=== PATIENT | female | born 1955 | race Caucasian/White ===

== ENCOUNTER → 2019-09-13 | Outpatient (CLI) | payer MEDICAID, OTHER | LOC: LAB FS 12:36 | PROVIDERS: ATTEND Pediatrics | DX: R06.02 Shortness of breath (principal) | CPT/HCPCS: 87635 ==

== ENCOUNTER 2020-01-04 13:41 | Inpatient (IN) | payer MEDICAID ==
--- NOTE | 2020-01-04 13:47 | ED Dyspnea ---
General Stated Complaint: SOB Source of Information: Patient, EMS History of Present Illness Date Seen by Provider: Jan 04, 2020 Time Seen by Provider: 13:45 Initial Comments 64-year-old female sent in a senior living for shortness of breath/low oxygen. Patient reports she is here because she's tingly and has low oxygen. EMS reports that the senior living called because her oxygen was low, when they checked it around 2 AM. They put her on some oxygen at up into the low 90s. EMS. On 6 L is got approximate 95. Patient is morbidly obese. No reports of fevers chills. Mild cough. No other systemic complaints. Allergies and Home Medications Allergies Coded Allergies: No Known Drug Allergies (Unverified , 01/04/20) Patient Home Medication List Home Medication List Reviewed: Yes Review of Systems Review of Systems Constitutional: No chills, No fever Respiratory: cough, short of breath Cardiovascular: no symptoms reported Gastrointestinal: no symptoms reported Genitourinary: no symptoms reported Musculoskeletal: no symptoms reported Skin: no symptoms reported Psychiatric/Neurological: No Symptoms Reported Past Tetuwim-Cdwwbe-Heemxj Hx Past Med/Social Hx: Reviewed Nursing Past Med/Soc Hx Physical Exam Vital Signs Capillary Refill : Height, Weight, BMI Height: '" Weight: lbs. oz. kg; BMI Method: General Appearance: Obese (severe morbid) HEENT: PERRL/EOMI Respiratory: Decreased Breath Sounds; No Wheezing; Other (limited based on body evidence) Cardiovascular: Regular Rate, Rhythm, No Edema Gastrointestinal: Non Tender, Soft Neurologic/Psychiatric: Normal Mood/Affect Skin: Normal Color, Warm/Dry Focused Exam Lactate Level 01/04/20 14:13: Lactic Acid Level 1.25 Lactic Acid Level Laboratory Tests Test 01/04/20 14:13 Lactic Acid Level 1.25 MMOL/L (0.50-2.00) Progress/Results/Core Measures Results/Orders Lab Results Laboratory Tests Test 01/04/20 14:13 Range/Units White Blood Count 6.5 4.3-11.0 10^3/uL Red Blood Count 4.19 L 4.35-5.85 10^6/uL Hemoglobin 11.5 11.5-16.0 G/DL Hematocrit 38 35-52 % Mean Corpuscular Volume 91 80-99 FL Mean Corpuscular Hemoglobin 27 25-34 PG Mean Corpuscular Hemoglobin Concent 30 L 32-36 G/DL Red Cell Distribution Width 16.7 H 10.0-14.5 % Platelet Count 249 130-400 10^3/uL Mean Platelet Volume 9.4 7.4-10.4 FL Neutrophils (%) (Auto) 77 H 42-75 % Lymphocytes (%) (Auto) 13 12-44 % Monocytes (%) (Auto) 7 0-12 % Eosinophils (%) (Auto) 3 0-10 % Basophils (%) (Auto) 0 0-10 % Neutrophils # (Auto) 5.0 1.8-7.8 X 10^3 Lymphocytes # (Auto) 0.8 L 1.0-4.0 X 10^3 Monocytes # (Auto) 0.4 0.0-1.0 X 10^3 Eosinophils # (Auto) 0.2 0.0-0.3 10^3/uL Basophils # (Auto) 0.0 0.0-0.1 10^3/uL Blood Gas Puncture Site R radial Blood Gas Patient Temperature 36.9 Arterial Blood pH 7.29 *L 7.37-7.43 Arterial Blood Partial Pressure CO2 83 *H 35-45 MMHG Arterial Blood Partial Pressure O2 69 L 79-93 MMHG Arterial Blood HCO3 40 H 23-27 MMOL/L Arterial Blood Total CO2 42.0 H 21.0-31.0 MMOL/L Arterial Blood Oxygen Saturation 91 L 94-100 % Arterial Blood Base Excess 10.2 H -2.5-2.5 MMOL/L Joss Test YES-POS Blood Gas Ventilator Setting NO Blood Gas Inspired Oxygen 6 L Sodium Level 138 135-145 MMOL/L Potassium Level 5.0 3.6-5.0 MMOL/L Chloride Level 98 98-107 MMOL/L Carbon Dioxide Level 33 H 21-32 MMOL/L Anion Gap 7 5-14 MMOL/L Blood Urea Nitrogen 13 7-18 MG/DL Creatinine 0.80 0.60-1.30 MG/DL Estimat Glomerular Filtration Rate > 60 BUN/Creatinine Ratio 16 Glucose Level 138 H 70-105 MG/DL Lactic Acid Level 1.25 0.50-2.00 MMOL/L Calcium Level 8.7 8.5-10.1 MG/DL Corrected Calcium 9.1 8.5-10.1 MG/DL Total Bilirubin 0.3 0.1-1.0 MG/DL Aspartate Amino Transf (AST/SGOT) 12 5-34 U/L Alanine Aminotransferase (ALT/SGPT) 12 0-55 U/L Alkaline Phosphatase 91 40-136 U/L C-Reactive Protein 3.07 H <0.50 MG/DL Pro-B-Type Natriuretic Peptide 153.5 H <75.0 PG/ML Total Protein 7.1 6.4-8.2 GM/DL Albumin 3.5 3.2-4.5 GM/DL My Orders Orders - BRAXTON GONZALEZ DO Arterial Blood Gas (01/04/20 13:47) Cbc With Automated Diff (01/04/20 13:47) Comprehensive Metabolic Panel (01/04/20 13:47) Lactic Acid Analyzer (01/04/20 13:47) Probnp Fs (01/04/20 13:47) Crp Fs (01/04/20 13:47) Chest 1 View Ap/Pa Only (01/04/20 13:47) Coronavirus Sars-Cov-2 So 2018 (01/04/20 13:52) Albuterol/Ipra Inhalation Soln (Duoneb I (01/04/20 14:00) Methylprednisolone Sod Succ (Solu-Medrol (01/04/20 13:56) Svn Small Volume Nebulizer (01/04/20 13:56) Medications Given in ED Current Medications Medications Dose Ordered Sig/Piero Route Start Time Stop Time Status Last Admin Dose Admin Albuterol/ Ipratropium 3 ml ONCE ONCE INH 01/04/20 14:00 01/04/20 14:01 DC 01/04/20 14:37 3 ML Progress Progress Note : Time: 15:19 Progress Note Patient with COPD and likely hypercapnic respiratory failure from a combination of COPD and body habitus. I will start patient on BiPAP we will transfer to [facility] for further treatment and management. Patient transferred in stable condition. Diagnostic Imaging Diagonstic Imaging: Xray Plain Films/CT/US/NM/MRI: chest Comments [facility], [place] NAME: JUNIOR BOWLING [facility] REC#: [id number] PT STATUS: REG ER : 1955 PHYSICIAN: BRAXTON GONZALEZ DO ADMIT DATE: 09/05/20/ER FS Draft Date of Exam:01/04/20 CHEST 1 VIEW AP/PA ONLY EXAMINATION: Chest 1 view. HISTORY: Shortness of breath. Cough. COMPARISON: None available. FINDINGS: Limited exam due to patient body habitus and technique. Lung volumes are low. The majority of the left lower lobe is obscured as is the corresponding cardiac silhouette. The upper lungs demonstrate no focal consolidation. No large pneumothorax. IMPRESSION: Limited exam due to patient body habitus and technique. No opacity is seen in the upper lobes. Departure Communication (Admissions) Time/Spoke to Admitting Phy: 15:20 Impression Primary Impression: COPD with acute exacerbation Additional Impression: Hypercapnemia Disposition: ADMITTED INPATIENT Condition: Stable Admissions Decision to Admit Reason: Admit from ER (General) Decision to Admit/Date: Jan 04, 2020 Time/Decision to Admit Time: 15:20 Departure-Patient Inst. Referrals: BREONNA HERNANDEZ MD (PCP/Family) Primary Care Physician BRAXTON GONZALEZ DO Jan 04, 2020 13:47
[2020-01-04] MEDS ORDERED: methylPREDNISolone 125 MG (Solu-MEDROL) VIAL IV STA (13:56)
[2020-01-04] MEDS ORDERED: RT-ALBUTEROL/IPRATROPIUM 3 ML (DUONEB) VIAL INH ONE (14:00)
[2020-01-04 14:43] LABS: BASOPHILS % (AUTO) 0 % (0-10); EOSINOPHILS # (AUTO) 0.2 10^3/uL (0.0-0.3); EOSINOPHILS % (AUTO) 3 % (0-10); HEMATOCRIT 38 % (35-52); HEMOGLOBIN 11.5 G/DL (11.5-16.0); LYMPHOCYTES # (AUTO) 0.8 X 10^3 (1.0-4.0); LYMPHOCYTES % (AUTO) 13 % (12-44); MEAN CORPUSCULAR HEMOGLOBIN 27 PG (25-34); MEAN CORPUSCULAR HGB CONC 30 G/DL (32-36); MEAN CORPUSCULAR VOLUME 91 FL (80-99); MEAN PLATELET VOLUME 9.4 FL (7.4-10.4); MONOCYTES # (AUTO) 0.4 X 10^3 (0.0-1.0); MONOCYTES % (AUTO) 7 % (0-12); NEUTROPHILS % (AUTO) 77 % (42-75); PLATELET COUNT 249 10^3/uL (130-400); WHITE BLOOD COUNT 6.5 10^3/uL (4.3-11.0)
[2020-01-04 14:45] LABS: ABG PO2 69 MMHG (79-93)
[2020-01-04 14:46] LABS: ABG BASE EXCESS 10.2 MMOL/L (-2.5-2.5); ABG OXYGEN SATURATION 91 % (94-100); ALLENS TEST YES-POS; INSPIRED O2 6 L; PATIENT TEMP 36.9; VENTILATOR NO
--- NOTE | 2020-01-04 14:47 | Diagnostic Imaging Report ---
EXAMINATION: Chest 1 view. HISTORY: Shortness of breath. Cough. COMPARISON: None available. FINDINGS: Limited exam due to patient body habitus and technique. Lung volumes are low. The majority of the left lower lobe is obscured as is the corresponding cardiac silhouette. The upper lungs demonstrate no focal consolidation. No large pneumothorax. IMPRESSION: Limited exam due to patient body habitus and technique. No opacity is seen in the upper lobes. Dictated by: Dictated on workstation # [id number]
[2020-01-04 14:48] LABS: ABG PCO2 83 MMHG (35-45); ABG PH 7.29 (7.37-7.43)
[2020-01-04 14:59] LABS: ALANINE AMINOTRANSFERASE 12 U/L (0-55); ALBUMIN 3.5 GM/DL (3.2-4.5); ALKALINE PHOSPHATASE 91 U/L (40-136); BILIRUBIN,TOTAL 0.3 MG/DL (0.1-1.0); BUN/CREATININE RATIO 16; CALCIUM 8.7 MG/DL (8.5-10.1); CARBON DIOXIDE 33 MMOL/L (21-32); CHLORIDE 98 MMOL/L (98-107); GFR ESTIMATED > 60; GLUCOSE 138 MG/DL (70-105); SODIUM 138 MMOL/L (135-145); TOTAL PROTEIN 7.1 GM/DL (6.4-8.2)
--- NOTE | 2020-01-04 15:20 | NUR ---
Bipap started at 15/7, rate 14, fio2 50%.
[2020-01-04 17:00] VITALS: BP 185/105
--- NOTE | 2020-01-04 17:00 | NUR ---
JUNIOR BOWLING admitted to room CU4-1, with an admitting diagnosis of CHF, HYPOXIA, on 01/04/20 from [facility], accompanied by EMS STAFF.JUNIOR BOWLING introduced to surroundings, call light, bed controls, phone, TV, temperature control, lights, meal times, smoking policy, visitor policy, side rail policy, bathrooms and showers. Patient Rights given to patient in the handbook. JUNIOR BOWLING verbalizes understanding that [facility] is not responsible for the loss or damage to any personal effects or valuables that are kept in the patients posession during their hospitalization.
[2020-01-04 18:00] VITALS: BP 174/92
--- NOTE | 2020-01-04 18:00 | NUR ---
DR JARQUIN NOTIFIED THAT PT IS C/O PAIN. SHE ORDERED TO RESTART PAINS MEDS; MORPHINE 30 MG ER BID, GABAPENTIN 600 MG TID, TRAMADOL 100 MG Q6[address] PRN PAIN. [address] JARQUIN ALSO NOTIFIED OF PT'S DVT SCORE AT 9. EICU CALLED AND REPORTED TO THIS RN THAT SHE WAS WORRIED ABOUT PTS ABG'S AND ORDERED ANOTHER SET TO BE DRAWN AT 1900 ALONG WITH A D DIMER. DR JARQUIN NOTIFIED OF THIS WELL AND ON BOARD WITH ORDER.
[2020-01-04] MEDS ORDERED: GBPN600T PO (18:16)
[2020-01-04] MEDS ORDERED: MORP30TA60 PO (18:19)
[2020-01-04] MEDS ORDERED: TRAM100T40 PO (18:20)
[2020-01-04 19:00] VITALS: BP 164/81
[2020-01-04 19:53] LABS: ABG BASE EXCESS 8.9 MMOL/L (-2.5-2.5); ABG OXYGEN SATURATION 100 % (94-100); ABG PCO2 57 MMHG (35-45); ABG PH 7.39 (7.37-7.43); ABG PO2 159 MMHG (79-93)
[2020-01-04 19:54] LABS: ALLENS TEST YES-POS; INSPIRED O2 6L; PATIENT TEMP 36.2; VENTILATOR NO
[2020-01-04 20:00] VITALS: BP 121/108
[2020-01-04 20:02] VITALS: BP 174/91
[2020-01-04] MEDS ORDERED: RT-ALBUTEROL/IPRATROPIUM 3 ML (DUONEB) VIAL INH PRN (20:30)
[2020-01-04 21:00] VITALS: BP 183/90
[2020-01-04] MEDS: GABAPENTIN 600 MG (NEURONTIN) TAB PO SCH (21:24)
[2020-01-04] MEDS: morphine ER 30 MG (MS CONTIN) TAB PO SCH (21:24)
[2020-01-04] MEDS ORDERED: RT-ALBUTEROL/IPRATROPIUM 3 ML (DUONEB) VIAL INH SCH (22:00)
[2020-01-04] MEDS: FLUTICASONE 110 MCG INHALER (FLOVENT) 12 GM INH SCH (23:38)
[2020-01-05] VITALS: BP 156/78
[2020-01-05] MEDS ORDERED: MENT118G TP (01:36)
[2020-01-05] MEDS ORDERED: LEVO75TA6 PO (01:36)
[2020-01-05] MEDS ORDERED: ROPI0.253 PO (01:36)
[2020-01-05] MEDS ORDERED: NYST1POW22 MC (01:36)
[2020-01-05] MEDS ORDERED: IPRA3AMP31 IH (01:36)
[2020-01-05] MEDS ORDERED: METF-397 PO (01:36)
[2020-01-05] MEDS ORDERED: TOPI50TA13 PO (01:36)
[2020-01-05] MEDS ORDERED: ALPR0.5T PO (01:36)
[2020-01-05] MEDS ORDERED: POLY17PO6 PO (01:36)
[2020-01-05] MEDS ORDERED: MAGN400O7 PO (01:36)
[2020-01-05] MEDS ORDERED: DOCU-143 PO (01:36)
[2020-01-05] MEDS ORDERED: MENT71OI TP (01:36)
[2020-01-05] MEDS ORDERED: VENL100T2 PO (01:36)
[2020-01-05] MEDS ORDERED: OMEP20CA18 PO (01:36)
[2020-01-05] MEDS ORDERED: TRAZ-227 PO (01:36)
[2020-01-05] MEDS ORDERED: DILT120C10 PO (01:36)
[2020-01-05] MEDS ORDERED: INSU100V5 SQ (01:36)
[2020-01-05] MEDS ORDERED: THIA250T8 PO (01:36)
[2020-01-05] MEDS ORDERED: BISA5TAB8 PO (01:36)
[2020-01-05] MEDS ORDERED: SPIR25TA5 PO (01:36)
[2020-01-05] MEDS ORDERED: MORP15TA69 PO (01:36)
[2020-01-05] MEDS ORDERED: INSU100V SQ (01:36)
[2020-01-05] MEDS ORDERED: NAPR220C11 PO (01:36)
[2020-01-05] MEDS ORDERED: FLT11013 IH (01:37)
[2020-01-05] MEDS ORDERED: APIX5TAB PO (01:37)
[2020-01-05] MEDS ORDERED: INSU100I23 SQ (01:37)
[2020-01-05] MEDS ORDERED: FOLIC ACID PO (01:37)
[2020-01-05 04:00] VITALS: BP 116/76
[2020-01-05] MEDS: inSUlin ASPART (NovoLOG) 1 UNIT/0.01 ML (CHARGE PER UNIT) SC SCH ×4 (06:00→22:33)
--- NOTE | 2020-01-05 07:10 | NUR ---
INFORMED DR. JARQUIN THAT PATIENT DID NOT HAVE ANY LABS ORDERED THIS AM AND THAT SHE TAKES ELIQUIS AT HOME AND DID NOT HAVE DVT PROPHYLAXIS. RECEIVED ORDERS FOR CBC, BMP AND TO RESTART ELIQUIS.
[2020-01-05] MEDS ORDERED: predniSONE 20 MG TAB PO ONE (08:15)
[2020-01-05 08:25] LABS: BASOPHILS % (AUTO) 0 % (0-10); EOSINOPHILS % (AUTO) 0 % (0-10); HEMATOCRIT 39 % (35-52); HEMOGLOBIN 11.4 G/DL (11.5-16.0); LYMPHOCYTES # (AUTO) 0.6 X 10^3 (1.0-4.0); LYMPHOCYTES % (AUTO) 12 % (12-44); MEAN CORPUSCULAR HEMOGLOBIN 27 PG (25-34); MEAN CORPUSCULAR HGB CONC 29 G/DL (32-36); MEAN CORPUSCULAR VOLUME 92 FL (80-99); MEAN PLATELET VOLUME 9.3 FL (7.4-10.4); MONOCYTES # (AUTO) 0.2 X 10^3 (0.0-1.0); MONOCYTES % (AUTO) 3 % (0-12); NEUTROPHILS # (AUTO) 4.5 X 10^3 (1.8-7.8); NEUTROPHILS % (AUTO) 85 % (42-75); PLATELET COUNT 237 10^3/uL (130-400); WHITE BLOOD COUNT 5.3 10^3/uL (4.3-11.0)
[2020-01-05 08:50] LABS: HYPERSEGMENTED NEUT SLIGHT; LYMPHOCYTES % (MANUAL) 10 %; MONOCYTES % (MANUAL) 2 %; NEUTROPHILS % (MANUAL) 88 %
[2020-01-05 08:51] LABS: HYPOCHROMASIA SLIGHT
--- NOTE | 2020-01-05 08:58 | History & Physical-Hospitalist ---
History of Present Illness HPI/Chief Complaint Pt is a 64yoCF with a PMH of COPD, IDDMII, neuropathy, morbid obesity who presented to the ER due to low oxygen saturations. She states she was short of breath and that she has a history of COPD but doesn't think she currently has it. She was hypoxic for EMS and started on 6lpm which improved her oxygen saturations. ABG revealed a respiratory acidosis and she was placed on BiPAP. She was admitted here for acute COPD exacerbation. This morning she states that she is feeling much better. She has no specific complaints and denies SOB at this time. She was taken off BiPAP last night and has done well. Source: patient Date Seen 01/05/20 Time Seen by a Provider: 08:53 Attending Physician Esteban Arzola MD PCP Lew Pascual MD Referring Physician Date of Admission Jan 04, 2020 at 16:56 Home Medications & Allergies Home Medications Reviewed patient Home Medication Reconciliation performed by pharmacy medication reconciliations meter/relay technician and/or nursing. Patients Allergies have been reviewed. Allergies Allergies Coded Allergies No Known Drug Allergies (Unverified01/04/20) Past Ugcapza-Ddchhs-Zlzdrc Hx Past Med/Social Hx: Reviewed Nursing Past Med/Soc Hx Patient Social History Employed/Student: retired Alcohol Use: Denies Use Recreational Drug Use: No Smoking Status: Unknown if Ever Smoked Recent Foreign Travel: No Contact w/other who traveled: No Recent Hopitalizations: No Recent Infectious Disease Expo: No Immunizations Up To Date Date of Pneumonia Vaccine: Jan 03, 2018 Seasonal Allergies Seasonal Allergies: No Past Medical History Cardiac: Atrial Fibrillation, Hypertension : No Gastrointestinal: Chronic Constipation Musculoskeletal: Degenerate Disk Disease Endocrine: Diabetes, Insulin dep Psychosocial: Anxiety, Schizophrenia, Depression Family History Reviewed Nursing Family Hx No Pertinent Family Hx Review of Systems Constitutional: No chills, No fever EENTM: no symptoms reported Respiratory: No cough; orthopnea, short of breath; No wheezing Cardiovascular: No chest pain; edema (chronic); No palpitations Gastrointestinal: No abdominal pain; constipation; No diarrhea, No loss of appetite, No nausea, No vomiting Genitourinary: no symptoms reported Musculoskeletal: back pain (chronic) Skin: no symptoms reported Psychiatric/Neurological: Tingling (chronic from neuropathy) Physical Exam Physical Exam Vital Signs Vital Signs - First Documented 01/04/20 13:50 Temp 36.9 Pulse 65 Resp 16 B/P (MAP) 135/56 (82) Pulse Ox 92 O2 Delivery Nasal Cannula O2 Flow Rate 6.00 Capillary Refill : Less Than 3 Seconds Height, Weight, BMI Height: '" Weight: lbs. oz. kg; BMI Method: General Appearance: No Apparent Distress, Chronically ill, Obese, Other (bright pink hair) HEENT: PERRL/EOMI, Moist Mucous Membranes; No Scleral Icterus (L), No Scleral Icterus (R) Neck: Normal Inspection; No JVD Respiratory: No No Accessory Muscle Use, No Wheezing; Other (lungs clear to auscultatoin but exam limited by body habitus) Cardiovascular: Regular Rate, Rhythm, No JVD, No Murmur Gastrointestinal: Normal Bowel Sounds, Non Tender, Soft Extremity: Normal Capillary Refill, No Calf Tenderness, Swelling (lymphedema of bilateral legs L>R- patient reports is chronic) Neurologic/Psychiatric: Alert, Oriented x3, Normal Mood/Affect Skin: Normal Color, Warm/Dry Results Results/Procedures Labs Laboratory Tests 01/04/20 14:13 01/05/20 08:10 Patient resulted labs reviewed. Imaging: Reviewed Imaging Report Imaging [facility], [place] NAME: JUNIOR BOWLING [facility] REC#: [id number] PT STATUS: REG ER : 1955 PHYSICIAN: BRAXTON GONZALEZ DO ADMIT DATE: 01/04/20/ER FS Signed Date of Exam:01/04/20 CHEST 1 VIEW AP/PA ONLY EXAMINATION: Chest 1 view. HISTORY: Shortness of breath. Cough. COMPARISON: None available. FINDINGS: Limited exam due to patient body habitus and technique. Lung volumes are low. The majority of the left lower lobe is obscured as is the corresponding cardiac silhouette. The upper lungs demonstrate no focal consolidation. No large pneumothorax. IMPRESSION: Limited exam due to patient body habitus and technique. No opacity is seen in the upper lobes. Dictated by: Dictated on workstation # [id number] Dict: 01/04/20 1444 Trans: 01/04/20 1456 [facility] [id number] Interpreted by: ROXIE CRANE DO Electronically signed by: ROXIE CRANE DO 01/04/20 1389 Assessment/Plan Admission Diagnosis Acute Respiratory Failure Admission Status: Inpatient Order (span 2 midnights) Reason for Inpatient Admission: see below Assessment and Plan Acute Respiratory Failure- hypoxic and hypercapnic COPD with Acute Exacerbation Obesity Hypoventilation Syndrome TeleICU consulted, appreciate recommendations Continue steroids orally Continue inhalers, MAT protocol Now off BiPAP- much improved I personally titrated her down to 1lpm NC and sats maintains at 96% COVID swab pending IDDMII Peripheral neuropathy SSI Continue home Levemir Anticipate higher BS with steroids Continue home pain regimen Hypothyroidism Continue home Synthroid Atrial Fibrillation- paroxysmal HTN Continue home Diltiazem and Eliquis Rate controlled Chronic pain Spinal Stenosis Restless Leg Syndrome Continue home pain regimen Continue bowel regimen DVT ppx: Already on Eliquis Diagnosis/Problems Diagnosis/Problems (1) Acute respiratory failure Status: Acute Qualifiers: Respiratory failure complication: hypoxia and hypercapnia Qualified Codes: J96.01 - Acute respiratory failure with hypoxia; J96.02 - Acute respiratory failure with hypercapnia (2) COPD with acute exacerbation Status: Acute (3) Essential (primary) hypertension Status: Chronic (4) Hypothyroidism Status: Chronic Qualifiers: Hypothyroidism type: unspecified Qualified Codes: E03.9 - Hypothyroidism, unspecified (5) Insulin dependent diabetes mellitus Status: Chronic (6) Obesity Status: Chronic Qualifiers: Obesity type: with alveolar hypoventilation Obesity classification: adult class 3 (BMI >= 40) (7) Person under investigation for severe acute respiratory syndrome coronavirus 2 (SARS-CoV-2) infection Status: Acute (8) Prophylactic measure Status: Acute (9) Tobacco abuse Status: Chronic (10) Atrial fibrillation Status: Chronic Qualifiers: Atrial fibrillation type: paroxysmal Qualified Codes: I48.0 - Paroxysmal atrial fibrillation (11) Chronic anticoagulation Status: Chronic (12) Chronic pain (13) Restless legs Status: Chronic Clinical Quality Measures DVT/VTE Risk/Contraindication: Risk Factor Score Per Nursin RFS Level Per Nursing on Admit: 4+=Very High ESTEBAN ARZOLA MD Jan 05, 2020 08:58
[2020-01-05] MEDS ORDERED: ALPRAZolam 0.5 MG (XANAX) TAB PO SCH (09:00)
[2020-01-05] MEDS ORDERED: polyethylene glycoL POWDER 17 GM (MIRALAX) PACK PO PRN (09:00)
[2020-01-05] MEDS ORDERED: NON-FORMULARY MEDICATION 1 EA EA (Nystatin 1 EACH) MC SCH (09:00)
[2020-01-05] MEDS ORDERED: NAPROXEN 250 MG (NAPROSYN) TABLET PO PRN (09:15)
[2020-01-05] MEDS: SPIRONOLACTONE 25 MG (ALDACTONE) TAB PO SCH ×2 (09:34→22:30)
[2020-01-05] MEDS: morphine ER 30 MG (MS CONTIN) TAB PO SCH ×2 (09:34→22:31)
[2020-01-05] MEDS: APIXABAN 5 MG (ELIQUIS) TABLET PO SCH ×2 (09:34→22:31)
[2020-01-05] MEDS: GABAPENTIN 600 MG (NEURONTIN) TAB PO SCH ×3 (09:34→22:30)
[2020-01-05] MEDS: LEVOTHYROXINE 75 MCG (LEVOTHROID) TABLET PO SCH (09:35)
[2020-01-05] MEDS: ALPRAZolam 0.5 MG (XANAX) TAB PO PRN ×2 (09:36→18:20)
[2020-01-05] MEDS: PANTOPRAZOLE 20 MG TABLET (PROTONIX) PO SCH (09:36)
[2020-01-05] MEDS: BISACODYL 5 MG (DULCOLAX) TABLET PO SCH (09:37)
[2020-01-05] MEDS: DOCUSATE SODIUM 100 MG (COLACE) CAP PO SCH ×2 (09:37→22:31)
[2020-01-05 09:52] LABS: POTASSIUM 5.3 MMOL/L (3.6-5.0)
[2020-01-05 09:54] LABS: CALCIUM 8.6 MG/DL (8.5-10.1)
[2020-01-05] MEDS: ALBUTEROL/IPRATROP (COMBIVENT RESPIMAT) 4 GM INHALER IH SCH ×4 (10:06→20:06)
[2020-01-05] MEDS: FLUTICASONE 110 MCG INHALER (FLOVENT) 12 GM INH SCH ×3 (10:07→20:12)
[2020-01-05] MEDS: VENlafaxine 75 MG (EFFEXOR) TAB PO SCH (14:26)
--- NOTE | 2020-01-05 17:40 | NUR ---
REPORT GIVEN TO EVERARDO HERNANDEZ. PT TRANSPORTED TO ROOM 402 VIA BED. PRECAUTIONS MAINTAINED.
--- NOTE | 2020-01-05 18:07 | NUR ---
Patient arrived to room from ICU. I agree with previous RN's assessment and will assume care at this time. Call light within reach and all needs met.
[2020-01-05 20:20] VITALS: BP 130/61
[2020-01-05] MEDS: traZODone 100 MG (DESYREL) TAB PO SCH (22:31)
[2020-01-05] MEDS: rOPINIRole 0.25 MG (REQUIP) TAB PO SCH (22:31)
[2020-01-05] MEDS: toPIRamate 25 MG (TOPAMAX) TAB PO SCH (22:32)
[2020-01-05 23:13] VITALS: BP 140/67
[2020-01-06 03:24] VITALS: BP 139/70
[2020-01-06] MEDS: LEVOTHYROXINE 75 MCG (LEVOTHROID) TABLET PO SCH (06:54)
[2020-01-06] MEDS: predniSONE 20 MG TAB PO SCH (06:54)
[2020-01-06] MEDS: inSUlin ASPART (NovoLOG) 1 UNIT/0.01 ML (CHARGE PER UNIT) SC SCH ×4 (06:57→21:42)
[2020-01-06 08:00] VITALS: BP 177/83
[2020-01-06] MEDS: ALBUTEROL/IPRATROP (COMBIVENT RESPIMAT) 4 GM INHALER IH SCH ×4 (08:38→18:34)
[2020-01-06] MEDS: PANTOPRAZOLE 20 MG TABLET (PROTONIX) PO SCH (08:56)
[2020-01-06] MEDS: APIXABAN 5 MG (ELIQUIS) TABLET PO SCH ×2 (08:56→21:35)
[2020-01-06] MEDS: VENlafaxine 75 MG (EFFEXOR) TAB PO SCH (08:56)
[2020-01-06] MEDS: ALPRAZolam 0.5 MG (XANAX) TAB PO PRN ×2 (08:57→17:22)
[2020-01-06] MEDS: GABAPENTIN 600 MG (NEURONTIN) TAB PO SCH ×3 (08:57→21:35)
[2020-01-06] MEDS: BISACODYL 5 MG (DULCOLAX) TABLET PO SCH (08:57)
[2020-01-06] MEDS: DOCUSATE SODIUM 100 MG (COLACE) CAP PO SCH ×2 (08:57→21:34)
[2020-01-06] MEDS: SPIRONOLACTONE 25 MG (ALDACTONE) TAB PO SCH ×2 (08:58→21:35)
[2020-01-06] MEDS: FLUTICASONE 220 MCG INHALER (FLOVENT) 12 GM INH SCH ×2 (11:19→18:34)
[2020-01-06 12:00] VITALS: BP 139/79
[2020-01-06] MEDS: morphine ER 30 MG (MS CONTIN) TAB PO SCH ×2 (12:57→21:38)
--- NOTE | 2020-01-06 13:07 | Progress Note - Hospitalist ---
Subjective HPI/CC On Admission Date Seen by Provider: Jan 06, 2020 Time Seen by Provider: 13:06 Pt is a 64yoCF with a PMH of COPD, IDDMII, neuropathy, morbid obesity who presented to the ER due to low oxygen saturations. She states she was short of breath and that she has a history of COPD but doesn't think she currently has it. She was hypoxic for EMS and started on 6lpm which improved her oxygen saturations. ABG revealed a respiratory acidosis and she was placed on BiPAP. She was admitted here for acute COPD exacerbation. This morning she states that she is feeling much better. She has no specific complaints and denies SOB at this time. She was taken off BiPAP last night and has done well. Subjective/Events-last exam Pt reports feeling ok today. laying in bed. No concerns. Focused Exam Lactate Level 01/04/20 14:13: Lactic Acid Level 1.25 Objective Exam Vital Signs Vital Signs Date Time Temp Pulse Resp B/P (MAP) Pulse Ox O2 Delivery O2 Flow Rate FiO2 01/06/20 12:00 35.9 63 18 139/79 (99) 93 High Flow N/C 1.00 Capillary Refill : Less Than 3 Seconds General Appearance: No Apparent Distress, Chronically ill, Obese Respiratory: No Accessory Muscle Use, Decreased Breath Sounds; No Wheezing Cardiovascular: Regular Rate, Rhythm, No Murmur Neurologic/Psychiatric: Alert, Oriented x3 Results/Procedures Lab Patient resulted labs reviewed. Imaging: Reviewed Imaging Report Assessment/Plan Assessment and Plan Assess & Plan/Chief Complaint Acute Respiratory Failure- hypoxic and hypercapnic COPD with Acute Exacerbation Obesity Hypoventilation Syndrome TeleICU consulted, appreciate recommendations Continue steroids orally Continue inhalers, MAT protocol COVID swab pending Still on 1 lpm NC, titrate off as able IDDMII Peripheral neuropathy SSI Continue home Levemir Anticipate higher BS with steroids Continue home pain regimen Hypothyroidism Continue home Synthroid Atrial Fibrillation- paroxysmal HTN Continue home Diltiazem and Eliquis Rate controlled Chronic pain Spinal Stenosis Restless Leg Syndrome Continue home pain regimen Continue bowel regimen DVT ppx: Already on Eliquis Diagnosis/Problems Diagnosis/Problems (1) Acute respiratory failure Status: Acute Qualifiers: Respiratory failure complication: hypoxia and hypercapnia Qualified Codes: J96.01 - Acute respiratory failure with hypoxia; J96.02 - Acute respiratory failure with hypercapnia (2) COPD with acute exacerbation Status: Acute (3) Essential (primary) hypertension Status: Chronic (4) Hypothyroidism Status: Chronic Qualifiers: Hypothyroidism type: unspecified Qualified Codes: E03.9 - Hypothyroidism, unspecified (5) Insulin dependent diabetes mellitus Status: Chronic (6) Obesity Status: Chronic Qualifiers: Obesity type: with alveolar hypoventilation Obesity classification: adult class 3 (BMI >= 40) (7) Person under investigation for severe acute respiratory syndrome coronavirus 2 (SARS-CoV-2) infection Status: Acute (8) Prophylactic measure Status: Acute (9) Tobacco abuse Status: Chronic (10) Atrial fibrillation Status: Chronic Qualifiers: Atrial fibrillation type: paroxysmal Qualified Codes: I48.0 - Paroxysmal atrial fibrillation (11) Chronic anticoagulation Status: Chronic (12) Chronic pain (13) Restless legs Status: Chronic Clinical Quality Measures DVT/VTE Risk/Contraindication: Risk Factor Score Per Nursin RFS Level Per Nursing on Admit: 4+=Very High ESTEBAN JARQUIN MD Jan 06, 2020 13:07
--- NOTE | 2020-01-06 14:50 | NUR ---
THIS RN COULD NOT FIND PAPER CHART ON PT THIS MORNING AT THE BEGINNING OF SHIFT. RN CALLED [facility] ON ICU AND IT WAS STILL UP ON 5TH FLOOR. CHART HAD NO NEW TELEMETRY STRIPS IN CHART AND ICU PERITONEAL DIALYSIS REGISTERED NURSE WAS NOT CHARTING ON IN INTERVENTION. DR JARQUIN NOTIFIED AND ORDERED TO D/C TELEMETRY ORDER.
[2020-01-06 15:30] VITALS: BP 174/79
--- NOTE | 2020-01-06 17:37 | NUR ---
DELON FROM [facility] CALLED THIS RN TO REPORT THAT PT'S PCR COVID SCREENING WAS NOT DETECTED. DR JARQUIN NOTIFIED AND GAVE ORDER TO D/C HER CONTACT/DROPLET PRECAUTIONS.
--- NOTE | 2020-01-06 17:38 | NUR ---
PT HAS REQUESTS AT LUNCH AND SUPPER THAT SHE DOES NOT LIKE THE MEALS BEING SERVED TO HER. SHE SAID THERE IS TOO MUCH 'GREEN' FOOD SERVED TO HER. DIETARY REQUESTED THAT HER DIET BE CHANGED DUE TO PT HAVING RN ORDER HER MEALS OVER THE PHONE DIRECTLY TO DIETARY AND ORDERING MEALS THAT ARE NOT A PART OF A [address] JARQUIN NOTIFIED OF THIS AND WOULD PREFER TO STAY ON 60 CHO BUT SINCE PT IS REFUSING TO CHANGE TO REGULAR.
[2020-01-06] MEDS ORDERED: PRD20T PO (19:42)
[2020-01-06 19:44] VITALS: BP 180/80
--- NOTE | 2020-01-06 21:03 | NUR ---
SHARATH NOTIFIED OF PT CRITICAL BLOOD SUGAR OF 429 AND THAT PT IS REQUESTING A SANDWICH TRAY AND SNACK. NEW ORDERS OBTAINED FOR 10UNITS NOVOLOG SCHEDULED BEFORE MEALS, 15UNITS NOVOLOG X1 NOW ALONG WITH HER SCHEDULED LEVEMIR. SHARATH ALSO STATES THAT PT CANNOT HAVE A SNACK AT THIS TIME.
[2020-01-06] MEDS ORDERED: inSUlin NPH (NovoLIN N) 1 UNIT/0.01 ML (CHARGE PER UNIT) SQ ONE (21:15)
[2020-01-06] MEDS: rOPINIRole 0.25 MG (REQUIP) TAB PO SCH (21:33)
[2020-01-06] MEDS: traZODone 100 MG (DESYREL) TAB PO SCH (21:33)
[2020-01-06] MEDS: toPIRamate 25 MG (TOPAMAX) TAB PO SCH (21:35)
[2020-01-06] MEDS ORDERED: inSUlin ASPART (NovoLOG) 1 UNIT/0.01 ML (CHARGE PER UNIT) SC STA (21:39)
[2020-01-07 00:45] VITALS: BP 146/67
[2020-01-07 04:22] VITALS: BP 136/65
[2020-01-07] MEDS: inSUlin ASPART (NovoLOG) 1 UNIT/0.01 ML (CHARGE PER UNIT) SC SCH ×2 (06:29→12:58)
[2020-01-07] MEDS: LEVOTHYROXINE 75 MCG (LEVOTHROID) TABLET PO SCH (06:54)
[2020-01-07] MEDS: predniSONE 20 MG TAB PO SCH (06:56)
[2020-01-07] MEDS ORDERED: inSUlin NPH (NovoLIN N) 1 UNIT/0.01 ML (CHARGE PER UNIT) SQ SCH (07:00)
[2020-01-07] MEDS: ALBUTEROL/IPRATROP (COMBIVENT RESPIMAT) 4 GM INHALER IH SCH ×2 (07:35→10:41)
[2020-01-07] MEDS: FLUTICASONE 220 MCG INHALER (FLOVENT) 12 GM INH SCH (07:35)
[2020-01-07 08:00] VITALS: BP 142/75
[2020-01-07] MEDS: DOCUSATE SODIUM 100 MG (COLACE) CAP PO SCH (08:23)
[2020-01-07] MEDS: APIXABAN 5 MG (ELIQUIS) TABLET PO SCH (08:23)
[2020-01-07] MEDS: PANTOPRAZOLE 20 MG TABLET (PROTONIX) PO SCH (08:24)
[2020-01-07] MEDS: morphine ER 30 MG (MS CONTIN) TAB PO SCH (08:24)
[2020-01-07] MEDS: GABAPENTIN 600 MG (NEURONTIN) TAB PO SCH ×2 (08:24→12:57)
[2020-01-07] MEDS: BISACODYL 5 MG (DULCOLAX) TABLET PO SCH (08:24)
[2020-01-07] MEDS: SPIRONOLACTONE 25 MG (ALDACTONE) TAB PO SCH (08:24)
[2020-01-07] MEDS: VENlafaxine 75 MG (EFFEXOR) TAB PO SCH (08:24)
--- NOTE | 2020-01-07 10:16 | Discharge Inst-Simple/Standard ---
Discharge Inst-Standard Discharge Medications New, Converted or Re-Newed RX: Transmitted to Pharmacy Patient Instructions/Follow Up Plan of Care/Instructions/FU: continue taking her medications as writtenPlease continue to take your medications as written. Please follow up with your primary care doctor in the next week to follow up this hospital stay. Activity as Tolerated: Yes Discharge Diet: ADA Diet Return to The Hospital For: Chest pain, shortness of breath, fever, abdominal pain, if you feel you are getting worse. ESTEBAN JARQUIN MD Jan 07, 2020 10:16
--- NOTE | 2020-01-07 10:40 | NUR ---
I WAS DOING THE PATIENT'S MED REC WHEN THEY WERE DISCHARGED. [facility], MED LIST SHOULD BE ON FILE FOR FUTURE REFERENCES
--- NOTE | 2020-01-07 11:21 | NUR ---
CM/SS: Visited with pt as to plan for discharge - Pt is from [facility] Plan: Pt will return to [facility] today Summary: Pt is from [facility]. Pt is unsure as to how long she has been a resident at [facility]. Pt is made aware that she will be returning today. Pt seems ok with that. Information is gathered related to pt needing the hoyar lift as well as with facility on the phone when they will be able to picking supervisor pt. They can picking supervisor pt around 1pm. today. Pt is notified that is when they will pick her up. Pt is ok with that. Information and D/C information and orders are faxed to [facility].
[2020-01-07 12:00] VITALS: BP 140/73
[2020-01-07] MEDS ORDERED: inSUlin ASPART (NovoLOG) 1 UNIT/0.01 ML (CHARGE PER UNIT) SC SCH (12:00)
[2020-01-07 13:25] VITALS: BP 140/73
--- NOTE | 2020-01-07 13:54 | Discharge Summary ---
Diagnosis/Chief Complaint Date of Admission Jan 04, 2020 at 16:56 Date of Discharge Discharge Date: Jan 06, 2020 Admission Diagnosis Acute Respiratory Failure Primary Care Lew Pascual MD Discharge Diagnosis (1) Acute respiratory failure Status: Acute (2) COPD with acute exacerbation Status: Acute (3) Essential (primary) hypertension Status: Chronic (4) Hypothyroidism Status: Chronic (5) Insulin dependent diabetes mellitus Status: Chronic (6) Obesity Status: Chronic (7) Person under investigation for severe acute respiratory syndrome coronavirus 2 (SARS-CoV-2) infection Status: Acute (8) Prophylactic measure Status: Acute (9) Tobacco abuse Status: Chronic (10) Atrial fibrillation Status: Chronic (11) Chronic anticoagulation Status: Chronic (12) Chronic pain (13) Restless legs Status: Chronic Discharge Summary Discharge Physical Exam Allergies: Coded Allergies: No Known Drug Allergies (Unverified , 01/04/20) Vitals & I&Os Vital Signs Date Time Temp Pulse Resp B/P (MAP) Pulse Ox O2 Delivery O2 Flow Rate FiO2 01/07/20 10:41 93 Room Air 01/07/20 08:00 35.8 54 22 142/75 (97) 4.00 General Appearance: No Apparent Distress, Chronically ill, Obese Respiratory: Lungs Clear, No Respiratory Distress Cardiovascular: Regular Rate, Rhythm, No Murmur Neurologic/Psychiatric: Alert, Oriented x3 Hospital Course patient was admitted secondary to a COPD exacerbation. She was treated with steroid and did well. she was able to be titrated off of BiPA and ultimately completely off of oxygen. She did have high blood sugars likely due to her steroids. She was discharged home in stable condition to follow up with her primary care doctor in the next week. Labs (last 24 hrs) Laboratory Tests 01/06/20 16:19: Glucometer 316H 01/06/20 20:12: Glucometer 429*H 01/07/20 06:27: Glucometer 155H 01/07/20 11:38: Glucometer 264H Patient resulted labs reviewed. Pending Labs Laboratory Tests 01/07/20 06:27: Glucometer 155 01/07/20 11:38: Glucometer 264 Imaging: Reviewed Imaging Report Discussion & Recommendations Discharge Planning: >30 minutes discharge planning Discharge Home Medications: Active Scripts Active Prednisone 20 Mg Tab 40 Mg PO DAILY@0700 Tramadol HCl 100 Mg Tablet 100 Mg PO Q6H PRN 10 Days Ms Contin (Morphine Sulfate) 30 Mg Tablet.er 30 Mg PO BID 7 Days Gabapentin 600 Mg Tablet 600 Mg PO TID 30 Days Reported Humalog Kwikpen (Insulin Lispro) 100 Unit/1 Ml Insuln.pen 100 Unit SQ [id number] PER SLIDING SCALE [Folic Acid] 1 Mg PO DAILY Flovent Hfa 110 mcg (Fluticasone Propionate) 1 Ea Aero 2 Ea IH BID Eliquis (Apixaban) 5 Mg Tablet 5 Mg PO BID Milk of Magnesia (Magnesium Hydroxide) 400 Mg/5 Ml Oral.susp 30 Mg PO DAILY Metformin HCl 500 Mg Tablet 500 Mg PO BID Levothyroxine Sodium 75 Mcg Tablet 75 Mcg PO DAILY Levemir (Insulin Determir) 1,000 Units/10 Ml Soln 35 Units SQ BID Iprat-Albut 0.5-3(2.5) mg/3 ml (Ipratropium/Albuterol Sulfate) 3 Ml Ampul.neb 3 Ml IH Q4H PRN Humalog (Insulin Lispro) 100 Unit/1 Ml Vial 6 Unit SQ ACHS Diltiazem 12Hr ER (Diltiazem HCl) 120 Mg Cap.er.12h 240 Mg PO DAILY Colace (Docusate Sodium) 100 Mg Capsule 100 Mg PO BID Calmoseptine Ointment (Menthol/Lanolin/Calamine/Znox) 71 Gm Oint 71 Gm TP TID Bisacodyl 5 Mg Tablet.dr 5 Mg PO DAILY Biofreeze (Menthol) 118 Ml Gel..ml. 118 Ml TP Q2H Aleve (Naproxen Sodium) 220 Mg Capsule 220 Mg PO Q8H PRN Xanax (Alprazolam) 0.5 Mg Tablet 0.5 Mg PO TID Vitamin B-1 (Thiamine HCl) 250 Mg Tablet 250 Mg PO DAILY Venlafaxine HCl 100 Mg Tablet 150 Mg PO DAILY Trazodone HCl 100 Mg Tablet 100 Mg PO HS Topiramate 50 Mg Tablet 50 Mg PO HS Spironolactone 25 Mg Tablet 25 Mg PO BID Ropinirole HCl 0.25 Mg Tablet 0.25 Mg PO HS Omeprazole 20 Mg Capsule.dr 20 Mg PO DAILY Nystatin 1 Each Powder.ea. 1 Each MC BID Ms Contin (Morphine Sulfate) 15 Mg Tablet.er 15 Mg PO BID 7 Days Miralax (Polyethylene Glycol 3350) 17 Gm Powd.pack 17 Gm PO BID PRN Instructions to patient/family Please see electronic discharge instructions given to patient. Clinical Quality Measures DVT/VTE Risk/Contraindication: Risk Factor Score Per Nursin RFS Level Per Nursing on Admit: 4+=Very High Problem Qualifiers (1) Acute respiratory failure: Respiratory failure complication: hypoxia and hypercapnia Qualified Codes: J96.01 - Acute respiratory failure with hypoxia; J96.02 - Acute respiratory failure with hypercapnia (2) Hypothyroidism: Hypothyroidism type: unspecified Qualified Codes: E03.9 - Hypothyroidism, unspecified (3) Obesity: Obesity type: with alveolar hypoventilation Obesity classification: adult class 3 (BMI >= 40) (4) Atrial fibrillation: Atrial fibrillation type: paroxysmal Qualified Codes: I48.0 - Paroxysmal atrial fibrillation ESTEBAN JARQUIN MD Jan 07, 2020 13:54
--- NOTE | 2020-01-07 14:12 | NUR ---
pt was put on room air for 30 minutes and did not desat. pt is not ambulatory. pt is 95% on room air without exercise. pt does not qualify for home o2. Addendum: 01/07/20 at 1414 by CHRIS GARCIA RT Amended: Links added.
== END 2020-01-07 13:25 | DRG 189 ==
LOC: EDUNIT# 13:41 → ER FS 13:42 → ICU 16:56 → 4TH 01-05 17:59
PROVIDERS: ADMIT Family Medicine; ATTEND Family Medicine
DX: J96.01 Acute respiratory failure with hypoxia (principal); J44.1 Chronic obstructive pulmonary disease with (acute) exacerbation; E87.2 Acidosis; E66.2 Morbid (severe) obesity with alveolar hypoventilation; J96.02 Acute respiratory failure with hypercapnia; E11.42 Type 2 diabetes mellitus with diabetic polyneuropathy; E03.9 Hypothyroidism, unspecified; I48.0 Paroxysmal atrial fibrillation; I10 Essential (primary) hypertension; G89.29 Other chronic pain; M48.00 Spinal stenosis, site unspecified; G25.81 Restless legs syndrome; F20.9 Schizophrenia, unspecified; K59.09 Other constipation; I89.0 Lymphedema, not elsewhere classified; Z79.4 Long term (current) use of insulin; Z20.828 Contact with and (suspected) exposure to other viral communicable diseases; Z79.01 Long term (current) use of anticoagulants; Z72.0 Tobacco use
CPT/HCPCS: 36415; 36600; 71045; 80048; 80053; 82805; 82962; 83605; 83880; 85007; 85025; 85027; 85379; 86141; 87635; 94640; 94664; 94760; 94761

== ENCOUNTER 2020-02-14 15:24 | Emergency (ER) | payer MEDICAID ==
[~2020-02-14] VITALS: Ht 167.7 cm; Wt 181.0 kg
[~2020-02-14 15:24] MED LIST: ALPR0.5T PO; APIX5TAB PO; BISA5TAB8 PO; DILT120C10 PO; DOCU-143 PO; FLT11013 IH; FOLIC ACID PO; GBPN600T PO; INSU100I23 SQ; INSU100V SQ; INSU100V5 SQ; IPRA3AMP31 IH; LEVO75TA6 PO; MAGN400O7 PO; MENT118G TP; MENT71OI TP; METF-397 PO; MORP15TA69 PO; MORP30TA60 PO; NAPR220C11 PO; NYST1POW22 MC; OMEP20CA18 PO; POLY17PO6 PO; PRD20T PO; ROPI0.253 PO; SPIR25TA5 PO; THIA250T8 PO; TOPI50TA13 PO; TRAM100T40 PO; TRAZ-227 PO; VENL100T2 PO
[2020-02-14] MEDS ORDERED: RT-ALBUTEROL/IPRATROPIUM 3 ML (DUONEB) VIAL INH ONE (15:30)
[2020-02-14] MEDS ORDERED: methylPREDNISolone 125 MG (Solu-MEDROL) VIAL IVP ONE (15:30)
--- NOTE | 2020-02-14 15:36 | ED Dyspnea ---
General Stated Complaint: SOB Source of Information: Patient, EMS Exam Limitations: No Limitations History of Present Illness Date Seen by Provider: Feb 14, 2020 Time Seen by Provider: 15:30 Initial Comments 63-year-old female presents via EMS from the long-term with complaint of shortness of air. Patient with history of COPD and on home O2, EMS states that she had removed her oxygen and was found without it with low oxygen saturations. On EMS arrival, patient had oxygen saturation in the 90s, awake and alert and in no distress. Given albuterol treatment en route with some improvement Allergies and Home Medications Allergies Coded Allergies: No Known Drug Allergies (Unverified , 01/04/20) Home Medications Alprazolam 0.5 Mg Tablet, 0.5 MG PO TID, (Reported) Apixaban 5 Mg Tablet, 5 MG PO BID, (Reported) Bisacodyl 5 Mg Tablet.dr, 5 MG PO DAILY, (Reported) Diltiazem HCl 120 Mg Cap.er.12h, 240 MG PO DAILY, (Reported) Docusate Sodium 100 Mg Capsule, 100 MG PO BID, (Reported) Fluticasone Propionate 1 Ea Aero, 2 EA IH BID, (Reported) Gabapentin 600 Mg Tablet, 600 MG PO TID Prescribed by: SOEAS JIMENEZ on 01/04/201815 Insulin Determir 1,000 Units/10 Ml Soln, 35 UNITS SQ BID, (Reported) Insulin Lispro 100 Unit/1 Ml Vial, 6 UNIT SQ ACHS, (Reported) Insulin Lispro 100 Unit/1 Ml Insuln.pen, 100 UNIT SQ [id number], (Reported) PER SLIDING SCALE Ipratropium/Albuterol Sulfate 3 Ml Ampul.neb, 3 ML IH Q4H PRN for SHORTNESS OF BREATH, (Reported) Levothyroxine Sodium 75 Mcg Tablet, 75 MCG PO DAILY, (Reported) Magnesium Hydroxide 400 Mg/5 Ml Oral.susp, 30 MG PO DAILY, (Reported) Menthol 118 Ml Gel..ml., 118 ML TP Q2H, (Reported) Menthol/Lanolin/Calamine/Znox 71 Gm Oint, 71 GM TP TID, (Reported) Metformin HCl 500 Mg Tablet, 500 MG PO BID, (Reported) Morphine Sulfate 30 Mg Tablet.er, 30 MG PO BID Prescribed by: OSEAS JIMENEZ on 9/5/20 1819 Morphine Sulfate 15 Mg Tablet.er, 15 MG PO BID, (Reported) Naproxen Sodium 220 Mg Capsule, 220 MG PO Q8H PRN for PAIN-MILD (1-4), (Repo rted) Nystatin 1 Each Powder.ea., 1 EACH MC BID, (Reported) Omeprazole 20 Mg Capsule.dr, 20 MG PO DAILY, (Reported) Polyethylene Glycol 3350 17 Gm Powd.pack, 17 GM PO BID PRN for CONSTIPATION-1ST LINE, (Reported) Prednisone 20 Mg Tab, 40 MG PO DAILY@0700 Prescribed by: ESTEBAN JARQUIN on 01/06/20 194 Prednisone 50 Mg Tab, 50 MG PO DAILY Prescribed by: RANDY ELIZONDO on 02/14/20 1700 Ropinirole HCl 0.25 Mg Tablet, 0.25 MG PO HS, (Reported) Spironolactone 25 Mg Tablet, 25 MG PO BID, (Reported) Thiamine HCl 250 Mg Tablet, 250 MG PO DAILY, (Reported) Topiramate 50 Mg Tablet, 50 MG PO HS, (Reported) Tramadol HCl 100 Mg Tablet, 100 MG PO Q6H PRN for PAIN Prescribed by: OSEAS JIMENEZ on 01/04/20 1820 Trazodone HCl 100 Mg Tablet, 100 MG PO HS, (Reported) Venlafaxine HCl 100 Mg Tablet, 150 MG PO DAILY, (Reported) [Folic Acid] , 1 MG PO DAILY, (Reported) Patient Home Medication List Home Medication List Reviewed: Yes Review of Systems Review of Systems Constitutional: No fever, No malaise, No weakness Respiratory: see HPI, cough, short of breath, wheezing Cardiovascular: No chest pain, No syncope Gastrointestinal: No abdominal pain, No loss of appetite, No vomiting Musculoskeletal: no symptoms reported Skin: No change in color, No rash Past Sxskadn-Shrkfs-Fijzws Hx Past Med/Social Hx: Reviewed Nursing Past Med/Soc Hx Patient Social History Recent Foreign Travel: No Contact w/Someone Who Travel: No Recent Hopitalizations: No Immunizations Up To Date Date of Pneumonia Vaccine: Jan 03, 2018 Seasonal Allergies Seasonal Allergies: No Past Medical History Respiratory: Yes (chronic resp failure; ) Sleep Apnea, COPD Cardiac: Yes (heart failure ) Atrial Fibrillation, Hypertension Chronic Constipation Musculoskeletal: Yes Degenerate Disk Disease Endocrine: Yes Diabetes, Insulin dep Psychosocial: Yes Anxiety, Schizophrenia, Depression Family Medical History No Pertinent Family Hx Physical Exam Vital Signs Vital Signs - First Documented 02/14/20 16:08 Temp 36.6 Pulse 75 Resp 12 B/P (MAP) 176/95 (122) Pulse Ox 94 O2 Delivery Nasal Cannula O2 Flow Rate 6.00 Capillary Refill : Height, Weight, BMI Height: '" Weight: lbs. oz. kg; BMI Method: General Appearance: No Apparent Distress, WD/WN, Obese Respiratory: Chest Non Tender, No Accessory Muscle Use, No Respiratory Distress, Rhonci, Wheezing Cardiovascular: Regular Rate, Rhythm, No Gallop Gastrointestinal: Non Tender, Soft; No Guarding, No Rebound Neurologic/Psychiatric: Alert, No Motor/Sensory Deficits Skin: Normal Color, Warm/Dry Progress/Results/Core Measures Results/Orders Lab Results Laboratory Tests Test 02/14/20 16:20 Range/Units White Blood Count 7.2 4.3-11.0 10^3/uL Red Blood Count 4.43 4.35-5.85 10^6/uL Hemoglobin 11.8 11.5-16.0 G/DL Hematocrit 41 35-52 % Mean Corpuscular Volume 92 80-99 FL Mean Corpuscular Hemoglobin 27 25-34 PG Mean Corpuscular Hemoglobin Concent 29 L 32-36 G/DL Red Cell Distribution Width 16.8 H 10.0-14.5 % Platelet Count 246 130-400 10^3/uL Mean Platelet Volume 9.4 7.4-10.4 FL Immature Granulocyte % (Auto) 1 % Neutrophils (%) (Auto) 66 42-75 % Lymphocytes (%) (Auto) 20 12-44 % Monocytes (%) (Auto) 7 0-12 % Eosinophils (%) (Auto) 6 0-10 % Basophils (%) (Auto) 0 0-10 % Neutrophils # (Auto) 4.7 1.8-7.8 X 10^3 Lymphocytes # (Auto) 1.5 1.0-4.0 X 10^3 Monocytes # (Auto) 0.5 0.0-1.0 X 10^3 Eosinophils # (Auto) 0.4 H 0.0-0.3 10^3/uL Basophils # (Auto) 0.0 0.0-0.1 10^3/uL Immature Granulocyte # (Auto) 0.1 0.0-0.1 10^3/uL Sodium Level 133 L 135-145 MMOL/L Potassium Level 5.7 H 3.6-5.0 MMOL/L Chloride Level 96 L 98-107 MMOL/L Carbon Dioxide Level 32 21-32 MMOL/L Anion Gap 5 5-14 MMOL/L Blood Urea Nitrogen 18 7-18 MG/DL Creatinine 0.82 0.60-1.30 MG/DL Estimat Glomerular Filtration Rate > 60 BUN/Creatinine Ratio 22 Glucose Level 193 H 70-105 MG/DL Calcium Level 9.3 8.5-10.1 MG/DL Corrected Calcium 9.6 8.5-10.1 MG/DL Total Bilirubin 0.3 0.1-1.0 MG/DL Aspartate Amino Transf (AST/SGOT) 38 H 5-34 U/L Alanine Aminotransferase (ALT/SGPT) 24 0-55 U/L Alkaline Phosphatase 113 40-136 U/L C-Reactive Protein 4.11 H <0.50 MG/DL Total Protein 7.7 6.4-8.2 GM/DL Albumin 3.6 3.2-4.5 GM/DL My Orders Orders - ROVENSTINERANDY Carlos DO Ed Iv/Invasive Line Start (02/14/20 15:30) Cbc With Automated Diff (02/14/20 15:30) Comprehensive Metabolic Panel (02/14/20 15:30) Chest 1 View Ap/Pa Only (02/14/20 15:30) Crp Fs (02/14/20 15:30) Methylprednisolone Sod Succ (Solu-Medrol (02/14/20 15:30) Albuterol/Ipra Inhalation Soln (Duoneb I (02/14/20 15:30) Svn Small Volume Nebulizer (02/14/20 15:30) Procalcitonin (Pct) (02/14/20 15:38) Medications Given in ED Current Medications Medications Dose Ordered Sig/Piero Route Start Time Stop Time Status Last Admin Dose Admin Albuterol/ Ipratropium 3 ml ONCE ONCE INH 02/14/20 15:30 02/14/20 15:32 DC 02/14/20 15:42 3 ML Methylprednisolone Sodium Succinate 125 mg ONCE ONCE IVP 02/14/20 15:30 02/14/20 15:32 DC 02/14/20 16:25 125 MG Vital Signs/I&O 02/14/20 02/14/20 16:08 18:20 Temp 36.6 36.6 Pulse 75 77 Resp 12 12 B/P (MAP) 176/95 (122) 172/98 (122) Pulse Ox 94 93 O2 Delivery Nasal Cannula Nasal Cannula O2 Flow Rate 6.00 4.00 Progress Progress Note : Progress Note Patient in no respiratory distress and normal vital signs for the duration of her ER stay. Oxygen saturation remained 95 percent on nasal cannula. Patient on chronic O2. Per history her symptoms were exacerbated by removing her oxygen for an unknown period of time prior to EMS being called. Labs and chest x-ray reviewed with no strong suspicion of COVID-19, testing was not done. Patient unable to walk herself or move from bed to chair because of her poor p hysical condition and morbid obesity. [facility] called and asked to pick pt up but they did not have resources to move her back. EMS called for transport Diagnostic Imaging Diagonstic Imaging: Xray Plain Films/CT/US/NM/MRI: chest Comments Date of Exam:02/14/20 CHEST 1 VIEW AP/PA ONLY INDICATION: Shortness of air. Lethargy. COMPARISON: 01/04/2020. FINDINGS: Single frontal radiographic view of the chest was obtained and again demonstrates significant hypoinflation. There is also otherwise significant obscuration of the lung barron by overlying patient body habitus. Cardiac silhouette appears mildly enlarged, this may be exaggerated by pericardial fat, low inspiratory volumes, and portable technique. Pulmonary vasculature appears within normal limits given crowding related to low inspiratory volumes. There is no large effusion or pneumothorax. Osseous structures show no acute abnormalities. IMPRESSION: 1. Suboptimal evaluation of the chest secondary to low lung volumes and significant soft tissue attenuation. There may be mild prominence of the cardiac silhouette, although this could be exaggerated for reasons above. There is otherwise no convincing evidence of vascular congestion or focal infiltrate. Dictated on workstation # [id number] Dict: 02/14/20 1602 Trans: 02/14/20 1608 [id number] Interpreted by: JOANN BAXTER MD Electronically signed by: Departure Impression Primary Impression: COPD exacerbation Additional Impression: Morbid obesity Disposition: 01 HOME, SELF-CARE (back to [place]) Condition: Improved Departure-Patient Inst. Decision time for Depature: 16:58 Referrals: BREONNA HERNANDEZ MD (PCP/Family) Primary Care Physician Patient Instructions: Exacerbation of COPD (DC) Add. Discharge Instructions: See your PCP in 1 week for re-evaluation. REturn to the ER if worse. Scripts Prednisone (Prednisone) 50 Mg Tab 50 MG PO DAILY, #7 TAB Prov: RANDY ELIZONDO DO 02/14/20 RANDY ELIZONDO DO Feb 14, 2020 15:36
--- NOTE | 2020-02-14 16:08 | Diagnostic Imaging Report ---
INDICATION: Shortness of air. Lethargy. COMPARISON: 01/04/2020. FINDINGS: Single frontal radiographic view of the chest was obtained and again demonstrates significant hypoinflation. There is also otherwise significant obscuration of the lung barron by overlying patient body habitus. Cardiac silhouette appears mildly enlarged, this may be exaggerated by pericardial fat, low inspiratory volumes, and portable technique. Pulmonary vasculature appears within normal limits given crowding related to low inspiratory volumes. There is no large effusion or pneumothorax. Osseous structures show no acute abnormalities. IMPRESSION: 1. Suboptimal evaluation of the chest secondary to low lung volumes and significant soft tissue attenuation. There may be mild prominence of the cardiac silhouette, although this could be exaggerated for reasons above. There is otherwise no convincing evidence of vascular congestion or focal infiltrate. Dictated by: Dictated on workstation # [id number]
[2020-02-14 16:30] LABS: BASOPHILS % (AUTO) 0 % (0-10); EOSINOPHILS # (AUTO) 0.4 10^3/uL (0.0-0.3); EOSINOPHILS % (AUTO) 6 % (0-10); HEMATOCRIT 41 % (35-52); HEMOGLOBIN 11.8 G/DL (11.5-16.0); LYMPHOCYTES # (AUTO) 1.5 X 10^3 (1.0-4.0); LYMPHOCYTES % (AUTO) 20 % (12-44); MEAN CORPUSCULAR HEMOGLOBIN 27 PG (25-34); MEAN CORPUSCULAR HGB CONC 29 G/DL (32-36); MEAN CORPUSCULAR VOLUME 92 FL (80-99); MEAN PLATELET VOLUME 9.4 FL (7.4-10.4); MONOCYTES # (AUTO) 0.5 X 10^3 (0.0-1.0); MONOCYTES % (AUTO) 7 % (0-12); NEUTROPHILS # (AUTO) 4.7 X 10^3 (1.8-7.8); NEUTROPHILS % (AUTO) 66 % (42-75); PLATELET COUNT 246 10^3/uL (130-400); WHITE BLOOD COUNT 7.2 10^3/uL (4.3-11.0)
[2020-02-14 16:50] LABS: SODIUM 133 MMOL/L (135-145)
[2020-02-14 16:51] LABS: ALANINE AMINOTRANSFERASE 24 U/L (0-55); ALBUMIN 3.6 GM/DL (3.2-4.5); ALKALINE PHOSPHATASE 113 U/L (40-136); BILIRUBIN,TOTAL 0.3 MG/DL (0.1-1.0); BUN/CREATININE RATIO 22; CALCIUM 9.3 MG/DL (8.5-10.1); CARBON DIOXIDE 32 MMOL/L (21-32); CHLORIDE 96 MMOL/L (98-107); CREATININE SERUM 0.82 MG/DL (0.60-1.30); GFR ESTIMATED > 60; GLUCOSE 193 MG/DL (70-105); TOTAL PROTEIN 7.7 GM/DL (6.4-8.2)
[2020-02-14 16:52] LABS: POTASSIUM 5.7 MMOL/L (3.6-5.0)
[2020-02-14] MEDS ORDERED: PRD50T PO (17:00)
--- NOTE | 2020-02-14 17:05 | NUR ---
Spoke to Rima at [facility] regarding transportation for pt.
--- NOTE | 2020-02-14 17:53 | NUR ---
Spoke with Vasquez at [facility] again re:transportation. [facility]quez [facility]. Called Madhu with EMS; no answer at this time.
[2020-02-14 18:20] VITALS: BP 172/98
== END 2020-02-14 18:20 | disposition home or self-care (01) ==
LOC: EDUNIT# 15:24 → ER FS 15:25
DX: J44.1 Chronic obstructive pulmonary disease with (acute) exacerbation (principal); E66.01 Morbid (severe) obesity due to excess calories; E11.9 Type 2 diabetes mellitus without complications; F41.9 Anxiety disorder, unspecified; F32.9 Major depressive disorder, single episode, unspecified; I10 Essential (primary) hypertension; Z79.4 Long term (current) use of insulin; Z79.52 Long term (current) use of systemic steroids; Z79.01 Long term (current) use of anticoagulants
CPT/HCPCS: 36415; 71045; 80053; 84145; 85025; 86141

== ENCOUNTER 2020-04-07 21:35 | Emergency (ER) | payer MEDICAID ==
[~2020-04-07 21:35] MED LIST changes: +PRD50T PO
--- NOTE | 2020-04-07 22:00 | ED Chest Pain ---
General Stated Complaint: CHEST PAIN Source: patient, EMS Exam Limitations: no limitations History of Present Illness Date Seen by Provider: Apr 07, 2020 Time Seen by Provider: 21:59 Initial Comments 64-year-old female with past medical history quite extensive, but significant for chronic pain and cervical radiculopathy as well as atrial fibrillation. Patient states that a few hours ago she started to have palpitations some mild chest pain, but she hasn't been given her scheduled pain medication and she was having pain in both upper extremities, primarily on the right as well as right neck pain. This is not a new type of pain, however exacerbation of her chronic pain. Allergies and Home Medications Allergies Coded Allergies: No Known Drug Allergies (Unverified , 01/04/20) Home Medications Alprazolam 0.5 Mg Tablet, 0.5 MG PO TID, (Reported) Apixaban 5 Mg Tablet, 5 MG PO BID, (Reported) Bisacodyl 5 Mg Tablet.dr, 5 MG PO DAILY, (Reported) Diltiazem HCl 120 Mg Cap.er.12h, 240 MG PO DAILY, (Reported) Docusate Sodium 100 Mg Capsule, 100 MG PO BID, (Reported) Fluticasone Propionate 1 Ea Aero, 2 EA IH BID, (Reported) Gabapentin 600 Mg Tablet, 600 MG PO TID Prescribed by: OSEAS JIMENEZ on 01/04/201815 Insulin Determir 1,000 Units/10 Ml Soln, 35 UNITS SQ BID, (Reported) Insulin Lispro 100 Unit/1 Ml Vial, 6 UNIT SQ ACHS, (Reported) Insulin Lispro 100 Unit/1 Ml Insuln.pen, 100 UNIT SQ [id number], (Reported) PER SLIDING SCALE Ipratropium/Albuterol Sulfate 3 Ml Ampul.neb, 3 ML IH Q4H PRN for SHORTNESS OF BREATH, (Reported) Levothyroxine Sodium 75 Mcg Tablet, 75 MCG PO DAILY, (Reported) Magnesium Hydroxide 400 Mg/5 Ml Oral.susp, 30 MG PO DAILY, (Reported) Menthol 118 Ml Gel..ml., 118 ML TP Q2H, (Reported) Menthol/Lanolin/Calamine/Znox 71 Gm Oint, 71 GM TP TID, (Reported) Metformin HCl 500 Mg Tablet, 500 MG PO BID, (Reported) Morphine Sulfate 30 Mg Tablet.er, 30 MG PO BID Prescribed by: OSEAS JIMENEZ on 01/04/201818 Morphine Sulfate 15 Mg Tablet.er, 15 MG PO BID, (Reported) Naproxen Sodium 220 Mg Capsule, 220 MG PO Q8H PRN for PAIN-MILD (1-4), (Reported) Nystatin 1 Each Powder.ea., 1 EACH MC BID, (Reported) Omeprazole 20 Mg Capsule.dr, 20 MG PO DAILY, (Reported) Polyethylene Glycol 3350 17 Gm Powd.pack, 17 GM PO BID PRN for CONSTIPATION-1ST LINE, (Reported) Prednisone 20 Mg Tab, 40 MG PO DAILY@0700 Prescribed by: ESTEBAN JARQUIN on 01/06/201941 Prednisone 50 Mg Tab, 50 MG PO DAILY Prescribed by: RANDY ELIZONDO on 02/14/20 170 Ropinirole HCl 0.25 Mg Tablet, 0.25 MG PO HS, (Reported) Spironolactone 25 Mg Tablet, 25 MG PO BID, (Reported) Thiamine HCl 250 Mg Tablet, 250 MG PO DAILY, (Reported) Topiramate 50 Mg Tablet, 50 MG PO HS, (Reported) Tramadol HCl 100 Mg Tablet, 100 MG PO Q6H PRN for PAIN Prescribed by: OSEAS JIMENEZ on 01/04/201819 Trazodone HCl 100 Mg Tablet, 100 MG PO HS, (Reported) Venlafaxine HCl 100 Mg Tablet, 150 MG PO DAILY, (Reported) [Folic Acid] , 1 MG PO DAILY, (Reported) Patient Home Medication List Home Medication List Reviewed: Yes Review of Systems Review of Systems Constitutional: No chills, No fever; malaise (chronic, states I hurt all over.), weakness (chronic, can't move herself ) Respiratory: Denies Cough; Shortness of Air Cardiovascular: Chest Pain (resolved on ER arrival), Irregular Heart Rate, Palpitations; Denies Syncope Gastrointestinal: Denies Abdominal Pain, Denies Diarrhea, Denies Poor Appetite, Denies Vomiting Musculoskeletal: other (chronic pain of all extremities and body) Skin: No change in color, No rash Past Fyfuouy-Zufdva-Pytrtl Hx Past Med/Social Hx: Reviewed Nursing Past Med/Soc Hx Patient Social History Type Used: Cigarettes 2nd Hand Smoke Exposure: Yes Recent Hopitalizations: No Immunizations Up To Date Date of Pneumonia Vaccine: Jan 03, 2018 Seasonal Allergies Seasonal Allergies: No Past Medical History Respiratory: Yes (chronic resp failure; ) Sleep Apnea, COPD Cardiac: Yes (heart failure ) Atrial Fibrillation, Hypertension Chronic Constipation Musculoskeletal: Yes Degenerate Disk Disease Endocrine: Yes Diabetes, Insulin dep Psychosocial: Yes Anxiety, Schizophrenia, Depression Family Medical History No Pertinent Family Hx Physical Exam Vital Signs Vital Signs - First Documented 04/07/20 04/07/20 21:35 23:04 Temp 37.2 Pulse 130 Resp 20 B/P (MAP) 138/89 (105) Pulse Ox 95 O2 Delivery Nasal Cannula O2 Flow Rate 2.00 Capillary Refill : Height, Weight, BMI Height: '" Weight: lbs. oz. kg; 64.00 BMI Method: General Appearance: No Apparent Distress, Obese (severely) HEENT: PERRL/EOMI, Normal ENT Inspection Neck: No Full Range of Motion; Supple, Limited Range of Motion (chronic) Respiratory: Chest Non Tender, Lungs Clear, Normal Breath Sounds, No Accessory Muscle Use, No Respiratory Distress Cardiovascular: Irregularly Irregular, Tachycardia (130's) Gastrointestinal: Soft; No Guarding, No Tenderness Extremity: Normal Capillary Refill, Normal Inspection, No Calf Tenderness, Other (diffuse and non=localized TTP b/l UE's and LE's) Neurologic/Psychiatric: Alert, Oriented x3, No Motor/Sensory Deficits Progress/Results/Core Measures Results/Orders Lab Results Laboratory Tests Test 04/07/20 21:52 04/07/20 22:25 Range/Units White Blood Count 5.5 4.3-11.0 10^3/uL Red Blood Count 4.78 4.35-5.85 10^6/uL Hemoglobin 12.8 11.5-16.0 G/DL Hematocrit 42 35-52 % Mean Corpuscular Volume 89 80-99 FL Mean Corpuscular Hemoglobin 27 25-34 PG Mean Corpuscular Hemoglobin Concent 30 L 32-36 G/DL Red Cell Distribution Width 15.8 H 10.0-14.5 % Platelet Count 232 130-400 10^3/uL Mean Platelet Volume 10.1 7.4-10.4 FL Immature Granulocyte % (Auto) 0 % Neutrophils (%) (Auto) 58 42-75 % Lymphocytes (%) (Auto) 29 12-44 % Monocytes (%) (Auto) 8 0-12 % Eosinophils (%) (Auto) 4 0-10 % Basophils (%) (Auto) 1 0-10 % Neutrophils # (Auto) 3.2 1.8-7.8 X 10^3 Lymphocytes # (Auto) 1.6 1.0-4.0 X 10^3 Monocytes # (Auto) 0.5 0.0-1.0 X 10^3 Eosinophils # (Auto) 0.2 0.0-0.3 10^3/uL Basophils # (Auto) 0.0 0.0-0.1 10^3/uL Immature Granulocyte # (Auto) 0.0 0.0-0.1 10^3/uL Sodium Level 138 135-145 MMOL/L Potassium Level 4.5 3.6-5.0 MMOL/L Chloride Level 100 98-107 MMOL/L Carbon Dioxide Level 31 21-32 MMOL/L Anion Gap 7 5-14 MMOL/L Blood Urea Nitrogen 18 7-18 MG/DL Creatinine 0.72 0.60-1.30 MG/DL Estimat Glomerular Filtration Rate > 60 BUN/Creatinine Ratio 25 Glucose Level 338 H 70-105 MG/DL Calcium Level 9.3 8.5-10.1 MG/DL Corrected Calcium 9.6 8.5-10.1 MG/DL Total Bilirubin 0.2 0.1-1.0 MG/DL Aspartate Amino Transf (AST/SGOT) 12 5-34 U/L Alanine Aminotransferase (ALT/SGPT) 11 0-55 U/L Alkaline Phosphatase 68 40-136 U/L Troponin I < 0.30 <0.30 NG/ML Total Protein 7.0 6.4-8.2 GM/DL Albumin 3.6 3.2-4.5 GM/DL My Orders Orders - RANDY ELIZONDO DO Ed Iv/Invasive Line Start (04/07/20 22:05) Troponin I Fs (04/07/20 22:05) Cbc With Automated Diff (04/07/20 22:05) Comprehensive Metabolic Panel (04/07/20 22:05) Chest 1 View Ap/Pa Only (04/07/20 22:05) Ns Iv 1000 Ml (Sodium Chloride 0.9%) (04/07/20 22:15) Diltiazem Injection (Cardizem Injection) (04/07/20 22:15) Morphine Injection (Morphine Injection (12/8/20 22:07) Diltiazem Injection (Cardizem Injection) (04/07/20 22:45) Medications Given in ED Current Medications Medications Dose Ordered Sig/Piero Route Start Time Stop Time Status Last Admin Dose Admin Diltiazem HCl 10 mg ONCE ONCE IVP 04/07/20 22:15 04/07/20 22:16 DC 04/07/20 22:25 10 MG Diltiazem HCl 15 mg ONCE ONCE IVP 04/07/20 22:45 04/07/20 22:46 DC 04/07/20 22:47 15 MG Vital Signs/I&O 04/07/20 04/07/20 21:35 23:04 Temp 37.2 Pulse 130 100 Resp 20 18 B/P (MAP) 138/89 (105) 172/76 Pulse Ox 95 96 O2 Delivery Nasal Cannula Nasal Cannula O2 Flow Rate 2.00 04/08/20 00:00 Intake Total 1000 ml Balance 1000 ml Progress Progress Note : Progress Note Patient feeling better, denies CP, SOA and her pain has improved. Wants to go home. HR slowed p 2 bolus of Cardizem, now under 100. Initial ECG Impression Date: Apr 07, 2020 Initial ECG Rate: 140 Initial ECG Rhythm: A Fib/Flutter Initial ECG Impression: Atrial Fibrillation w/RVR Departure Impression Primary Impression: Atrial fibrillation Qualified Codes: I48.20 - Chronic atrial fibrillation, unspecified Additional Impressions: Chronic pain Qualified Codes: G89.29 - Other chronic pain Morbid obesity Disposition: HOME, SELF[facility]CARE ([facility]) Condition: Improved Departure-Patient Inst. Referrals: BREONNA HERNANDEZ MD (PCP/Family) Primary Care Physician Patient Instructions: Atrial Fibrillation (DC), Obesity, Adult (DC) Add. Discharge Instructions: OK to resume your normal nightly medications tonight. Follow up with your PCP (Dr Hernandez) in 1 week, ER sooner if worse and unable to see your PCP. RANDY ELIZONDO DO Apr 07, 2020 22:00
[2020-04-07] MEDS ORDERED: morphine INJ 10 MG/ML 1ML (SYR OR VIAL) IVP STA (22:07)
[2020-04-07] MEDS ORDERED: NS IV 1000 ML 1,000 ML IV SCH (22:15)
[2020-04-07 22:17] LABS: HEMOGLOBIN 12.8 G/DL (11.5-16.0); MEAN CORPUSCULAR HEMOGLOBIN 27 PG (25-34); WHITE BLOOD COUNT 5.5 10^3/uL (4.3-11.0)
[2020-04-07 22:18] LABS: BASOPHILS % (AUTO) 1 % (0-10); EOSINOPHILS # (AUTO) 0.2 10^3/uL (0.0-0.3); EOSINOPHILS % (AUTO) 4 % (0-10); HEMATOCRIT 42 % (35-52); LYMPHOCYTES # (AUTO) 1.6 X 10^3 (1.0-4.0); LYMPHOCYTES % (AUTO) 29 % (12-44); MEAN CORPUSCULAR HGB CONC 30 G/DL (32-36); MEAN CORPUSCULAR VOLUME 89 FL (80-99); MEAN PLATELET VOLUME 10.1 FL (7.4-10.4); MONOCYTES # (AUTO) 0.5 X 10^3 (0.0-1.0); MONOCYTES % (AUTO) 8 % (0-12); NEUTROPHILS # (AUTO) 3.2 X 10^3 (1.8-7.8); NEUTROPHILS % (AUTO) 58 % (42-75); PLATELET COUNT 232 10^3/uL (130-400)
[2020-04-07 22:52] LABS: ALANINE AMINOTRANSFERASE 11 U/L (0-55); ALBUMIN 3.6 GM/DL (3.2-4.5); ALKALINE PHOSPHATASE 68 U/L (40-136); BILIRUBIN,TOTAL 0.2 MG/DL (0.1-1.0); BUN/CREATININE RATIO 25; CALCIUM 9.3 MG/DL (8.5-10.1); CARBON DIOXIDE 31 MMOL/L (21-32); CHLORIDE 100 MMOL/L (98-107); CREATININE SERUM 0.72 MG/DL (0.60-1.30); GFR ESTIMATED > 60; GLUCOSE 338 MG/DL (70-105); POTASSIUM 4.5 MMOL/L (3.6-5.0); SODIUM 138 MMOL/L (135-145)
[2020-04-07 23:04] VITALS: BP 172/76
--- NOTE | 2020-04-08 07:47 | Diagnostic Imaging Report ---
Indication: Chest pain. Respiratory distress. Comparison 02/14/2020. Findings: Bilateral atelectasis consistent with pickwickian appearance again noted. The heart is not enlarged. The pulmonary vasculature does not appear increased. No consolidated infiltrates have developed. No pneumothorax or pleural effusion noted. IMPRESSION: Persistent bilateral basilar atelectasis. Dictated by: Dictated on workstation # [id number]
== END 2020-04-07 23:31 | disposition home or self-care (01) ==
LOC: EDUNIT# 21:35 → ER FS 21:36
DX: I48.91 Unspecified atrial fibrillation (principal); G89.29 Other chronic pain; M54.9 Dorsalgia, unspecified; F41.9 Anxiety disorder, unspecified; F32.9 Major depressive disorder, single episode, unspecified; I10 Essential (primary) hypertension; E11.9 Type 2 diabetes mellitus without complications; J44.9 Chronic obstructive pulmonary disease, unspecified; E66.01 Morbid (severe) obesity due to excess calories; Z68.44 Body mass index [BMI] 60.0-69.9, adult; Z77.22 Contact with and (suspected) exposure to environmental tobacco smoke (acute) (chronic); Z79.01 Long term (current) use of anticoagulants; Z79.52 Long term (current) use of systemic steroids; Z79.4 Long term (current) use of insulin
CPT/HCPCS: 36415; 71045; 80053; 84484; 85025

== ENCOUNTER 2020-05-08 17:46 | Emergency (ER) | payer MEDICAID ==
--- NOTE | 2020-05-08 18:00 | ED General ---
General Stated Complaint: LATHARGIC History of Present Illness Date Seen by Provider: May 08, 2020 Time Seen by Provider: 18:00 Initial Comments 64-year-old female [facility] the [facility] with complaint of acting lethargic today. Also concern of no urine output today. Recently tested negative for COVID 19 on May 05 and also finished a round of antibiotics (Macrobid) on May 06 for UTI Allergies and Home Medications Allergies Coded Allergies: No Known Drug Allergies (Unverified , 01/04/20) Home Medications Alprazolam 0.5 Mg Tablet, 0.5 MG PO TID, (Reported) Apixaban 5 Mg Tablet, 5 MG PO BID, (Reported) Bisacodyl 5 Mg Tablet.dr, 5 MG PO DAILY, (Reported) Diltiazem HCl 120 Mg Cap.er.12h, 240 MG PO DAILY, (Reported) Docusate Sodium 100 Mg Capsule, 100 MG PO BID, (Reported) Fluticasone Propionate 1 Ea Aero, 2 EA IH BID, (Reported) Gabapentin 600 Mg Tablet, 600 MG PO TID Prescribed by: OSEAS JIMENEZ on 01/04/201815 Insulin Determir 1,000 Units/10 Ml Soln, 35 UNITS SQ BID, (Reported) Insulin Lispro 100 Unit/1 Ml Vial, 6 UNIT SQ ACHS, (Reported) Insulin Lispro 100 Unit/1 Ml Insuln.pen, 100 UNIT SQ [id number], (Reported) PER SLIDING SCALE Ipratropium/Albuterol Sulfate 3 Ml Ampul.neb, 3 ML IH Q4H PRN for SHORTNESS OF BREATH, (Reported) Levothyroxine Sodium 75 Mcg Tablet, 75 MCG PO DAILY, (Reported) Magnesium Hydroxide 400 Mg/5 Ml Oral.susp, 30 MG PO DAILY, (Reported) Menthol 118 Ml Gel..ml., 118 ML TP Q2H, (Reported) Menthol/Lanolin/Calamine/Znox 71 Gm Oint, 71 GM TP TID, (Reported) Metformin HCl 500 Mg Tablet, 500 MG PO BID, (Reported) Morphine Sulfate 30 Mg Tablet.er, 30 MG PO BID Prescribed by: OSEAS JIMENEZ on 01/04/201818 Morphine Sulfate 15 Mg Tablet.er, 15 MG PO BID, (Reported) Naproxen Sodium 220 Mg Capsule, 220 MG PO Q8H PRN for PAIN-MILD (1-4), (Reported) Nystatin 1 Each Powder.ea., 1 EACH MC BID, (Reported) Omeprazole 20 Mg Capsule.dr, 20 MG PO DAILY, (Reported) Polyethylene Glycol 3350 17 Gm Powd.pack, 17 GM PO BID PRN for CONSTIPATION-1ST LINE, (Reported) Prednisone 20 Mg Tab, 40 MG PO DAILY@0700 Prescribed by: ESTEBAN JARQUIN on 01/06/20 194 Prednisone 50 Mg Tab, 50 MG PO DAILY Prescribed by: RANDY ELIZONDO on 02/14/20 1700 Ropinirole HCl 0.25 Mg Tablet, 0.25 MG PO HS, (Reported) Spironolactone 25 Mg Tablet, 25 MG PO BID, (Reported) Thiamine HCl 250 Mg Tablet, 250 MG PO DAILY, (Reported) Topiramate 50 Mg Tablet, 50 MG PO HS, (Reported) Tramadol HCl 100 Mg Tablet, 100 MG PO Q6H PRN for PAIN Prescribed by: OSEAS JIMENEZ on 01/04/20 1820 Trazodone HCl 100 Mg Tablet, 100 MG PO HS, (Reported) Venlafaxine HCl 100 Mg Tablet, 150 MG PO DAILY, (Reported) [Folic Acid] , 1 MG PO DAILY, (Reported) Patient Home Medication List Home Medication List Reviewed: Yes Review of Systems Review of Systems Constitutional: malaise, weakness EENTM: no symptoms reported Respiratory: No cough; short of breath Cardiovascular: No chest pain, No syncope Gastrointestinal: No abdominal pain, No loss of appetite, No nausea, No vomiti ng Skin: No change in color, No rash Psychiatric/Neurological: Denies Seizure; Weakness Past Xogyfbc-Iausmb-Wnxwgz Hx Past Med/Social Hx: Reviewed Nursing Past Med/Soc Hx Patient Social History Type Used: Cigarettes 2nd Hand Smoke Exposure: Yes Recent Hopitalizations: No Immunizations Up To Date Date of Pneumonia Vaccine: Jan 03, 2018 Seasonal Allergies Seasonal Allergies: No Past Medical History Respiratory: Yes (chronic resp failure; ) Sleep Apnea, COPD Cardiac: Yes (heart failure ) Atrial Fibrillation, Hypertension Neurological: No Genitourinary: No Chronic Constipation Musculoskeletal: Yes Degenerate Disk Disease Endocrine: Yes Diabetes, Insulin dep HEENT: No Cancer: No Psychosocial: Yes Anxiety, Schizophrenia, Depression Integumentary: No Family Medical History No Pertinent Family Hx Physical Exam Vital Signs Vital Signs - First Documented 05/08/20 05/08/20 18:02 20:29 Temp 36.6 Pulse 108 Resp 12 B/P (MAP) 144/90 (108) Pulse Ox 94 O2 Delivery Nasal Cannula O2 Flow Rate 4.00 Capillary Refill : Height, Weight, BMI Height: '" Weight: lbs. oz. kg; 64.00 BMI Method: General Appearance: No Apparent Distress, Obese HEENT: PERRL/EOMI, Normal ENT Inspection Neck: Non Tender, Supple Respiratory: Chest Non Tender, Lungs Clear Cardiovascular: No JVD, Irregularly Irregular, Tachycardia Gastrointestinal: Normal Bowel Sounds, Non Tender, Soft; No Guarding, No Tenderness Extremity: Normal Capillary Refill, No Calf Tenderness Neurologic/Psychiatric: Alert, Motor Weakness (diffuse, but considered baseline compared to previous times seeing same patient) Skin: Normal Color, Warm/Dry Focused Exam Lactate Level 05/08/20 18:02: Lactic Acid Level 0.69 Lactic Acid Level Progress/Results/Core Measures Suspected Sepsis SIRS Temperature: Pulse: Respiratory Rate: Laboratory Tests 05/08/20 18:02: White Blood Count 8.4 Blood Pressure / Mean: 05/08/20 18:02: Lactic Acid Level 0.69 Laboratory Tests 05/08/20 18:02: Creatinine 0.90, Platelet Count 231, Total Bilirubin 0.4 Results/Orders Lab Results Laboratory Tests Test 05/08/20 18:02 05/08/20 18:21 Range/Units White Blood Count 8.4 4.3-11.0 10^3/uL Red Blood Count 4.40 4.35-5.85 10^6/uL Hemoglobin 11.9 11.5-16.0 G/DL Hematocrit 41 35-52 % Mean Corpuscular Volume 93 80-99 FL Mean Corpuscular Hemoglobin 27 25-34 PG Mean Corpuscular Hemoglobin Concent 29 L 32-36 G/DL Red Cell Distribution Width 16.3 H 10.0-14.5 % Platelet Count 231 130-400 10^3/uL Mean Platelet Volume 9.5 7.4-10.4 FL Immature Granulocyte % (Auto) 0 % Neutrophils (%) (Auto) 68 42-75 % Lymphocytes (%) (Auto) 17 12-44 % Monocytes (%) (Auto) 9 0-12 % Eosinophils (%) (Auto) 6 0-10 % Basophils (%) (Auto) 0 0-10 % Neutrophils # (Auto) 5.7 1.8-7.8 X 10^3 Lymphocytes # (Auto) 1.4 1.0-4.0 X 10^3 Monocytes # (Auto) 0.7 0.0-1.0 X 10^3 Eosinophils # (Auto) 0.5 H 0.0-0.3 10^3/uL Basophils # (Auto) 0.0 0.0-0.1 10^3/uL Immature Granulocyte # (Auto) 0.0 0.0-0.1 10^3/uL Sodium Level 138 135-145 MMOL/L Potassium Level 4.5 3.6-5.0 MMOL/L Chloride Level 98 98-107 MMOL/L Carbon Dioxide Level 34 H 21-32 MMOL/L Anion Gap 6 5-14 MMOL/L Blood Urea Nitrogen 23 H 7-18 MG/DL Creatinine 0.90 0.60-1.30 MG/DL Estimat Glomerular Filtration Rate > 60 BUN/Creatinine Ratio 26 Glucose Level 78 70-105 MG/DL Lactic Acid Level 0.69 0.50-2.00 MMOL/L Calcium Level 9.5 8.5-10.1 MG/DL Corrected Calcium 9.7 8.5-10.1 MG/DL Total Bilirubin 0.4 0.1-1.0 MG/DL Aspartate Amino Transf (AST/SGOT) 12 5-34 U/L Alanine Aminotransferase (ALT/SGPT) 12 0-55 U/L Alkaline Phosphatase 72 40-136 U/L Troponin I < 0.30 <0.30 NG/ML Total Protein 7.2 6.4-8.2 GM/DL Albumin 3.7 3.2-4.5 GM/DL Urine Color DARK YELLOW Urine Clarity CLEAR Urine pH 6.0 5-9 Urine Specific [place] 1025 1.016-1.022 Urine Protein 2+ H NEGATIVE Urine Glucose (UA) NEGATIVE NEGATIVE Urine Ketones NEGATIVE NEGATIVE Urine Nitrite NEGATIVE NEGATIVE Urine Bilirubin NEGATIVE NEGATIVE Urine Urobilinogen 0.2 < = 1.0 MG/DL Urine Leukocyte Esterase TRACE H NEGATIVE Urine RBC (Auto) TRACE H NEGATIVE Urine RBC NONE /HPF Urine WBC 2-5 /HPF Urine Squamous Epithelial Cells 2-5 /HPF Urine Crystals PRESENT H /LPF Urine Amorphous Sediment FEW VINCENT URATES H /LPF Urine Bacteria TRACE /HPF Urine Casts PRESENT /LPF Urine Hyaline Casts 0-2 H /LPF Urine Mucus NEGATIVE /LPF Urine Culture Indicated NO My Orders Orders - RANDY ELIZONDO DO Ed Iv/Invasive Line Start (05/08/20 18:01) Chest 1 View Ap/Pa Only (05/08/20 18:01) Troponin I Fs (05/08/20 18:01) Cbc With Automated Diff (05/08/20 18:01) Comprehensive Metabolic Panel (05/08/20 18:01) Lactic Acid Analyzer (05/08/20 18:01) Urinalysis (05/08/20 18:01) Ns Iv 500 Ml (Sodium Chloride 0.9%) (05/08/20 18:15) Ns Iv 500 Ml (Sodium Chloride 0.9%) (05/08/20 19:00) Diltiazem Injection (Cardizem Injection) (05/08/20 19:00) Diltiazem Cd 24 Hr Capsule (Cardizem Cd (05/09/20 09:00) Diltiazem Cd 24 Hr Capsule (Cardizem Cd (05/08/20 19:39) Medications Given in ED Current Medications Medications Dose Ordered Sig/Piero Route Start Time Stop Time Status Last Admin Dose Admin Diltiazem HCl 15 mg ONCE ONCE IVP 05/08/20 19:00 05/08/20 19:01 DC 05/08/20 19:09 15 MG Vital Signs/I&O 05/08/20 05/08/20 18:02 20:29 Temp 36.6 36.6 Pulse 108 118 Resp 12 13 B/P (MAP) 144/90 (108) 139/93 (108) Pulse Ox 94 94 O2 Delivery Nasal Cannula Nasal Cannula O2 Flow Rate 4.00 Capillary Refill : Progress Note : Progress Note patient HR improved after being given Diltiazem IV and PO. No distress, baseline mental status and physical state. REturned to [place] by EMS in stable and improved condition Departure Impression Primary Impression: Atrial fibrillation with rapid ventricular response Additional Impressions: Weakness Morbid obesity Disposition: 01 HOME, SELF-CARE (back to halfway) Condition: Improved Departure-Patient Inst. Decision time for Depature: 19:14 Referrals: BREONNA HERNANDEZ MD (PCP/Family) Primary Care Physician Patient Instructions: Atrial Fibrillation (DC) Add. Discharge Instructions: follow up with Dr Hernandez next week, ER sooner if worse. RANDY ELIZONDO DO May 08, 2020 18:00
[2020-05-08 18:13] LABS: BASOPHILS % (AUTO) 0 % (0-10); EOSINOPHILS % (AUTO) 6 % (0-10); HEMATOCRIT 41 % (35-52); HEMOGLOBIN 11.9 G/DL (11.5-16.0); LYMPHOCYTES % (AUTO) 17 % (12-44); MEAN CORPUSCULAR HEMOGLOBIN 27 PG (25-34); MEAN CORPUSCULAR HGB CONC 29 G/DL (32-36); MEAN CORPUSCULAR VOLUME 93 FL (80-99); MEAN PLATELET VOLUME 9.5 FL (7.4-10.4); MONOCYTES % (AUTO) 9 % (0-12); NEUTROPHILS % (AUTO) 68 % (42-75); PLATELET COUNT 231 10^3/uL (130-400); WHITE BLOOD COUNT 8.4 10^3/uL (4.3-11.0)
[2020-05-08 18:14] LABS: EOSINOPHILS # (AUTO) 0.5 10^3/uL (0.0-0.3); LYMPHOCYTES # (AUTO) 1.4 X 10^3 (1.0-4.0); MONOCYTES # (AUTO) 0.7 X 10^3 (0.0-1.0); NEUTROPHILS # (AUTO) 5.7 X 10^3 (1.8-7.8)
[2020-05-08] MEDS ORDERED: NS IV 500 ML 500 ML IV SCH ×2 (18:15→19:00)
[2020-05-08 18:34] LABS: SODIUM 138 MMOL/L (135-145)
[2020-05-08 18:35] LABS: ALANINE AMINOTRANSFERASE 12 U/L (0-55); ALKALINE PHOSPHATASE 72 U/L (40-136); BILIRUBIN,TOTAL 0.4 MG/DL (0.1-1.0); BUN/CREATININE RATIO 26; CALCIUM 9.5 MG/DL (8.5-10.1); CARBON DIOXIDE 34 MMOL/L (21-32); CHLORIDE 98 MMOL/L (98-107); GFR ESTIMATED > 60; GLUCOSE 78 MG/DL (70-105); POTASSIUM 4.5 MMOL/L (3.6-5.0)
[2020-05-08 18:36] LABS: CLARITY,URINE CLEAR; COLOR,URINE DARK YELLOW
[2020-05-08 18:36] LABS: ALBUMIN 3.7 GM/DL (3.2-4.5); TOTAL PROTEIN 7.2 GM/DL (6.4-8.2)
[2020-05-08 18:37] LABS: BACTERIA,URINE TRACE /HPF; BILIRUBIN,URINE NEGATIVE (NEGATIVE); GLUCOSE, URINE (UA) NEGATIVE (NEGATIVE); KETONES,URINE NEGATIVE (NEGATIVE); LEUKOCYTE ESTERASE ,URINE TRACE (NEGATIVE); NITRITE,URINE NEGATIVE (NEGATIVE); PROTEIN,URINE 2+ (NEGATIVE)
[2020-05-08 18:38] LABS: AMORPHOUS SEDIMENT,UR FEW AMOR URATES /LPF; HYALINE CASTS, URINE 0-2 /LPF
--- NOTE | 2020-05-08 18:49 | Diagnostic Imaging Report ---
INDICATION: Lethargy and weakness and shortness of breath. Frontal chest obtained at 6:25 p.m. and compared to 04/07/2020. There is mild cardiomegaly. There is very poor inspiration with limited study. There is central vascular congestion and some mild bibasilar infiltrates. There is no pneumothorax or pleural fluid. IMPRESSION: Very poor aspiration limited study. There is cardiomegaly and central vascular congestion with some mild bibasilar infiltrate. Suggest followup as clinically warranted. Dictated by: Dictated on workstation # [id number]
--- NOTE | 2020-05-08 19:36 | NUR ---
Mauricio Ngo, gave patient report and discharge information. They will call for transfer for patient back to their facility.
[2020-05-08] MEDS ORDERED: dilTIAZem120 MG (CARDIZEM CD) CAP PO ONE (19:39)
[2020-05-08 20:29] VITALS: BP 139/93
[2020-05-09] MEDS ORDERED: dilTIAZem120 MG (CARDIZEM CD) CAP PO SCH (09:00)
== END 2020-05-08 20:33 | disposition home or self-care (01) ==
LOC: EDUNIT# 17:46 → ER FS 17:47
DX: I48.91 Unspecified atrial fibrillation (principal); R53.1 Weakness; I10 Essential (primary) hypertension; E11.9 Type 2 diabetes mellitus without complications; K59.09 Other constipation; F41.9 Anxiety disorder, unspecified; F32.9 Major depressive disorder, single episode, unspecified; J44.9 Chronic obstructive pulmonary disease, unspecified; E66.01 Morbid (severe) obesity due to excess calories; Z77.22 Contact with and (suspected) exposure to environmental tobacco smoke (acute) (chronic); Z79.4 Long term (current) use of insulin; Z79.51 Long term (current) use of inhaled steroids; Z79.01 Long term (current) use of anticoagulants; Z79.52 Long term (current) use of systemic steroids
CPT/HCPCS: 36415; 51702; 71045; 80053; 81000; 83605; 84484; 85025

== ENCOUNTER → 2020-07-03 | Outpatient (CLI) | payer MEDICAID ==
[~2020-07-03] MED LIST changes: +CEPH500T PO
[2020-07-03 15:45] LABS: CALCIUM 8.9 MG/DL (8.5-10.1); CREATININE SERUM 0.95 MG/DL (0.60-1.30); POTASSIUM 4.8 MMOL/L (3.6-5.0)
== END ==
LOC: IHC 15:08
PROVIDERS: ATTEND Pediatrics
DX: M79.89 Other specified soft tissue disorders (principal); R63.5 Abnormal weight gain
CPT/HCPCS: 80048

== ENCOUNTER 2020-07-04 10:45 | Emergency (ER) | payer MEDICAID ==
[~2020-07-04 10:45] MED LIST changes: -CEPH500T PO
[2020-07-04] MEDS ORDERED: HYDROmorphone 2 MG/ML VIAL (DILAUDID) IV STA (11:12)
--- NOTE | 2020-07-04 11:21 | ED General ---
General Chief Complaint: General Problems/Pain Stated Complaint: EDEMA Source of Information: Patient, EMS, Half-Way Records History of Present Illness Date Seen by Provider: Jul 04, 2020 Time Seen by Provider: 10:46 Initial Comments 64 yo female presents with complaints of right foot pain and bruising since having it accidentally hit against the wall at [facility] where she is a resident. She states they have hit it against the wall 3 days earlier as well. She has had increasing pain and is unable to move her toes due to pain now. She has chronic swelling to her legs and chronic redness from chronic venous stasis changes. She has CHF with edema and has had a recent weight gain. She already takes high dose chronic opiates for pain and states it is not helping her foot pain. She presents by EMS from [facility] this morning. She only complains of the foot issue. She denies being more short of breath than normal and has no other concerns. She almost immediately told me that she would not be admitted to the hospital when I told her we would be doing testing to check her blood for infection as the NH was concerned for cellulitis from the redness and warmth on her legs. Location Injury Occurred: [facility] Timing/Duration: Getting Worse Severity: Severe Modifying Factors: worse with Immobilization, worse with Movement Associated Systoms: No Chest Pain; Cough (chronic); No Diaphoresis, No Fever/Chills, No Headaches, No Loss of Appetite, No Nausea/Vomiting, No Seizure; Shortness of Air (chronic and no worse than normal per patient) Allergies and Home Medications Allergies Coded Allergies: No Known Drug Allergies (Unverified , 01/04/20) Home Medications Alprazolam 0.5 Mg Tablet, 0.5 MG PO TID, (Reported) Apixaban 5 Mg Tablet, 5 MG PO BID, (Reported) Bisacodyl 5 Mg Tablet.dr, 5 MG PO DAILY, (Reported) Cephalexin 500 Mg Tablet, 500 MG PO QID Prescribed by: ALTAGRACIA ROGERS on 07/04/20 1217 Diltiazem HCl 120 Mg Cap.er.12h, 240 MG PO DAILY, (Reported) Docusate Sodium 100 Mg Capsule, 100 MG PO BID, (Reported) Fluticasone Propionate 1 Ea Aero, 2 EA IH BID, (Reported) Gabapentin 600 Mg Tablet, 600 MG PO TID Prescribed by: OSEAS JIMENEZ on 01/04/201815 Insulin Determir 1,000 Units/10 Ml Soln, 35 UNITS SQ BID, (Reported) Insulin Lispro 100 Unit/1 Ml Vial, 6 UNIT SQ ACHS, (Reported) Insulin Lispro 100 Unit/1 Ml Insuln.pen, 100 UNIT SQ [id number], (Reported) PER SLIDING SCALE Ipratropium/Albuterol Sulfate 3 Ml Ampul.neb, 3 ML IH Q4H PRN for SHORTNESS OF BREATH, (Reported) Levothyroxine Sodium 75 Mcg Tablet, 75 MCG PO DAILY, (Reported) Magnesium Hydroxide 400 Mg/5 Ml Oral.susp, 30 MG PO DAILY, (Reported) Menthol 118 Ml Gel..ml., 118 ML TP Q2H, (Reported) Menthol/Lanolin/Calamine/Znox 71 Gm Oint, 71 GM TP TID, (Reported) Metformin HCl 500 Mg Tablet, 500 MG PO BID, (Reported) Morphine Sulfate 30 Mg Tablet.er, 30 MG PO BID Prescribed by: OSEAS JIMENEZ on 01/04/201818 Morphine Sulfate 15 Mg Tablet.er, 15 MG PO BID, (Reported) Naproxen Sodium 220 Mg Capsule, 220 MG PO Q8H PRN for PAIN-MILD (1-4), (Reported) Nystatin 1 Each Powder.ea., 1 EACH MC BID, (Reported) Omeprazole 20 Mg Capsule.dr, 20 MG PO DAILY, (Reported) Polyethylene Glycol 3350 17 Gm Powd.pack, 17 GM PO BID PRN for CONSTIPATION-1ST LINE, (Reported) Prednisone 20 Mg Tab, 40 MG PO DAILY@0700 Prescribed by: ESTEBAN JARQUIN on 01/06/201941 Prednisone 50 Mg Tab, 50 MG PO DAILY Prescribed by: RANDY ELIZONDO on 02/14/20 1700 Ropinirole HCl 0.25 Mg Tablet, 0.25 MG PO HS, (Reported) Spironolactone 25 Mg Tablet, 25 MG PO BID, (Reported) Thiamine HCl 250 Mg Tablet, 250 MG PO DAILY, (Reported) Topiramate 50 Mg Tablet, 50 MG PO HS, (Reported) Tramadol HCl 100 Mg Tablet, 100 MG PO Q6H PRN for PAIN Prescribed by: OSEAS JIMENEZ on 01/04/201819 Trazodone HCl 100 Mg Tablet, 100 MG PO HS, (Reported) Venlafaxine HCl 100 Mg Tablet, 150 MG PO DAILY, (Reported) [Folic Acid] , 1 MG PO DAILY, (Reported) Patient Home Medication List Home Medication List Reviewed: Yes Review of Systems Review of Systems Constitutional: No chills; fever ([place] reports temp up over 99F) EENTM: no symptoms reported Respiratory: see HPI Cardiovascular: edema (increased edema to BLE) Gastrointestinal: constipation; No nausea, No vomiting Genitourinary: other (indwelling catheter) Musculoskeletal: see HPI, other (pain, bruising and swelling to right foot and toes) Skin: change in color (increased redness to BLE legs up to her knees. Bruising to right foot on 2nd and 3rd toes) Psychiatric/Neurological: Anxiety Past Rfkahlk-Cjsswz-Tvfshe Hx Past Med/Social Hx: Reviewed Nursing Past Med/Soc Hx Patient Social History Type Used: Cigarettes 2nd Hand Smoke Exposure: Yes Recent Hopitalizations: No Immunizations Up To Date Date of Pneumonia Vaccine: Jan 03, 2018 Seasonal Allergies Seasonal Allergies: No Past Medical History Respiratory: Yes (chronic resp failure; ) Sleep Apnea, COPD Cardiac: Yes (heart failure ) Atrial Fibrillation, Cardiomyopathy, Hypertension Neurological: No Genitourinary: No Chronic Constipation Musculoskeletal: Yes Degenerate Disk Disease Endocrine: Yes Diabetes, Insulin dep HEENT: No Cancer: No Psychosocial: Yes Anxiety, Schizophrenia, Depression Integumentary: No Blood Disorders: No Family Medical History No Pertinent Family Hx Physical Exam Vital Signs Vital Signs - First Documented 07/04/20 07/04/20 11:02 11:27 Temp 36.4 Pulse 105 Resp 18 B/P (MAP) 105/76 (86) Pulse Ox 94 O2 Delivery Nasal Cannula O2 Flow Rate 3.00 Capillary Refill : Height, Weight, BMI Height: '" Weight: lbs. oz. kg; 64.00 BMI Method: General Appearance: Obese (morbidly obese) HEENT: PERRL/EOMI Respiratory: Chest Non Tender, Crackles, Decreased Breath Sounds Cardiovascular: Normal Peripheral Pulses, Irregularly Irregular Gastrointestinal: No Pulsatile Mass, Soft Extremity: Pedal Edema (3+ pitting edema to BLE) Neurologic/Psychiatric: Alert, Oriented x3, Other (anxious and speaking in whining voice, cries out with anyone touching her or trying to do any intervention) Skin: Warm/Dry, Ecchymosis (right foot 2nd and 3rd toes), Erythema (BLE up to her knees) Progress/Results/Core Measures Suspected Sepsis SIRS Temperature: Pulse: Respiratory Rate: Laboratory Tests 07/04/20 11:16: White Blood Count 6.6 Blood Pressure / Mean: Laboratory Tests 07/04/20 11:16: Creatinine 0.79, Platelet Count 205, Total Bilirubin 0.3 Results/Orders Lab Results Laboratory Tests Test 07/04/20 11:16 Range/Units White Blood Count 6.6 4.3-11.0 10^3/uL Red Blood Count 4.24 L 4.35-5.85 10^6/uL Hemoglobin 11.2 L 11.5-16.0 G/DL Hematocrit 39 35-52 % Mean Corpuscular Volume 92 80-99 FL Mean Corpuscular Hemoglobin 26 25-34 PG Mean Corpuscular Hemoglobin Concent 29 L 32-36 G/DL Red Cell Distribution Width 16.6 H 10.0-14.5 % Platelet Count 205 130-400 10^3/uL Mean Platelet Volume 10.0 7.4-10.4 FL Immature Granulocyte % (Auto) 0 % Neutrophils (%) (Auto) 66 42-75 % Lymphocytes (%) (Auto) 21 12-44 % Monocytes (%) (Auto) 8 0-12 % Eosinophils (%) (Auto) 5 0-10 % Basophils (%) (Auto) 1 0-10 % Neutrophils # (Auto) 4.4 1.8-7.8 X 10^3 Lymphocytes # (Auto) 1.4 1.0-4.0 X 10^3 Monocytes # (Auto) 0.5 0.0-1.0 X 10^3 Eosinophils # (Auto) 0.3 0.0-0.3 10^3/uL Basophils # (Auto) 0.0 0.0-0.1 10^3/uL Immature Granulocyte # (Auto) 0.0 0.0-0.1 10^3/uL Sodium Level 139 135-145 MMOL/L Potassium Level 4.3 3.6-5.0 MMOL/L Chloride Level 97 L 98-107 MMOL/L Carbon Dioxide Level 38 H 21-32 MMOL/L Anion Gap 4 L 5-14 MMOL/L Blood Urea Nitrogen 17 7-18 MG/DL Creatinine 0.79 0.60-1.30 MG/DL Estimat Glomerular Filtration Rate > 60 BUN/Creatinine Ratio 22 Glucose Level 94 70-105 MG/DL Calcium Level 9.0 8.5-10.1 MG/DL Corrected Calcium 9.4 8.5-10.1 MG/DL Total Bilirubin 0.3 0.1-1.0 MG/DL Aspartate Amino Transf (AST/SGOT) 12 5-34 U/L Alanine Aminotransferase (ALT/SGPT) 9 0-55 U/L Alkaline Phosphatase 65 40-136 U/L Total Protein 7.0 6.4-8.2 GM/DL Albumin 3.5 3.2-4.5 GM/DL My Orders Orders - ALTAGRACIA ROGERS MD Comprehensive Metabolic Panel (07/04/20 11:11) Ed Iv/Invasive Line Start (07/04/20 11:11) Cbc With Automated Diff (07/04/20 11:11) Foot 3 View Right (07/04/20 11:11) O2 (07/04/20 11:12) Hydromorphone Injection (Dilaudid Inject (07/04/20 11:12) Ceftriaxone For Iv Use (Rocephin For I (07/04/20 12:06) Vital Signs/I&O 07/04/20 07/04/20 11:02 11:27 Temp 36.4 Pulse 105 Resp 18 B/P (MAP) 105/76 (86) Pulse Ox 94 O2 Delivery Nasal Cannula Nasal Cannula O2 Flow Rate 3.00 Capillary Refill : Progress Note #1: Progress Note BMP done yesterday in the computer and appears stable. Will check basic labs of CBC and CMP here and Xray of the right foot where she has so much pain. Since she reports the Morphine is not helping her pain at the [place] will try a single Dilaudid 1 mg dose to try and help with her symptoms since she has a tolerance for narcotics. Progress Note #2: Time: 11:44 Progress Note CBC and Chemistry stable. No acute elevation of WBC count. WBC 6.6K without left shift. Chemistry stable from labs done July 03. Xray of foot shows severe bone demineralization. No definite fracture but if continued concerns could perform CT. 6 mm linear Metallic or Radio-opaque foreign body seen in hindfoot area but no obvious trauma to plantar portion of foot to indicate recent puncture wound or trauma. This may be old retained foreign body. Patient asking nurse about when she can go back to [place]. Will try to check with Dr. Hernandez, her PCP, to see if there is anything he wants to adjust or have me do different prior to sending her back to [place]. Progress Note #3: Time: 12:01 Progress Note d/w Dr. Hernandez and reviewed labs and exam findings with him. With concern for possible early or developing cellulitis will add on Rocephin here and cephalexin at [place]. As far as weight gain and concern for CHF He is addressing that with diuretics and graf to monitor urine output. Patient is stable on her breathing and saturating well 97-100% on 2-3 LPM of O2 by n.c. For her foot it seems to be more of a contusion and bruised area. She may have an old FB present as well. If she has continued pain/problems he may have her get a bone scan or CT. She already takes a large amount of opiates for chronic pain. She has been resting comfortable since getting the single dose of Dilaudid 1 mg IV here in the ED. Diagnostic Imaging Diagonstic Imaging: Xray Plain Films/CT/US/NM/MRI: other (foot) Comments NAME: [facility] REC#: [id number] PT STATUS: REG ER : 1955 PHYSICIAN: ALTAGRACIA ROGERS MD ADMIT DATE: 07/04/20/ER FS Draft Date of Exam:07/04/20 FOOT 3 VIEW RIGHT INDICATION: Pain, swelling COMPARISON: None available TECHNIQUE: 3 radiographs right foot dated 07/04/2020. FINDINGS: The osseous structures appear significantly demineralized, which limits evaluation of underlying osseous structures. Postsurgical changes of a prior osteotomy associated with the 1st metatarsal with [address] without evidence of hardware complication. The talar neck appears slightly foreshortened with sclerosis within the region. The mid and hindfoot are not optimally visualized secondary to positioning. Significant degenerative changes associated with the ankle joint. Soft tissue swelling diffusely. 6 mm linear metallic density is noted within the soft tissues of the plantar hindfoot underlying the distal calcaneus. IMPRESSION: Abnormal appearance of the talar neck. Although this could simply be positional in nature related to advanced degenerative changes, fracture would be an additional consideration. Recommend correlation for pain within the hindfoot. If there is clinical concern for hindfoot pain, then a CT could be considered. Significant osseous demineralization which limits evaluation. Scattered degenerative changes, greatest involving the 1st MTP joint. Additional postsurgical and chronic findings as above. 6 mm linear radiopaque density within the plantar aspect of the hindfoot, which could relate to a small foreign body. Recommend direct visualization. Dictated on workstation # [id number] Dict: 07/04/20 1128 Trans: 07/04/20 1142 CV [id number] Interpreted by: JEFE NERI MD Electronically signed by: Departure Impression Primary Impression: Contusion of right foot including toes Qualified Codes: S90.31XA - Contusion of right foot, initial encounter; S90.121A - Contusion of right lesser toe(s) without damage to nail, initial encounter Additional Impressions: Right foot pain Cellulitis of both lower extremities Chronic venous stasis dermatitis of both lower extremities Old foreign body in soft tissue Disposition: HOME, SELF-CARE Condition: Stable Departure-Patient Inst. Decision time for Depature: 12:06 Referrals: BREONNA HERNANDEZ MD (PCP/Family) Primary Care Physician Patient Instructions: Contusion (DC), Toe Injury (DC), Cellulitis (Skin Infection), Adult ED Add. Discharge Instructions: Check back with clinic and Dr. Hernandez. If pain and bruising persist then you may need to see Orthopedics or have a Bone Scan or CT scan to look for further injury. You could request the nurses have Dr. Hernandez come see you and re-evaluate you in person when he does his rounds since you are concerned he has not seen you recently Take the antibiotics for possible developing infection in your legs. Continue the diuretics and monitor urine out put with the catheter. All discharge instructions reviewed with patient and/or family. Voiced understanding. Scripts Cephalexin (Cephalexin) 500 Mg Tablet 500 MG PO QID for cellulitis for 10 Days, #40 TAB 0 Refills Prov: ALTAGRACIA ROGERS MD 07/04/20 ALTAGRACIA ROGERS MD Jul 04, 2020 11:20
[2020-07-04 11:22] LABS: BASOPHILS % (AUTO) 1 % (0-10); EOSINOPHILS # (AUTO) 0.3 10^3/uL (0.0-0.3); EOSINOPHILS % (AUTO) 5 % (0-10); HEMATOCRIT 39 % (35-52); HEMOGLOBIN 11.2 G/DL (11.5-16.0); LYMPHOCYTES # (AUTO) 1.4 X 10^3 (1.0-4.0); LYMPHOCYTES % (AUTO) 21 % (12-44); MEAN CORPUSCULAR HEMOGLOBIN 26 PG (25-34); MEAN CORPUSCULAR HGB CONC 29 G/DL (32-36); MEAN CORPUSCULAR VOLUME 92 FL (80-99); MONOCYTES # (AUTO) 0.5 X 10^3 (0.0-1.0); MONOCYTES % (AUTO) 8 % (0-12); NEUTROPHILS # (AUTO) 4.4 X 10^3 (1.8-7.8); NEUTROPHILS % (AUTO) 66 % (42-75); PLATELET COUNT 205 10^3/uL (130-400); WHITE BLOOD COUNT 6.6 10^3/uL (4.3-11.0)
[2020-07-04 11:42] LABS: CARBON DIOXIDE 38 MMOL/L (21-32); CHLORIDE 97 MMOL/L (98-107); POTASSIUM 4.3 MMOL/L (3.6-5.0); SODIUM 139 MMOL/L (135-145)
--- NOTE | 2020-07-04 11:42 | Diagnostic Imaging Report ---
INDICATION: Pain, swelling COMPARISON: None available TECHNIQUE: 3 radiographs right foot dated 07/04/2020. FINDINGS: The osseous structures appear significantly demineralized, which limits evaluation of underlying osseous structures. Postsurgical changes of a prior osteotomy associated with the 1st metatarsal with [address] without evidence of hardware complication. The talar neck appears slightly foreshortened with sclerosis within the region. The mid and hindfoot are not optimally visualized secondary to positioning. Significant degenerative changes associated with the ankle joint. Soft tissue swelling diffusely. 6 mm linear metallic density is noted within the soft tissues of the plantar hindfoot underlying the distal calcaneus. IMPRESSION: Abnormal appearance of the talar neck. Although this could simply be positional in nature related to advanced degenerative changes, fracture would be an additional consideration. Recommend correlation for pain within the hindfoot. If there is clinical concern for hindfoot pain, then a CT could be considered. Significant osseous demineralization which limits evaluation. Scattered degenerative changes, greatest involving the 1st MTP joint. Additional postsurgical and chronic findings as above. 6 mm linear radiopaque density within the plantar aspect of the hindfoot, which could relate to a small foreign body. Recommend direct visualization. Dictated by: Dictated on workstation # [id number]
[2020-07-04 11:43] LABS: ALANINE AMINOTRANSFERASE 9 U/L (0-55); ALBUMIN 3.5 GM/DL (3.2-4.5); ALKALINE PHOSPHATASE 65 U/L (40-136); BILIRUBIN,TOTAL 0.3 MG/DL (0.1-1.0); BUN/CREATININE RATIO 22; CREATININE SERUM 0.79 MG/DL (0.60-1.30); GFR ESTIMATED > 60; GLUCOSE 94 MG/DL (70-105)
[2020-07-04] MEDS ORDERED: cefTRIAXone FOR IV USE 1,000 MG in WATER (STERILE) FOR INJECTION 10 ML IV STA (12:06)
[2020-07-04] MEDS ORDERED: CEPH500T PO (12:17)
[2020-07-04 12:48] VITALS: BP 115/69
== END 2020-07-04 12:42 | disposition home or self-care (01) ==
LOC: EDUNIT# 10:45 → ER FS 10:46
DX: S90.31XA Contusion of right foot, initial encounter (principal); S90.121A Contusion of right lesser toe(s) without damage to nail, initial encounter; I87.8 Other specified disorders of veins; L03.116 Cellulitis of left lower limb; L03.115 Cellulitis of right lower limb; M79.5 Residual foreign body in soft tissue; R05 Cough; I11.0 Hypertensive heart disease with heart failure; I50.9 Heart failure, unspecified; I25.2 Old myocardial infarction; I48.91 Unspecified atrial fibrillation; E11.9 Type 2 diabetes mellitus without complications; K59.09 Other constipation; F41.9 Anxiety disorder, unspecified; F32.9 Major depressive disorder, single episode, unspecified; F20.9 Schizophrenia, unspecified; G47.30 Sleep apnea, unspecified; J44.9 Chronic obstructive pulmonary disease, unspecified; Z77.22 Contact with and (suspected) exposure to environmental tobacco smoke (acute) (chronic); Z79.4 Long term (current) use of insulin; Z96.0 Presence of urogenital implants; Z79.01 Long term (current) use of anticoagulants; Z79.890 Hormone replacement therapy; Z79.52 Long term (current) use of systemic steroids; W22.01XA Walked into wall, initial encounter; Y92.129 Unspecified place in nursing home as the place of occurrence of the external cause
CPT/HCPCS: 36415; 73630; 80053; 85025; 96374; 96375

== ENCOUNTER 2020-08-12 15:42 | Emergency (ER) | payer MEDICAID ==
[~2020-08-12] VITALS: Ht 165.1 cm; Wt 165.0 kg
[~2020-08-12 15:42] MED LIST changes: +CEPH500T PO
[2020-08-12] MEDS ORDERED: ORPHENADRINE 60 MG/2 ML (NORFLEX) AMP (ED ONLY) IV STA (15:48)
[2020-08-12] MEDS ORDERED: KETOROLAC 30 MG/ML VIAL IVP STA (15:48)
--- NOTE | 2020-08-12 15:48 | ED General ---
General Stated Complaint: CHEST/ARM PAIN History of Present Illness Date Seen by Provider: Aug 12, 2020 Time Seen by Provider: 15:44 Initial Comments 65-year-old female presents with chronic pain. Patient is complaining of pain in her bilateral shoulder all shoulders neck back chest etc. Patient has history of chronic pain in all these areas. States is worse today. No known injury. Patient has a history of schizophrenia, narcotic abuse. She is morbidly obese and sits in her chair. Patient extremely dramatic and yelling at staff. Patient also has a history of anxiety. No complaints of shortness of breath, fever, chills or other systemic complaints. Patient reports that other staff is entered the room that she has been hurting this bad for at least a couple weeks. Allergies and Home Medications Allergies Coded Allergies: No Known Drug Allergies (Unverified , 01/04/20) Home Medications Alprazolam 0.5 Mg Tablet, 0.5 MG PO TID, (Reported) Apixaban 5 Mg Tablet, 5 MG PO BID, (Reported) Bisacodyl 5 Mg Tablet.dr, 5 MG PO DAILY, (Reported) Cephalexin 500 Mg Tablet, 500 MG PO QID Prescribed by: ALTAGRACIA ROGERS on 07/04/20 1217 Diltiazem HCl 120 Mg Cap.er.12h, 240 MG PO DAILY, (Reported) Docusate Sodium 100 Mg Capsule, 100 MG PO BID, (Reported) Fluticasone Propionate 1 Ea Aero, 2 EA IH BID, (Reported) Gabapentin 600 Mg Tablet, 600 MG PO TID Prescribed by: OSEAS JIMENEZ on 01/04/20 1816 Insulin Determir 1,000 Units/10 Ml Soln, 35 UNITS SQ BID, (Reported) Insulin Lispro 100 Unit/1 Ml Vial, 6 UNIT SQ ACHS, (Reported) Insulin Lispro 100 Unit/1 Ml Insuln.pen, 100 UNIT SQ [id number], (Reported) PER SLIDING SCALE Ipratropium/Albuterol Sulfate 3 Ml Ampul.neb, 3 ML IH Q4H PRN for SHORTNESS OF BREATH, (Reported) Levothyroxine Sodium 75 Mcg Tablet, 75 MCG PO DAILY, (Reported) Magnesium Hydroxide 400 Mg/5 Ml Oral.susp, 30 MG PO DAILY, (Reported) Menthol 118 Ml Gel..ml., 118 ML TP Q2H, (Reported) Menthol/Lanolin/Calamine/Znox 71 Gm Oint, 71 GM TP TID, (Reported) Metformin HCl 500 Mg Tablet, 500 MG PO BID, (Reported) Morphine Sulfate 30 Mg Tablet.er, 30 MG PO BID Prescribed by: OSEAS JIMENEZ on 01/04/201818 Morphine Sulfate 15 Mg Tablet.er, 15 MG PO BID, (Reported) Naproxen Sodium 220 Mg Capsule, 220 MG PO Q8H PRN for PAIN-MILD (1-4), ( Reported) Nystatin 1 Each Powder.ea., 1 EACH MC BID, (Reported) Omeprazole 20 Mg Capsule.dr, 20 MG PO DAILY, (Reported) Polyethylene Glycol 3350 17 Gm Powd.pack, 17 GM PO BID PRN for CONSTIPATION-1ST LINE, (Reported) Prednisone 20 Mg Tab, 40 MG PO DAILY@0700 Prescribed by: ESTEBAN JARQUIN on 01/06/201941 Prednisone 50 Mg Tab, 50 MG PO DAILY Prescribed by: RANDY ELIZONDO on 02/14/20 1700 Ropinirole HCl 0.25 Mg Tablet, 0.25 MG PO HS, (Reported) Spironolactone 25 Mg Tablet, 25 MG PO BID, (Reported) Thiamine HCl 250 Mg Tablet, 250 MG PO DAILY, (Reported) Topiramate 50 Mg Tablet, 50 MG PO HS, (Reported) Tramadol HCl 100 Mg Tablet, 100 MG PO Q6H PRN for PAIN Prescribed by: OSEAS JIMENEZ on 01/04/20 182 Trazodone HCl 100 Mg Tablet, 100 MG PO HS, (Reported) Venlafaxine HCl 100 Mg Tablet, 150 MG PO DAILY, (Reported) [Folic Acid] , 1 MG PO DAILY, (Reported) Patient Home Medication List Home Medication List Reviewed: Yes Review of Systems Review of Systems Constitutional: see HPI; No chills, No fever EENTM: no symptoms reported Respiratory: no symptoms reported Cardiovascular: no symptoms reported Gastrointestinal: no symptoms reported Genitourinary: no symptoms reported Musculoskeletal: see HPI Skin: no symptoms reported Psychiatric/Neurological: No Symptoms Reported Hematologic/Lymphatic: No Symptoms Reported Past [id number]-Yimboc Hx Past Med/Social Hx: Reviewed Nursing Past Med/Soc Hx Patient Social History Type Used: Cigarettes 2nd Hand Smoke Exposure: Yes Recent Hopitalizations: No Immunizations Up To Date Date of Pneumonia Vaccine: Jan 03, 2018 Seasonal Allergies Seasonal Allergies: No Past Medical History Surgeries: Yes Orthopedic, Tracheostomy Respiratory: Yes (chronic resp failure; ) Sleep Apnea, COPD Cardiac: Yes (heart failure ) Atrial Fibrillation, Cardiomyopathy, Hypertension Neurological: Yes (metabolic encephalopathy) Genitourinary: No Gastrointestinal: Yes (morbid obesity) Gastroesophageal Reflux, Chronic Constipation Musculoskeletal: Yes (generalized weakness, restless leg syndrome) Degenerate Disk Disease, Chronic Back Pain Endocrine: Yes Diabetes, Insulin dep HEENT: Yes Dysphagia Cancer: No Psychosocial: Yes Anxiety, Schizophrenia, Depression Integumentary: No Blood Disorders: No Family Medical History No Pertinent Family Hx Physical Exam Vital Signs Vital Signs - First Documented 08/12/20 15:44 Temp 36.4 Pulse 108 Resp 21 B/P (MAP) 123/92 (102) Pulse Ox 95 O2 Delivery Nasal Cannula O2 Flow Rate 3.00 Capillary Refill : Height, Weight, BMI Height: '" Weight: lbs. oz. kg; 64.00 BMI Method: General Appearance: Obese (Morbid), Other (Very dramatic, frequently yelling) HEENT: PERRL/EOMI Neck: Other (No acute findings) Respiratory: Lungs Clear, Normal Breath Sounds Cardiovascular: Regular Rate, Rhythm Gastrointestinal: Soft, Other (Morbidly obese) Extremity: Other (No acute findings) Neurologic/Psychiatric: Alert Skin: Normal Color, Warm/Dry Progress/Results/Core Measures Suspected Sepsis SIRS Temperature: Pulse: Respiratory Rate: Laboratory Tests 08/12/20 15:55: White Blood Count 8.5 Blood Pressure / Mean: Laboratory Tests 08/12/20 15:55: Creatinine 1.15, Platelet Count 287, Total Bilirubin 0.2 Results/Orders Lab Results Laboratory Tests Test 08/12/20 15:55 Range/Units White Blood Count 8.5 4.3-11.0 10^3/uL Red Blood Count 5.17 4.35-5.85 10^6/uL Hemoglobin 13.5 11.5-16.0 G/DL Hematocrit 46 35-52 % Mean Corpuscular Volume 89 80-99 FL Mean Corpuscular Hemoglobin 26 25-34 PG Mean Corpuscular Hemoglobin Concent 30 L 32-36 G/DL Red Cell Distribution Width 15.6 H 10.0-14.5 % Platelet Count 287 130-400 10^3/uL Mean Platelet Volume 10.4 7.4-10.4 FL Immature Granulocyte % (Auto) 1 % Neutrophils (%) (Auto) 64 42-75 % Lymphocytes (%) (Auto) 26 12-44 % Monocytes (%) (Auto) 6 0-12 % Eosinophils (%) (Auto) 3 0-10 % Basophils (%) (Auto) 1 0-10 % Neutrophils # (Auto) 5.4 1.8-7.8 X 10^3 Lymphocytes # (Auto) 2.2 1.0-4.0 X 10^3 Monocytes # (Auto) 0.5 0.0-1.0 X 10^3 Eosinophils # (Auto) 0.3 0.0-0.3 10^3/uL Basophils # (Auto) 0.0 0.0-0.1 10^3/uL Immature Granulocyte # (Auto) 0.1 0.0-0.1 10^3/uL Sodium Level 142 135-145 MMOL/L Potassium Level 4.5 3.6-5.0 MMOL/L Chloride Level 94 L 98-107 MMOL/L Carbon Dioxide Level 40 H 21-32 MMOL/L Anion Gap 8 5-14 MMOL/L Blood Urea Nitrogen 45 H 7-18 MG/DL Creatinine 1.15 0.60-1.30 MG/DL Estimat Glomerular Filtration Rate 48 BUN/Creatinine Ratio 39 Glucose Level 291 H 70-105 MG/DL Calcium Level 10.0 8.5-10.1 MG/DL Corrected Calcium 10.0 8.5-10.1 MG/DL Magnesium Level 2.6 H 1.6-2.4 MG/DL Total Bilirubin 0.2 0.1-1.0 MG/DL Aspartate Amino Transf (AST/SGOT) 12 5-34 U/L Alanine Aminotransferase (ALT/SGPT) 9 0-55 U/L Alkaline Phosphatase 70 40-136 U/L Troponin I < 0.30 <0.30 NG/ML C-Reactive Protein 1.54 H <0.50 MG/DL Total Protein 8.1 6.4-8.2 GM/DL Albumin 4.0 3.2-4.5 GM/DL Lipase 16 8-78 U/L My Orders Orders - GONZALEZ,BRAXTON L DO Chest 1 View Ap/Pa Only (08/12/20 15:48) Cbc With Automated Diff (08/12/20 15:48) Comprehensive Metabolic Panel (08/12/20 15:48) Magnesium (08/12/20 15:48) Crp Fs (08/12/20 15:48) Troponin I Fs (08/12/20 15:48) Ekg Tracing (08/12/20 15:48) Monitor-Rhythm Ecg Trace Only (08/12/20 15:48) Lipase (08/12/20 15:48) Ketorolac Injection (Toradol Injection) (08/12/20 15:48) Orphenadrine Inj (Ed Only) (Norflex Inje (08/12/20 15:48) Cervical Spine 1 View (08/12/20 15:48) Diltiazem Injection (Cardizem Injection) (08/12/20 16:30) Diltiazem Cd 24 Hr Capsule (Cardizem Cd (08/13/20 09:00) Diltiazem Cd 24 Hr Capsule (Cardizem Cd (08/12/20 16:51) Medications Given in ED Current Medications Medications Dose Ordered Sig/Piero Route Start Time Stop Time Status Last Admin Dose Admin Diltiazem HCl 20 mg ONCE ONCE IVP 08/12/20 16:30 08/12/20 16:31 DC 08/12/20 16:34 20 MG Vital Signs/I&O 08/12/20 15:44 Temp 36.4 Pulse 108 Resp 21 B/P (MAP) 123/92 (102) Pulse Ox 95 O2 Delivery Nasal Cannula O2 Flow Rate 3.00 Capillary Refill : Progress Note : Progress Note Patient with no acute findings per her pain. This is chronic and has been longstanding. She did have a slight elevation of her atrial fibs. I am unsure if this was due to anxiety or her atrial for been slightly elevated. I did give her 20 Cardizem that in addition to her Toradol and Norflex because her heart rate to come back into the mid 80s to 100s. I gave her an additional 120 mg of Cardizem CD. Recommended that she follow-up with her primary care provider for reevaluation of her pain medication along with her atrial for medication. Patient stable and will be discharged back to the [place] [facility] ECG Initial ECG Impression Date: Aug 12, 2020 Initial ECG Impression Time: 16:20 Initial ECG Rate: 145 Initial ECG Rhythm: A Fib/Flutter Initial ECG Impression: Atrial Fibrillation Diagnostic Imaging Diagonstic Imaging: Xray Plain Films/CT/US/NM/MRI: chest, c-spine Comments No acute finding C spine or CXR [facility] [place], [place] NAME: JUNIOR BOWLING [facility] REC#: [id number] PT STATUS: REG ER : 1955 PHYSICIAN: BRAXTON GONZALEZ DO ADMIT DATE: 08/12/20/ER FS Draft Date of Exam:08/12/20 CHEST 1 VIEW AP/PA ONLY CLINICAL INDICATION: Patient with generalized upper body pain. No known injury. EXAM: Portable chest x-ray. COMPARISON: Portable chest x-ray dated 05/08/2020. FINDINGS: Again seen is cardiomegaly with pulmonary vascular congestion. Left costophrenic angle is not completely imaged. There is no pleural effusion, as visualized. There is no pneumothorax. Anterior cervical disc fusion hardware is seen involving the lower cervical spine. IMPRESSION: Again seen is cardiomegaly with pulmonary vascular congestion which can be seen with congestive heart failure. Reviewed: Reviewed by Me, Reviewed/Discussed Departure Impression Primary Impression: Chronic pain Qualified Codes: G89.29 - Other chronic pain Additional Impression: Atrial fibrillation Qualified Codes: I48.91 - Unspecified atrial fibrillation Disposition: 01 HOME, SELF-CARE Condition: Stable Departure-Patient Inst. Referrals: BREONNA HERNANDEZ MD (PCP/Family) Primary Care Physician Patient Instructions: Atrial Fibrillation (DC), Chronic Pain (DC) Add. Discharge Instructions: Please follow-up with your primary care provider and pain specialist for management of your chronic pain along with reevaluation of your atrial fibs and other chronic medications. BRAXTON GONZALEZ DO Aug 12, 2020 15:48
[2020-08-12 16:16] LABS: HEMATOCRIT 46 % (35-52); HEMOGLOBIN 13.5 G/DL (11.5-16.0); MEAN CORPUSCULAR HEMOGLOBIN 26 PG (25-34); MEAN CORPUSCULAR VOLUME 89 FL (80-99); WHITE BLOOD COUNT 8.5 10^3/uL (4.3-11.0)
[2020-08-12 16:17] LABS: BASOPHILS % (AUTO) 1 % (0-10); EOSINOPHILS % (AUTO) 3 % (0-10); LYMPHOCYTES # (AUTO) 2.2 X 10^3 (1.0-4.0); LYMPHOCYTES % (AUTO) 26 % (12-44); MEAN CORPUSCULAR HGB CONC 30 G/DL (32-36); MEAN PLATELET VOLUME 10.4 FL (7.4-10.4); MONOCYTES % (AUTO) 6 % (0-12); NEUTROPHILS # (AUTO) 5.4 X 10^3 (1.8-7.8); NEUTROPHILS % (AUTO) 64 % (42-75); PLATELET COUNT 287 10^3/uL (130-400)
[2020-08-12 16:18] LABS: EOSINOPHILS # (AUTO) 0.3 10^3/uL (0.0-0.3); MONOCYTES # (AUTO) 0.5 X 10^3 (0.0-1.0)
--- NOTE | 2020-08-12 16:25 | Diagnostic Imaging Report ---
CLINICAL INDICATION: Patient with generalized upper body pain. No known injury. EXAM: Portable chest x-ray. COMPARISON: Portable chest x-ray dated 05/08/2020. FINDINGS: Again seen is cardiomegaly with pulmonary vascular congestion. Left costophrenic angle is not completely imaged. There is no pleural effusion, as visualized. There is no pneumothorax. Anterior cervical disc fusion hardware is seen involving the lower cervical spine. IMPRESSION: Again seen is cardiomegaly with pulmonary vascular congestion which can be seen with congestive heart failure. Dictated by: Dictated on workstation # [id number]
--- NOTE | 2020-08-12 16:25 | Diagnostic Imaging Report ---
INDICATION: Generalized upper body pain. COMPARISON: None. FINDINGS: A single frontal radiographic view of the cervical spine was obtained. The patient is status post previous anterior fusion of the cervical spine. Otherwise, the exam is essentially nondiagnostic. No unexpected radiopaque foreign bodies are seen. IMPRESSION: Severely limited evaluation of the cervical spine. Correlation with CT is recommended. Dictated by: Dictated on workstation # [id number]
[2020-08-12 16:26] LABS: ALANINE AMINOTRANSFERASE 9 U/L (0-55); ALKALINE PHOSPHATASE 70 U/L (40-136); BILIRUBIN,TOTAL 0.2 MG/DL (0.1-1.0); BUN/CREATININE RATIO 39; CARBON DIOXIDE 40 MMOL/L (21-32); CHLORIDE 94 MMOL/L (98-107); CREATININE SERUM 1.15 MG/DL (0.60-1.30); GFR ESTIMATED 48; GLUCOSE 291 MG/DL (70-105); MAGNESIUM 2.6 MG/DL (1.6-2.4); POTASSIUM 4.5 MMOL/L (3.6-5.0); SODIUM 142 MMOL/L (135-145); TOTAL PROTEIN 8.1 GM/DL (6.4-8.2)
[2020-08-12 16:27] LABS: LIPASE 16 U/L (8-78)
[2020-08-12] MEDS ORDERED: dilTIAZem120 MG (CARDIZEM CD) CAP PO ONE (16:51)
[2020-08-12 18:35] VITALS: BP 111/72
[2020-08-13] MEDS ORDERED: dilTIAZem120 MG (CARDIZEM CD) CAP PO SCH (09:00)
== END 2020-08-12 18:35 | disposition home or self-care (01) ==
LOC: EDUNIT# 15:42 → ER FS 15:43
DX: G89.29 Other chronic pain (principal); I48.91 Unspecified atrial fibrillation; J44.9 Chronic obstructive pulmonary disease, unspecified; E66.01 Morbid (severe) obesity due to excess calories; I10 Essential (primary) hypertension; E11.9 Type 2 diabetes mellitus without complications; F41.9 Anxiety disorder, unspecified; F32.9 Major depressive disorder, single episode, unspecified; K21.9 Gastro-esophageal reflux disease without esophagitis; Z68.44 Body mass index [BMI] 60.0-69.9, adult; Z79.52 Long term (current) use of systemic steroids; Z79.01 Long term (current) use of anticoagulants; Z79.4 Long term (current) use of insulin
CPT/HCPCS: 36415; 71045; 72020; 80053; 83690; 83735; 84484; 85025; 86141; 93005; 93041

== ENCOUNTER 2020-10-07 15:41 | Inpatient (IN) | payer MEDICAID ==
[~2020-10-07] VITALS: Ht 165 cm; Wt 171.7 kg
[2020-10-07] MEDS ORDERED: dilTIAZem DRIP PRE-MIX 125 ML IV STA (15:59)
[2020-10-07 16:16] LABS: HEMATOCRIT 43 % (35-52); HEMOGLOBIN 13.2 G/DL (11.5-16.0); MEAN CORPUSCULAR HEMOGLOBIN 27 PG (25-34); WHITE BLOOD COUNT 8.9 10^3/uL (4.3-11.0)
[2020-10-07 16:17] LABS: BASOPHILS % (AUTO) 1 % (0-10); EOSINOPHILS # (AUTO) 0.3 10^3/uL (0.0-0.3); EOSINOPHILS % (AUTO) 3 % (0-10); LYMPHOCYTES # (AUTO) 2.1 X 10^3 (1.0-4.0); LYMPHOCYTES % (AUTO) 23 % (12-44); MEAN CORPUSCULAR HGB CONC 31 G/DL (32-36); MEAN CORPUSCULAR VOLUME 88 FL (80-99); MEAN PLATELET VOLUME 10.1 FL (7.4-10.4); MONOCYTES # (AUTO) 0.6 X 10^3 (0.0-1.0); MONOCYTES % (AUTO) 6 % (0-12); NEUTROPHILS # (AUTO) 5.9 X 10^3 (1.8-7.8); NEUTROPHILS % (AUTO) 66 % (42-75); PLATELET COUNT 255 10^3/uL (130-400)
--- NOTE | 2020-10-07 16:18 | Diagnostic Imaging Report ---
INDICATION: Chest pain. COMPARISON: 08/12/2020. FINDINGS: Single frontal radiographic view of the chest was obtained and demonstrates mild cardiomegaly. Pulmonary vasculature is within normal limits. Lungs show low inspiratory volumes, but are otherwise clear. There is no large effusion or pneumothorax. Osseous structures show no gross acute abnormalities. IMPRESSION: 1. Mild cardiomegaly, but no evidence of failure or focal infiltrate. Dictated by: Dictated on workstation # [id number]
[2020-10-07 16:24] LABS: BILIRUBIN,TOTAL 0.3 MG/DL (0.1-1.0); CALCIUM 9.3 MG/DL (8.5-10.1); CREATININE SERUM 0.99 MG/DL (0.60-1.30); MAGNESIUM 2.6 MG/DL (1.6-2.4); POTASSIUM 3.9 MMOL/L (3.6-5.0)
[2020-10-07 16:25] LABS: ALBUMIN 3.8 GM/DL (3.2-4.5); TOTAL PROTEIN 7.7 GM/DL (6.4-8.2)
--- NOTE | 2020-10-07 16:30 | ED General ---
General Chief Complaint: Abdominal/GI Problems Stated Complaint: ABD PAIN Nursing Triage Note: senior living staff reports patient has had abdominal pain that started this afternoon. Staff also reports patient was sitting at the dining room table and had seizure like activity. On EMS arrival, patient found to be in atrial fibrillation with RVR, heart rate 140s. Patient also reports she had multiple loose stools yesterday. Nursing Sepsis Screen: No Definite Risk Source of Information: Patient History of Present Illness Date Seen by Provider: Oct 07, 2020 Time Seen by Provider: 15:41 Initial Comments 65 yo female presenting from [facility] with complaints of diarrhea and loose stools. She had complaints of bubbling and pain in chest and abdomen over the last 2 days and it was worse this afternoon. She denies nausea or vomiting. She had episode this afternoon of being at the dining room table and had reported "seizure like" activity for the [place] staff. EMS found her to be in atrial fibrillation with RVR and a rate in 40s and hypertension. she had a dose of diltiazem 20 mg IV by EMS. She reportedly had had several episodes of diarrhea yesterday and today. She was complaining of bubbling and stabbing pain in her belly and chest. She does have chronic pain and takes chronic pain medications. Timing/Duration: 1-2 Days Associated Systoms: No Cough, No Diaphoresis, No Fever/Chills, No Cheom sea/Vomiting Allergies and Home Medications Allergies Coded Allergies: No Known Drug Allergies (Unverified , 01/04/20) Home Medications Alprazolam 0.5 Mg Tablet, 0.5 MG PO TID, (Reported) Apixaban 5 Mg Tablet, 5 MG PO BID, (Reported) Bisacodyl 5 Mg Tablet.dr, 5 MG PO DAILY, (Reported) Cephalexin 500 Mg Tablet, 500 MG PO QID Prescribed by: ALTAGRACIA ROGERS on 07/04/20 1217 Diltiazem HCl 120 Mg Cap.er.12h, 240 MG PO DAILY, (Reported) Docusate Sodium 100 Mg Capsule, 100 MG PO BID, (Reported) Fluticasone Propionate 1 Ea Aero, 2 EA IH BID, (Reported) Gabapentin 600 Mg Tablet, 600 MG PO TID Prescribed by: OSEAS JIMENEZ on 01/04/20 1816 Insulin Determir 1,000 Units/10 Ml Soln, 35 UNITS SQ BID, (Reported) Insulin Lispro 100 Unit/1 Ml Vial, 6 UNIT SQ ACHS, (Reported) Insulin Lispro 100 Unit/1 Ml Insuln.pen, 100 UNIT SQ [id number], (Reported) PER SLIDING SCALE Ipratropium/Albuterol Sulfate 3 Ml Ampul.neb, 3 ML IH Q4H PRN for SHORTNESS OF BREATH, (Reported) Levothyroxine Sodium 75 Mcg Tablet, 75 MCG PO DAILY, (Reported) Magnesium Hydroxide 400 Mg/5 Ml Oral.susp, 30 MG PO DAILY, (Reported) Menthol 118 Ml Gel..ml., 118 ML TP Q2H, (Reported) Menthol/Lanolin/Calamine/Znox 71 Gm Oint, 71 GM TP TID, (Reported) Metformin HCl 500 Mg Tablet, 500 MG PO BID, (Reported) Morphine Sulfate 30 Mg Tablet.er, 30 MG PO BID Prescribed by: OSEAS JIMENEZ on 01/04/201818 Morphine Sulfate 15 Mg Tablet.er, 15 MG PO BID, (Reported) Naproxen Sodium 220 Mg Capsule, 220 MG PO Q8H PRN for PAIN-MILD (1-4), (Reported) Nystatin 1 Each Powder.ea., 1 EACH MC BID, (Reported) Omeprazole 20 Mg Capsule.dr, 20 MG PO DAILY, (Reported) Polyethylene Glycol 3350 17 Gm Powd.pack, 17 GM PO BID PRN for CONSTIPATION-1ST LINE, (Reported) Prednisone 20 Mg Tab, 40 MG PO DAILY@0700 Prescribed by: ESTEBAN JARQUIN on 01/06/20 194 Prednisone 50 Mg Tab, 50 MG PO DAILY Prescribed by: RANDY ELIZONDO on 02/14/20 1700 Ropinirole HCl 0.25 Mg Tablet, 0.25 MG PO HS, (Reported) Spironolactone 25 Mg Tablet, 25 MG PO BID, (Reported) Thiamine HCl 250 Mg Tablet, 250 MG PO DAILY, (Reported) Topiramate 50 Mg Tablet, 50 MG PO HS, (Reported) Tramadol HCl 100 Mg Tablet, 100 MG PO Q6H PRN for PAIN Prescribed by: OSEAS JIMENEZ on 01/04/20 1820 Trazodone HCl 100 Mg Tablet, 100 MG PO HS, (Reported) Venlafaxine HCl 100 Mg Tablet, 150 MG PO DAILY, (Reported) [Folic Acid] , 1 MG PO DAILY, (Reported) Patient Home Medication List Home Medication List Reviewed: Yes Review of Systems Review of Systems Constitutional: No chills, No fever EENTM: no symptoms reported Respiratory: short of breath (Chronic and no worse than usual) Cardiovascular: see HPI Gastrointestinal: see HPI Genitourinary: no symptoms reported Musculoskeletal: muscle pain (Complains of chronic pain all over her body), neck pain (Complaints of severe neck pain and frequently yelling out for her neck pillow from the correction) Skin: no symptoms reported Psychiatric/Neurological: Anxiety, Emotional Problems Hematologic/Lymphatic: Blood Clots (Takes Eliquis) Past Zycohpa-Fhrehj-Upgphg Hx Past Med/Social Hx: Reviewed Nursing Past Med/Soc Hx Patient Social History Alcohol Use: Denies Use Smoking Status: Current Everyday Smoker Type Used: Cigarettes 2nd Hand Smoke Exposure: Yes Recent Infectious Disease Expo: No Recent Hopitalizations: No Immunizations Up To Date Date of Pneumonia Vaccine: Jan 03, 2018 Seasonal Allergies Seasonal Allergies: No Past Medical History Surgeries: Yes Orthopedic, Tracheostomy Respiratory: Yes (chronic resp failure; ) Sleep Apnea, COPD Cardiac: Yes (heart failure ) Atrial Fibrillation, Cardiomyopathy, Hypertension Neurological: Yes (metabolic encephalopathy) Genitourinary: No Gastrointestinal: Yes (morbid obesity) Gastroesophageal Reflux, Chronic Constipation Musculoskeletal: Yes (generalized weakness, restless leg syndrome) Degenerate Disk Disease, Chronic Back Pain Endocrine: Yes Diabetes, Insulin dep HEENT: Yes Dysphagia Cancer: No Psychosocial: Yes Anxiety, Schizophrenia, Depression Integumentary: No Blood Disorders: No Family Medical History No Pertinent Family Hx Physical Exam Vital Signs Vital Signs - First Documented 10/07/20 15:55 Temp 36.6 Pulse 114 Resp 17 B/P (MAP) 138/95 (109) Pulse Ox 98 O2 Delivery Room Air Capillary Refill : Less Than 3 Seconds Height, Weight, BMI Height: '" Weight: lbs. oz. kg; 68.00 BMI Method: General Appearance: Obese (Morbidly obese female), Other (Patient frequently yelling and crying out. She frequently yells for her neck pillow from the correction and crying out that she is in severe pain.) HEENT: PERRL/EOMI Respiratory: Chest Non Tender, No Accessory Muscle Use, No Respiratory Distress, Decreased Breath Sounds Cardiovascular: Irregularly Irregular, Tachycardia Gastrointestinal: No Pulsatile Mass, Non Tender, Soft; No Rebound; Other (Morbidly obese abdomen limits exam) Rectal: Deferred Extremity: Pedal Edema Neurologic/Psychiatric: Alert, Oriented x3 Skin: Normal Color, Warm/Dry; No Rash Progress/Results/Core Measures Suspected Sepsis Recent Fever Within 48 Hours: No Infection Criteria Present: None New/Unexplained Altered Menta: No Sepsis Screen: No Definite Risk SIRS Temperature: Pulse: 114 Respiratory Rate: 17 Laboratory Tests 10/07/20 15:50: White Blood Count 8.9 Blood Pressure 138 /95 Mean: 109 Laboratory Tests 10/07/20 15:50: Creatinine 0.99, INR Comment 1.1, Platelet Count 255, Total Bilirubin 0.3 Results/Orders Lab Results Laboratory Tests Test 10/07/20 15:50 Range/Units White Blood Count 8.9 4.3-11.0 10^3/uL Red Blood Count 4.85 4.35-5.85 10^6/uL Hemoglobin 13.2 11.5-16.0 G/DL Hematocrit 43 35-52 % Mean Corpuscular Volume 88 80-99 FL Mean Corpuscular Hemoglobin 27 25-34 PG Mean Corpuscular Hemoglobin Concent 31 L 32-36 G/DL Red Cell Distribution Width 16.4 H 10.0-14.5 % Platelet Count 255 130-400 10^3/uL Mean Platelet Volume 10.1 7.4-10.4 FL Immature Granulocyte % (Auto) 1 % Neutrophils (%) (Auto) 66 42-75 % Lymphocytes (%) (Auto) 23 12-44 % Monocytes (%) (Auto) 6 0-12 % Eosinophils (%) (Auto) 3 0-10 % Basophils (%) (Auto) 1 0-10 % Neutrophils # (Auto) 5.9 1.8-7.8 X 10^3 Lymphocytes # (Auto) 2.1 1.0-4.0 X 10^3 Monocytes # (Auto) 0.6 0.0-1.0 X 10^3 Eosinophils # (Auto) 0.3 0.0-0.3 10^3/uL Basophils # (Auto) 0.0 0.0-0.1 10^3/uL Immature Granulocyte # (Auto) 0.1 0.0-0.1 10^3/uL Prothrombin Time 14.3 12.2-14.7 SEC INR Comment 1.1 0.8-1.4 Activated Partial Thromboplast Time 29 24-35 SEC Sodium Level 133 L 135-145 MMOL/L Potassium Level 3.9 3.6-5.0 MMOL/L Chloride Level 87 L 98-107 MMOL/L Carbon Dioxide Level 36 H 21-32 MMOL/L Anion Gap 10 5-14 MMOL/L Blood Urea Nitrogen 32 H 7-18 MG/DL Creatinine 0.99 0.60-1.30 MG/DL Estimat Glomerular Filtration Rate 56 BUN/Creatinine Ratio 32 Glucose Level 230 H 70-105 MG/DL Calcium Level 9.3 8.5-10.1 MG/DL Corrected Calcium 9.5 8.5-10.1 MG/DL Magnesium Level 2.6 H 1.6-2.4 MG/DL Total Bilirubin 0.3 0.1-1.0 MG/DL Aspartate Amino Transf (AST/SGOT) 15 5-34 U/L Alanine Aminotransferase (ALT/SGPT) 10 0-55 U/L Alkaline Phosphatase 69 40-136 U/L Troponin I < 0.30 <0.30 NG/ML Pro-B-Type Natriuretic Peptide 1102.0 H <75.0 PG/ML Total Protein 7.7 6.4-8.2 GM/DL Albumin 3.8 3.2-4.5 GM/DL Lipase 13 8-78 U/L My Orders Orders - ALTAGRACIA ROGERS MD Cbc With Automated Diff (10/07/20 15:57) Magnesium (10/07/20 15:57) Chest 1 View Ap/Pa Only (10/07/20 15:57) Ekg Tracing (10/07/20 15:57) Comprehensive Metabolic Panel (10/07/20 15:57) Protime With Inr (10/07/20 15:57) Partial Thromboplastin Time (10/07/20 15:57) O2 (10/07/20 15:57) Monitor-Rhythm Ecg Trace Only (10/07/20 15:57) Ed Iv/Invasive Line Start (10/07/20 15:57) Lipase (10/07/20 15:57) Troponin I Fs (10/07/20 15:57) Probnp Fs (10/07/20 15:57) Diltiazem Drip Pre-Mix (Cardizem Drip Pr (10/07/20 15:59) Hydromorphone Injection (Dilaudid Inject (10/07/20 16:31) Vital Signs/I&O 10/07/20 15:55 Temp 36.6 Pulse 114 Resp 17 B/P (MAP) 138/95 (109) Pulse Ox 98 O2 Delivery Room Air Capillary Refill : Less Than 3 Seconds Blood Pressure Mean: 109 Progress Note #1: Progress Note Check labs with electrocardiogram and chest x-ray. As she is still having atrial fibrillation with RVR in the 120s will give diltiazem drip since she is already been given 20 mg of IV diltiazem by EMS which improved her heart rate from 140s to 120s. On exam she has no rebound or guarding of her morbidly obese abdomen. Progress Note #2: Progress Note EKG shows atrial fibrillation with heart rate in the 120s. Her chest x-ray does not show acute failure or infiltrate. Lab does not show elevation of her troponin. proBNP is just over one thousand. Despite the diltiazem drip she continues to be in atrial fibrillation with rate 110-120s. D/w Dr. Hernandez her pcp and he advised admit to [place] or tertiary center since she has morbid obesity and [place] does not have capability for her weight. 170 d/w Dr. Hebert for hospitalist service and he accepted pt to [facility]. Requested consult with cardiology. 171 d/w Dr. Yang for cardiology and he is aware of consult. ECG Initial ECG Impression Date: Oct 07, 2020 Initial ECG Impression Time: 15:43 Initial ECG Rate: 122 Initial ECG Rhythm: A Fib/Flutter Initial ECG Comparisson: Unchanged Comment Atrial fibrillation with a heart rate of 120 bpm. There is a right axis kendall ation. No acute ST elevation. QT interval 397 ms with a QTc interval 566 ms. There is similar tracing from July 2020. Diagnostic Imaging Diagonstic Imaging: Xray Plain Films/CT/US/NM/MRI: chest Comments [facility]. [place], [place] NAME: JUNIOR BOWLING MED REC#: [id number] PT STATUS: REG ER : 1955 PHYSICIAN: ALTAGRACIA ROGERS MD ADMIT DATE: 10/07/20/ER FS Draft Date of Exam:10/07/20 CHEST 1 VIEW AP/PA ONLY INDICATION: Chest pain. COMPARISON: 08/12/2020. FINDINGS: Single frontal radiographic view of the chest was obtained and demonstrates mild cardiomegaly. Pulmonary vasculature is within normal limits. Lungs show low inspiratory volumes, but are otherwise clear. There is no large effusion or pneumothorax. Osseous structures show no gross acute abnormalities. IMPRESSION: 1. Mild cardiomegaly, but no evidence of failure or focal infiltrate. Dictated on workstation # [id number] Dict: 10/07/20 1613 Trans: 10/07/20 1617 [id number] Interpreted by: JOANN BAXTER MD Electronically signed by: Reviewed: Reviewed by Me Departure Communication (Admissions) Time/Spoke to Admitting Phy: 17:08 d/w Dr. Hebert for hospitalist service and will admit to [facility] on diltiazem drip and consult Cardiology. Time/Spoke to Consulting Phy: 17:12 d/w Dr. Yang with cardiology and he accepted pt for consult. Impression Primary Impression: Atrial fibrillation with rapid ventricular response Disposition: 30 STILL A PATIENT Condition: Stable Admissions Decision to Admit Reason: Admit from ER (General) Decision to Admit/Date: Oct 07, 2020 Time/Decision to Admit Time: 17:08 Departure-Patient Inst. Referrals: BREONNA HERNANDEZ MD (PCP/Family) Primary Care Physician ALTAGRACIA ROGERS MD Oct 07, 2020 16:30
[2020-10-07] MEDS ORDERED: HYDROmorphone 2 MG/ML VIAL (DILAUDID) IV STA (16:31)
[2020-10-07 16:54] LABS: INR 1.1 (0.8-1.4); PROTHROMBIN TIME PATIENT 14.3 SEC (12.2-14.7)
[2020-10-07 20:03] VITALS: BP 139/80
[2020-10-07] MEDS ORDERED: CATHETER FLUSH 10 ML SYR IV PRN (20:30)
[2020-10-07] MEDS: dilTIAZem DRIP PRE-MIX 125 ML IV SCH (20:49)
[2020-10-07] MEDS: HYDROmorphone 2 MG/ML VIAL (DILAUDID) IV SCH (20:49)
[2020-10-07] MEDS: inSUlin ASPART (NovoLOG) 1 UNIT/0.01 ML (CHARGE PER UNIT) SC SCH (20:55)
[2020-10-07] MEDS: CATHETER FLUSH 10 ML SYR IV SCH (21:30)
[2020-10-07 21:55] VITALS: BP 138/95
[2020-10-07] MEDS ORDERED: RT-ALBUTEROL/IPRATROPIUM 3 ML (DUONEB) VIAL INH PRN (22:00)
[2020-10-07 23:00] VITALS: BP 135/95
[2020-10-08] MEDS ORDERED: HYDROmorphone 2 MG/ML VIAL (DILAUDID) ONE (02:59)
[2020-10-08] MEDS: HYDROmorphone 2 MG/ML VIAL (DILAUDID) IV SCH (03:01)
[2020-10-08 03:19] VITALS: BP 121/84
[2020-10-08] MEDS: CATHETER FLUSH 10 ML SYR IV SCH ×2 (05:17→14:53)
[2020-10-08 05:45] LABS: BASOPHILS % (AUTO) 1 % (0-10); EOSINOPHILS # (AUTO) 0.2 10^3/uL (0.0-0.3); EOSINOPHILS % (AUTO) 4 % (0-10); HEMATOCRIT 40 % (35-52); LYMPHOCYTES # (AUTO) 1.5 10^3/uL (1.0-4.0); LYMPHOCYTES % (AUTO) 24 % (12-44); MEAN CORPUSCULAR HEMOGLOBIN 27 pg (25-34); MEAN CORPUSCULAR HGB CONC 30 g/dL (32-36); MEAN CORPUSCULAR VOLUME 89 fL (80-99); MEAN PLATELET VOLUME 9.6 fL (9.0-12.2); MONOCYTES # (AUTO) 0.4 10^3/uL (0.0-1.0); MONOCYTES % (AUTO) 7 % (0-12); NEUTROPHILS # (AUTO) 4.1 10^3/uL (1.8-7.8); NEUTROPHILS % (AUTO) 65 % (42-75); PLATELET COUNT 202 10^3/uL (130-400); WHITE BLOOD COUNT 6.3 10^3/uL (4.3-11.0)
[2020-10-08 05:54] LABS: ALBUMIN 3.5 GM/DL (3.2-4.5)
[2020-10-08 05:55] LABS: POTASSIUM 3.6 MMOL/L (3.6-5.0)
[2020-10-08 05:56] LABS: CALCIUM 9.2 MG/DL (8.5-10.1)
[2020-10-08 05:57] LABS: TOTAL PROTEIN 7.3 GM/DL (6.4-8.2)
[2020-10-08 05:59] LABS: BILIRUBIN,TOTAL 0.5 MG/DL (0.1-1.0)
[2020-10-08 06:01] LABS: CREATININE SERUM 1.03 MG/DL (0.60-1.30)
[2020-10-08] MEDS: inSUlin ASPART (NovoLOG) 1 UNIT/0.01 ML (CHARGE PER UNIT) SC SCH ×4 (06:05→22:12)
[2020-10-08 08:00] VITALS: BP 112/66
[2020-10-08 08:07] VITALS: BP 109/64
[2020-10-08] MEDS ORDERED: METO2.5T PO ×2 (10:39→13:21)
[2020-10-08] MEDS ORDERED: FOLI1TAB33 PO (10:39)
[2020-10-08] MEDS ORDERED: FURO40TA4 PO ×2 (10:39→13:21)
[2020-10-08] MEDS ORDERED: ALBU2.5V4 NEB (10:39)
[2020-10-08] MEDS ORDERED: TRAM100T40 PO (10:39)
[2020-10-08] MEDS ORDERED: MORP-68 PO (10:39)
[2020-10-08] MEDS ORDERED: MORP-69 PO ×2 (10:39→13:31)
[2020-10-08] MEDS ORDERED: QUET25TA34 PO (10:39)
[2020-10-08] MEDS ORDERED: DULO60CA59 PO ×2 (10:39→13:21)
[2020-10-08] MEDS ORDERED: BENZ-13 PO (10:39)
[2020-10-08] MEDS ORDERED: MENT118G TP (10:43)
[2020-10-08] MEDS ORDERED: GBPN600T PO ×2 (10:43→13:21)
[2020-10-08] MEDS ORDERED: NYST60PO TOP (10:43)
[2020-10-08] MEDS ORDERED: MENT71OI TP (10:43)
[2020-10-08] MEDS: RT-ALBUTEROL/IPRATROPIUM 3 ML (DUONEB) VIAL INH SCH ×4 (11:17→22:00)
[2020-10-08] MEDS ORDERED: RT-ALBUTEROL/IPRATROPIUM 3 ML (DUONEB) VIAL INH PRN (12:00)
[2020-10-08 12:30] VITALS: BP 146/94
[2020-10-08] MEDS ORDERED: BENZ100C18 PO (13:21)
[2020-10-08] MEDS ORDERED: NYST1POW TOP (13:21)
[2020-10-08] MEDS ORDERED: QUET25TA PO (13:22)
[2020-10-08] MEDS: ALPRAZolam 0.5 MG (XANAX) TAB PO SCH ×2 (14:44→22:07)
[2020-10-08] MEDS: polyethylene glycoL POWDER 17 GM (MIRALAX) PACK PO SCH (14:45)
[2020-10-08] MEDS: FUROSEMIDE 40 MG (LASIX) TAB PO SCH (14:53)
[2020-10-08] MEDS: GABAPENTIN 600 MG (NEURONTIN) TAB PO SCH ×2 (14:53→22:05)
[2020-10-08 15:30] VITALS: BP 108/69
[2020-10-08] MEDS: SPIRONOLACTONE 25 MG (ALDACTONE) TAB PO SCH (17:32)
[2020-10-08] MEDS ORDERED: QUEtiapine 25 MG (SEROquel) TAB IMMEDIATE RELEASE PO SCH (18:00)
[2020-10-08] MEDS ORDERED: dilTIAZem120 MG (CARDIZEM CD) CAP PO NR (18:45)
--- NOTE | 2020-10-08 18:53 | Consultation-Cardiology ---
HPI-Cardiology Cardiology Consultation: Date of Consultation 10/08/20 Date of Admission Attending Physician Fanta Hebert MD Admitting Physician Lew Pascual MD Consulting Physician MARINA TAYLOR JR, MD HPI: Time Seen by a Provider: 18:48 Chief Complaint: Reason for consultation: Atrial fibrillation. I had the pleasure of seeing Argenis in the cardiac stepdown unit. She was apparently brought to an outside emergency room due to some nausea and diarrhea. She was found to be in atrial fibrillation with a rapid ventricular rate. She was placed on intravenous diltiazem and transferred to our hospital for further treatment and evaluation. When I asked the patient if she has a estate planner, she states that she does not know. She states that she was having some palpitations yesterday that were associated with shortness of breath. She presently denies any palpitations or shortness of breath at rest. She does state that she has dyspnea on exertion and wears oxygen at night. However, she spends much of her [facility] in bed at the [facility]. She denies chest discomfort, paroxysmal nocturnal dyspnea, orthopnea, lightheadedness or syncope. She has chronic mild ankle edema which she states is unchanged. She was so mewhat difficult to interview because she was being belligerent with the staff. Review of Systems-Cardiology Review of Systems Other comments Review of 10 organ systems is as per the history of present illness, otherwise negative. JKL-Vdvzkb-Jnkgkb Hx Patient Social History Smoking Status: Current Everyday Smoker 2nd Hand Smoke Exposure: Yes Have you traveled recently?: No Tobacco type used: Cigarettes Immunizations Up To Date Date of Pneumonia Vaccine: Jan 03, 2018 Past Medical History PMH As described under Assessment. Allergies and Home Medications Allergies Coded Allergies: No Known Drug Allergies (Unverified , 01/04/20) Home Medications Albuterol Sulfate 2.5 Mg/3 Ml Vial.neb, 3 ML NEB Q6H PRN for CONGESTION, (Reported) Last Action: Reviewed Alprazolam 0.5 Mg Tablet, 0.5 MG PO TID, (Reported) Last Action: Reviewed Apixaban 5 Mg Tablet, 5 MG PO BID, (Reported) Last Action: Reviewed Benzonatate 100 Mg Capsule, 200 MG PO Q6H PRN for COUGH, (Reported) Last Action: Reviewed Bisacodyl 5 Mg Tablet.dr, 5 MG PO DAILY, (Reported) Last Action: Reviewed Diltiazem HCl 120 Mg Cap.er.12h, 240 MG PO DAILY, (Reported) Last Action: Reviewed Docusate Sodium 100 Mg Capsule, 100 MG PO BID, (Reported) Last Action: Reviewed Duloxetine HCl 60 Mg Capsule.dr, 60 MG PO 0800,2200, (Reported) Last Action: Reviewed Fluticasone Propionate 1 Ea Aero, 2 PUFF IH BID, (Reported) Last Action: Reviewed Folic Acid 1 Mg Tablet, 1 MG PO DAILY, (Reported) Last Action: Reviewed Furosemide 40 Mg Tablet, 40 MG PO 0830,1230, (Reported) Last Action: Reviewed Gabapentin 600 Mg Tablet, 600 MG PO TID, (Reported) Last Action: Reviewed Insulin Determir 1,000 Units/10 Ml Soln, 35 UNITS SQ 799,1999, (Reported) Last Action: Reviewed Insulin Lispro 100 Unit/1 Ml Vial, 6 UNIT SQ ACHS, (Reported) TAKES 6 UNITS BEFORE MEALS AND AT BEDTIME BUT ALSO USES A SLIDING SCALE Last Action: Reviewed Insulin Lispro 100 Unit/1 Ml Insuln.pen, UNIT SQ ACHS, (Reported) SLIDING SCALE: BLOOD SUGAR UNDER 70 CALL PHYSICIAN 1-100= 2 UNITS 101-150=4 UNITS 151-200=6 UNITS 201-250=8 UNITS 251-300=10 UNITS 301-350=12 UNITS 351- 400=14 UNITS AND CALL PHYSICIAN FOR FURTHER INSTRUCTIONS Last Action: Reviewed Ipratropium/Albuterol Sulfate 3 Ml Ampul.neb, 3 ML IH Q4H PRN for CHEST CONGESTION, (Reported) Last Action: Reviewed Levothyroxine Sodium 75 Mcg Tablet, 75 MCG PO DAILY, (Reported) Last Action: Reviewed Magnesium Hydroxide 400 Mg/5 Ml Oral.susp, 30 ML PO DAILY, (Reported) Last Action: Reviewed Menthol 118 Ml Gel..ml., 1 APPLIC TP Q2H PRN for PAIN-MODERATE (5-7), (Reported) APPLY TO RIGHT SHOULDER Last Action: Reviewed Menthol/Lanolin/Calamine/Znox 71 Gm Oint, 1 APPLIC TP TID, (Reported) APPLY TO BUTTOCKS, UPPER REAR THIGHS, UNDER BREASTS AND UNDER ARMS Last Action: Reviewed Metformin HCl 500 Mg Tablet, 500 MG PO 0800,1700, (Reported) Last Action: Reviewed Metolazone 2.5 Mg Tablet, 2.5 MG PO 0800,1200, (Reported) TAKES 30 MINUTES BEFORE FUROSEMIDE DOSE Last Action: Reviewed Morphine Sulfate 15 Mg Tablet.er, 15 MG PO BID, (Reported) TAKES 30MG +15MG TO EQUAL 45MG TWICE DAILY Last Action: Reviewed Morphine Sulfate 30 Mg Tablet.er, 30 MG PO BID, (Reported) TAKES 15MG +30MG TO EQUAL 45MG TWICE DAILY Last Action: Reviewed Naproxen Sodium 220 Mg Capsule, 220 MG PO Q8H PRN for PAIN-MILD (1-4), (Reported) Last Action: Reviewed Nystatin 60 Gm Powder, 1 APPLIC TOP BID PRN for RASH, (Reported) Last Action: Reviewed Omeprazole 20 Mg Capsule.dr, 20 MG PO DAILY, (Reported) Last Action: Reviewed Polyethylene Glycol 3350 17 Gm Powd.pack, 17 GM PO 0800,1700, (Reported) Last Action: Reviewed Quetiapine Fumarate 25 Mg Tablet, 25 MG PO 1800, (Reported) Last Action: Reviewed Ropinirole HCl 0.25 Mg Tablet, 0.25 MG PO HS, (Reported) Last Action: Reviewed Spironolactone 25 Mg Tablet, 25 MG PO 0800,1800, (Reported) Last Action: Reviewed Thiamine HCl 250 Mg Tablet, 250 MG PO DAILY, (Reported) Last Action: Reviewed Topiramate 50 Mg Tablet, 50 MG PO HS, (Reported) Last Action: Reviewed Tramadol HCl 100 Mg Tablet, 100 MG PO Q6H PRN for PAIN-MODERATE (5-7), (Reported) Last Action: Reviewed Trazodone HCl 100 Mg Tablet, 100 MG PO HS, (Reported) Last Action: Reviewed Patient Home Medication List Home Medication List Reviewed: Yes Physical Exam-Cardiology Physical Exam Vital Signs/I&O 10/08/20 10/08/20 10/08/20 10/08/20 07:00 07:43 07:56 08:00 Temp 36.8 Pulse 90 90 Resp 15 B/P (MAP) 112/66 (81) Pulse Ox 94 O2 Delivery Nasal Cannula Nasal Cannula Nasal Cannula O2 Flow Rate 4.00 4.00 4.00 10/08/20 10/08/20 10/08/20 10/08/20 08:07 09:00 11:17 12:30 Temp 36.7 36.6 Pulse 89 107 Resp 10 B/P (MAP) 146/94 (111) Pulse Ox 94 92 92 O2 Delivery Nasal Cannula Nasal Cannula Nasal Cannula O2 Flow Rate 4.00 4.00 4.00 FiO2 36 10/08/20 10/08/20 10/08/20 10/08/20 13:00 14:49 15:30 18:28 Temp 37.6 Pulse 111 101 Resp 21 B/P (MAP) 108/69 (82) Pulse Ox 92 94 93 O2 Delivery Nasal Cannula Nasal Cannula Nasal Cannula O2 Flow Rate 4.00 4.00 4.00 10/08/20 00:00 Intake Total 250 ml Balance 250 ml Capillary Refill : Less Than 3 Seconds Constitutional: appears stated age, AAO x 3, well-developed, well-nourished, other (She is morbidly obese. She is being belligerent with the staff.) HEENT: EOMI Neck: non-tender, full range of motion, supple, carotid pulses are 2 + bilate rally, with good upstrokes Respiratory: lungs clear to auscultation Cardiovascular: irregularly irregular, other (No murmurs, rubs or gallops.) Gastrointestinal: soft (Normal bowel sounds. 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, alert (Oriented to person only.) Skin: warm/dry, other (Mild chronic venous stasis changes bilaterally.) Data Review Labs Laboratory Tests 10/07/20 20:52: Glucometer 244H 10/08/20 05:35: White Blood Count 6.3, Red Blood Count 4.50, Hemoglobin 12.0, Hematocrit 40, M kurtis Corpuscular Volume 89, Mean Corpuscular Hemoglobin 27, Mean Corpuscular Hemoglobin Concent 30L, Red Cell Distribution Width 16.2H, Platelet Count 202, Mean Platelet Volume 9.6, Immature Granulocyte % (Auto) 0, Neutrophils (%) (Auto) 65, Lymphocytes (%) (Auto) 24, Monocytes (%) (Auto) 7, Eosinophils (%) (Auto) 4, Basophils (%) (Auto) 1, Neutrophils # (Auto) 4.1, Lymphocytes # (Auto) 1.5, Monocytes # (Auto) 0.4, Eosinophils # (Auto) 0.2, Basophils # (Auto) 0.0, Immature Granulocyte # (Auto) 0.0, Sodium Level 135, Potassium Level 3.6, Chloride Level 88L, Carbon Dioxide Level 37H, Anion Gap 10, Blood Urea Nitrogen 28H, Creatinine 1.03, Estimat Glomerular Filtration Rate 54, BUN/Creatinine Ratio 27, Glucose Level 259H, Calcium Level 9.2, Corrected Calcium 9.6, Total Bilirubin 0.5, Aspartate Amino Transf (AST/SGOT) 13, Alanine Aminotransferase (ALT/SGPT) 11, Alkaline Phosphatase 50, Total Protein 7.3, Albumin 3.5 10/08/20 10:41: Glucometer 197H 10/08/20 16:03: Glucometer 194H ECG Impression ECG Initial ECG Impression: Atrial Fibrillation A/P-Cardiology Assessment/Admission Diagnosis Persistent atrial fibrillation. I am not entirely clear if she has permanent atrial fibrillation or paroxysmal atrial fibrillation. Nonetheless, since being here in the hospital she has been in atrial fibrillation. We were planning to discharge the patient home however, when the nurse stopped the IV intravenous diltiazem, she again developed tachycardia. I will give her an extra dose of oral diltiazem and increase the dose to 300 mg once a day. Her apixaban will be resumed. Hopefully, we can wean the intravenous diltiazem overnight and she can be transferred back to the [facility] tomorrow. Essential hypertension. Her blood pressures are intermittently elevated. This should improve with the adjustment of her diltiazem. Morbid obesity. This is most likely contributing to the patient's tachycardia. She probably needs some adjustment in her calorie intake at the [facility]. Plan As above. MARINA TAYLOR JR, MD Oct 08, 2020 18:53
[2020-10-08 19:29] VITALS: BP 118/67
[2020-10-08] MEDS ORDERED: toPIRamate 25 MG (TOPAMAX) TAB PO SCH (21:00)
[2020-10-08] MEDS ORDERED: FLUTICASONE 110 MCG INHALER (FLOVENT) 12 GM IH SCH (21:00)
[2020-10-08] MEDS: traZODone 100 MG (DESYREL) TAB PO SCH ×2 (22:05→22:08)
[2020-10-08] MEDS: rOPINIRole 0.25 MG (REQUIP) TAB PO SCH ×2 (22:05→22:08)
[2020-10-08] MEDS: APIXABAN 5 MG (ELIQUIS) TABLET PO SCH (22:06)
[2020-10-08] MEDS: morphine ER 30 MG (MS CONTIN) TAB PO SCH (22:08)
[2020-10-08] MEDS: morphine ER 15 MG (MS CONTIN) TAB PO SCH (22:12)
[2020-10-08] MEDS: DOCUSATE SODIUM 100 MG (COLACE) CAP PO SCH (22:13)
[2020-10-08] MEDS: dilTIAZem DRIP PRE-MIX 125 ML IV SCH (22:13)
[2020-10-08] MEDS: DULoxetine 30 MG (CYMBALTA) CAP PO SCH (22:14)
[2020-10-09] VITALS: BP 120/78
[2020-10-09] MEDS: CATHETER FLUSH 10 ML SYR IV SCH ×2 (00:46→06:05)
[2020-10-09] MEDS ORDERED: ZIPRASIDONE 20 MG INJ (GEODON) VIAL IM ONE (00:52)
[2020-10-09] MEDS ORDERED: LORazepam INJ 2 MG/ML (ATIVAN) VIAL ONE (00:52)
[2020-10-09 01:00] VITALS: BP 127/44
[2020-10-09] MEDS ORDERED: WATER (STERILE) FOR INJ 10 ML BTL INJ SCH (01:00)
[2020-10-09] MEDS ORDERED: ZIPRASIDONE 20 MG INJ (GEODON) VIAL IM PRN (01:00)
[2020-10-09] MEDS ORDERED: LORazepam INJ 2 MG/ML (ATIVAN) VIAL IVP PRN (01:00)
[2020-10-09] MEDS: RT-ALBUTEROL/IPRATROPIUM 3 ML (DUONEB) VIAL INH SCH ×3 (02:07→12:03)
[2020-10-09 04:56] VITALS: BP 126/65
[2020-10-09] MEDS: inSUlin ASPART (NovoLOG) 1 UNIT/0.01 ML (CHARGE PER UNIT) SC SCH (06:05)
[2020-10-09] MEDS ORDERED: LEVOTHYROXINE 75 MCG (LEVOTHROID) TABLET PO SCH (06:30)
[2020-10-09] MEDS: polyethylene glycoL POWDER 17 GM (MIRALAX) PACK PO SCH (07:14)
[2020-10-09] MEDS: DOCUSATE SODIUM 100 MG (COLACE) CAP PO SCH (07:15)
--- NOTE | 2020-10-09 07:47 | History & Physical-Hospitalist ---
History of Present Illness HPI/Chief Complaint Noreen Huang is a 65 year old female with PMH HTN, T2DM, hypothyroidism, chronic pain, atrial fibrillation, super-super obesity, who presented from her shelter with nausea and diarrhea. She denies any nausea or diarrhea since arriving to the hospital. She also had epigastric and chest "bubbling". She denies dyspne a and cough. She denies fevers and chills. She denies chest pain. She may have had palpitations. She says she is in pain which is chronic. She was diagnosed with sleep apnea "a long time ago", but does not wear a CPAP. She is unsure why she stopped. Source: patient Exam Limitations: no limitations Date Seen 10/08/20 Time Seen by a Provider: 08:30 Attending Physician Kenneth Clemons MD PCP Lew Pascual MD Referring Physician Date of Admission Oct 07, 2020 at 19:40 Home Medications & Allergies Home Medications Reviewed patient Home Medication Reconciliation performed by pharmacy medication reconciliations lawn care technician and/or nursing. Patients Allergies have been reviewed. Allergies Allergies Coded Allergies No Known Drug Allergies (Unverified01/04/20) Past Cxmwguz-Pbmpuj-Ksifna Hx Patient Social History Tobacco Use?: Yes Tobacco type used: Cigarettes Smoking Status: Current Everyday Smoker Smokeless Tobacco Frequency: Current Everyday User Immunizations Up To Date Date of Pneumonia Vaccine: Jan 03, 2018 Seasonal Allergies Seasonal Allergies: No Current Status Communicates: Verbally Primary Language: Omani Preferred Spoken Language: Omani Past Medical History Surgeries: Orthopedic, Tracheostomy Sleep Apnea, COPD Atrial Fibrillation, Cardiomyopathy, Hypertension Gastroesophageal Reflux, Chronic Constipation Degenerate Disk Disease, Chronic Back Pain Diabetes, Insulin dep Dysphagia Anxiety, Schizophrenia, Depression Blood Disorders: No Family Medical History No Pertinent Family Hx Review of Systems Constitutional: no symptoms reported EENTM: no symptoms reported Respiratory: no symptoms reported Cardiovascular: chest pain ("bubbling"), palpitations Gastrointestinal: abdominal pain (epigastric "bubbling"), diarrhea, nausea Genitourinary: no symptoms reported Musculoskeletal: no symptoms reported Skin: no symptoms reported Psychiatric/Neurological: No Symptoms Reported Physical Exam Physical Exam Vital Signs Vital Signs - First Documented 10/07/20 10/07/20 10/07/20 15:55 18:52 21:55 Temp 36.6 Pulse 114 Resp 17 B/P (MAP) 138/95 (109) Pulse Ox 98 O2 Delivery Room Air O2 Flow Rate 4.00 FiO2 21 Capillary Refill : Less Than 3 Seconds Height, Weight, BMI Height: '" Weight: lbs. oz. kg; 63.06 BMI Method: General Appearance: No Apparent Distress, Obese Neck: Normal Inspection, Supple Respiratory: No Respiratory Distress, Decreased Breath Sounds Cardiovascular: No Murmur, Irregularly Irregular (regular rate) Gastrointestinal: Normal Bowel Sounds, Non Tender, Soft Extremity: Normal Inspection, Pedal Edema Neurologic/Psychiatric: Alert, Depressed Affect Skin: Normal Color, Warm/Dry Lymphatic: No Adenopathy Results Results/Procedures Labs Laboratory Tests 10/07/20 15:50 10/08/20 05:35 Patient resulted labs reviewed. Imaging: Reviewed Imaging Report Assessment/Plan Admission Diagnosis Atrial fibrillation with RVR Admission Status: Inpatient Order (span 2 midnights) Reason for Inpatient Admission: AFib with RVR requiring IV medication Assessment and Plan AFib with RVR Likely permanent afib Cardiology consulted, appreciate assistance Started on IV diltiazem, rates controlled Resumed home diltiazem Attempted to transition off drip, but returned to RVR Resumed IV diltiazem Additional dose of oral diltiazem given Attempt to wean off drip tonight Continue Eliquis GIUSEPPE Likely obesity hypoventilation syndrome Super-super obesity Not using CPAPd Set up with pulmonology to obtain home CPAP Chronic pain Hypertension Hypothyroidism Continue home meds T2DM Sliding scale insulin DVT prophylaxis: already receiving therapeutic anticoagulation Diagnosis/Problems Diagnosis/Problems (1) Atrial fibrillation with rapid ventricular response Status: Acute (2) Chronic pain Status: Chronic (3) Essential (primary) hypertension Status: Chronic (4) Hypothyroidism Status: Chronic (5) Insulin dependent diabetes mellitus Status: Chronic (6) Super-super obese Status: Chronic KENNETH CLEMONS MD Oct 09, 2020 07:47
[2020-10-09] MEDS ORDERED: METOLAZONE 2.5 MG (ZAROXOLYN) TAB PO SCH (08:00)
[2020-10-09] MEDS ORDERED: FLUTICASONE 100 MCG 14's (ARNUITY) IH SCH (08:00)
[2020-10-09] MEDS ORDERED: DILT300C52 PO (08:47)
[2020-10-09] MEDS ORDERED: PANTOPRAZOLE 20 MG TABLET (PROTONIX) PO SCH (09:00)
[2020-10-09] MEDS ORDERED: BISACODYL 5 MG (DULCOLAX) TABLET PO SCH (09:00)
--- NOTE | 2020-10-09 09:05 | Cardiology Progress Note ---
Cardiology Progess Note Progress Date Seen by Provider: Oct 09, 2020 Time Seen by Provider: 08:59 We are seeing her for atrial fibrillation. She states her breathing is somewhat difficult this morning. She also has some slight chest pressure. She denies palpitations, syncope, or change in her mild, chronic ankle edema. Focused Exam Respiratory: Other (Scattered rhonchi anteriorly. She remains on supplemental oxygen.) Cardiovascular: No Gallop, No JVD, No Murmur, Normal Peripheral Pulses, Irregularly Irregular, Other (Trace bilateral pretibial edema.) Skin: normal color, warm/dry, other (Mild bilateral venous stasis changes.) A/P-Cardiology Assessment/Plan Plan See below. Diagnosis/Problems Diagnosis/Problems (1) Persistent atrial fibrillation Assessment & Plan: Heart rates now improved with the higher dose of oral diltiazem. The intravenous diltiazem has been weaned off.She is on apixaban for stroke prophylaxis. From a cardiac standpoint, she can be transferred back to the long-term care facility today. (2) Essential (primary) hypertension Status: Chronic Assessment & Plan: Blood pressures had been elevated but are now improved on the higher dose of diltiazem. When she is discharged, she should be discharged on this higher dose of diltiazem CD 300 mg once a day. (3) Morbid obesity Status: Acute Assessment & Plan: Her morbid obesity is most likely contributing to the tachyc ardia from her atrial fibrillation. As above, hopefully the higher dose of diltiazem will keep her heart rates under control. She may need some adjustment to her diet at the long-term [facility] facility to help facilitate weight loss. MARINA TAYLOR JR, MD Oct 09, 2020 09:05
[2020-10-09] MEDS: morphine ER 15 MG (MS CONTIN) TAB PO SCH (09:23)
[2020-10-09] MEDS: ALPRAZolam 0.5 MG (XANAX) TAB PO SCH (09:23)
[2020-10-09] MEDS: APIXABAN 5 MG (ELIQUIS) TABLET PO SCH (09:23)
[2020-10-09] MEDS: DULoxetine 30 MG (CYMBALTA) CAP PO SCH (09:23)
[2020-10-09] MEDS: SPIRONOLACTONE 25 MG (ALDACTONE) TAB PO SCH (09:24)
[2020-10-09] MEDS: morphine ER 30 MG (MS CONTIN) TAB PO SCH (09:24)
[2020-10-09] MEDS: GABAPENTIN 600 MG (NEURONTIN) TAB PO SCH (09:24)
[2020-10-09] MEDS: FUROSEMIDE 40 MG (LASIX) TAB PO SCH (09:24)
--- NOTE | 2020-10-09 12:22 | Discharge Summary ---
Discharge Summary Hospital Course Problems/Dx: (1) Atrial fibrillation with rapid ventricular response Status: Acute (2) Persistent atrial fibrillation (3) Super-super obese Status: Chronic (4) GIUSEPPE (obstructive sleep apnea) Status: Chronic (5) Essential (primary) hypertension Status: Chronic Hospital Course Date of Admission: Oct 07, 2020 at 19:40 Admission Diagnosis : A. fib with RVR Family Physician/Provider: Breonna Hernandez MD Date of Discharge: 10/09/20 Discharge Diagnosis: Kevin styles with RVR Hospital Course: Noreen Huang is a 65-year-old female with history of atrial fibrillation, hypertension, diabetes, hypothyroidism, chronic pain, obstructive sleep apnea, super super obesity, who was admitted with Kevin stephani with RVR. She was started on IV diltiazem and improved. Cardiology was consulted and assisted with her care. Her dose of oral diltiazem was increased. Her rate stabilized. She was continued on her Eliquis. She was discharged back to her assisted in stable condition. She should follow-up with her primary care physician in about a week. Labs and Pending Lab Test: Laboratory Tests 10/08/20 16:03: Glucometer 194H 10/08/20 22:05: Glucometer 221H Home Meds Active Diltiazem 24Hr ER (Diltiazem HCl) 300 Mg Cap.er.24h 300 Mg PO DAILY 30 Days Reported Morphine Sulfate ER (Morphine Sulfate) 30 Mg Tablet.er 30 Mg PO BID TAKES 15MG +30MG TO EQUAL 45MG TWICE DAILY Seroquel (Quetiapine Fumarate) 25 Mg Tablet 25 Mg PO 1800 Gabapentin 600 Mg Tablet 600 Mg PO TID Metolazone 2.5 Mg Tablet 2.5 Mg PO 0800,1200 TAKES 30 MINUTES BEFORE FUROSEMIDE DOSE Furosemide 40 Mg Tablet 40 Mg PO 0830,1230 Duloxetine HCl 60 Mg Capsule.dr 60 Mg PO 0800,2200 Tessalon Perles (Benzonatate) 100 Mg Capsule 200 Mg PO Q6H PRN Biofreeze (Menthol) 118 Ml Gel..ml. 1 Applic TP Q2H PRN APPLY TO RIGHT SHOULDER Nystop (Nystatin) 60 Gm Powder 1 Applic TOP BID PRN Calmoseptine Ointment (Menthol/Lanolin/Calamine/Znox) 71 Gm Oint 1 Applic TP TID APPLY TO BUTTOCKS, UPPER REAR THIGHS, UNDER BREASTS AND UNDER ARMS Tramadol HCl 100 Mg Tablet 100 Mg PO Q6H PRN Albuterol Sulfate 2.5 Mg/3 Ml Vial.neb 3 Ml NEB Q6H PRN Morphine Sulfate ER (Morphine Sulfate) 15 Mg Tablet.er 15 Mg PO BID TAKES 30MG +15MG TO EQUAL 45MG TWICE DAILY Folic Acid 1 Mg Tablet 1 Mg PO DAILY Humalog Kwikpen (Insulin Lispro) 100 Unit/1 Ml Insuln.pen Unit SQ ACHS SLIDING SCALE: BLOOD SUGAR UNDER 70 CALL PHYSICIAN 1-100= 2 UNITS 101-150=4 UNITS 151-200=6 UNITS 201-250=8 UNITS 251-300=10 UNITS 301-350=12 UNITS 351-400=14 UNITS AND CALL PHYSICIAN FOR FURTHER INSTRUCTIONS Flovent Hfa 110 mcg (Fluticasone Propionate) 1 Ea Aero 2 Puff IH BID Eliquis (Apixaban) 5 Mg Tablet 5 Mg PO BID Milk of Magnesia (Magnesium Hydroxide) 400 Mg/5 Ml Oral.susp 30 Ml PO DAILY Metformin HCl 500 Mg Tablet 500 Mg PO 0800,1700 Levothyroxine Sodium 75 Mcg Tablet 75 Mcg PO DAILY Levemir (Insulin Determir) 1,000 Units/10 Ml Soln 35 Units SQ 0800,2000 Iprat-Albut 0.5-3(2.5) mg/3 ml (Ipratropium/Albuterol Sulfate) 3 Ml Ampul.neb 3 Ml IH Q4H PRN Humalog (Insulin Lispro) 100 Unit/1 Ml Vial 6 Unit SQ ACHS TAKES 6 UNITS BEFORE MEALS AND AT BEDTIME BUT ALSO USES A SLIDING SCALE Colace (Docusate Sodium) 100 Mg Capsule 100 Mg PO BID Bisacodyl 5 Mg Tablet.dr 5 Mg PO DAILY Aleve (Naproxen Sodium) 220 Mg Capsule 220 Mg PO Q8H PRN Xanax (Alprazolam) 0.5 Mg Tablet 0.5 Mg PO TID Vitamin B-1 (Thiamine HCl) 250 Mg Tablet 250 Mg PO DAILY Trazodone HCl 100 Mg Tablet 100 Mg PO HS Topiramate 50 Mg Tablet 50 Mg PO HS Spironolactone 25 Mg Tablet 25 Mg PO 0800,1800 Ropinirole HCl 0.25 Mg Tablet 0.25 Mg PO HS Omeprazole 20 Mg Capsule.dr 20 Mg PO DAILY Miralax (Polyethylene Glycol 3350) 17 Gm Powd.pack 17 Gm PO 0800,1700 Assessment/Pt Instructions Take medications as prescribed. Your diltiazem dose has been increased. Follow-up with your primary care physician. Return with worsening chest pain, palpitations, or if you feel like you are getting worse. Discharge Planning: <30 minutes discharge planning Discharge Instructions Discharge Diet: No Restrictions Activity as Tolerated: Yes Discharge Physical Examination Vital Signs Vital Signs Date Time Temp Pulse Resp B/P (MAP) Pulse Ox O2 Delivery O2 Flow Rate FiO2 10/09/20 09:00 Nasal Cannula 4.00 10/09/20 07:00 82 10/09/20 06:38 91 10/09/20 04:56 13 126/65 (85) 10/08/20 19:29 36.1 10/08/20 08:07 36 General Appearance: No Apparent Distress, Obese Respiratory: No Respiratory Distress, Decreased Breath Sounds Cardiovascular: No Murmur, Irregularly Irregular Gastrointestinal: Normal Bowel Sounds, Non Tender, Soft Extremity: Normal Inspection, Non Tender, Pedal Edema Skin: Normal Color, Warm/Dry Neurologic/Psychiatric: Alert, Depressed Affect Allergies: Coded Allergies: No Known Drug Allergies (Unverified , 01/04/20) Copy Copies To 1: BREONNA HERNANDEZ MD Discharge Summary Date of Admission Oct 07, 2020 at 19:40 Date of Discharge Oct 09, 2020 at 11:30 Discharge Date: Oct 09, 2020 Discharge Time: 11:30 Admission Diagnosis Atrial fibrillation with RVR Consults/Procedures Consulations Cardiology Discharge Diagnosis AFib with RVR (1) Atrial fibrillation with rapid ventricular response Status: Acute (2) Persistent atrial fibrillation (3) GIUESPPE (obstructive sleep apnea) Status: Chronic (4) Super-super obese Status: Chronic (5) Chronic pain Status: Chronic (6) Essential (primary) hypertension Status: Chronic KENNETH CLEMONS MD Oct 09, 2020 12:20
== END 2020-10-09 11:30 | DRG 309 ==
LOC: EDUNIT# 15:41 → ER FS 15:42 → CSD 19:40 → ICU 10-08 23:20
PROVIDERS: ADMIT Internal Medicine; ATTEND Internal Medicine
DX: I48.19 Other persistent atrial fibrillation (principal); E66.2 Morbid (severe) obesity with alveolar hypoventilation; Z68.44 Body mass index [BMI] 60.0-69.9, adult; E11.9 Type 2 diabetes mellitus without complications; J44.9 Chronic obstructive pulmonary disease, unspecified; I42.9 Cardiomyopathy, unspecified; I10 Essential (primary) hypertension; K21.9 Gastro-esophageal reflux disease without esophagitis; Z79.01 Long term (current) use of anticoagulants; Z79.4 Long term (current) use of insulin; G89.29 Other chronic pain; M54.9 Dorsalgia, unspecified; F41.9 Anxiety disorder, unspecified; F32.9 Major depressive disorder, single episode, unspecified; F20.9 Schizophrenia, unspecified; F17.210 Nicotine dependence, cigarettes, uncomplicated; E03.9 Hypothyroidism, unspecified
CPT/HCPCS: 36415; 71045; 80053; 82947; 83690; 83735; 83880; 84484; 85025; 85610; 85730; 93005; 93041; 94640; 94760

== ENCOUNTER → 2020-11-17 | Outpatient (CLI) | payer MEDICAID ==
[~2020-11-17] MED LIST changes: +ALBU2.5V4 NEB; +BENZ-13 PO; +BENZ100C18 PO; +DILT300C52 PO; +DULO60CA59 PO; +FOLI1TAB33 PO; +FURO40TA4 PO; +METO2.5T PO; +MORP-68 PO; +MORP-69 PO; +NYST1POW TOP; +NYST60PO TOP; +QUET25TA PO; +QUET25TA34 PO
[2020-11-17 10:51] LABS: HEMATOCRIT 44 % (35-52); HEMOGLOBIN 13.6 G/DL (11.5-16.0); MEAN CORPUSCULAR HEMOGLOBIN 27 PG (25-34); WHITE BLOOD COUNT 7.4 10^3/uL (4.3-11.0)
[2020-11-17 10:52] LABS: BASOPHILS % (AUTO) 1 % (0-10); EOSINOPHILS # (AUTO) 0.3 10^3/uL (0.0-0.3); EOSINOPHILS % (AUTO) 3 % (0-10); LYMPHOCYTES # (AUTO) 2.1 X 10^3 (1.0-4.0); LYMPHOCYTES % (AUTO) 29 % (12-44); MEAN CORPUSCULAR HGB CONC 31 G/DL (32-36); MEAN CORPUSCULAR VOLUME 88 FL (80-99); MEAN PLATELET VOLUME 10.6 FL (7.4-10.4); MONOCYTES # (AUTO) 0.6 X 10^3 (0.0-1.0); MONOCYTES % (AUTO) 8 % (0-12); NEUTROPHILS # (AUTO) 4.3 X 10^3 (1.8-7.8); NEUTROPHILS % (AUTO) 58 % (42-75); PLATELET COUNT 269 10^3/uL (130-400)
[2020-11-17 11:30] LABS: POTASSIUM 3.7 MMOL/L (3.6-5.0)
[2020-11-17 11:31] LABS: CREATININE SERUM 1.03 MG/DL (0.60-1.30)
[2020-11-17 11:33] LABS: ALBUMIN 3.9 GM/DL (3.2-4.5); BILIRUBIN,TOTAL 0.4 MG/DL (0.1-1.0); CALCIUM 9.5 MG/DL (8.5-10.1); MAGNESIUM 2.2 MG/DL (1.6-2.4); TOTAL PROTEIN 7.2 GM/DL (6.4-8.2)
[2020-11-17 15:46] LABS: FREE T4 (FREE THYROXINE) 1.19 NG/DL (0.70-1.48)
== END ==
PROVIDERS: ATTEND Pediatrics
DX: G93.41 Metabolic encephalopathy (principal); E11.40 Type 2 diabetes mellitus with diabetic neuropathy, unspecified; E78.5 Hyperlipidemia, unspecified; E66.01 Morbid (severe) obesity due to excess calories
CPT/HCPCS: 36415; 80053; 83036; 83735; 84439; 84443; 85007; 85025

== ENCOUNTER → 2020-11-25 | Outpatient (CLI) | payer MEDICAID | PROVIDERS: ATTEND Pediatrics | DX: Z01.89 Encounter for other specified special examinations (principal) | CPT/HCPCS: 87015; 87045; 87046; 87899 ==

== ENCOUNTER 2020-11-30 16:50 | Emergency (ER) | payer MEDICAID ==
[~2020-11-30] VITALS: Ht 165.1 cm; Wt 155.0 kg
--- NOTE | 2020-11-30 16:56 | ED Abdominal Pain ---
General Stated Complaint: ABD PAIN History of Present Illness Date Seen by Provider: Nov 30, 2020 Time Seen by Provider: 16:54 Initial Comments 65-year-old bedbound patient brought in by EMS. Patient has had some diarrhea and abdominal pain for 2 days. The abdominal pain comes suddenly worse today with some distention. She complains that hurts even to lay her arm on her abdomen. Patient is morbidly obese. She denies any fevers or chills. She has not vomited. Allergies and Home Medications Allergies Coded Allergies: No Known Drug Allergies (Unverified , 01/04/20) Home Medications Albuterol Sulfate 2.5 Mg/3 Ml Vial.neb, 3 ML NEB Q6H PRN for CONGESTION, (Reported) Alprazolam 0.5 Mg Tablet, 0.5 MG PO TID, (Reported) Apixaban 5 Mg Tablet, 5 MG PO BID, (Reported) Benzonatate 100 Mg Capsule, 200 MG PO Q6H PRN for COUGH, (Reported) Bisacodyl 5 Mg Tablet.dr, 5 MG PO DAILY, (Reported) Diltiazem HCl 300 Mg Cap.er.24h, 300 MG PO DAILY Prescribed by: KENNETH CLEMONS on 10/09/20 0847 Docusate Sodium 100 Mg Capsule, 100 MG PO BID, (Reported) Duloxetine HCl 60 Mg Capsule.dr, 60 MG PO 0800,2200, (Reported) Fluticasone Propionate 1 Ea Aero, 2 PUFF IH BID, (Reported) Folic Acid 1 Mg Tablet, 1 MG PO DAILY, (Reported) Furosemide 40 Mg Tablet, 40 MG PO 0830,1230, (Reported) Gabapentin 600 Mg Tablet, 600 MG PO TID, (Reported) Insulin Determir 1,000 Units/10 Ml Soln, 35 UNITS SQ 0800,1999, (Reported) Insulin Lispro 100 Unit/1 Ml Vial, 6 UNIT SQ ACHS, (Reported) TAKES 6 UNITS BEFORE MEALS AND AT BEDTIME BUT ALSO USES A SLIDING SCALE Insulin Lispro 100 Unit/1 Ml Insuln.pen, UNIT SQ ACHS, (Reported) SLIDING SCALE: BLOOD SUGAR UNDER 70 CALL PHYSICIAN 1-100= 2 UNITS 101-150=4 UNITS 151-200=6 UNITS 201-250=8 UNITS 251-300=10 UNITS 301-350=12 UNITS 351- 400=14 UNITS AND CALL PHYSICIAN FOR FURTHER INSTRUCTIONS Ipratropium/Albuterol Sulfate 3 Ml Ampul.neb, 3 ML IH Q4H PRN for CHEST CONGESTION, (Reported) Levothyroxine Sodium 75 Mcg Tablet, 75 MCG PO DAILY, (Reported) Magnesium Hydroxide 400 Mg/5 Ml Oral.susp, 30 ML PO DAILY, (Reported) Menthol 118 Ml Gel..ml., 1 APPLIC TP Q2H PRN for PAIN-MODERATE (5-7), (Reported) APPLY TO RIGHT SHOULDER Menthol/Lanolin/Calamine/Znox 71 Gm Oint, 1 APPLIC TP TID, (Reported) APPLY TO BUTTOCKS, UPPER REAR THIGHS, UNDER BREASTS AND UNDER ARMS Metformin HCl 500 Mg Tablet, 500 MG PO 0800,1700, (Reported) Metolazone 2.5 Mg Tablet, 2.5 MG PO 0800,1200, (Reported) TAKES 30 MINUTES BEFORE FUROSEMIDE DOSE Morphine Sulfate 15 Mg Tablet.er, 15 MG PO BID, (Reported) TAKES 30MG +15MG TO EQUAL 45MG TWICE DAILY Morphine Sulfate 30 Mg Tablet.er, 30 MG PO BID, (Reported) TAKES 15MG +30MG TO EQUAL 45MG TWICE DAILY Naproxen Sodium 220 Mg Capsule, 220 MG PO Q8H PRN for PAIN-MILD (1-4), (Reported) Nystatin 60 Gm Powder, 1 APPLIC TOP BID PRN for RASH, (Reported) Omeprazole 20 Mg Capsule.dr, 20 MG PO DAILY, (Reported) Polyethylene Glycol 3350 17 Gm Powd.pack, 17 GM PO 0800,1700, (Reported) Quetiapine Fumarate 25 Mg Tablet, 25 MG PO 1800, (Reported) Ropinirole HCl 0.25 Mg Tablet, 0.25 MG PO HS, (Reported) Spironolactone 25 Mg Tablet, 25 MG PO 0800,1800, (Reported) Thiamine HCl 250 Mg Tablet, 250 MG PO DAILY, (Reported) Topiramate 50 Mg Tablet, 50 MG PO HS, (Reported) Tramadol HCl 100 Mg Tablet, 100 MG PO Q6H PRN for PAIN-MODERATE (5-7), (Reported) Trazodone HCl 100 Mg Tablet, 100 MG PO HS, (Reported) Patient Home Medication List Home Medication List Reviewed: Yes Review of Systems Review of Systems Constitutional: No chills, No fever Respiratory: No Symptoms Reported Cardiovascular: No Symptoms Reported Gastrointestinal: Abdomen Distended, Abdominal Pain, Diarrhea; Denies Vomiting Musculoskeletal: no symptoms reported Skin: no symptoms reported Psychiatric/Neurological: No Symptoms Reported Endocrine: No Symptoms Reported Hematologic/Lymphatic: No Symptoms Reported Past Czcghtw-Uwgsep-Sjcezm Hx Seasonal Allergies Seasonal Allergies: No Past Medical History Surgeries: Yes Orthopedic, Tracheostomy Respiratory: Yes (chronic resp failure; ) Sleep Apnea, COPD Cardiac: Yes (heart failure ) Atrial Fibrillation, Cardiomyopathy, Hypertension Neurological: Yes (metabolic encephalopathy) Genitourinary: No Gastrointestinal: Yes (morbid obesity) Gastroesophageal Reflux, Chronic Constipation Musculoskeletal: Yes (generalized weakness, restless leg syndrome) Degenerate Disk Disease, Chronic Back Pain Endocrine: Yes Diabetes, Insulin dep HEENT: Yes Dysphagia Cancer: No Psychosocial: Yes Anxiety, Schizophrenia, Depression Integumentary: No Blood Disorders: No Family Medical History No Pertinent Family Hx Physical Exam Vital Signs Vital Signs - First Documented 11/30/20 16:52 Temp 36.3 Pulse 85 Resp 16 B/P (MAP) 106/77 (87) Pulse Ox 92 O2 Delivery Nasal Cannula O2 Flow Rate 2.00 Capillary Refill : Height/Weight/BMI Height: '" Weight: lbs. oz. kg; 63.06 BMI Method: General Appearance: mild distress, obese (Morbid) Neck: supple Respiratory: lungs clear, normal breath sounds Cardiovascular: normal peripheral pulses, regular rate, rhythm Gastrointestinal: non tender, distended, tenderness Neurologic/Psychiatric: normal mood/affect Skin: normal color, warm/dry Focused Exam Lactate Level 11/30/20 18:25: Lactic Acid Level Laboratory Tests Test 11/30/20 18:25 Progress/Results/Core Measures Results/Orders Lab Results Laboratory Tests Test 11/30/20 16:55 11/30/20 17:00 11/30/20 18:25 Range/Units Urine Color YELLOW Urine Clarity CLOUDY H Urine pH 5.0 5-9 Urine Specific [place] 1.025 H 1.016-1.022 Urine Protein 1+ H NEGATIVE Urine Glucose (UA) NEGATIVE NEGATIVE Urine Ketones TRACE H NEGATIVE Urine Nitrite POSITIVE H NEGATIVE Urine Bilirubin NEGATIVE NEGATIVE Urine Urobilinogen 0.2 < = 1.0 MG/DL Urine Leukocyte Esterase 3+ H NEGATIVE Urine RBC (Auto) 3+ H NEGATIVE Urine RBC TNTC H /HPF Urine WBC TNTC H /HPF Urine Squamous Epithelial Cells NONE /HPF Urine Crystals NONE /LPF Urine Bacteria LARGE H /HPF Urine Casts NONE /LPF Urine Mucus SMALL H /LPF Urine Culture Indicated YES White Blood Count 11.2 H 4.3-11.0 10^3/uL Red Blood Count 5.45 4.35-5.85 10^6/uL Hemoglobin 14.7 11.5-16.0 G/DL Hematocrit 47 35-52 % Mean Corpuscular Volume 87 80-99 FL Mean Corpuscular Hemoglobin 27 25-34 PG Mean Corpuscular Hemoglobin Concent 31 L 32-36 G/DL Red Cell Distribution Width 16.0 H 10.0-14.5 % Platelet Count 332 130-400 10^3/uL Mean Platelet Volume 9.7 7.4-10.4 FL Immature Granulocyte % (Auto) 0 % Neutrophils (%) (Auto) 71 42-75 % Lymphocytes (%) (Auto) 21 12-44 % Monocytes (%) (Auto) 6 0-12 % Eosinophils (%) (Auto) 1 0-10 % Basophils (%) (Auto) 0 0-10 % Neutrophils # (Auto) 8.0 H 1.8-7.8 X 10^3 Lymphocytes # (Auto) 2.4 1.0-4.0 X 10^3 Monocytes # (Auto) 0.7 0.0-1.0 X 10^3 Eosinophils # (Auto) 0.1 0.0-0.3 10^3/uL Basophils # (Auto) 0.0 0.0-0.1 10^3/uL Immature Granulocyte # (Auto) 0.0 0.0-0.1 10^3/uL Percent Immature Platelet Fraction 2.2 0.0-7.6 % Sodium Level 135 135-145 MMOL/L Potassium Level 3.4 L 3.6-5.0 MMOL/L Chloride Level 86 L 98-107 MMOL/L Carbon Dioxide Level 39 H 21-32 MMOL/L Anion Gap 10 5-14 MMOL/L Blood Urea Nitrogen 48 H 7-18 MG/DL Creatinine 1.24 0.60-1.30 MG/DL Estimat Glomerular Filtration Rate 44 BUN/Creatinine Ratio 39 Glucose Level 158 H 70-105 MG/DL Calcium Level 9.8 8.5-10.1 MG/DL Corrected Calcium 10.0 8.5-10.1 MG/DL Total Bilirubin 0.3 0.1-1.0 MG/DL Aspartate Amino Transf (AST/SGOT) 15 5-34 U/L Alanine Aminotransferase (ALT/SGPT) 9 0-55 U/L Alkaline Phosphatase 70 40-136 U/L C-Reactive Protein 4.12 H <0.50 MG/DL Total Protein 8.0 6.4-8.2 GM/DL Albumin 3.8 3.2-4.5 GM/DL Lipase 9 8-78 U/L My Orders Orders - GONZALEZ,BRAXTON L DO Cbc With Automated Diff (11/30/20 16:57) Comprehensive Metabolic Panel (11/30/20 16:57) Lactic Acid Analyzer (11/30/20 16:57) Lipase (11/30/20 16:57) Ua Culture If Indicated (11/30/20 16:57) Crp Fs (11/30/20 16:57) Ed Iv/Invasive Line Start (11/30/20 16:57) Ondansetron Injection (Zofran Injectio (11/30/20 17:00) Ns Iv 1000 Ml (Sodium Chloride 0.9%) (11/30/20 16:57) Famotidine Injection (Pepcid Injection) (11/30/20 16:57) Fentanyl Inj (Sublimaze Injection) (11/30/20 16:57) Urine Culture (11/30/20 16:55) Ct Abdomen/Pelvis Wo (11/30/20 17:47) Ceftriaxone (Rocephin) (11/30/20 18:00) Medications Given in ED Current Medications Medications Dose Ordered Sig/Piero Route Start Time Stop Time Status Last Admin Dose Admin Ondansetron HCl 4 mg ONCE ONCE IVP 11/30/20 17:00 11/30/20 17:01 DC 11/30/20 17:11 4 MG Vital Signs/I&O 11/30/20 16:52 Temp 36.3 Pulse 85 Resp 16 B/P (MAP) 106/77 (87) Pulse Ox 92 O2 Delivery Nasal Cannula O2 Flow Rate 2.00 Progress Progress Note : Progress Note Patient's labs show what appears to be any a urinary tract infection. CT shows a diarrheal illness. I will treat her with antibiotics. She should use [id number] simethicone for her gaseous distention. Patient is otherwise stable and discharged back to the nursing Diagnostic Imaging Diagonstic Imaging: CT Plain Films/CT/US/NM/MRI: abdomen Comments CT ABDOMEN/PELVIS WO CT ABDOMEN/PELVIS WO TECHNIQUE: Unenhanced CT imaging of the abdomen and pelvis was performed. 2-D reformats are created and submitted for interpretation. Automatic exposure controls were utilized to optimize patient dose. INDICATION: Generalized abdominal pain and distention. COMPARISON: None available. FINDINGS: Evaluation of the abdominal viscera is mildly limited without contrast. Lower chest: The lung bases are clear. No pericardial or pleural effusion. Peritoneum: No free intraperitoneal air or fluid. Liver and biliary system: Portions of the dome of the liver are excluded from the [id number]. Visualized portions of the liver are unremarkable. Gallbladder surgically absent. Common bile duct measures up to 17 mm and is most likely due to postcholecystectomy state. No radiopaque stones within the common bile duct. Spleen and Pancreas: Spleen is normal. Unenhanced pancreas is grossly normal. Adrenals: Normal. tract: No renal or ureteral calculi. No obstructive uropathy. Exophytic cyst in the upper pole of the right kidney requires no dedicated follow-up imaging. Urinary bladder is decompressed by Wong catheter. GI tract: Stomach is decompressed. No bowel obstruction. The colon is filled with air and liquid stool. No colonic obstruction or features of acute colitis. Normal appendix. Vasculature and Lymph nodes: Normal caliber aorta. No abdominal or pelvic lymphadenopathy. Musculoskeletal: No concerning osseous lesion. IMPRESSION: 1. The colon is mildly distended with air and liquid stool. However, there are no features of colitis, diverticulitis or obstruction. 2. No urinary tract calculi. 3. Cholecystectomy with dilated common bile duct likely due to reservoir effect from the post cholecystectomy state. If there is right upper quadrant pain, MRCP could be performed for further assessment. Reviewed: Reviewed by Me, Reviewed/Discussed Departure Impression Primary Impression: Urinary tract infection Qualified Codes: N30.01 - Acute cystitis with hematuria Additional Impression: Gastroenteritis Disposition: HOME, SELF-CARE Condition: Stable Departure-Patient Inst. Referrals: BREONNA HERNANDEZ MD (PCP/Family) Primary Care Physician Patient Instructions: Diarrhea, Adult ED, Urinary Tract Infections in Adults Add. Discharge Instructions: Gas-X or similar [id number] medication for gas pain Follow-up with your primary care provider in 1 week for recheck of your urine Drink plenty of fluids Scripts Nitrofurantoin Macrocrystal (Nitrofurantoin) 100 Mg Capsule 100 MG PO BID, #14 CAP 0 Refills Prov: BRAXTON GONZALEZ DO 11/30/20 BRAXTON GONZALEZ DO Nov 30, 2020 16:56
[2020-11-30] MEDS ORDERED: FAMOTIDINE 20MG/2ML IV (PEPCID) IV STA (16:57)
[2020-11-30] MEDS ORDERED: NS IV 1000 ML 1,000 ML IV STA (16:57)
[2020-11-30] MEDS ORDERED: fentaNYL INJ 100 MCG/2 ML AMP IVP STA (16:57)
[2020-11-30] MEDS ORDERED: ONDANSETRON 4 MG/2 ML (SDV) Z0FRAN IVP ONE (17:00)
[2020-11-30 17:33] LABS: BILIRUBIN,URINE NEGATIVE (NEGATIVE); CLARITY,URINE CLOUDY; COLOR,URINE YELLOW; GLUCOSE, URINE (UA) NEGATIVE (NEGATIVE); KETONES,URINE TRACE (NEGATIVE); NITRITE,URINE POSITIVE (NEGATIVE); PROTEIN,URINE 1+ (NEGATIVE)
[2020-11-30 17:34] LABS: BACTERIA,URINE LARGE /HPF; LEUKOCYTE ESTERASE ,URINE 3+ (NEGATIVE); RBC,URINE TNTC /HPF; WBC,URINE TNTC /HPF
[2020-11-30 17:35] LABS: HEMOGLOBIN 14.7 G/DL (11.5-16.0); MEAN CORPUSCULAR HEMOGLOBIN 27 PG (25-34); WHITE BLOOD COUNT 11.2 10^3/uL (4.3-11.0)
[2020-11-30 17:36] LABS: BASOPHILS % (AUTO) 0 % (0-10); EOSINOPHILS # (AUTO) 0.1 10^3/uL (0.0-0.3); EOSINOPHILS % (AUTO) 1 % (0-10); HEMATOCRIT 47 % (35-52); LYMPHOCYTES # (AUTO) 2.4 X 10^3 (1.0-4.0); LYMPHOCYTES % (AUTO) 21 % (12-44); MEAN CORPUSCULAR HGB CONC 31 G/DL (32-36); MEAN CORPUSCULAR VOLUME 87 FL (80-99); MEAN PLATELET VOLUME 9.7 FL (7.4-10.4); MONOCYTES # (AUTO) 0.7 X 10^3 (0.0-1.0); MONOCYTES % (AUTO) 6 % (0-12); NEUTROPHILS % (AUTO) 71 % (42-75); PLATELET COUNT 332 10^3/uL (130-400)
[2020-11-30 17:37] LABS: ALBUMIN 3.8 GM/DL (3.2-4.5); BILIRUBIN,TOTAL 0.3 MG/DL (0.1-1.0); CALCIUM 9.8 MG/DL (8.5-10.1); CREATININE SERUM 1.24 MG/DL (0.60-1.30); POTASSIUM 3.4 MMOL/L (3.6-5.0)
[2020-11-30] MEDS ORDERED: cefTRIAXone 1,000 MG in WATER (STERILE) FOR INJECTION 10 ML IV ONE (18:00)
--- NOTE | 2020-11-30 18:27 | Diagnostic Imaging Report ---
CT ABDOMEN/PELVIS WO TECHNIQUE: Unenhanced CT imaging of the abdomen and pelvis was performed. 2-D reformats are created and submitted for interpretation. Automatic exposure controls were utilized to optimize patient dose. INDICATION: Generalized abdominal pain and distention. COMPARISON: None available. FINDINGS: Evaluation of the abdominal viscera is mildly limited without contrast. Lower chest: The lung bases are clear. No pericardial or pleural effusion. Peritoneum: No free intraperitoneal air or fluid. Liver and biliary system: Portions of the dome of the liver are excluded from the [id number]-mprv. Visualized portions of the liver are unremarkable. Gallbladder surgically absent. Common bile duct measures up to 17 mm and is most likely due to postcholecystectomy state. No radiopaque stones within the common bile duct. Spleen and Pancreas: Spleen is normal. Unenhanced pancreas is grossly normal. Adrenals: Normal. tract: No renal or ureteral calculi. No obstructive uropathy. Exophytic cyst in the upper pole of the right kidney requires no dedicated follow-up imaging. Urinary bladder is decompressed by Wong catheter. GI tract: Stomach is decompressed. No bowel obstruction. The colon is filled with air and liquid stool. No colonic obstruction or features of acute colitis. Normal appendix. Vasculature and Lymph nodes: Normal caliber aorta. No abdominal or pelvic lymphadenopathy. Musculoskeletal: No concerning osseous lesion. IMPRESSION: 1. The colon is mildly distended with air and liquid stool. However, there are no features of colitis, diverticulitis or obstruction. 2. No urinary tract calculi. 3. Cholecystectomy with dilated common bile duct likely due to reservoir effect from the post cholecystectomy state. If there is right upper quadrant pain, MRCP could be performed for further assessment. Dictated by: Dictated on workstation # [id number]
[2020-11-30] MEDS ORDERED: NITR100C PO (18:41)
[2020-11-30 18:53] VITALS: BP 132/86
== END 2020-11-30 18:55 | disposition home or self-care (01) ==
LOC: EDUNIT# 16:50 → ER FS 16:51
DX: N39.0 Urinary tract infection, site not specified (principal); K52.9 Noninfective gastroenteritis and colitis, unspecified; I11.0 Hypertensive heart disease with heart failure; I50.9 Heart failure, unspecified; E66.01 Morbid (severe) obesity due to excess calories; G47.30 Sleep apnea, unspecified; J44.9 Chronic obstructive pulmonary disease, unspecified; I48.91 Unspecified atrial fibrillation; F41.9 Anxiety disorder, unspecified; F32.9 Major depressive disorder, single episode, unspecified; F20.9 Schizophrenia, unspecified; K21.9 Gastro-esophageal reflux disease without esophagitis; E11.9 Type 2 diabetes mellitus without complications; Z68.44 Body mass index [BMI] 60.0-69.9, adult; Z79.01 Long term (current) use of anticoagulants; Z79.4 Long term (current) use of insulin; Z79.899 Other long term (current) drug therapy
CPT/HCPCS: 36415; 74176; 80053; 81000; 83605; 83690; 85025; 86141

== ENCOUNTER 2020-12-20 08:12 | Inpatient (IN) | payer MEDICAID ==
[~2020-12-20] VITALS: Ht 170.2 cm; Wt 162.2 kg
[~2020-12-20 08:12] MED LIST changes: +NITR100C PO
--- NOTE | 2020-12-20 08:26 | ED General ---
General Chief Complaint: Unresponsive Stated Complaint: UNRESPONSIVE History of Present Illness Date Seen by Provider: Dec 20, 2020 Time Seen by Provider: 08:21 Initial Comments 65-year-old [facility] with complaint of decreased responsiveness this morning. Patient arrives on CPAP in responsive to pain or vigorous stimulation. Allergies and Home Medications Allergies Coded Allergies: No Known Drug Allergies (Unverified , 01/04/20) Home Medications Albuterol Sulfate 2.5 Mg/3 Ml Vial.neb, 3 ML NEB Q6H PRN for CONGESTION, (Reported) Alprazolam 0.5 Mg Tablet, 0.5 MG PO TID, (Reported) Apixaban 5 Mg Tablet, 5 MG PO BID, (Reported) Benzonatate 100 Mg Capsule, 200 MG PO Q6H PRN for COUGH, (Reported) Bisacodyl 5 Mg Tablet.dr, 5 MG PO DAILY, (Reported) Diltiazem HCl 300 Mg Cap.er.24h, 300 MG PO DAILY Prescribed by: KENNETH CLEMONS on 10/09/20 0847 Docusate Sodium 100 Mg Capsule, 100 MG PO BID, (Reported) Duloxetine HCl 60 Mg Capsule.dr, 60 MG PO 0800,2200, (Reported) Fluticasone Propionate 1 Ea Aero, 2 PUFF IH BID, (Reported) Folic Acid 1 Mg Tablet, 1 MG PO DAILY, (Reported) Furosemide 40 Mg Tablet, 40 MG PO 0830,1230, (Reported) Gabapentin 600 Mg Tablet, 600 MG PO TID, (Reported) Insulin Determir 1,000 Units/10 Ml Soln, 35 UNITS SQ 0800,2000, (Reported) Insulin Lispro 100 Unit/1 Ml Vial, 6 UNIT SQ ACHS, (Reported) TAKES 6 UNITS BEFORE MEALS AND AT BEDTIME BUT ALSO USES A SLIDING SCALE Insulin Lispro 100 Unit/1 Ml Insuln.pen, UNIT SQ ACHS, (Reported) SLIDING SCALE: BLOOD SUGAR UNDER 70 CALL PHYSICIAN 1-100= 2 UNITS 101-150=4 UNITS 151-200=6 UNITS 201-250=8 UNITS 251-300=10 UNITS 301-350=12 UNITS 351- 400=14 UNITS AND CALL PHYSICIAN FOR FURTHER INSTRUCTIONS Ipratropium/Albuterol Sulfate 3 Ml Ampul.neb, 3 ML IH Q4H PRN for CHEST CONGESTION, (Reported) Levothyroxine Sodium 75 Mcg Tablet, 75 MCG PO DAILY, (Reported) Magnesium Hydroxide 400 Mg/5 Ml Oral.susp, 30 ML PO DAILY, (Reported) Menthol 118 Ml Gel..ml., 1 APPLIC TP Q2H PRN for PAIN-MODERATE (5-7), (Reported) APPLY TO RIGHT SHOULDER Menthol/Lanolin/Calamine/Znox 71 Gm Oint, 1 APPLIC TP TID, (Reported) APPLY TO BUTTOCKS, UPPER REAR THIGHS, UNDER BREASTS AND UNDER ARMS Metformin HCl 500 Mg Tablet, 500 MG PO 0800,1700, (Reported) Metolazone 2.5 Mg Tablet, 2.5 MG PO 0800,1200, (Reported) TAKES 30 MINUTES BEFORE FUROSEMIDE DOSE Morphine Sulfate 15 Mg Tablet.er, 15 MG PO BID, (Reported) TAKES 30MG +15MG TO EQUAL 45MG TWICE DAILY Morphine Sulfate 30 Mg Tablet.er, 30 MG PO BID, (Reported) TAKES 15MG +30MG TO EQUAL 45MG TWICE DAILY Naproxen Sodium 220 Mg Capsule, 220 MG PO Q8H PRN for PAIN-MILD (1-4), (Reported) Nitrofurantoin Macrocrystal 100 Mg Capsule, 100 MG PO BID Prescribed by: BRAXTON GONZALEZ on 11/30/20 184 Nystatin 60 Gm Powder, 1 APPLIC TOP BID PRN for RASH, (Reported) Omeprazole 20 Mg Capsule.dr, 20 MG PO DAILY, (Reported) Polyethylene Glycol 3350 17 Gm Powd.pack, 17 GM PO 0800,1700, (Reported) Quetiapine Fumarate 25 Mg Tablet, 25 MG PO 1800, (Reported) Ropinirole HCl 0.25 Mg Tablet, 0.25 MG PO HS, (Reported) Spironolactone 25 Mg Tablet, 25 MG PO 0800,1800, (Reported) Thiamine HCl 250 Mg Tablet, 250 MG PO DAILY, (Reported) Topiramate 50 Mg Tablet, 50 MG PO HS, (Reported) Tramadol HCl 100 Mg Tablet, 100 MG PO Q6H PRN for PAIN-MODERATE (5-7), (Reported) Trazodone HCl 100 Mg Tablet, 100 MG PO HS, (Reported) Patient Home Medication List Home Medication List Reviewed: Yes Review of Systems Review of Systems Constitutional: no symptoms reported (unable to obtain due to decreased MS) Past Nbrrqyz-Ygvoll-Tqlvmf Hx Patient Social History Tobacco Use?: No Seasonal Allergies Seasonal Allergies: No Past Medical History Surgeries: Yes Orthopedic, Tracheostomy Respiratory: Yes (chronic resp failure; ) Sleep Apnea, COPD Cardiac: Yes (heart failure ) Atrial Fibrillation, Cardiomyopathy, Hypertension Neurological: Yes (metabolic encephalopathy) Genitourinary: No Gastrointestinal: Yes (morbid obesity) Gastroesophageal Reflux, Chronic Constipation Musculoskeletal: Yes (generalized weakness, restless leg syndrome) Degenerate Disk Disease, Chronic Back Pain Endocrine: Yes Diabetes, Insulin dep HEENT: Yes Dysphagia Cancer: No Psychosocial: Yes Anxiety, Schizophrenia, Depression Integumentary: No Blood Disorders: No Family Medical History No Pertinent Family Hx Physical Exam Vital Signs Vital Signs - First Documented 12/20/20 08:12 Temp 36.0 Pulse 162 Resp 10 B/P (MAP) 112/82 (92) Pulse Ox 87 O2 Delivery NIV CPAP Capillary Refill : Height, Weight, BMI Height: '" Weight: lbs. oz. kg; 56.00 BMI Method: General Appearance: Chronically ill, Obese Eyes: Bilateral Eye PERRL HEENT: Normal ENT Inspection Neck: Non Tender, Supple Respiratory: No Accessory Muscle Use, Decreased Breath Sounds, Rales Cardiovascular: No JVD, Tachycardia Gastrointestinal: Non Tender, Soft Extremity: Normal Capillary Refill, Normal Inspection Neurologic/Psychiatric: Other (decreased responsiveness, responds to vigorous stimulation) Skin: Normal Color, Warm/Dry Focused Exam Lactate Level 12/20/20 08:34: Lactic Acid Level 0.72 Lactic Acid Level Laboratory Tests Test 12/20/20 08:34 Lactic Acid Level 0.72 MMOL/L (0.50-2.00) Progress/Results/Core Measures Suspected Sepsis SIRS Temperature: Pulse: Respiratory Rate: Laboratory Tests 12/20/20 08:34: White Blood Count 11.8H Blood Pressure / Mean: 12/20/20 08:34: Lactic Acid Level 0.72 Laboratory Tests 12/20/20 08:34: Creatinine 1.17, Platelet Count 275, Total Bilirubin 0.3 Results/Orders Lab Results Laboratory Tests Test 12/20/20 08:34 12/20/20 09:00 Range/Units White Blood Count 11.8 H 4.3-11.0 10^3/uL Red Blood Count 5.14 H 3.80-5.11 10^6/uL Hemoglobin 14.2 11.5-16.0 g/dL Hematocrit 47 35-52 % Mean Corpuscular Volume 91 80-99 fL Mean Corpuscular Hemoglobin 28 25-34 pg Mean Corpuscular Hemoglobin Concent 31 L 32-36 g/dL Red Cell Distribution Width 17.0 H 10.0-14.5 % Platelet Count 275 130-400 10^3/uL Mean Platelet Volume 10.1 9.0-12.2 fL Immature Granulocyte % (Auto) 0 % Neutrophils (%) (Auto) 57 42-75 % Lymphocytes (%) (Auto) 16 12-44 % Monocytes (%) (Auto) 6 0-12 % Eosinophils (%) (Auto) 20 H 0-10 % Basophils (%) (Auto) 1 0-10 % Neutrophils # (Auto) 6.7 1.8-7.8 X 10^3 Lymphocytes # (Auto) 1.9 1.0-4.0 X 10^3 Monocytes # (Auto) 0.8 0.0-1.0 X 10^3 Eosinophils # (Auto) 2.3 H 0.0-0.3 10^3/uL Basophils # (Auto) 0.1 0.0-0.1 10^3/uL Immature Granulocyte # (Auto) 0.0 0.0-0.1 10^3/uL Neutrophils % (Manual) 53 % Lymphocytes % (Manual) 21 % Monocytes % (Manual) 6 % Eosinophils % (Manual) 19 % Band Neutrophils 1 % D-Dimer 0.34 0.00-0.49 UG/ML Sodium Level 142 135-145 MMOL/L Potassium Level 4.5 3.6-5.0 MMOL/L Chloride Level 95 L 98-107 MMOL/L Carbon Dioxide Level 40 H 21-32 MMOL/L Anion Gap 7 5-14 MMOL/L Blood Urea Nitrogen 54 H 7-18 MG/DL Creatinine 1.17 0.60-1.30 MG/DL Estimat Glomerular Filtration Rate 47 BUN/Creatinine Ratio 46 Glucose Level 124 H 70-105 MG/DL Lactic Acid Level 0.72 0.50-2.00 MMOL/L Calcium Level 9.6 8.5-10.1 MG/DL Corrected Calcium 9.9 8.5-10.1 MG/DL Total Bilirubin 0.3 0.1-1.0 MG/DL Aspartate Amino Transf (AST/SGOT) 16 5-34 U/L Alanine Aminotransferase (ALT/SGPT) 9 0-55 U/L Alkaline Phosphatase 94 40-136 U/L Troponin I < 0.30 <0.30 NG/ML Pro-B-Type Natriuretic Peptide 2309.0 H <75.0 PG/ML Total Protein 7.6 6.4-8.2 GM/DL Albumin 3.6 3.2-4.5 GM/DL Blood Gas Puncture Site RIGHT WRIST Blood Gas Patient Temperature 36.0 Arterial Blood pH 7.35 L 7.37-7.43 Arterial Blood Partial Pressure CO2 88 *H 35-45 MMHG Arterial Blood Partial Pressure O2 100 H 79-93 MMHG Arterial Blood HCO3 49 *H 23-27 MMOL/L Arterial Blood Total CO2 51.3 *H 21.0-31.0 MMOL/L Arterial Blood Oxygen Saturation 97 94-100 % Arterial Blood Base Excess 18.6 H -2.5-2.5 MMOL/L Joss Test NEGATIVE Blood Gas Ventilator Setting NA Blood Gas Inspired Oxygen 100% My Orders Orders - ROVENSTINERANDY L DO Ed Iv/Invasive Line Start (12/20/20 08:21) Chest 1 View Ap/Pa Only (12/20/20 08:21) Cbc With Automated Diff (12/20/20 08:21) Comprehensive Metabolic Panel (12/20/20 08:21) Lactic Acid Analyzer (12/20/20 08:21) Troponin I Fs (12/20/20 08:21) Urinalysis (12/20/20 08:21) Probnp Fs (12/20/20 08:21) Arterial Blood Gas (12/20/20 08:21) Blood Culture (12/20/20 08:21) Fibrin Degradation Products (12/20/20 08:21) Diltiazem Injection (Cardizem Injection) (12/20/20 08:45) Lorazepam Injection (Ativan Injection) (12/20/20 08:45) Manual Differential (12/20/20 08:34) Diltiazem Injection (Cardizem Injection) (12/20/20 09:00) Ns Iv 500 Ml (Sodium Chloride 0.9%) (12/20/20 09:15) Blood Culture (12/20/20 08:28) Arterial Blood Gas (12/20/20 09:00) Diltiazem Drip Pre-Mix (Cardizem Drip Pr (12/20/20 09:45) Lorazepam Injection (Ativan Injection) (12/20/20 12:15) Medications Given in ED Current Medications Medications Dose Ordered Sig/Piero Route Start Time Stop Time Status Last Admin Dose Admin Diltiazem HCl 15 mg ONCE ONCE IVP 12/20/20 08:45 12/20/20 08:46 DC 12/20/20 08:50 15 MG Diltiazem HCl 20 mg ONCE ONCE IVP 12/20/20 09:00 12/20/20 09:01 DC 12/20/20 09:25 20 MG Lorazepam 1 mg ONCE ONCE IVP 12/20/20 08:45 12/20/20 08:46 DC 12/20/20 08:50 1 MG Lorazepam 1 mg Q1HR PRN IVP 12/20/20 12:15 12/20/20 13:37 1 MG Vital Signs/I&O 12/20/20 12/20/20 12/20/20 08:12 09:13 12:25 Temp 36.0 36.0 Pulse 162 135 109 Resp 10 18 12 B/P (MAP) 112/82 (92) 131/77 130/91 Pulse Ox 87 96 95 O2 Delivery NIV CPAP NIV Bilevel NIV Bilevel Capillary Refill : Progress Note : Progress Note Extended ER stay after hospital acceptance as bed wasn't ready then EMS unavailable. Pt stable maintained on BiPap and doing well, given Ativan for agitation intermittently. Diagnostic Imaging Diagonstic Imaging: Xray Plain Films/CT/US/NM/MRI: chest Comments Date of Exam:12/20/20 CHEST 1 VIEW AP/PA ONLY EXAM: CHEST 1 VIEW AP/PA ONLY INDICATION: Hypoxia. Unresponsive. COMPARISON: Chest radiograph 10/07/2020. FINDINGS: Examination limited by markedly low lung volumes. Normal heart size and central pulmonary vascularity. Left basilar atelectasis, possibly infiltrate. No large pleural effusion or pneumothorax is seen. No acute osseous findings. IMPRESSION: 1. Examination limited by markedly low lung volumes. 2. Mild atelectasis or infiltrate left lung base. Dictated on workstation # [id number] Dict: 12/20/20902 Trans: 12/20/20908 CVB [id number] Interpreted by: NEEMA RAMIREZ MD Electronically signed by: Departure Communication (Admissions) Time/Spoke to Admitting Phy: 09:[address] CLEMONS regarding ICU admission to [facility] - accepts Will continue BiPap and start Diltiazem gtt Impression Primary Impression: Atrial fibrillation with rapid ventricular response Additional Impression: Acute respiratory failure Qualified Codes: J96.01 - Acute respiratory failure with hypoxia Disposition: 30 STILL A PATIENT Condition: Improved Admissions Decision to Admit Reason: Admit from ER (General) Decision to Admit/Date: Dec 20, 2020 Time/Decision to Admit Time: 08:15 Departure-Patient Inst. Referrals: BREONNA HERNANDEZ MD (PCP/Family) Primary Care Physician RANDY ELIZONDO DO Dec 20, 2020 08:26
[2020-12-20 08:44] LABS: HEMATOCRIT 47 % (35-52); HEMOGLOBIN 14.2 g/dL (11.5-16.0); LYMPHOCYTES % (AUTO) 16 % (12-44); MEAN CORPUSCULAR HEMOGLOBIN 28 pg (25-34); MEAN CORPUSCULAR HGB CONC 31 g/dL (32-36); MEAN CORPUSCULAR VOLUME 91 fL (80-99); MEAN PLATELET VOLUME 10.1 fL (9.0-12.2); MONOCYTES % (AUTO) 6 % (0-12); NEUTROPHILS % (AUTO) 57 % (42-75); PLATELET COUNT 275 10^3/uL (130-400); WHITE BLOOD COUNT 11.8 10^3/uL (4.3-11.0)
[2020-12-20 08:45] LABS: BASOPHILS # (AUTO) 0.1 10^3/uL (0.0-0.1); BASOPHILS % (AUTO) 1 % (0-10); EOSINOPHILS # (AUTO) 2.3 10^3/uL (0.0-0.3); EOSINOPHILS % (AUTO) 20 % (0-10); LYMPHOCYTES # (AUTO) 1.9 X 10^3 (1.0-4.0); MONOCYTES # (AUTO) 0.8 X 10^3 (0.0-1.0); NEUTROPHILS # (AUTO) 6.7 X 10^3 (1.8-7.8)
[2020-12-20] MEDS ORDERED: LORazepam INJ 2 MG/ML (ATIVAN) VIAL IVP ONE (08:45)
[2020-12-20] MEDS: NS IV 500 ML 500 ML IV SCH (09:05)
[2020-12-20 09:08] LABS: ABG BASE EXCESS 18.6 MMOL/L (-2.5-2.5); ABG OXYGEN SATURATION 97 % (94-100); ABG PH 7.35 (7.37-7.43); ABG PO2 100 MMHG (79-93); ABG TCO2 51.3 MMOL/L (21.0-31.0); ALLENS TEST NEGATIVE
[2020-12-20 09:10] LABS: ALANINE AMINOTRANSFERASE 9 U/L (0-55); ALKALINE PHOSPHATASE 94 U/L (40-136); BILIRUBIN,TOTAL 0.3 MG/DL (0.1-1.0); BUN/CREATININE RATIO 46; CALCIUM 9.6 MG/DL (8.5-10.1); CARBON DIOXIDE 40 MMOL/L (21-32); CHLORIDE 95 MMOL/L (98-107); CREATININE SERUM 1.17 MG/DL (0.60-1.30); GFR ESTIMATED 47; GLUCOSE 124 MG/DL (70-105); POTASSIUM 4.5 MMOL/L (3.6-5.0); SODIUM 142 MMOL/L (135-145)
--- NOTE | 2020-12-20 09:10 | Diagnostic Imaging Report ---
EXAM: CHEST 1 VIEW AP/PA ONLY INDICATION: Hypoxia. Unresponsive. COMPARISON: Chest radiograph 10/07/2020. FINDINGS: Examination limited by markedly low lung volumes. Normal heart size and central pulmonary vascularity. Left basilar atelectasis, possibly infiltrate. No large pleural effusion or pneumothorax is seen. No acute osseous findings. IMPRESSION: 1. Examination limited by markedly low lung volumes. 2. Mild atelectasis or infiltrate left lung base. Dictated by: Dictated on workstation # [id number]
[2020-12-20 09:11] LABS: ALBUMIN 3.6 GM/DL (3.2-4.5); TOTAL PROTEIN 7.6 GM/DL (6.4-8.2)
[2020-12-20 09:23] LABS: ABG PCO2 88 MMHG (35-45)
[2020-12-20 09:30] LABS: BAND NEUTROPHILS 1 %; EOSINOPHILS % (MANUAL) 19 %; LYMPHOCYTES % (MANUAL) 21 %; MONOCYTES % (MANUAL) 6 %; NEUTROPHILS % (MANUAL) 53 %
[2020-12-20 09:41] LABS: INSPIRED O2 100%
[2020-12-20] MEDS ORDERED: dilTIAZem DRIP PRE-MIX 125 ML IV SCH (09:45)
[2020-12-20] MEDS ORDERED: LORazepam INJ 2 MG/ML (ATIVAN) VIAL IVP PRN (12:15)
[2020-12-20 14:07] LABS: BILIRUBIN,URINE NEGATIVE (NEGATIVE); CLARITY,URINE SLIGHTLY CLOUDY; COLOR,URINE YELLOW; GLUCOSE, URINE (UA) NEGATIVE (NEGATIVE); KETONES,URINE NEGATIVE (NEGATIVE); LEUKOCYTE ESTERASE ,URINE TRACE (NEGATIVE); NITRITE,URINE POSITIVE (NEGATIVE); PROTEIN,URINE 1+ (NEGATIVE); WBC,URINE 50-100 /HPF
[2020-12-20 14:08] LABS: BACTERIA,URINE LARGE /HPF
[2020-12-20] MEDS: dilTIAZem DRIP PRE-MIX 125 ML IV SCH ×2 (15:00→23:29)
[2020-12-20 15:14] LABS: ABG BASE EXCESS 12.8 MMOL/L (-2.5-2.5); ABG OXYGEN SATURATION 99 % (94-100); ABG PO2 256 MMHG (79-93)
[2020-12-20 15:20] LABS: ABG PCO2 80 MMHG (35-45); ABG PH 7.31 (7.37-7.43); ABG TCO2 41.9 MMOL/L (21.0-31.0); ALLENS TEST YES-POS
[2020-12-20 15:21] LABS: INSPIRED O2 100%; PATIENT TEMP 36.6; VENTILATOR NO
--- NOTE | 2020-12-20 16:05 | Tele-ICU Consult ---
History of Present Illness History of Present Illness Date Seen by Provider: Dec 20, 2020 Time Seen by Provider: 15:45 Date of Admission This virtual visit which was conducted using real time audio/video. Thank you for asking us to see this patient for respiratory insufficiency and distress and afib/RVR. HPC: Recent events:Admitted through ER from custodial. PMH:morbid obesity, GIUSEPPE, COPD, Htn., DM., Afib, previous trach., CMP. GERD, anx., dep., Schizophrenia. SH: smoking history Y FH: Non-contributory ROS: limited by patient's clinical condition. PE: Morbidly obese, moderate distress. HR 130-140 afib BP 115/85 RR 22 O2 sat 98% on BiPAP 100%. HEENT: No obvious masses, adenopathy or JVD. Chest: clear to auscultation w decreased BS CV: Irreg. S1 S2 No murmur or added sounds. Abd: Non-tender. Bowel sounds Y. : Unremarkable. Wong Y. MUSHROOM CULTIVATOR/psychiatric: No obvious focal findings. Extremities: No edema. Capillary refill < 3 seconds. Skin: unremarkable. Results: Elevated WCC 11.8, BG 124. AB.31/80/256. CXR poorqulity, no obvious infilt. A/P: Respiratory insufficiency/distress: Cont BiPAP and wean O2 as luis. Add Duonebs. Available chart/ vitals / labs / Images reviewed. Video assessment done using teleICU camera, rest of exam as per RN. Monitor for increasing oxygenation needs and/or need for intubation. Critical Care: critically ill patient. Cont. Cardizem, PRN Ativan. Discussed with EVERARDO Martinez. Asked RN to reach out to eICU if any questions or concerns later. Time spent with patient/coordination of care with other health professionals (mins):28 Allergies and Home Medications Allergies Coded Allergies: No Known Drug Allergies (Unverified , 01/04/20) Home Medications Albuterol Sulfate 2.5 Mg/3 Ml Vial.neb, 3 ML NEB Q6H PRN for CONGESTION, (Reported) Alprazolam 0.5 Mg Tablet, 0.5 MG PO TID, (Reported) Apixaban 5 Mg Tablet, 5 MG PO BID, (Reported) Benzonatate 100 Mg Capsule, 200 MG PO Q6H PRN for COUGH, (Reported) Bisacodyl 5 Mg Tablet.dr, 5 MG PO DAILY, (Reported) Diltiazem HCl 300 Mg Cap.er.24h, 300 MG PO DAILY Prescribed by: KENNETH CLEMONS on 10/09/20 0847 Docusate Sodium 100 Mg Capsule, 100 MG PO BID, (Reported) Duloxetine HCl 60 Mg Capsule.dr, 60 MG PO 0800,2200, (Reported) Fluticasone Propionate 1 Ea Aero, 2 PUFF IH BID, (Reported) Folic Acid 1 Mg Tablet, 1 MG PO DAILY, (Reported) Furosemide 40 Mg Tablet, 40 MG PO 0830,1230, (Reported) Gabapentin 600 Mg Tablet, 600 MG PO TID, (Reported) Insulin Determir 1,000 Units/10 Ml Soln, 35 UNITS SQ 0800,2000, (Reported) Insulin Lispro 100 Unit/1 Ml Vial, 6 UNIT SQ ACHS, (Reported) TAKES 6 UNITS BEFORE MEALS AND AT BEDTIME BUT ALSO USES A SLIDING SCALE Insulin Lispro 100 Unit/1 Ml Insuln.pen, UNIT SQ ACHS, (Reported) SLIDING SCALE: BLOOD SUGAR UNDER 70 CALL PHYSICIAN 1-100= 2 UNITS 101-150=4 UNITS 151-200=6 UNITS 201-250=8 UNITS 251-300=10 UNITS 301-350=12 UNITS 351- 400=14 UNITS AND CALL PHYSICIAN FOR FURTHER INSTRUCTIONS Ipratropium/Albuterol Sulfate 3 Ml Ampul.neb, 3 ML IH Q4H PRN for CHEST CONGESTION, (Reported) Levothyroxine Sodium 75 Mcg Tablet, 75 MCG PO DAILY, (Reported) Magnesium Hydroxide 400 Mg/5 Ml Oral.susp, 30 ML PO DAILY, (Reported) Menthol 118 Ml Gel..ml., 1 APPLIC TP Q2H PRN for PAIN-MODERATE (5-7), (Reported) APPLY TO RIGHT SHOULDER Menthol/Lanolin/Calamine/Znox 71 Gm Oint, 1 APPLIC TP TID, (Reported) APPLY TO BUTTOCKS, UPPER REAR THIGHS, UNDER BREASTS AND UNDER ARMS Metformin HCl 500 Mg Tablet, 500 MG PO 0800,1700, (Reported) Metolazone 2.5 Mg Tablet, 2.5 MG PO 0800,1200, (Reported) TAKES 30 MINUTES BEFORE FUROSEMIDE DOSE Morphine Sulfate 15 Mg Tablet.er, 15 MG PO BID, (Reported) TAKES 30MG +15MG TO EQUAL 45MG TWICE DAILY Morphine Sulfate 30 Mg Tablet.er, 30 MG PO BID, (Reported) TAKES 15MG +30MG TO EQUAL 45MG TWICE DAILY Naproxen Sodium 220 Mg Capsule, 220 MG PO Q8H PRN for PAIN-MILD (1-4), (Reported) Nitrofurantoin Macrocrystal 100 Mg Capsule, 100 MG PO BID Prescribed by: BRAXTON GONZALEZ on 11/30/201840 Nystatin 60 Gm Powder, 1 APPLIC TOP BID PRN for RASH, (Reported) Omeprazole 20 Mg Capsule.dr, 20 MG PO DAILY, (Reported) Polyethylene Glycol 3350 17 Gm Powd.pack, 17 GM PO 0800,1700, (Reported) Quetiapine Fumarate 25 Mg Tablet, 25 MG PO 1800, (Reported) Ropinirole HCl 0.25 Mg Tablet, 0.25 MG PO HS, (Reported) Spironolactone 25 Mg Tablet, 25 MG PO 0800,1800, (Reported) Thiamine HCl 250 Mg Tablet, 250 MG PO DAILY, (Reported) Topiramate 50 Mg Tablet, 50 MG PO HS, (Reported) Tramadol HCl 100 Mg Tablet, 100 MG PO Q6H PRN for PAIN-MODERATE (5-7), (Reported) Trazodone HCl 100 Mg Tablet, 100 MG PO HS, (Reported) Past Medical/Social/Family Hx Patient Social History Tobacco Use?: No Smoking Status: Never a Smoker Substance use?: No Alcohol Use?: No Pt stated abuse/neglect: No Immunizations Up To Date Date of Pneumonia Vaccine: Jan 03, 2018 Current Status Advance Directives: No Communicates: Verbally Primary Language: Hebrew Preferred Spoken Language: Hebrew Is interpretation needed?: No Review of Systems Constitutional: see HPI Sepsis Event Evaluation Height, Weight, BMI Height: '" Weight: lbs. oz. kg; 72.00 BMI Method: Exam Exam Patient acknowledged, consented, and participated in this virtual visit which was conducted using real time audio/video Vital Signs Date Time Temp Pulse Resp B/P (MAP) Pulse Ox O2 Delivery O2 Flow Rate FiO2 12/20/20 15:34 NIV Bilevel 60.00 12/20/20 15:21 115 12/20/20 15:00 133 141/50 (80) 100 NIV Bilevel 100.00 12/20/20 14:50 144 18 100 100.00 12/20/20 12:25 109 12 130/91 95 NIV Bilevel 12/20/20 09:13 36.0 135 18 131/77 96 NIV Bilevel 12/20/20 08:12 36.0 162 10 112/82 (92) 87 NIV CPAP Height & Weight Height: '" Weight: lbs. oz. kg; 72.00 BMI Method: General Appearance: Chronically ill, Obese HEENT: Normal ENT Inspection Neck: Non Tender, Supple Respiratory: No Accessory Muscle Use, Decreased Breath Sounds, Rales Cardiovascular: No JVD, Tachycardia Capillary Refill: Less Than 3 Seconds Extremity: Normal Capillary Refill, Normal Inspection Neurologic/Psychiatric: Other (decreased responsiveness, responds to vigorous stimulation) Skin: Normal Color, Warm/Dry Results Lab Laboratory Tests 12/20/20 08:34 Assessment/Plan Assessment/Plan See free text. Critical Care: Critically Ill Patient Time spent on discussion(mins): 0 DINA KOHLER MD Dec 20, 2020 16:05
[2020-12-20] MEDS ORDERED: polyethylene glycoL POWDER 17 GM (MIRALAX) PACK PO PRN (19:30)
[2020-12-20 19:44] LABS: ABG BASE EXCESS 14.7 MMOL/L (-2.5-2.5); ABG OXYGEN SATURATION 98 % (94-100); ABG PH 7.36 (7.37-7.43); ABG PO2 111 MMHG (79-93)
[2020-12-20 19:48] LABS: ABG PCO2 74 MMHG (35-45)
[2020-12-20 19:49] LABS: ABG TCO2 43.3 MMOL/L (21.0-31.0)
[2020-12-20 19:50] LABS: ALLENS TEST POS
[2020-12-20 19:51] LABS: INSPIRED O2 60%; PATIENT TEMP 36.4; VENTILATOR NO
--- NOTE | 2020-12-20 20:05 | Tele-ICU Progress Note ---
Progress Note Pt with acute on chronic hypercapnic respiratory failure. Reviewed ABG - improving PCO2. Decrease O2 to 50% and continue on the same BIPAP settings. Call with any mental status deterioration. D/W the bedside nurse. Focused Exam Lactate Level 12/20/20 08:34: Lactic Acid Level 0.72 Height, Weight, BMI Height: '" Weight: lbs. oz. kg; 72.00 BMI Method: ROSA ELENA SANDERSON MD Dec 20, 2020 20:05
[2020-12-20] MEDS ORDERED: CATHETER FLUSH 10 ML SYR IV PRN (20:15)
[2020-12-20] MEDS: ALPRAZolam 0.5 MG (XANAX) TAB PO SCH (20:28)
[2020-12-20] MEDS: rOPINIRole 0.25 MG (REQUIP) TAB PO SCH (20:28)
[2020-12-20] MEDS: DOCUSATE SODIUM 100 MG (COLACE) CAP PO SCH (20:28)
[2020-12-20] MEDS: GABAPENTIN 400 MG (NEURONTIN) CAP PO SCH (20:29)
[2020-12-20] MEDS: toPIRamate 25 MG (TOPAMAX) TAB PO SCH (20:29)
[2020-12-20] MEDS: APIXABAN 5 MG (ELIQUIS) TABLET PO SCH (20:29)
[2020-12-20] MEDS: morphine ER 30 MG (MS CONTIN) TAB PO SCH (20:29)
[2020-12-20] MEDS: QUEtiapine 25 MG (SEROquel) TAB IMMEDIATE RELEASE PO SCH (20:29)
[2020-12-20] MEDS: traZODone 50 MG (DESYREL) TAB PO SCH (20:29)
[2020-12-20] MEDS: SENNA W/DOCUSATE (SENOKOT S) TABLET PO SCH (20:29)
[2020-12-20 20:37] VITALS: BP 130/91
[2020-12-20] MEDS ORDERED: RT-ALBUTEROL/IPRATROPIUM 3 ML (DUONEB) VIAL INH PRN (20:45)
--- NOTE | 2020-12-20 20:55 | History & Physical-Hospitalist ---
History of Present Illness HPI/Chief Complaint Noreen Huang is a 65 year old female with PMH HTN, T2DM, hypothyroidism, chronic pain, atrial fibrillation, super-super obesity, who presented from her [facility] with lethargy. She is unable to provide any history. Upon my examination, she is wearing BiPAP. She is more alert and responsive. She is crying and sensitive to touch diffusely. She takes multiple medications for chronic pain. She also takes several medications nightly which cause sedation. She is not set up with BiPAP at home. Source: patient Exam Limitations: clinical condition Date Seen 12/20/20 Time Seen by a Provider: 19:15 Attending Physician Kenneth Clemons MD PCP Lew Pascual MD Referring Physician Date of Admission Dec 20, 2020 at 14:40 Home Medications & Allergies Home Medications Reviewed patient Home Medication Reconciliation performed by pharmacy medication reconciliations facility maintenance technician and/or nursing. Patients Allergies have been reviewed. Allergies Allergies Coded Allergies No Known Drug Allergies (Unverified01/04/20) Past Hgimveo-Lubmua-Sdfwuv Hx Patient Social History Tobacco Use?: Yes Tobacco type used: Cigarettes Smoking Status: Current Everyday Smoker Substance use?: No Alcohol Use?: No Pt feels they are or have been: No Immunizations Up To Date First/Initial COVID19 Vaccinat: YES Date of Pneumonia Vaccine: Jan 03, 2018 Seasonal Allergies Seasonal Allergies: No Current Status Advance Directives: No Communicates: Verbally Primary Language: Citizen Of [place] Preferred Spoken Language: Citizen Of [place] Is interpretation needed?: No Past Medical History Surgeries: Orthopedic, Tracheostomy Sleep Apnea, COPD Atrial Fibrillation, Cardiomyopathy, Hypertension Gastroesophageal Reflux, Chronic Constipation Degenerate Disk Disease, Chronic Back Pain Diabetes, Insulin dep Dysphagia Anxiety, Schizophrenia, Depression Blood Disorders: No Family Medical History No Pertinent Family Hx Review of Systems Constitutional: no symptoms reported EENTM: no symptoms reported Respiratory: no symptoms reported Cardiovascular: no symptoms reported Gastrointestinal: no symptoms reported Genitourinary: no symptoms reported Musculoskeletal: no symptoms reported Skin: no symptoms reported Psychiatric/Neurological: No Symptoms Reported Physical Exam Physical Exam Vital Signs Vital Signs - First Documented 12/20/20 12/20/20 12/20/20 08:12 14:50 15:36 Temp 36.0 Pulse 162 Resp 10 B/P (MAP) 112/82 (92) Pulse Ox 87 O2 Delivery NIV CPAP O2 Flow Rate 100.00 FiO2 80 Capillary Refill : Less Than 3 Seconds Height, Weight, BMI Height: '" Weight: lbs. oz. kg; 72.00 BMI Method: General Appearance: Anxious (crying), Moderate Distress (uncomfortable), Obese, Other (diffuse tenderness) HEENT: PERRL/EOMI, Pharynx Normal Neck: Normal Inspection, Supple Respiratory: Respiratory Distress (tachypnea), Other (wearing BiPAP) Cardiovascular: Regular Rate, Rhythm, No Murmur Gastrointestinal: Normal Bowel Sounds, Soft, Tenderness Extremity: Pedal Edema, Other (tenderness) Neurologic/Psychiatric: Alert, Other (anxious) Skin: Normal Color, Warm/Dry Results Results/Procedures Labs Laboratory Tests 12/20/20 08:34 Patient resulted labs reviewed. Imaging: Reviewed Imaging Report Assessment/Plan Admission Diagnosis Acute on chronic respiratory failure with hypoxia and hypercapnia Admission Status: Inpatient Order (span 2 midnights) Reason for Inpatient Admission: BiPAP Assessment and Plan Acute on chronic respiratory failure with hypoxia and hypercapnia Obesity hypoventilation syndrome Obstructive sleep apnea Super-super obesity ABG with acute hypercapnia Started on BiPAP CXR with possible left lower lobe infiltrate vs atelectasis Procalcitonin normal COVID and Flu negative Repeat ABG improving AFib with RVR IV Cardizem Continue Eliquis Chronic pain Hypothyroidism Hypertension Continue home meds Decreased doses of some sedating meds DVT prophylaxis: already receiving therapeutic anticoagulation Diagnosis/Problems Diagnosis/Problems (1) Acute on chronic respiratory failure with hypoxia and hypercapnia Status: Acute (2) Obesity hypoventilation syndrome Status: Acute (3) GIUSEPPE (obstructive sleep apnea) Status: Chronic (4) Super-super obese Status: Chronic (5) Atrial fibrillation with rapid ventricular response Status: Acute (6) Chronic pain Status: Chronic (7) Hypothyroidism Status: Chronic (8) Essential (primary) hypertension Status: Chronic KENNETH CLEMONS MD Dec 20, 2020 20:55
[2020-12-20] MEDS: RT-ALBUTEROL/IPRATROPIUM 3 ML (DUONEB) VIAL INH SCH (21:41)
[2020-12-20] MEDS: morphine INJ 4 MG/ML 1 ML (VIAL/SYRINGE) IVP PRN (22:49)
[2020-12-20] MEDS: CATHETER FLUSH 10 ML SYR IV SCH (22:51)
[2020-12-20] MEDS: LORazepam INJ 2 MG/ML (ATIVAN) VIAL IVP PRN (23:54)
[2020-12-21] MEDS: DOCUSATE SODIUM 100 MG (COLACE) CAP PO SCH ×3 (00:06→21:05)
[2020-12-21] MEDS: traZODone 50 MG (DESYREL) TAB PO SCH ×2 (00:06→21:05)
[2020-12-21] MEDS: rOPINIRole 0.25 MG (REQUIP) TAB PO SCH ×2 (00:06→21:06)
[2020-12-21] MEDS: GABAPENTIN 400 MG (NEURONTIN) CAP PO SCH ×3 (00:06→21:06)
[2020-12-21] MEDS: APIXABAN 5 MG (ELIQUIS) TABLET PO SCH ×3 (00:06→21:05)
[2020-12-21] MEDS: morphine ER 30 MG (MS CONTIN) TAB PO SCH ×3 (00:06→21:06)
[2020-12-21] MEDS: QUEtiapine 25 MG (SEROquel) TAB IMMEDIATE RELEASE PO SCH ×2 (00:07→21:06)
[2020-12-21] MEDS: SENNA W/DOCUSATE (SENOKOT S) TABLET PO SCH ×3 (00:07→21:06)
[2020-12-21] MEDS: toPIRamate 25 MG (TOPAMAX) TAB PO SCH ×2 (00:07→21:06)
[2020-12-21] MEDS: ALPRAZolam 0.5 MG (XANAX) TAB PO SCH ×3 (00:07→21:06)
[2020-12-21] MEDS: NS IV 500 ML 500 ML IV SCH ×2 (02:31→23:02)
[2020-12-21 02:42] LABS: BASOPHILS # (AUTO) 0.1 10^3/uL (0.0-0.1); BASOPHILS % (AUTO) 1 % (0-10); EOSINOPHILS % (AUTO) 10 % (0-10); HEMATOCRIT 47 % (35-52); HEMOGLOBIN 13.9 g/dL (11.5-16.0); LYMPHOCYTES # (AUTO) 1.8 10^3/uL (1.0-4.0); LYMPHOCYTES % (AUTO) 18 % (12-44); MEAN CORPUSCULAR HEMOGLOBIN 27 pg (25-34); MEAN CORPUSCULAR HGB CONC 29 g/dL (32-36); MEAN CORPUSCULAR VOLUME 92 fL (80-99); MONOCYTES # (AUTO) 0.7 10^3/uL (0.0-1.0); MONOCYTES % (AUTO) 7 % (0-12); NEUTROPHILS # (AUTO) 6.5 10^3/uL (1.8-7.8); NEUTROPHILS % (AUTO) 64 % (42-75); PLATELET COUNT 215 10^3/uL (130-400); WHITE BLOOD COUNT 10.2 10^3/uL (4.3-11.0)
[2020-12-21 02:52] LABS: POTASSIUM 3.8 MMOL/L (3.6-5.0)
[2020-12-21] MEDS: RT-ALBUTEROL/IPRATROPIUM 3 ML (DUONEB) VIAL INH SCH ×6 (02:53→21:21)
[2020-12-21 02:57] LABS: CREATININE SERUM 0.99 MG/DL (0.60-1.30)
[2020-12-21 03:00] LABS: MAGNESIUM 2.3 MG/DL (1.6-2.4)
[2020-12-21] MEDS: PANTOPRAZOLE 40 MG (PROTONIX) TAB PO SCH (05:20)
[2020-12-21] MEDS: LEVOTHYROXINE 75 MCG (LEVOTHROID) TABLET PO SCH (05:20)
[2020-12-21] MEDS: LORazepam INJ 2 MG/ML (ATIVAN) VIAL IVP PRN (05:21)
[2020-12-21] MEDS: CATHETER FLUSH 10 ML SYR IV SCH ×3 (05:21→21:07)
[2020-12-21] MEDS: inSUlin ASPART (NovoLOG) 1 UNIT/0.01 ML (CHARGE PER UNIT) SC SCH ×5 (06:47→23:14)
[2020-12-21 09:08] LABS: ABG BASE EXCESS 15.7 MMOL/L (-2.5-2.5); ABG OXYGEN SATURATION 91 % (94-100); ABG PCO2 70 MMHG (35-45); ABG PH 7.39 (7.37-7.43); ABG PO2 61 MMHG (79-93)
[2020-12-21 09:13] LABS: ABG TCO2 43.9 MMOL/L (21.0-31.0); ALLENS TEST POSITIVE; INSPIRED O2 8 L AT 40%; PATIENT TEMP 36.4; VENTILATOR NO
--- NOTE | 2020-12-21 09:33 | Tele-ICU Progress Note ---
Subjective Date Seen by a Provider: Dec 21, 2020 Time Seen by a Provider: 09:32 Sepsis Event Evaluation Height, Weight, BMI Height: '" Weight: lbs. oz. kg; 72.00 BMI Method: Focused Exam Lactate Level 12/20/20 08:34: Lactic Acid Level 0.72 Exam Exam Patient acknowledged, consented, and participated in this virtual visit which was conducted using real time audio/video Vital Signs Date Time Temp Pulse Resp B/P (MAP) Pulse Ox O2 Delivery O2 Flow Rate FiO2 12/21/20 07:24 High Flow N/C 8.00 12/21/20 07:18 94 High Flow N/C 15.00 12/21/20 06:30 High Flow N/C 15.00 12/21/20 06:00 101 14 86/58 (67) 90 High Flow N/C 6.00 12/21/20 05:00 103 14 123/86 (98) 90 High Flow N/C 6.00 12/21/20 04:00 87 12 109/78 (88) 92 High Flow N/C 6.00 12/21/20 03:00 High Flow N/C 6.00 12/21/20 03:00 NIV Bilevel 40 12/21/20 03:00 102 12 100/66 (77) 92 High Flow N/C 6.00 12/21/20 02:54 95 High Flow N/C 15.00 12/21/20 02:30 High Flow N/C 10.00 12/21/20 02:00 104 15 84/49 (61) 90 NIV Bilevel 40.00 12/21/20 01:00 98 16 116/79 (91) 94 NIV Bilevel 40.00 12/21/20 01:00 110 12/21/20 00:00 113 8 125/80 (95) 94 NIV Bilevel 40.00 12/21/20 00:00 NIV Bilevel 40.00 12/20/20 23:00 94 13 125/80 (95) 94 NIV Bilevel 60.00 12/20/20 23:00 NIV Bilevel 40 12/20/20 22:00 100 14 126/82 (97) 96 NIV Bilevel 60.00 12/20/20 21:41 112 24 94 50.00 12/20/20 21:00 93 12 109/75 (86) 94 NIV Bilevel 60.00 12/20/20 20:37 101 97 50 12/20/20 20:00 93 22 111/73 (86) 96 NIV Bilevel 60.00 12/20/20 19:39 101 20 97 60.00 12/20/20 19:35 36.4 12/20/20 19:00 NIV Bilevel 80 12/20/20 19:00 99 20 103/66 (78) 97 NIV Bilevel 60.00 12/20/20 19:00 99 12/20/20 18:00 101 14 121/57 (78) 93 NIV Bilevel 60.00 12/20/20 17:00 98 17 94/66 (75) 93 NIV Bilevel 60.00 12/20/20 16:43 36.6 12/20/20 16:28 NIV Bilevel 80 12/20/20 16:00 130 15 105/63 (77) 97 NIV Bilevel 60.00 12/20/20 15:36 NIV Bilevel 80 12/20/20 15:34 NIV Bilevel 60.00 12/20/20 15:21 115 12/20/20 15:00 133 141/50 (80) 100 NIV Bilevel 100.00 12/20/20 14:50 144 18 100 100.00 12/20/20 12:25 109 12 130/91 95 NIV Bilevel I & O 12/21/20 07:00 Intake Total 500 ml Output Total 900 ml Balance -400 ml Height & Weight Height: '" Weight: lbs. oz. kg; 72.00 BMI Method: General Appearance: Anxious (crying), Moderate Distress (uncomfortable), Obese, Other (diffuse tenderness) HEENT: PERRL/EOMI, Pharynx Normal Neck: Normal Inspection, Supple Respiratory: Respiratory Distress (tachypnea), Other (wearing BiPAP) Cardiovascular: Regular Rate, Rhythm, No Murmur Capillary Refill: Less Than 3 Seconds Extremity: Pedal Edema, Other (tenderness) Neurologic/Psychiatric: Alert, Other (anxious) Skin: Normal Color, Warm/Dry Results Lab Laboratory Tests 12/20/20 08:34 12/21/20 02:35 Assessment/Plan Assessment/Plan (Tele-ICU Physician , Progress Note ) Available chart/ vitals / labs / Images reviewed Video assessment done using teleICU camera, rest of exam as per RN Discussed with RN Events overnight : refused CPAP Afebrile I/O = Drips: cardizem Pressors: , hemodynamically stable EXAM PER RN Consultants: Hospital course: 12/20- resp insuff _ biapap, a fib RVR PMH:morbid obesity, GIUSEPPE, COPD, Htn., DM., Afib, previous trach., CMP. GERD, anx., dep., Schizophrenia. A/P Respiratory insufficiency/distress - ? VO/CHF - refused BIPAP - chronic resp hypercarbic and hypoxix failure - stable abg this am -COVID and Flu negative - not on ABX AFib with RVR -IV Cardizem - resume home po to overlap -Continue Eliquis OS/OHS - ? compliance Lines : perip (Central Line Necessity Reviewed) Anxiety/ delirium - as per PC VTE Prophylaxis: eliquis Stress Ulcer Prophylaxis: po Glycemic Control: + Plans in collaboration with bedside consultants and IM MDs. Discussed with RN to reach out if any questions or concerns A total of 25 minutes of critical care time was devoted to this patient today, required to treat and/or prevent further deterioration of critical care condition ( as above) . JOSE RIVAS MD Dec 21, 2020 09:33
[2020-12-21] MEDS ORDERED: DILT-27 PO (11:16)
[2020-12-21] MEDS ORDERED: COLL2POW TOP (11:16)
--- NOTE | 2020-12-21 13:25 | Progress Note - Hospitalist ---
GRIS CARLSON 12/21/20 1325: Subjective HPI/CC On Admission Time Seen by Provider: 08:25 Noreen Huang is a 65 year old female with PMH HTN, T2DM, hypothyroidism, chronic pain, atrial fibrillation, super-super obesity, who presented from her senior living with lethargy. She is unable to provide any history. Upon my examination, she is wearing BiPAP. She is more alert and responsive. She is crying and sensitive to touch diffusely. She takes multiple medications for chronic pain. She also takes several medications nightly which cause sedation. She is not set up with BiPAP at home. Subjective/Events-last exam Pt reports that her breathing is the same as yesterday. Pt was on NC 8LPM when I saw her. States that she does not wear a CPAP when she sleeps at night. Discussed code status with pt and she decided that she wanted her code status changed to DNR. Review of Systems General: No Chills, No Other (fever) Pulmonary: Dyspnea, Cough Cardiovascular: No: Chest Pain, Palpitations Gastrointestinal: No: Nausea, Vomiting, Abdominal Pain Neurological: Numbness, Other (Headache) Focused Exam Lactate Level 12/20/20 08:34: Lactic Acid Level 0.72 Objective Exam Vital Signs Vital Signs Date Time Temp Pulse Resp B/P (MAP) Pulse Ox O2 Delivery O2 Flow Rate FiO2 12/21/20 12:00 118 13 97/62 (74) 92 High Flow N/C 8.00 12/21/20 12:00 0 12/20/20 19:35 36.4 Capillary Refill : Less Than 3 Seconds General Appearance: No Apparent Distress, Obese Respiratory: No Accessory Muscle Use, Wheezing Cardiovascular: Regular Rate, Rhythm, Normal Peripheral Pulses Gastrointestinal: Soft (tenderness over whole abdomen), Tenderness Extremity: Normal Capillary Refill, Pedal Edema, Other (Pt reports pain w/ palpitation in distal LE b/l) Neurologic/Psychiatric: Alert, Oriented x3 Skin: Normal Color, Warm/Dry Results/Procedures Lab Laboratory Tests 12/21/20 02:35 Patient resulted labs reviewed. Imaging: Reviewed Imaging Report Assessment/Plan Assessment and Plan Assess & Plan/Chief Complaint Acute on chronic respiratory failure w/ hypoxia and hypercapnia Obesity hypoventilation syndrome Obstructive sleep apnea Super-super obesity Continue duoneb and supplemental O2 Discussed trying to get her a BiPAP for at home use ABG pH has improved and is back in the normal range. ABG CO2 is also improving Afib w/ RVR Continue IV diltiazem Continue apixaban HTN continue home medication DVT prophylaxis already on therapeutic anticoagulation KENNETH CLEMONS MD 12/21/20 2148: Subjective HPI/CC On Admission Date Seen by Provider: Dec 21, 2020 Time Seen by Provider: 09:40 Assessment/Plan Assessment and Plan Assess & Plan/Chief Complaint Off BiPAP this morning. Attempt to obtain home BiPAP. Transitioning to oral meds for AFib. Diagnosis/Problems Diagnosis/Problems (1) Acute on chronic respiratory failure with hypoxia and hypercapnia Status: Acute (2) Obesity hypoventilation syndrome Status: Acute (3) GIUSEPPE (obstructive sleep apnea) Status: Chronic (4) Super-super obese Status: Chronic (5) Chronic pain Status: Chronic (6) Atrial fibrillation with rapid ventricular response Status: Acute Supervisory-Addendum Brief Verification & Attestation Participated in pt care: history, MDM, physical Personally performed: exam, history, MDM, supervision of care Care discussed with: Medical Student Procedures: n/a Results interpretation: Verified all documentation A medical student performed and documented this service in my presence. I reviewed and verified all information documented by the medical student and made modifications to such information, when appropriate. I personally performed the physical exam and medical decision making. GRIS CARLSON Dec 21, 2020 13:25 KENNETH CLEMONS MD Dec 21, 2020 21:48
[2020-12-21] MEDS: dilTIAZem DRIP PRE-MIX 125 ML IV SCH ×2 (17:30→23:02)
[2020-12-21] MEDS: NICOTINE 14 MG (NICODERM) PATCH TD SCH (17:34)
[2020-12-21] MEDS: MICONAZOLE 2% POWDER (DESENEX AF) 90 GM TOP SCH (21:07)
[2020-12-22] MEDS: RT-ALBUTEROL/IPRATROPIUM 3 ML (DUONEB) VIAL INH SCH ×6 (02:04→22:10)
[2020-12-22] MEDS: diphenhydrAMINE 25 MG TAB (BENADRYL) PO PRN (02:25)
[2020-12-22 03:52] LABS: BASOPHILS % (AUTO) 1 % (0-10); EOSINOPHILS # (AUTO) 1.3 10^3/uL (0.0-0.3); EOSINOPHILS % (AUTO) 17 % (0-10); HEMATOCRIT 43 % (35-52); HEMOGLOBIN 12.8 g/dL (11.5-16.0); LYMPHOCYTES # (AUTO) 1.9 10^3/uL (1.0-4.0); LYMPHOCYTES % (AUTO) 25 % (12-44); MEAN CORPUSCULAR HEMOGLOBIN 27 pg (25-34); MEAN CORPUSCULAR HGB CONC 30 g/dL (32-36); MEAN CORPUSCULAR VOLUME 91 fL (80-99); MEAN PLATELET VOLUME 10.1 fL (9.0-12.2); MONOCYTES # (AUTO) 0.5 10^3/uL (0.0-1.0); MONOCYTES % (AUTO) 6 % (0-12); NEUTROPHILS % (AUTO) 51 % (42-75); PLATELET COUNT 200 10^3/uL (130-400); WHITE BLOOD COUNT 7.7 10^3/uL (4.3-11.0)
[2020-12-22 04:09] LABS: POTASSIUM 3.5 MMOL/L (3.6-5.0)
[2020-12-22 04:10] LABS: CALCIUM 9.5 MG/DL (8.5-10.1)
[2020-12-22 04:15] LABS: CREATININE SERUM 0.94 MG/DL (0.60-1.30)
[2020-12-22] MEDS: inSUlin ASPART (NovoLOG) 1 UNIT/0.01 ML (CHARGE PER UNIT) SC SCH ×4 (04:28→20:14)
[2020-12-22] MEDS: LEVOTHYROXINE 75 MCG (LEVOTHROID) TABLET PO SCH (05:31)
[2020-12-22] MEDS: CATHETER FLUSH 10 ML SYR IV SCH ×3 (05:31→22:00)
[2020-12-22] MEDS ORDERED: KCL 20 MEQ TAB (K-DUR) PO ONE (07:45)
--- NOTE | 2020-12-22 08:12 | Progress Note - Hospitalist ---
Subjective HPI/CC On Admission Date Seen by Provider: Dec 22, 2020 Time Seen by Provider: 08:06 Noreen Huang is a 65 year old female with PMH HTN, T2DM, hypothyroidism, chronic pain, atrial fibrillation, super-super obesity, who presented from her detention with lethargy. She is unable to provide any history. Upon my examination, she is wearing BiPAP. She is more alert and responsive. She is crying and sensitive to touch diffusely. She takes multiple medications for chronic pain. She also takes several medications nightly which cause sedation. She is not set up with BiPAP at home. Subjective/Events-last exam Pt is quite sedated. Awakens when physical stimuli. When asked if she was tired she nodded and said yes. She is due for many more sedating medicines. Discussed with RN and will hold Xanax and Gabapentin. Focused Exam Lactate Level 12/20/20 08:34: Lactic Acid Level 0.72 Objective Exam Vital Signs Vital Signs Date Time Temp Pulse Resp B/P (MAP) Pulse Ox O2 Delivery O2 Flow Rate FiO2 12/22/20 07:13 94 High Flow N/C 10.00 12/22/20 06:00 65 13 105/75 (86) 12/22/20 02:27 36.5 12/22/20 02:26 0 Capillary Refill : Less Than 3 Seconds General Appearance: Chronically ill, Obese Respiratory: Decreased Breath Sounds; No Wheezing Cardiovascular: No Murmur; No Bradycardia; Irregularly Irregular; No Tachycar joan Gastrointestinal: Normal Bowel Sounds, Non Tender, Soft Genital/Rectal: Other (graf) Neurologic/Psychiatric: Other (arouses to name and whenI nudged her arm, quite sedate) Results/Procedures Lab Laboratory Tests 12/22/20 03:25 Patient resulted labs reviewed. Imaging: Reviewed Imaging Report Assessment/Plan Assessment and Plan Assess & Plan/Chief Complaint Acute on chronic respiratory failure with hypoxia and hypercapnia Obesity hypoventilation syndrome Obstructive sleep apnea Super-super obesity ABG with acute hypercapnia- consider outpatient BiPAP Off BiPAP now and on 10lpm HFNC- unsure of her baseline CXR with possible left lower lobe infiltrate vs atelectasis Procalcitonin normal COVID and Flu negative AFib with RVR Now off Cardizem gtt and on oral- rate controlled Continue Eliquis Chronic pain Hypothyroidism Hypertension Continue home meds Decreased doses of some sedating meds again today as likely contributd DVT prophylaxis: already receiving therapeutic anticoagulation Critical Care Critically Ill Patient ESTEBAN JARQUIN MD Dec 22, 2020 08:12
[2020-12-22] MEDS: SENNA W/DOCUSATE (SENOKOT S) TABLET PO SCH ×2 (08:44→20:15)
[2020-12-22] MEDS: PANTOPRAZOLE 40 MG (PROTONIX) TAB PO SCH (08:45)
[2020-12-22] MEDS: GABAPENTIN 100 MG (NEURONTIN) CAP PO SCH ×2 (08:45→20:15)
[2020-12-22] MEDS: DOCUSATE SODIUM 100 MG (COLACE) CAP PO SCH ×2 (08:45→20:15)
[2020-12-22] MEDS: APIXABAN 5 MG (ELIQUIS) TABLET PO SCH ×2 (08:45→20:15)
[2020-12-22] MEDS: morphine ER 30 MG (MS CONTIN) TAB PO SCH ×2 (08:45→20:14)
[2020-12-22] MEDS: MICONAZOLE 2% POWDER (DESENEX AF) 90 GM TOP SCH ×2 (08:46→20:16)
[2020-12-22] MEDS: NICOTINE PATCH REMOVAL TP SCH (08:46)
[2020-12-22] MEDS: NICOTINE 14 MG (NICODERM) PATCH TD SCH (08:46)
[2020-12-22] MEDS: NS IV 500 ML 500 ML IV SCH (10:55)
[2020-12-22] MEDS ORDERED: dilTIAZem120 MG (CARDIZEM CD) CAP PO SCH (11:00)
[2020-12-22] MEDS ORDERED: dilTIAZem120 MG (CARDIZEM CD) CAP PO ONE (11:02)
[2020-12-22] MEDS ORDERED: cefTRIAXone 1,000 MG VIAL ONE (11:07)
[2020-12-22] MEDS ORDERED: WATER (STERILE) FOR INJECTION 10 ML ONE (11:07)
[2020-12-22] MEDS ORDERED: cefTRIAXone 1,000 MG in WATER (STERILE) FOR INJECTION 10 ML IV SCH (11:15)
--- NOTE | 2020-12-22 12:17 | Tele-ICU Progress Note ---
Subjective Date Seen by a Provider: Dec 22, 2020 Time Seen by a Provider: 12:17 Sepsis Event Evaluation Height, Weight, BMI Height: '" Weight: lbs. oz. kg; 72.00 BMI Method: Focused Exam Lactate Level 12/20/20 08:34: Lactic Acid Level 0.72 Exam Exam Patient acknowledged, consented, and participated in this virtual visit which was conducted using real time audio/video Vital Signs Date Time Temp Pulse Resp B/P (MAP) Pulse Ox O2 Delivery O2 Flow Rate FiO2 12/22/20 11:00 115 11 107/76 (86) 94 High Flow N/C 8.00 12/22/20 10:14 93 High Flow N/C 10.00 12/22/20 10:00 98 10 110/68 (82) 92 High Flow N/C 8.00 12/22/20 09:00 80 14 122/82 (95) 92 High Flow N/C 8.00 12/22/20 08:00 73 9 105/57 (73) 94 High Flow N/C 8.00 12/22/20 08:00 High Flow N/C 10.00 0 12/22/20 07:30 High Flow N/C 8.00 12/22/20 07:13 94 High Flow N/C 10.00 12/22/20 07:00 70 7 113/73 (86) 91 High Flow N/C 10.00 12/22/20 06:23 61 12/22/20 06:00 65 13 105/75 (86) 92 High Flow N/C 10.00 12/22/20 05:00 79 11 107/61 (85) 92 High Flow N/C 10.00 12/22/20 04:00 90 12 97/72 (81) 92 High Flow N/C 10.00 12/22/20 03:00 97 9 112/71 (85) 91 High Flow N/C 10.00 12/22/20 02:27 36.5 High Flow N/C 10.00 12/22/20 02:26 Nasal Cannula 10.00 0 12/22/20 02:04 92 High Flow N/C 10.00 12/22/20 02:00 108 9 121/80 (95) 90 High Flow N/C 10.00 12/22/20 01:00 101 7 157/60 (115) 91 High Flow N/C 10.00 12/22/20 01:00 101 12/22/20 00:16 High Flow N/C 10.00 12/22/20 00:15 101 13 117/78 (92) 97 High Flow N/C 12.00 12/21/20 23:14 36.3 109 12 115/69 (84) 96 High Flow N/C 12.00 12/21/20 23:00 103 115/69 (84) High Flow N/C 15.00 12/21/20 22:45 Nasal Cannula 15.00 0 12/21/20 22:00 96 11 121/80 (94) High Flow N/C 15.00 12/21/20 21:22 98 High Flow N/C 15.00 12/21/20 21:00 88 109/64 (79) 97 High Flow N/C 15.00 12/21/20 20:00 104 13 95 High Flow N/C 15.00 12/21/20 19:53 36.5 12/21/20 19:00 97 9 95 High Flow N/C 15.00 12/21/20 19:00 Nasal Cannula 15.00 0 12/21/20 19:00 97 12/21/20 19:00 36.6 16 High Flow N/C 15.00 12/21/20 16:30 36.4 12/21/20 16:00 142 22 113/70 (84) 88 High Flow N/C 8.00 12/21/20 16:00 Nasal Cannula 8.00 0 12/21/20 15:00 134 14 81/69 (73) 85 High Flow N/C 8.00 12/21/20 14:41 93 High Flow N/C 10.00 12/21/20 14:00 99 17 95/62 (73) 88 High Flow N/C 8.00 12/21/20 13:00 109 13 100/66 (77) 90 High Flow N/C 8.00 12/21/20 12:30 112 I & O 12/22/20 07:00 Intake Total 960 ml Output Total 1400 ml Balance -440 ml Height & Weight Height: '" Weight: lbs. oz. kg; 72.00 BMI Method: General Appearance: Chronically ill, Obese HEENT: PERRL/EOMI, Pharynx Normal Neck: Normal Inspection, Supple Respiratory: Decreased Breath Sounds; No Wheezing Cardiovascular: No Murmur; No Bradycardia; Irregularly Irregular; No Tachycardia Capillary Refill: Less Than 3 Seconds Extremity: Normal Capillary Refill, Pedal Edema, Other (Pt reports pain w/ palpitation in distal LE b/l) Neurologic/Psychiatric: Other (arouses to name and whenI nudged her arm, quite sedate) Skin: Normal Color, Warm/Dry Results Lab Laboratory Tests 12/21/20 02:35 12/22/20 03:25 Assessment/Plan Assessment/Plan (Tele-ICU Physician , Progress Note ) Available chart/ vitals / labs / Images reviewed Video assessment done using teleICU camera, rest of exam as per RN Discussed with RN Events overnight : refused CPAP Afebrile I/O = Drips: cardizem Pressors: , hemodynamically stable EXAM PER RN Consultants: Hospital course: 12/20- resp insuff _ biapap, a fib RVR 12/22 - 10 L o2 PMH:morbid obesity, GIUSEPPE, COPD, Htn., DM., Afib, previous trach., CMP. GERD, anx., dep., Schizophrenia. A/P Acute resp failure , hypoxic, hypercarbic ? VO/CHF - refused BIPAP - chronic resp hypercarbic and hypoxix failure - will repeat abg am on o2 -COVID and Flu negative - not on ABX - on 10 L nc today - will repet cxr , start IS Chronic hypercarbic resp failure ( ? baseline o2 needs ? - etiology probaly overllap syndrome - ? dx withOSA /OHVS , ? prescribed/compliant with CPAP - ? pulm HTN AFib with RVR- in flatter now -IV Cardizem - resume home po to overlap -Continue Eliquis - no echo on record Lines : perip (Central Line Necessity Reviewed) Anxiety/ delirium - as per PC VTE Prophylaxis: eliquis Stress Ulcer Prophylaxis: po Glycemic Control: + Plans in collaboration with bedside consultants and IM MDs. Discussed with RN to reach out if any questions or concerns A total of 25 minutes of critical care time was devoted to this patient today, required to treat and/or prevent further deterioration of critical care condition ( as above) . JOSE RIVAS MD Dec 22, 2020 12:17
[2020-12-22] MEDS: QUEtiapine 25 MG (SEROquel) TAB IMMEDIATE RELEASE PO SCH (20:15)
[2020-12-22] MEDS: traZODone 50 MG (DESYREL) TAB PO SCH (20:15)
[2020-12-22] MEDS: rOPINIRole 0.25 MG (REQUIP) TAB PO SCH (20:15)
[2020-12-22] MEDS: toPIRamate 25 MG (TOPAMAX) TAB PO SCH (20:15)
[2020-12-23] MEDS: RT-ALBUTEROL/IPRATROPIUM 3 ML (DUONEB) VIAL INH SCH ×6 (02:12→22:28)
[2020-12-23 03:06] LABS: BASOPHILS # (AUTO) 0.1 10^3/uL (0.0-0.1); BASOPHILS % (AUTO) 1 % (0-10); EOSINOPHILS # (AUTO) 1.4 10^3/uL (0.0-0.3); EOSINOPHILS % (AUTO) 19 % (0-10); HEMATOCRIT 40 % (35-52); HEMOGLOBIN 12.2 g/dL (11.5-16.0); LYMPHOCYTES # (AUTO) 1.5 10^3/uL (1.0-4.0); LYMPHOCYTES % (AUTO) 21 % (12-44); MEAN CORPUSCULAR HEMOGLOBIN 28 pg (25-34); MEAN CORPUSCULAR HGB CONC 30 g/dL (32-36); MEAN CORPUSCULAR VOLUME 91 fL (80-99); MONOCYTES # (AUTO) 0.6 10^3/uL (0.0-1.0); MONOCYTES % (AUTO) 8 % (0-12); NEUTROPHILS # (AUTO) 3.6 10^3/uL (1.8-7.8); NEUTROPHILS % (AUTO) 51 % (42-75); PLATELET COUNT 186 10^3/uL (130-400); WHITE BLOOD COUNT 7.1 10^3/uL (4.3-11.0)
[2020-12-23 03:09] LABS: ABG BASE EXCESS 11.5 MMOL/L (-2.5-2.5); ABG OXYGEN SATURATION 97 % (94-100); ABG PCO2 57 MMHG (35-45); ABG PH 7.42 (7.37-7.43); ABG PO2 88 MMHG (79-93); ABG TCO2 38.4 MMOL/L (21.0-31.0)
[2020-12-23 03:10] LABS: ALLENS TEST YES-POS; INSPIRED O2 40%; PATIENT TEMP 36.5; VENTILATOR NO
[2020-12-23 03:18] LABS: POTASSIUM 3.8 MMOL/L (3.6-5.0)
[2020-12-23 03:19] LABS: CALCIUM 9.6 MG/DL (8.5-10.1)
[2020-12-23 03:24] LABS: CREATININE SERUM 0.95 MG/DL (0.60-1.30); PHOSPHORUS 2.4 MG/DL (2.3-4.7)
[2020-12-23] MEDS: NS IV 500 ML 500 ML IV SCH ×2 (03:35→04:47)
[2020-12-23] MEDS: inSUlin ASPART (NovoLOG) 1 UNIT/0.01 ML (CHARGE PER UNIT) SC SCH ×4 (03:36→21:01)
[2020-12-23] MEDS: dilTIAZem DRIP PRE-MIX 125 ML IV SCH ×4 (04:47→17:19)
[2020-12-23] MEDS: CATHETER FLUSH 10 ML SYR IV SCH ×3 (06:05→23:48)
[2020-12-23] MEDS: LEVOTHYROXINE 75 MCG (LEVOTHROID) TABLET PO SCH (06:06)
[2020-12-23] MEDS: MAGNESIUM 1 GM/100 ML IVPB 100 ML IV SCH (06:06)
[2020-12-23] MEDS: POTASSIUM CL 10MEQ/50ML IVPB 50 ML IV SCH (06:06)
[2020-12-23] MEDS: PANTOPRAZOLE 40 MG (PROTONIX) TAB PO SCH (06:06)
[2020-12-23] MEDS: KCL 20 MEQ TAB (K-DUR) PO SCH (06:06)
--- NOTE | 2020-12-23 06:38 | Diagnostic Imaging Report ---
Indication: Hypoxia Upright portable chest shows mild cardiomegaly with no failure. There is basilar discoid atelectasis. There is no effusion or pneumothorax. There is no significant change from 12/20/2020. IMPRESSION: Bibasilar atelectasis. Stable chest. Dictated by: Dictated on workstation # [id number]
--- NOTE | 2020-12-23 07:50 | Progress Note - Hospitalist ---
Subjective HPI/CC On Admission Date Seen by Provider: Dec 23, 2020 Time Seen by Provider: 07:47 Noreen Huang is a 65 year old female with PMH HTN, T2DM, hypothyroidism, chronic pain, atrial fibrillation, super-super obesity, who presented from her group home with lethargy. She is unable to provide any history. Upon my examination, she is wearing BiPAP. She is more alert and responsive. She is crying and sensitive to touch diffusely. She takes multiple medications for chronic pain. She also takes several medications nightly which cause sedation. She is not set up with BiPAP at home. Subjective/Events-last exam Pt more alert today. Asks what kind of doctor I am but otherwise didn't really participate in exam. Focused Exam Lactate Level 12/20/20 08:34: Lactic Acid Level 0.72 Objective Exam Vital Signs Vital Signs Date Time Temp Pulse Resp B/P (MAP) Pulse Ox O2 Delivery O2 Flow Rate FiO2 12/23/20 07:03 97 High Flow N/C 8.00 12/23/20 06:00 147 17 88/70 (77) 12/23/20 04:00 37.0 12/23/20 04:00 0 Capillary Refill : Less Than 3 Seconds General Appearance: Chronically ill, Obese Respiratory: No Accessory Muscle Use, Decreased Breath Sounds, Other (on 6lpm HFNC) Cardiovascular: No Murmur, Irregularly Irregular, Tachycardia Gastrointestinal: Normal Bowel Sounds, Soft Genital/Rectal: Other (graf in place) Neurologic/Psychiatric: Alert (more alert than yesterday though did not talk much) Results/Procedures Lab Laboratory Tests 12/23/20 02:55 Patient resulted labs reviewed. Imaging: Reviewed Imaging Report Assessment/Plan Assessment and Plan Assess & Plan/Chief Complaint Acute on chronic respiratory failure with hypoxia and hypercapnia Obesity hypoventilation syndrome Obstructive sleep apnea Super-super obesity UTI ABG with acute hypercapnia- consider outpatient BiPAP Off BiPAP now and on 6lpm HFNC- unsure of her baseline CXR with possible left lower lobe infiltrate vs atelectasis Procalcitonin normal COVID and Flu negative Urine with GNR x2 >100CFU each, continue Rocephin AFib with RVR Rate increased overnight On cardizem gtt Cardiology consulted, discussed with Dr Muñoz, appreciate assistance Continue Eliquis Chronic pain Hypothyroidism Hypertension Continue home meds Decreased doses of some sedating meds again today as likely contributing mentation improving DVT prophylaxis: already receiving therapeutic anticoagulation Critical Care Critically Ill Patient ESTEBAN JARQUIN MD Dec 23, 2020 07:50
[2020-12-23] MEDS: DOCUSATE SODIUM 100 MG (COLACE) CAP PO SCH ×2 (08:11→19:37)
[2020-12-23] MEDS: SENNA W/DOCUSATE (SENOKOT S) TABLET PO SCH ×2 (08:11→19:38)
[2020-12-23] MEDS: morphine ER 30 MG (MS CONTIN) TAB PO SCH ×2 (08:11→19:37)
[2020-12-23] MEDS: GABAPENTIN 100 MG (NEURONTIN) CAP PO SCH ×2 (08:11→19:38)
[2020-12-23] MEDS: MICONAZOLE 2% POWDER (DESENEX AF) 90 GM TOP SCH ×2 (08:12→19:38)
[2020-12-23] MEDS: NICOTINE 14 MG (NICODERM) PATCH TD SCH (08:12)
[2020-12-23] MEDS: APIXABAN 5 MG (ELIQUIS) TABLET PO SCH ×2 (08:12→19:37)
[2020-12-23] MEDS: NICOTINE PATCH REMOVAL TP SCH (08:12)
[2020-12-23] MEDS: CEFEPIME 1,000 MG/SWFI 10 ML IV PUSH IV SCH ×6 (09:54→17:19)
--- NOTE | 2020-12-23 10:10 | Consultation-Cardiology ---
HPI-Cardiology Cardiology Consultation Date of Consultation 12/23/20 Date of Admission Time Seen by Provider: 07:47 Indication: AFib with RVR HPI Patient is a 65 y/o female with history of afib, HTN, morbid obesity. Presented to the ER from [place] with complaints of lethargy. Patient is a poor historian, so most of HPI obtained through medical records. Paitent found to have acute re spiratory failure, UTI, Afib with RVR. C/o chest wall pain, reproducible to palpation. Home Medications & Allergies Allergies: Coded Allergies: No Known Drug Allergies (Unverified , 01/04/20) Home Medication List Reviewed: Yes OLI-Rrorsn-Rzhllb Hx Patient Social History Smoking Status: Current Everyday Smoker Type Used: Cigarettes 2nd Hand Smoke Exposure: Yes Recent Hopitalizations: No Have you traveled recently?: No Alcohol Use?: No Immunizations Up To Date Date of Pneumonia Vaccine: Jan 03, 2018 Past Medical History afib, HTN, obesity Family Medical History Significant Family History: No Pertinent Family Hx Review of Systems-General Review of Systems Constitutional: no symptoms reported, see HPI EENTM: no symptoms reported Respiratory: no symptoms reported, see HPI Cardiovascular: see HPI, chest pain Gastrointestinal: no symptoms reported Genitourinary: no symptoms reported Musculoskeletal: no symptoms reported Skin: no symptoms reported Psychiatric/Neurological: No Symptoms Reported Reviewed Test Results Reviewed Test Results Lab Laboratory Tests 12/22/20 10:35: Glucometer 117H 12/22/20 15:13: Glucometer 209H 12/22/20 19:54: Glucometer 204H 12/23/20 02:45: Blood Gas Puncture Site RIGHT RADIAL, Blood Gas Patient Temperature 36.5, Arterial Blood pH 7.42, Arterial Blood Partial Pressure CO2 57H, Arterial Blood Partial Pressure O2 88, Arterial Blood HCO3 37H, Arterial Blood Total CO2 38.4H, Arterial Blood Oxygen Saturation 97, Arterial Blood Base Excess 11.5H, Joss Test YES-POS, Blood Gas Ventilator Setting NO, Blood Gas Inspired Oxygen 40% 12/23/20 02:55: White Blood Count 7.1, Red Blood Count 4.41, Hemoglobin 12.2, Hematocrit 40, Mean Corpuscular Volume 91, Mean Corpuscular Hemoglobin 28, Mean Corpuscular Hemoglobin Concent 30L, Red Cell Distribution Width 16.6H, Platelet Count 186, Mean Platelet Volume 10.0, Immature Granulocyte % (Auto) 0, Neutrophils (%) (Auto) 51, Lymphocytes (%) (Auto) 21, Monocytes (%) (Auto) 8, Eosinophils (%) (Auto) 19H, Basophils (%) (Auto) 1, Neutrophils # (Auto) 3.6, Lymphocytes # (Auto) 1.5, Monocytes # (Auto) 0.6, Eosinophils # (Auto) 1.4H, Basophils # (Auto) 0.1, Immature Granulocyte # (Auto) 0.0, Sodium Level 137, Potassium Level 3.8, Chloride Level 94L, Carbon Dioxide Level 33H, Anion Gap 10, Blood Urea Nitrogen 34H, Creatinine 0.95, Estimat Glomerular Filtration Rate 59, BUN/Creatinine Ratio 36, Glucose Level 179H, Calcium Level 9.6, Phosphorus Level 2.4, Magnesium Level 2.0 Microbiology 12/20/20 Urine Culture - Preliminary, Resulted Probable Klebsiella/Enterobact Probable E.coli Pseudomonas aeruginosa See Comments 12/20/20 Blood Culture - Preliminary, Resulted No growth ECG Impression ECG Initial ECG Rhythm: A Fib/Flutter Initial ECG Impression: Atrial Fibrillation w/RVR Physical Exam Physical Exam Vital Signs Vital Signs - First Documented 12/20/20 12/20/20 12/20/20 08:12 14:50 15:36 Temp 36.0 Pulse 162 Resp 10 B/P (MAP) 112/82 (92) Pulse Ox 87 O2 Delivery NIV CPAP O2 Flow Rate 100.00 FiO2 80 Capillary Refill : Less Than 3 Seconds Height, Weight, BMI Height: '" Weight: lbs. oz. kg; 72.00 BMI Method: General Appearance: Chronically ill, Obese Eyes: Bilateral Eye PERRL HEENT: PERRL/EOMI, Pharynx Normal Neck: Normal Inspection, Supple Respiratory: No Accessory Muscle Use, Decreased Breath Sounds, Other (on 6lpm HFNC) Cardiovascular: No Murmur, Irregularly Irregular, Tachycardia Gastrointestinal: Normal Bowel Sounds, Soft Genital/Rectal: Other (graf in place) Extremity: Normal Capillary Refill, Pedal Edema, Other (Pt reports pain w/ palpitation in distal LE b/l) Neurologic/Psychiatric: Alert (more alert than yesterday though did not talk much) Skin: Normal Color, Warm/Dry A/P-Cardiology Admission Diagnosis Afib with RVR Acute on chronic respiratory failure HTN Obesity Assessment/Plan Chronic afib, currently AFib with RVR, started on Cardizem gtt, maintained on Eliquis. Acute on chronic respiratory failure with hypoxia and hypercapnia, d/t Obesity hypoventilation syndrome, Obstructive sleep apnea, slowly improving. COVID and influenza negative. UTI, on Rocephin, management per medical services Hypertension, currently borderline hypotensive, continue to monitor. Hypothyroidism Morbid obesity Chronic pain Thank you for allowing us to participate in the management of Ms. Huang. This is Valdemar Ortega PA-C, as a scribe for Dr. Muñoz. Patient was seen and evaluated with Valdemar, examination performed, management plan was discussed, agree with the current scribed note, I made few changes to the note using Italic font Patient was noted to be in atrial fibrillation with borderline tachycardia, on Cardizem drip, adding digoxin, I will switch her back to oral Cardizem and monitor tolerance and response She is in acute respiratory failure, has history of chronic respiratory insufficiency with hypercapnia, hypoventilation. Managed by primary care team Had change in mental status that has improved, appears to be feeling better, receiving antibiotic Had urinary tract infection received antibiotics. Continue on Eliquis. VALDEMAR MORRISON Dec 23, 2020 10:10 CATRINA MUÑOZ MD Dec 23, 2020 15:05
[2020-12-23] MEDS ORDERED: DIGOXIN 0.25 MG/ML (LANOXIN) 2 ML AMP IV ONE (10:45)
--- NOTE | 2020-12-23 15:44 | Tele-ICU Progress Note ---
Subjective Date Seen by a Provider: Dec 23, 2020 Time Seen by a Provider: 11:37 Sepsis Event Evaluation Height, Weight, BMI Height: '" Weight: lbs. oz. kg; 72.00 BMI Method: Exam Exam Patient acknowledged, consented, and participated in this virtual visit which was conducted using real time audio/video Vital Signs Date Time Temp Pulse Resp B/P (MAP) Pulse Ox O2 Delivery O2 Flow Rate FiO2 12/23/20 13:00 104 10 98/55 (69) 100 High Flow N/C 6.00 12/23/20 12:48 115 12/23/20 12:00 High Flow N/C 6.00 0 12/23/20 12:00 130 7 110/76 (87) 93 High Flow N/C 6.00 12/23/20 11:00 120 17 92/64 (73) 92 High Flow N/C 6.00 12/23/20 10:00 144 8 92/59 (70) 91 High Flow N/C 6.00 12/23/20 09:00 168 7 101/70 (80) 92 High Flow N/C 6.00 12/23/20 08:17 39.0 12/23/20 08:00 High Flow N/C 6.00 0 12/23/20 08:00 156 20 104/46 (65) 91 High Flow N/C 6.00 12/23/20 07:03 97 High Flow N/C 8.00 12/23/20 07:00 158 14 95/57 (70) 99 High Flow N/C 6.00 12/23/20 06:47 144 12/23/20 06:00 147 17 88/70 (77) 97 High Flow N/C 6.00 12/23/20 05:00 174 13 103/69 (80) 95 High Flow N/C 6.00 12/23/20 04:34 176 16 106/76 (86) High Flow N/C 6.00 12/23/20 04:00 131 19 93/54 (66) High Flow N/C 6.00 12/23/20 04:00 37.0 12/23/20 04:00 High Flow N/C 6.00 0 12/23/20 03:00 109 10 90/59 (69) 96 High Flow N/C 6.00 12/23/20 02:15 128 11 98 High Flow N/C 6.00 12/23/20 02:12 97 High Flow N/C 8.00 12/23/20 02:00 86 19 117/104 (109) 99 High Flow N/C 8.00 12/23/20 01:00 98 12/23/20 01:00 98 14 109/93 (97) 100 High Flow N/C 8.00 12/23/20 00:00 111 11 121/91 (101) 99 High Flow N/C 8.00 12/23/20 00:00 High Flow N/C 8.00 0 12/23/20 00:00 36.4 12/22/20 23:00 110 99/70 (80) 97 High Flow N/C 8.00 12/22/20 22:15 112 17 97 High Flow N/C 8.00 12/22/20 22:10 99 High Flow N/C 10.00 12/22/20 22:00 96 14 97/57 (70) 97 High Flow N/C 10.00 12/22/20 21:08 156 10 137/111 (119) 98 High Flow N/C 10.00 12/22/20 20:00 36.7 12/22/20 20:00 118 12 99/83 (87) 94 High Flow N/C 10.00 12/22/20 20:00 High Flow N/C 8.00 0 12/22/20 19:00 128 12/22/20 19:00 128 9 110/56 (68) 97 High Flow N/C 10.00 12/22/20 18:28 95 High Flow N/C 10.00 12/22/20 18:00 135 7 152/127 (135) 96 High Flow N/C 8.00 12/22/20 17:00 121 8 99/75 (83) 95 High Flow N/C 8.00 12/22/20 16:00 107 13 82/65 (71) 93 High Flow N/C 8.00 12/22/20 15:56 High Flow N/C 10.00 0 I & O 12/23/20 07:00 Intake Total 2685 ml Output Total 1825 ml Balance 860 ml Height & Weight Height: '" Weight: lbs. oz. kg; 72.00 BMI Method: General Appearance: Chronically ill, Obese HEENT: PERRL/EOMI, Pharynx Normal Neck: Normal Inspection, Supple Respiratory: No Accessory Muscle Use, Decreased Breath Sounds, Other (on 6lpm HFNC) Cardiovascular: No Murmur, Irregularly Irregular, Tachycardia Capillary Refill: Less Than 3 Seconds Extremity: Normal Capillary Refill, Pedal Edema, Other (Pt reports pain w/ palpitation in distal LE b/l) Neurologic/Psychiatric: Alert (more alert than yesterday though did not talk much) Skin: Normal Color, Warm/Dry Results Lab Laboratory Tests 12/22/20 03:25 12/23/20 02:55 Assessment/Plan Assessment/Plan (Tele-ICU Physician , Progress Note ) Available chart/ vitals / labs / Images reviewed Video assessment done using teleICU camera, rest of exam as per RN Discussed with RN Events overnight : refused CPAP, resumed cardizem gtt Afebrile I/O = even Drips: cardizem gtt Pressors: , hemodynamically stable EXAM PER RN Consultants: Hospital course: 12/20- resp insuff _ biapap, a fib RVR 12/22 - 10 L o2 06/25 - back on cardizen gtt , 6L o2 PMH:morbid obesity, GIUSEPPE, COPD, Htn., DM., Afib, previous trach., CMP. GERD, anx., dep., Schizophrenia. A/P Acute resp failure , hypoxic, hypercarbic ? VO/CHF - refused BIPAP - chronic resp hypercarbic and hypoxix failure - will repeat abg am on o2 -COVID and Flu negative - not on ABX - on 6 L NC today , cxr stabl e, cont IS Chronic hypercarbic resp failure ( ? baseline o2 needs ? - etiology probaly overllap syndrome - ? dx withOSA /OHVS , ? prescribed/compliant with CPAP - ? pulm HTN - abg on 6l - 7.42//88 - off bipap for 2 days AFib with RVR- in flatter now -IV Cardizem - resume home meds po to overlap -Continue Eliquis - no echo on record - cards consulted UTI - abx Lines : perip (Central Line Necessity Reviewed) Anxiety/ delirium - as per PC VTE Prophylaxis: eliquis Stress Ulcer Prophylaxis: po Glycemic Control: + Plans in collaboration with bedside consultants and IM MDs. Discussed with RN to reach out if any questions or concerns Discussed wit Fr Arzola A total of 25 minutes of critical care time was devoted to this patient today, required to treat and/or prevent further deterioration of critical care condition ( as above) . JOSE RIVAS MD Dec 23, 2020 15:44
[2020-12-23] MEDS: DIGOXIN 0.25 MG (LANOXIN) TAB PO SCH (17:19)
[2020-12-23] MEDS: toPIRamate 25 MG (TOPAMAX) TAB PO SCH (19:37)
[2020-12-23] MEDS: rOPINIRole 0.25 MG (REQUIP) TAB PO SCH (19:37)
[2020-12-23] MEDS: traZODone 50 MG (DESYREL) TAB PO SCH (19:37)
[2020-12-23] MEDS: QUEtiapine 25 MG (SEROquel) TAB IMMEDIATE RELEASE PO SCH (19:37)
[2020-12-23] MEDS: morphine INJ 4 MG/ML 1 ML (VIAL/SYRINGE) IVP PRN (21:05)
[2020-12-24] MEDS: CEFEPIME 1,000 MG/SWFI 10 ML IV PUSH IV SCH ×4 (01:10→05:56)
[2020-12-24] MEDS: RT-ALBUTEROL/IPRATROPIUM 3 ML (DUONEB) VIAL INH SCH ×5 (02:38→21:30)
[2020-12-24 02:58] LABS: BASOPHILS # (AUTO) 0.1 10^3/uL (0.0-0.1); BASOPHILS % (AUTO) 1 % (0-10); EOSINOPHILS # (AUTO) 1.6 10^3/uL (0.0-0.3); EOSINOPHILS % (AUTO) 23 % (0-10); HEMATOCRIT 41 % (35-52); HEMOGLOBIN 12.6 g/dL (11.5-16.0); LYMPHOCYTES # (AUTO) 1.1 10^3/uL (1.0-4.0); LYMPHOCYTES % (AUTO) 16 % (12-44); MEAN CORPUSCULAR HEMOGLOBIN 27 pg (25-34); MEAN CORPUSCULAR HGB CONC 31 g/dL (32-36); MEAN CORPUSCULAR VOLUME 90 fL (80-99); MEAN PLATELET VOLUME 10.4 fL (9.0-12.2); MONOCYTES # (AUTO) 0.5 10^3/uL (0.0-1.0); MONOCYTES % (AUTO) 7 % (0-12); NEUTROPHILS # (AUTO) 3.9 10^3/uL (1.8-7.8); NEUTROPHILS % (AUTO) 53 % (42-75); PLATELET COUNT 173 10^3/uL (130-400); WHITE BLOOD COUNT 7.2 10^3/uL (4.3-11.0)
[2020-12-24 03:09] LABS: POTASSIUM 3.7 MMOL/L (3.6-5.0)
[2020-12-24 03:11] LABS: CALCIUM 9.5 MG/DL (8.5-10.1)
[2020-12-24 03:15] LABS: CREATININE SERUM 0.96 MG/DL (0.60-1.30); PHOSPHORUS 2.2 MG/DL (2.3-4.7)
[2020-12-24 03:17] LABS: MAGNESIUM 1.8 MG/DL (1.6-2.4)
[2020-12-24] MEDS: dilTIAZem DRIP PRE-MIX 125 ML IV SCH (03:38)
[2020-12-24] MEDS: KCL 20 MEQ TAB (K-DUR) PO SCH (04:57)
[2020-12-24] MEDS: POTASSIUM CL 10MEQ/50ML IVPB 50 ML IV SCH (04:57)
[2020-12-24] MEDS: MAGNESIUM 1 GM/100 ML IVPB 100 ML IV SCH (04:57)
[2020-12-24] MEDS: LEVOTHYROXINE 75 MCG (LEVOTHROID) TABLET PO SCH (05:56)
[2020-12-24] MEDS: CATHETER FLUSH 10 ML SYR IV SCH ×2 (05:56→17:42)
[2020-12-24] MEDS: inSUlin ASPART (NovoLOG) 1 UNIT/0.01 ML (CHARGE PER UNIT) SC SCH ×4 (05:56→21:15)
[2020-12-24] MEDS: PANTOPRAZOLE 40 MG (PROTONIX) TAB PO SCH (05:56)
[2020-12-24] MEDS: morphine ER 30 MG (MS CONTIN) TAB PO SCH ×2 (08:11→20:28)
[2020-12-24] MEDS: DIGOXIN 0.25 MG (LANOXIN) TAB PO SCH (08:12)
[2020-12-24] MEDS: SENNA W/DOCUSATE (SENOKOT S) TABLET PO SCH ×2 (08:12→20:28)
[2020-12-24] MEDS: APIXABAN 5 MG (ELIQUIS) TABLET PO SCH ×2 (08:12→20:28)
[2020-12-24] MEDS: DOCUSATE SODIUM 100 MG (COLACE) CAP PO SCH ×2 (08:12→20:28)
[2020-12-24] MEDS: NICOTINE PATCH REMOVAL TP SCH (08:13)
[2020-12-24] MEDS: GABAPENTIN 100 MG (NEURONTIN) CAP PO SCH ×2 (08:13→20:28)
[2020-12-24] MEDS: NICOTINE 14 MG (NICODERM) PATCH TD SCH (08:15)
[2020-12-24] MEDS: MICONAZOLE 2% POWDER (DESENEX AF) 90 GM TOP SCH ×2 (08:16→20:31)
--- NOTE | 2020-12-24 08:16 | Progress Note - Hospitalist ---
Subjective HPI/CC On Admission Date Seen by Provider: Dec 24, 2020 Time Seen by Provider: 08:12 Noreen Huang is a 65 year old female with PMH HTN, T2DM, hypothyroidism, chronic pain, atrial fibrillation, super-super obesity, who presented from her care home with lethargy. She is unable to provide any history. Upon my examination, she is wearing BiPAP. She is more alert and responsive. She is crying and sensitive to touch diffusely. She takes multiple medications for chronic pain. She also takes several medications nightly which cause sedation. She is not set up with BiPAP at home. Subjective/Events-last exam Pt is much more alert today. No complaints. She is abelt o communiate more than cannot really finish sentences. She repeat multiple times she wanted to "go to the [employer]" but could not anser what university or why. When asked what she wanted to do at the [employer] she said 'To finish...to finish...to finish" multiple times. She was unable to complete these thoughts but when asked about another topic she could finish thoughts without difficulty. (Was able to clarify that her nurse is Jennifer with ease.) I attempted to call daughter and there was no answer. Voicemail was for '[employer]" with no other identifying information so I did not leave a message as I was not sure this was the correct person. Objective Exam Vital Signs Vital Signs Date Time Temp Pulse Resp B/P (MAP) Pulse Ox O2 Delivery O2 Flow Rate FiO2 12/24/20 08:01 94 Nasal Cannula 10.00 12/24/20 06:00 82 18 95/68 (77) 12/24/20 04:00 0 12/23/20 20:24 37.0 Capillary Refill : Less Than 3 Seconds General Appearance: No Apparent Distress, Chronically ill, Obese Respiratory: Lungs Clear, No Respiratory Distress Cardiovascular: Regular Rate, Rhythm, No Murmur Extremity: No Calf Tenderness, No Pedal Edema Neurologic/Psychiatric: Alert, Oriented x3 Results/Procedures Lab Laboratory Tests 12/24/20 02:28 Patient resulted labs reviewed. Imaging: Reviewed Imaging Report Assessment/Plan Assessment and Plan Assess & Plan/Chief Complaint Acute on chronic respiratory failure with hypoxia and hypercapnia Obesity hypoventilation syndrome Obstructive sleep apnea Super-super obesity UTI ABG with acute hypercapnia- consider outpatient BiPAP thougu ABG yesterday without BiPAP improved Off BiPAP still and on 8lpm HFNC- unsure of her baseline CXR with possible left lower lobe infiltrate vs atelectasis Procalcitonin normal COVID and Flu negative Urine with GNR x2 >100CFU each, continue Cefepime for resistance on UA AFib with RVR Rate improved On cardizem gtt, he is switching to oral today with digoxin Cardiology consulted, discussed with Dr Muñoz, appreciate assistance Continue Eliquis Chronic pain Hypothyroidism Hypertension Continue home meds Decreased doses of some sedating meds again today as likely contributing mentation improving DVT prophylaxis: already receiving therapeutic anticoagulation Critical Care Critically Ill Patient ESTEBAN JARQUIN MD Dec 24, 2020 08:16
--- NOTE | 2020-12-24 09:44 | Tele-ICU Progress Note ---
Subjective Date Seen by a Provider: Dec 24, 2020 Time Seen by a Provider: 09:43 Sepsis Event Evaluation Height, Weight, BMI Height: '" Weight: lbs. oz. kg; 72.00 BMI Method: Exam Exam Patient acknowledged, consented, and participated in this virtual visit which was conducted using real time audio/video Vital Signs Date Time Temp Pulse Resp B/P (MAP) Pulse Ox O2 Delivery O2 Flow Rate FiO2 12/24/20 08:01 94 Nasal Cannula 10.00 12/24/20 08:00 36.4 12/24/20 07:45 High Flow N/C 6.00 12/24/20 07:00 73 12/24/20 06:00 82 18 95/68 (77) 91 High Flow N/C 8.00 12/24/20 05:00 85 16 97/61 (73) 92 High Flow N/C 8.00 12/24/20 04:00 77 18 97/54 (68) 93 High Flow N/C 8.00 12/24/20 04:00 High Flow N/C 8.00 0 12/24/20 03:00 92 20 91/55 (67) 89 High Flow N/C 8.00 12/24/20 02:39 90 8.00 12/24/20 02:00 90 26 137/82 (100) 90 High Flow N/C 8.00 12/24/20 01:00 96 33 98/67 (77) 90 High Flow N/C 8.00 12/24/20 01:00 96 12/24/20 00:00 High Flow N/C 8.00 0 12/24/20 00:00 90 14 97 High Flow N/C 8.00 12/23/20 23:00 93 18 123/91 (102) 96 High Flow N/C 8.00 12/23/20 22:28 98 Nasal Cannula 8.00 12/23/20 22:00 74 16 86/62 (70) 95 High Flow N/C 8.00 12/23/20 21:00 89 15 107/59 (75) 94 High Flow N/C 8.00 12/23/20 20:24 37.0 12/23/20 20:00 High Flow N/C 6.00 0 12/23/20 20:00 102 16 95 High Flow N/C 8.00 12/23/20 19:00 115 12/23/20 19:00 120 16 110/57 (74) 96 High Flow N/C 8.00 12/23/20 17:00 107 18 High Flow N/C 6.00 12/23/20 16:18 37.0 12/23/20 16:08 100 High Flow N/C 6.00 12/23/20 16:00 High Flow N/C 6.00 0 12/23/20 16:00 129 13 99/69 (79) High Flow N/C 6.00 12/23/20 15:00 117 37 101/92 (95) High Flow N/C 6.00 12/23/20 14:00 120 31 127/114 (118) High Flow N/C 6.00 12/23/20 13:00 104 10 98/55 (69) 100 High Flow N/C 6.00 12/23/20 12:48 115 12/23/20 12:00 High Flow N/C 6.00 0 12/23/20 12:00 130 7 110/76 (87) 93 High Flow N/C 6.00 12/23/20 11:00 120 17 92/64 (73) 92 High Flow N/C 6.00 12/23/20 10:00 144 8 92/59 (70) 91 High Flow N/C 6.00 I & O 12/24/20 07:00 Intake Total 1390 ml Output Total 960 ml Balance 430 ml Height & Weight Height: '" Weight: lbs. oz. kg; 72.00 BMI Method: General Appearance: No Apparent Distress, Chronically ill, Obese HEENT: PERRL/EOMI, Pharynx Normal Neck: Normal Inspection, Supple Respiratory: Lungs Clear, No Respiratory Distress Cardiovascular: Regular Rate, Rhythm, No Murmur Capillary Refill: Less Than 3 Seconds Extremity: No Calf Tenderness, No Pedal Edema Neurologic/Psychiatric: Alert, Oriented x3 Skin: Normal Color, Warm/Dry Results Lab Laboratory Tests 12/23/20 02:55 12/24/20 02:28 Assessment/Plan Assessment/Plan (Tele-ICU Physician , Progress Note ) Available chart/ vitals / labs / Images reviewed Video assessment done using teleICU camera, rest of exam as per RN Discussed with RN Events overnight : refused CPAP, resumed cardizem gtt Afebrile I/O = even Drips: cardizem gtt Pressors: , hemodynamically stable EXAM PER RN Consultants: Hospital course: 12/20- resp insuff _ biapap, a fib RVR 12/22 - 10 L o2 06/25 - back on cardizen gtt , 6L o2 PMH:morbid obesity, GIUSEPPE, COPD, Htn., DM., Afib, previous trach., CMP. GERD, anx., dep., Schizophrenia. A/P Acute resp failure , hypoxic, hypercarbic ? VO/CHF - refused BIPAP - chronic resp hypercarbic and hypoxix failure - will repeat abg am on o2 -COVID and Flu negative - not on ABX - on 6 L NC today , cxr stable, cont IS - Chronic hypercarbic resp failure ( ? baseline o2 needs ? - etiology probaly overllap syndrome - ? dx withOSA /OHVS , ? prescribed/compliant with CPAP - ? pulm HTN - abg on 6l - 7.42//88 - off bipap for 2 days AFib with RVR- in flatter now -IV Cardizem - resume home meds po to overlap -Continue Eliquis - no echo on record - cards consulted UTI - abx Lines : perip (Central Line Necessity Reviewed) Anxiety/ delirium - as per PC VTE Prophylaxis: eliquis Stress Ulcer Prophylaxis: po Glycemic Control: + Plans in collaboration with bedside consultants and IM MDs. Discussed with RN to reach out if any questions or concerns Discussed wit Dr Arzola A total of 25 minutes of critical care time was devoted to this patient today, required to treat and/or prevent further deterioration of critical care condition ( as above) . JOSE RIVAS MD Dec 24, 2020 09:43
[2020-12-24] MEDS: NS IV 500 ML 500 ML IV SCH (11:49)
--- NOTE | 2020-12-24 12:25 | Cardiology Progress Note ---
Subjective Date Seen by Provider: Dec 24, 2020 Time Seen by Provider: 12:22 Subjective/Events-last exam Patient was seen at bedside laying down in bed, lethargic. No new complaint. Heart rate is better controlled Review of Systems General: No Chills, No Night Sweats; Fatigue, Malaise; No Appetite, No Other HEENT: No Head Aches, No Visual Changes, No Eye Pain, No Ear Pain, No Dysphasia, No Sinus Congestion, No Post Nasal Drip, No Sore Throat, No Other Pulmonary: Dyspnea; No Cough, No Pleuritic Chest Pain, No Other Cardiovascular: Edema; No: Chest Pain, Palpitations, Orthopnea, Paroxysmal Noc. Dyspnea, Lt Headedness, Other Objective-Cardiology Exam Last Set of Vital Signs Vital Signs 12/24/20 12/24/20 12/24/20 12/24/20 04:00 08:00 10:00 10:27 Temp 36.4 Pulse 93 Resp 14 B/P (MAP) 112/73 (86) Pulse Ox 91 O2 Delivery Nasal Cannula O2 Flow Rate 10.00 FiO2 0 I&O Intake and Output 12/24/20 00:00 Intake Total 2535 ml Output Total 1450 ml Balance 1085 ml Intake Oral 1900 ml IV Total 635 ml Output Urine Total 1450 ml General: Alert, Oriented X3, Cooperative HEENT: Atraumatic, PERRLA Neck: Supple, No JVD, No Thyromegaly Lungs: Normal Air Movement, Other (Bilateral rhonchi and wheezing) Heart: Normal S1, Normal S2, No Murmurs, Other (Atrial fibrillation, better rate control) Abdomen: Normal Bowel Sounds, Soft, No Tenderness, No Hepatosplenomegaly, No Masses Extremities: No Clubbing, No Cyanosis, Normal Pulses, No Tenderness/Swelling, Other (Pedal edema) Skin: No Rashes, No Breakdown, No Significant Lesion Neuro: Normal Speech Psych/Mental Status: Mental Status NL, Mood NL Results Lab Laboratory Tests 12/24/20 02:28 A/P-Cardiology Admission Diagnosis Afib with RVR Acute on chronic respiratory failure HTN Obesity Assessment/Plan Chronic persistent atrial fibrillation, heart rate is better controlled on Cardizem drip, I will switch her to oral Cardizem, continue on digoxin and monitor heart rate and blood pressure Acute on chronic respiratory failure, hypercapnic hypoxemic respiratory failure with obesity hypoventilation syndrome. Improving slowly, managed by primary care team Urinary tract infection, receiving antibiotic and managed by primary care team. Hypertension, was borderline hypotensive, blood pressure is better at this time. Continue to monitorr. Hypothyroidism Morbid obesity Chronic pain CATRINA SRIVASTAVA MD Dec 24, 2020 12:24
[2020-12-24] MEDS: morphine INJ 4 MG/ML 1 ML (VIAL/SYRINGE) IVP PRN ×2 (17:39→21:15)
[2020-12-24] MEDS: MEROPENEM 1,000 MG/SWFI 20 ML IV PUSH IV SCH ×4 (17:41→23:58)
[2020-12-24] MEDS: QUEtiapine 25 MG (SEROquel) TAB IMMEDIATE RELEASE PO SCH (20:28)
[2020-12-24] MEDS: traZODone 50 MG (DESYREL) TAB PO SCH (20:28)
[2020-12-24] MEDS: toPIRamate 25 MG (TOPAMAX) TAB PO SCH (20:28)
[2020-12-24] MEDS: rOPINIRole 0.25 MG (REQUIP) TAB PO SCH (20:28)
[2020-12-25] MEDS: morphine INJ 4 MG/ML 1 ML (VIAL/SYRINGE) IVP PRN ×3 (01:17→23:01)
[2020-12-25 03:30] LABS: BASOPHILS # (AUTO) 0.1 10^3/uL (0.0-0.1); BASOPHILS % (AUTO) 1 % (0-10); EOSINOPHILS # (AUTO) 2.7 10^3/uL (0.0-0.3); EOSINOPHILS % (AUTO) 33 % (0-10); HEMATOCRIT 42 % (35-52); HEMOGLOBIN 12.7 g/dL (11.5-16.0); LYMPHOCYTES # (AUTO) 1.8 10^3/uL (1.0-4.0); LYMPHOCYTES % (AUTO) 22 % (12-44); MEAN CORPUSCULAR HEMOGLOBIN 27 pg (25-34); MEAN CORPUSCULAR HGB CONC 30 g/dL (32-36); MEAN CORPUSCULAR VOLUME 90 fL (80-99); MEAN PLATELET VOLUME 10.4 fL (9.0-12.2); MONOCYTES # (AUTO) 0.7 10^3/uL (0.0-1.0); MONOCYTES % (AUTO) 9 % (0-12); NEUTROPHILS # (AUTO) 2.8 10^3/uL (1.8-7.8); NEUTROPHILS % (AUTO) 35 % (42-75); PLATELET COUNT 179 10^3/uL (130-400); WHITE BLOOD COUNT 8.2 10^3/uL (4.3-11.0)
[2020-12-25 03:43] LABS: POTASSIUM 3.7 MMOL/L (3.6-5.0)
[2020-12-25 03:44] LABS: CALCIUM 9.5 MG/DL (8.5-10.1)
[2020-12-25 03:48] LABS: PHOSPHORUS 2.3 MG/DL (2.3-4.7)
[2020-12-25 03:49] LABS: CREATININE SERUM 1.08 MG/DL (0.60-1.30)
[2020-12-25 03:51] LABS: MAGNESIUM 1.8 MG/DL (1.6-2.4)
[2020-12-25] MEDS: diphenhydrAMINE 25 MG TAB (BENADRYL) PO PRN (04:19)
[2020-12-25] MEDS: dilTIAZem DRIP PRE-MIX 125 ML IV SCH (04:59)
[2020-12-25] MEDS: MAGNESIUM 1 GM/100 ML IVPB 100 ML IV SCH (05:03)
[2020-12-25] MEDS: POTASSIUM CL 10MEQ/50ML IVPB 50 ML IV SCH (05:03)
[2020-12-25] MEDS: KCL 20 MEQ TAB (K-DUR) PO SCH (05:03)
[2020-12-25] MEDS: MEROPENEM 1,000 MG/SWFI 20 ML IV PUSH IV SCH ×6 (05:57→21:01)
[2020-12-25] MEDS: CATHETER FLUSH 10 ML SYR IV SCH ×4 (05:57→21:02)
[2020-12-25] MEDS: LEVOTHYROXINE 75 MCG (LEVOTHROID) TABLET PO SCH (05:58)
[2020-12-25] MEDS: PANTOPRAZOLE 40 MG (PROTONIX) TAB PO SCH (05:58)
[2020-12-25] MEDS: inSUlin ASPART (NovoLOG) 1 UNIT/0.01 ML (CHARGE PER UNIT) SC SCH ×5 (05:58→21:24)
[2020-12-25] MEDS: NS IV 500 ML 500 ML IV SCH (06:08)
[2020-12-25] MEDS: RT-ALBUTEROL/IPRATROPIUM 3 ML (DUONEB) VIAL INH SCH ×2 (08:22→19:44)
--- NOTE | 2020-12-25 08:49 | Progress Note - Hospitalist ---
Subjective HPI/CC On Admission Date Seen by Provider: Dec 25, 2020 Time Seen by Provider: 08:47 Noreen Huang is a 65 year old female with PMH HTN, T2DM, hypothyroidism, chronic pain, atrial fibrillation, super-super obesity, who presented from her correction with lethargy. She is unable to provide any history. Upon my examination, she is wearing BiPAP. She is more alert and responsive. She is crying and sensitive to touch diffusely. She takes multiple medications for chronic pain. She also takes several medications nightly which cause sedation. She is not set up with BiPAP at home. Subjective/Events-last exam Pt much more alert today. Able to communicate more clearly. Requesting to get out of the hospital and go to [place] where he family is. We discussed how this likely would not be possible straight from the hospital. She got very upset and started crying about not wanting to return to the correction. Discussed this with her daughter today and she is worried about patient's mental health. She h ad previously been in a [facility] hospital for medication adjustment and now we have decreased them. We discussed the balance of treating her mental health but not oversedating her so that she can't breath which appears was happening when she arrived. Objective Exam Vital Signs Vital Signs Date Time Temp Pulse Resp B/P (MAP) Pulse Ox O2 Delivery O2 Flow Rate FiO2 12/25/20 14:55 35.9 98 20 158/89 (112) 99 High Flow N/C 5.00 12/24/20 04:00 0 Capillary Refill : Less Than 3 Seconds General Appearance: Anxious (tearful when correction discussion came up), Chronically ill, Obese Respiratory: Lungs Clear, No Accessory Muscle Use, No Respiratory Distress Cardiovascular: No Murmur, Irregularly Irregular Gastrointestinal: Normal Bowel Sounds, Non Tender, Soft Genital/Rectal: Other (graf) Neurologic/Psychiatric: Alert, Oriented x3 Results/Procedures Lab Laboratory Tests 12/25/20 02:50 Patient resulted labs reviewed. Imaging: Reviewed Imaging Report Assessment/Plan Assessment and Plan Assess & Plan/Chief Complaint Acute on chronic respiratory failure with hypoxia and hypercapnia Obesity hypoventilation syndrome Obstructive sleep apnea Super-super obesity UTI ABG with acute hypercapnia- consider outpatient BiPAP though much improved with decrease in sedative meds Off BiPAP still and on 5lpm HFNC- unsure of her baseline still CXR with possible left lower lobe infiltrate vs atelectasis Procalcitonin normal COVID and Flu negative Urine with GNR x2 >100CFU each, continue Merrem for resistance on UA Will need NH placement possibly new facility, social insurance adviser consulted AFib with RVR Rate improved On oral cardizem now Cardiology consulted, discussed with Dr Muñoz, appreciate assistance Continue Eliquis Chronic pain Hypothyroidism Hypertension Continue home meds Decreased doses of some sedating meds and she is much more alert, discussed need to tweak this to her mental status and especially upon discharge DVT prophylaxis: already receiving therapeutic anticoagulation Critical Care Critically Ill Patient ESTEBAN JARQUIN MD Dec 25, 2020 08:49
--- NOTE | 2020-12-25 09:11 | Cardiology Progress Note ---
Subjective Date Seen by Provider: Dec 25, 2020 Time Seen by Provider: 09:08 Subjective/Events-last exam Patient is laying down in bed, complaining of abdominal pain. Breathing is better. Review of Systems General: No Chills, No Night Sweats; Fatigue, Malaise; No Appetite, No Other HEENT: No Head Aches, No Visual Changes, No Eye Pain, No Ear Pain, No Dysphasia, No Sinus Congestion, No Post Nasal Drip, No Sore Throat, No Other Pulmonary: Dyspnea; No Cough, No Pleuritic Chest Pain, No Other Cardiovascular: Edema; No: Chest Pain, Palpitations, Orthopnea, Paroxysmal Noc. Dyspnea, Lt Headedness, Other Objective-Cardiology Exam Last Set of Vital Signs Vital Signs 12/24/20 12/25/20 12/25/20 04:00 07:58 09:00 Temp 36.2 Pulse 79 Resp 10 B/P (MAP) 135/77 (96) Pulse Ox 92 O2 Delivery High Flow N/C O2 Flow Rate 5.00 FiO2 0 I&O Intake and Output 12/25/20 00:00 Intake Total 1675 ml Output Total 1610 ml Balance 65 ml Intake Oral 1675 ml Output Urine Total 1610 ml # Bowel Movements 1 General: Alert, Oriented X3, Cooperative HEENT: Atraumatic, PERRLA Neck: Supple, No JVD, No Thyromegaly Lungs: Normal Air Movement, Other (Bilateral rhonchi and wheezing) Heart: Normal S1, Normal S2, No Murmurs, Other (Atrial fibrillation, better rate control) Abdomen: Normal Bowel Sounds, Soft, No Tenderness, No Hepatosplenomegaly, No Masses Extremities: No Clubbing, No Cyanosis, Normal Pulses, No Tenderness/Swelling, Other (Pedal edema) Skin: No Rashes, No Breakdown, No Significant Lesion Neuro: Normal Speech Psych/Mental Status: Mental Status NL, Mood NL Results Lab Laboratory Tests 12/25/20 02:50 A/P-Cardiology Admission Diagnosis Afib with RVR Acute on chronic respiratory failure HTN Obesity Assessment/Plan Chronic persistent atrial fibrillation, heart rate is better controlled on Cardizem oral, I will switch her to Cardizem CD and monitor tolerance and response Status post acute respiratory failure, acute exacerbation of COPD, history of chronic respiratory insufficiency, better at this time, receiving antibiotics Obesity hypoventilation syndrome, chronic hypercapnia, managed by primary care team Urinary tract infection, receiving antibiotic and managed by primary care team. Hypertension, blood pressure is better controlled. Continue to monitor Diabetes mellitus, managed and monitored by primary care team Hypothyroidism, maintained on Synthroid Morbid obesity Chronic pain CATRINA SRIVASTAVA MD Dec 25, 2020 09:11
[2020-12-25] MEDS: DIGOXIN 0.25 MG (LANOXIN) TAB PO SCH (09:59)
[2020-12-25] MEDS: APIXABAN 5 MG (ELIQUIS) TABLET PO SCH ×2 (09:59→21:01)
[2020-12-25] MEDS: DULoxetine 30 MG (CYMBALTA) CAP PO SCH (09:59)
[2020-12-25] MEDS: ALPRAZolam 0.5 MG (XANAX) TAB PO PRN (10:00)
[2020-12-25] MEDS: morphine ER 30 MG (MS CONTIN) TAB PO SCH ×2 (10:00→21:01)
[2020-12-25] MEDS: DOCUSATE SODIUM 100 MG (COLACE) CAP PO SCH ×2 (10:00→21:01)
[2020-12-25] MEDS: GABAPENTIN 100 MG (NEURONTIN) CAP PO SCH ×2 (10:00→21:01)
[2020-12-25] MEDS: SENNA W/DOCUSATE (SENOKOT S) TABLET PO SCH ×2 (10:00→21:01)
[2020-12-25] MEDS: NICOTINE PATCH REMOVAL TP SCH (10:02)
[2020-12-25] MEDS: NICOTINE 14 MG (NICODERM) PATCH TD SCH (10:03)
[2020-12-25] MEDS: MICONAZOLE 2% POWDER (DESENEX AF) 90 GM TOP SCH ×2 (10:03→21:02)
--- NOTE | 2020-12-25 11:08 | Physical Therapy Progress Note ---
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 PT attempt to perform evaluation and patient begin yelling with mild palpation of right ankle to initiate ROM. PT attempted to calm patient and educate on the importance of increasing activity level and patient began to cry and yell. Nursing and physician notified. No PT indicated. 1 visit VAHID MARTIN PT Dec 25, 2020 11:08
--- NOTE | 2020-12-25 15:35 | Occupational Therapy Eval ---
OT Evaluation-General/PLF Medical Diagnosis Admission Date Dec 20, 2020 at 14:40 Medical Diagnosis: resp failure, afib with RVR Onset Date: Dec 20, 2020 Therapy Diagnosis Therapy Diagnosis: decreased ADL status Precautions Precautions/Isolations: Fall Prevention, Standard Precautions Referral Physician: Ness Referral Reason: Evaluation/Treatment Medical History Pertinent Medical History: Atrial Fib, COPD, DM, GERD, HTN, Hypothroidism Additional Medical History schizophrenia, anxiety/depression, dysphagia, cardiomyopathy Current History ED from [facility] due to lethargy. Social History Home: [facility] ADL-Prior Level of Function SCALE: Activities may be completed with or without assistive devices. 3-Immdxwuafb-tsfuebi completes the activity by him/herself with no assistance from a helper. 5-Set-up or Clean-up Assistance-helper sets up or cleans up; patient completes activity. Rigby assists only prior to or following the activity. 4-Supervision or Touching Assistance-helper provides verbal cues and/or touching/steadying and/or contact guard assistance as patient completes activity. Assistance may be provided throughout the activity or intermittently. 3-Partial/Moderate Assistance-helper does LESS THAN HALF the effort. Rigby lifts, holds or supports trunk or limbs, but provides less than half the effort. 2-Substantial/Maximal Assistance-helper does MORE THAN HALF the effort. Rigby lifts or holds trunk or limbs and provides more than half the effort. 9-Oyvsqrdar-qunsvo does ALL the effort. Patient does none of the effort to complete the activity. Or, the assistance of 2 or more helpers is required for the patient to complete the activity. If activity was not attempted, code reason: 7-Patient Refused. 9-Not Applicable-not attempted and the patient did not perform the activity before the current illness, exacerbation or injury. 10-Not Attempted due to Environmental Limitations-(lack of equipment, weather restraints, etc.). 88-Not Attempted due to Medical Conditions or Safety Concerns. ADL PLOF Comments Pt from [facility]. Pt unable to provide information about PLOF. Per chart review, pt requires geovany lift for transfers. Pt indicates she requires assistance with all ADLs including feeding, bathing, dressing, toileting. Level of assistance unknown at this time. Self Care: Needed Some Help Functional Cognition: Needed Some Help OT Current Status Subjective Pt laying in bed, tearful with OT entry as she was unable to eat. Pt rates pain 10/10 from neck to ankles. Mental Status/Objective Patient Orientation: Person, Confused Attachments: Wong Catheter, Oxygen Current Hand Dominance: Right Upper Extremity ROM decreased with ADLs, pt did not participate in UE screen. Upper Extremity Coordination decreased, noted tremors/shakiness bilateral hands as pt attempted feeding. ADL-Treatment Eating (QC): 3 (Mod A ) Other Treatments Pt laying in bed, tearful stating she is unable to feed herself. OT introduced self to pt and informed pt this therapist was there to assist her. Pt indicates she is unable to hold spoon/fork in her hands and manipulate utensils in order to bring food to mouth. Pt indicates she is able to eat finger foods without assistance. Pt able to bring soda to mouth and drink, slight shakiness/tremors noted. OT assisted pt with getting food on utensils and bringing to mouth due to decreased coordination/ROM. Pt ate all of enchilada and rice with OT assistance. Pt able to close mouth around spoon, chew food, and swallow food. Pt states she is able to eat her strawberries independently with her fingers. Pt noticed sour cream on tray as OT was removing plate, pt states she is upset with therapist for not putting this on her meal. OT apologized to pt, stating this worker did not see the sour cream prior to assisting. Post tx, pt up in bed, call light in reach and all needs met, finger foods on tray in front of her. Education OT Patient Education: Correct positioning, Modified ADL techniques, Progress toward Goal/Update tx plan, Purpose of tx/functional activities, Rehab process Teaching Recipient: Patient Teaching Methods: Discussion Response to Teaching: Verbalize Understanding OT Energy Consultant Goals Energy Consultant Goals Time Frame: Jan 06, 2021 Eating (QC): 5 Oral Hygiene (QC): 5 Additional Goals: 1-Demonstrate ADL Tasks, 2-Verbalize Understanding, 3- ImproveStrength/Amado 1=Demonstrate adherence to instructed precautions during ADL tasks. 2=Patient will verbalize/demonstrate understanding of assistive devices/modifications for ADL. 3=Patient will improve strength/tolerance for activity to enable patient to perform ADL's. OT Education/Plan Problem List/Assessment Assessment: Decreased Activ Tolerance, Decreased Safety Aware, Decreased UE Strength, Dependent Transfers, Impaired Bed Mobility, Impaired Cognition, Impaired Coordination, Impaired Funct Balance, Impaired I ADL's, Impaired Self- Care Skills, Restricted Funct UE ROM Pt would benefit from skilled OT services in order to maximize UE strength and ROM in order to improve independence with daily activities and ADLs. Discharge Recommendations Plan/Recommendations: Continue POC Treatment Plan/Plan of Care Patient would benefit from OT for education, treatment and training to promote independence in ADL's, mobility, safety and/or upper extremity function for ADL's. Plan of Care: ADL Retraining, Functional Mobility, UE Funct Exercise/Act Treatment Duration: Jan 06, 2021 Frequency: 5 times per week Estimated Hrs Per Day: .25 hour per day Time/GCodes Start Time: 15:04 Stop Time: 15:27 Total Time Billed (hr/min): 23 Billed Treatment Time 1, EVM (10'), ADL (13') APRYL CAMPOVERDE OT Dec 25, 2020 15:35
[2020-12-25] MEDS: QUEtiapine 25 MG (SEROquel) TAB IMMEDIATE RELEASE PO SCH (21:01)
[2020-12-25] MEDS: traZODone 50 MG (DESYREL) TAB PO SCH (21:01)
[2020-12-25] MEDS: rOPINIRole 0.25 MG (REQUIP) TAB PO SCH (21:01)
[2020-12-25] MEDS: toPIRamate 25 MG (TOPAMAX) TAB PO SCH (21:02)
[2020-12-26] MEDS: morphine INJ 4 MG/ML 1 ML (VIAL/SYRINGE) IVP PRN ×9 (01:35→23:56)
[2020-12-26] MEDS: ALPRAZolam 0.5 MG (XANAX) TAB PO PRN ×2 (03:08→17:56)
[2020-12-26] MEDS: LEVOTHYROXINE 75 MCG (LEVOTHROID) TABLET PO SCH (05:07)
[2020-12-26] MEDS: MEROPENEM 1,000 MG/SWFI 20 ML IV PUSH IV SCH ×6 (05:07→22:09)
[2020-12-26] MEDS: PANTOPRAZOLE 40 MG (PROTONIX) TAB PO SCH (05:07)
[2020-12-26] MEDS: CATHETER FLUSH 10 ML SYR IV SCH ×3 (05:08→22:13)
[2020-12-26 06:02] LABS: BASOPHILS # (AUTO) 0.1 10^3/uL (0.0-0.1); BASOPHILS % (AUTO) 1 % (0-10); EOSINOPHILS # (AUTO) 2.3 10^3/uL (0.0-0.3); EOSINOPHILS % (AUTO) 29 % (0-10); HEMATOCRIT 42 % (35-52); LYMPHOCYTES # (AUTO) 2.2 10^3/uL (1.0-4.0); LYMPHOCYTES % (AUTO) 27 % (12-44); MEAN CORPUSCULAR HEMOGLOBIN 28 pg (25-34); MEAN CORPUSCULAR HGB CONC 31 g/dL (32-36); MEAN CORPUSCULAR VOLUME 90 fL (80-99); MEAN PLATELET VOLUME 10.1 fL (9.0-12.2); MONOCYTES # (AUTO) 0.8 10^3/uL (0.0-1.0); MONOCYTES % (AUTO) 10 % (0-12); NEUTROPHILS # (AUTO) 2.6 10^3/uL (1.8-7.8); NEUTROPHILS % (AUTO) 33 % (42-75); PLATELET COUNT 182 10^3/uL (130-400); WHITE BLOOD COUNT 7.9 10^3/uL (4.3-11.0)
[2020-12-26 06:11] LABS: POTASSIUM 3.9 MMOL/L (3.6-5.0)
[2020-12-26 06:12] LABS: CALCIUM 9.7 MG/DL (8.5-10.1)
[2020-12-26 06:16] LABS: PHOSPHORUS 2.3 MG/DL (2.3-4.7)
[2020-12-26 06:17] LABS: CREATININE SERUM 0.76 MG/DL (0.60-1.30)
[2020-12-26 06:19] LABS: MAGNESIUM 1.7 MG/DL (1.6-2.4)
[2020-12-26] MEDS: POTASSIUM CL 10MEQ/50ML IVPB 50 ML IV SCH (06:24)
[2020-12-26] MEDS: KCL 20 MEQ TAB (K-DUR) PO SCH (06:24)
[2020-12-26 06:25] LABS: EOSINOPHILS % (MANUAL) 32 %; LYMPHOCYTES % (MANUAL) 25 %; MONOCYTES % (MANUAL) 7 %; NEUTROPHILS % (MANUAL) 36 %
[2020-12-26] MEDS ORDERED: MAGNESIUM 1 GM/100 ML IVPB 100 ML IV ONE ×2 (07:00→08:00)
[2020-12-26] MEDS: MAGNESIUM 1 GM/100 ML IVPB 100 ML IV SCH (07:07)
[2020-12-26] MEDS: inSUlin ASPART (NovoLOG) 1 UNIT/0.01 ML (CHARGE PER UNIT) SC SCH ×4 (07:27→22:10)
[2020-12-26] MEDS: RT-ALBUTEROL/IPRATROPIUM 3 ML (DUONEB) VIAL INH SCH ×2 (08:50→20:57)
[2020-12-26] MEDS: GABAPENTIN 100 MG (NEURONTIN) CAP PO SCH ×2 (08:58→22:11)
[2020-12-26] MEDS: APIXABAN 5 MG (ELIQUIS) TABLET PO SCH ×2 (08:58→22:10)
[2020-12-26] MEDS: DOCUSATE SODIUM 100 MG (COLACE) CAP PO SCH ×2 (08:58→22:12)
[2020-12-26] MEDS: DIGOXIN 0.25 MG (LANOXIN) TAB PO SCH (08:59)
[2020-12-26] MEDS: DULoxetine 30 MG (CYMBALTA) CAP PO SCH (08:59)
[2020-12-26] MEDS: morphine ER 30 MG (MS CONTIN) TAB PO SCH (08:59)
[2020-12-26] MEDS: NICOTINE 14 MG (NICODERM) PATCH TD SCH ×2 (08:59→09:04)
[2020-12-26] MEDS: SENNA W/DOCUSATE (SENOKOT S) TABLET PO SCH ×2 (08:59→22:11)
[2020-12-26] MEDS: NICOTINE PATCH REMOVAL TP SCH (09:00)
[2020-12-26] MEDS: MICONAZOLE 2% POWDER (DESENEX AF) 90 GM TOP SCH ×2 (09:01→22:13)
[2020-12-26] MEDS ORDERED: morphine ER 15 MG (MS CONTIN) TAB PO NR (10:30)
--- NOTE | 2020-12-26 10:35 | Progress Note - Hospitalist ---
Subjective HPI/CC On Admission Date Seen by Provider: Dec 26, 2020 Time Seen by Provider: 10:33 Noreen Huang is a 65 year old female with PMH HTN, T2DM, hypothyroidism, chronic pain, atrial fibrillation, super-super obesity, who presented from her snf with lethargy. She is unable to provide any history. Upon my examination, she is wearing BiPAP. She is more alert and responsive. She is crying and sensitive to touch diffusely. She takes multiple medications for chronic pain. She also takes several medications nightly which cause sedation. She is not set up with BiPAP at home. Subjective/Events-last exam Patient much more alert today mood seems improved as well. She said she is happy to see me. She complains of persistent back pain. She states that the oral morphine is not helping at all and would like it discontinued and only do IV. We discussed how this is not feasible with a plan to discharge. I informed her I will increase the dose of morphine orally. Objective Exam Vital Signs Vital Signs Date Time Temp Pulse Resp B/P (MAP) Pulse Ox O2 Delivery O2 Flow Rate FiO2 12/26/20 08:51 97 Nasal Cannula 2.00 12/26/20 08:27 36.0 107 18 101/70 (80) 12/24/20 04:00 0 Capillary Refill : Less Than 3 Seconds General Appearance: No Apparent Distress, Chronically ill Respiratory: Decreased Breath Sounds, Other (on 2lpm NC) Cardiovascular: Regular Rate, Rhythm, No Murmur Gastrointestinal: Normal Bowel Sounds, Soft Neurologic/Psychiatric: Alert, Oriented x3 Results/Procedures Lab Laboratory Tests 12/26/20 05:55 Patient resulted labs reviewed. Imaging: Reviewed Imaging Report Assessment/Plan Assessment and Plan Assess & Plan/Chief Complaint Acute on chronic respiratory failure with hypoxia and hypercapnia Obesity hypoventilation syndrome Obstructive sleep apnea Super-super obesity UTI ABG with acute hypercapnia on presentation, likely iatrogenic from sedative meds- has has no issues since decreasing doses of her meds Off BiPAP still and on 2lpm, doing well CXR with possible left lower lobe infiltrate vs atelectasis Procalcitonin normal COVID and Flu negative Urine with GNR x2 >100CFU each, continue Merrem for resistance on UA Will need NH placement possibly new facility, social services technician consulted AFib with RVR Rate improved On oral cardizem now Cardiology consulted, discussed with Dr Muñoz, appreciate assistance Continue Eliquis Chronic pain Hypothyroidism Hypertension Continue home meds as able Decreased doses of some sedating meds and she is much more alert, discussed need to tweak this to her mental status and especially upon discharge Increase Morphine ER to help with pain relief, will add IR morphine as well to hopefully get away from IV medication and get steady regimen for NH DVT prophylaxis: already receiving therapeutic anticoagulation Critical Care Critically Ill Patient ESTEBAN JARQUIN MD Dec 26, 2020 10:35
--- NOTE | 2020-12-26 11:12 | Cardiology Progress Note ---
Subjective Date Seen by Provider: Dec 26, 2020 Time Seen by Provider: 11:08 Subjective/Events-last exam Patient was seen at bedside, laying down comfortably, denied any chest pain, feeling better. Complaining of right shoulder pain, and back pain Review of Systems General: No Chills, No Night Sweats; Fatigue, Malaise; No Appetite, No Other HEENT: No Head Aches, No Visual Changes, No Eye Pain, No Ear Pain, No Dysphasia, No Sinus Congestion, No Post Nasal Drip, No Sore Throat, No Other Pulmonary: No Dyspnea, No Cough, No Pleuritic Chest Pain, No Other Cardiovascular: No: Chest Pain, Palpitations, Orthopnea, Paroxysmal Noc. Dyspnea, Edema, Lt Headedness, Other Objective-Cardiology Exam Last Set of Vital Signs Vital Signs 12/24/20 12/26/20 12/26/20 04:00 08:27 08:51 Temp 36.0 Pulse 107 Resp 18 B/P (MAP) 101/70 (80) Pulse Ox 97 O2 Delivery Nasal Cannula O2 Flow Rate 2.00 FiO2 0 I&O Intake and Output 12/26/20 00:00 Intake Total 792 ml Output Total 1340 ml Balance -548 ml Intake Oral 772 ml IV Total 20 ml Output Urine Total 1340 ml # Bowel Movements 1 General: Alert, Oriented X3, Cooperative HEENT: Atraumatic, PERRLA Neck: Supple, No JVD, No Thyromegaly Lungs: Normal Air Movement, Other (Bilateral rhonchi and wheezing) Heart: Normal S1, Normal S2, No Murmurs, Other (Atrial fibrillation, better rate control) Abdomen: Normal Bowel Sounds, Soft, No Tenderness, No Hepatosplenomegaly, No Masses Extremities: No Clubbing, No Cyanosis, Normal Pulses, No Tenderness/Swelling, Other (Pedal edema) Skin: No Rashes, No Breakdown, No Significant Lesion Neuro: Normal Speech Psych/Mental Status: Mental Status NL, Mood NL Results Lab Laboratory Tests 12/26/20 05:55 A/P-Cardiology Admission Diagnosis Afib with RVR Acute on chronic respiratory failure HTN Obesity Assessment/Plan Chronic persistent atrial fibrillation, heart rate is better controlled, continue current medication and continue with oral anticoagulation. [id number] score 3, yearly risk of stroke without oral anticoagulation is 3.2%. Maintained on Eliquis Status post acute respiratory failure, acute exacerbation of COPD, history of chronic respiratory insufficiency, better at this time, managed by primary care team Obesity hypoventilation syndrome, chronic hypercapnia, managed by primary care team Urinary tract infection, receiving antibiotic and managed by primary care team. Hypertension, blood pressure is better controlled. Continue to monitor Diabetes mellitus, managed and monitored by primary care team Hypothyroidism, maintained on Synthroid Morbid obesity Chronic pain CATRINA SRIVASTAVA MD Dec 26, 2020 11:12
[2020-12-26] MEDS: morphine IMMEDIATE RELEASE 15 MG TABLET PO PRN (17:56)
[2020-12-26] MEDS: morphine ER 15 MG (MS CONTIN) TAB PO SCH (22:11)
[2020-12-26] MEDS: toPIRamate 25 MG (TOPAMAX) TAB PO SCH (22:11)
[2020-12-26] MEDS: traZODone 50 MG (DESYREL) TAB PO SCH (22:12)
[2020-12-26] MEDS: QUEtiapine 25 MG (SEROquel) TAB IMMEDIATE RELEASE PO SCH (22:12)
[2020-12-26] MEDS: rOPINIRole 0.25 MG (REQUIP) TAB PO SCH (22:12)
[2020-12-27] MEDS: morphine INJ 4 MG/ML 1 ML (VIAL/SYRINGE) IVP PRN ×2 (04:52→07:03)
[2020-12-27 06:20] LABS: BASOPHILS # (AUTO) 0.1 10^3/uL (0.0-0.1); BASOPHILS % (AUTO) 1 % (0-10); EOSINOPHILS # (AUTO) 1.7 10^3/uL (0.0-0.3); EOSINOPHILS % (AUTO) 25 % (0-10); HEMATOCRIT 42 % (35-52); HEMOGLOBIN 12.7 g/dL (11.5-16.0); LYMPHOCYTES # (AUTO) 2.2 10^3/uL (1.0-4.0); LYMPHOCYTES % (AUTO) 33 % (12-44); MEAN CORPUSCULAR HEMOGLOBIN 27 pg (25-34); MEAN CORPUSCULAR HGB CONC 30 g/dL (32-36); MEAN CORPUSCULAR VOLUME 91 fL (80-99); MEAN PLATELET VOLUME 10.2 fL (9.0-12.2); MONOCYTES # (AUTO) 0.5 10^3/uL (0.0-1.0); MONOCYTES % (AUTO) 8 % (0-12); NEUTROPHILS # (AUTO) 2.2 10^3/uL (1.8-7.8); NEUTROPHILS % (AUTO) 33 % (42-75); PLATELET COUNT 177 10^3/uL (130-400); WHITE BLOOD COUNT 6.7 10^3/uL (4.3-11.0)
[2020-12-27 06:37] LABS: CALCIUM 9.6 MG/DL (8.5-10.1)
[2020-12-27 06:42] LABS: CREATININE SERUM 0.75 MG/DL (0.60-1.30); PHOSPHORUS 3.5 MG/DL (2.3-4.7)
[2020-12-27 06:44] LABS: MAGNESIUM 1.9 MG/DL (1.6-2.4)
[2020-12-27] MEDS: inSUlin ASPART (NovoLOG) 1 UNIT/0.01 ML (CHARGE PER UNIT) SC SCH ×4 (06:50→22:05)
[2020-12-27] MEDS: POTASSIUM CL 10MEQ/50ML IVPB 50 ML IV SCH (06:51)
[2020-12-27] MEDS: MAGNESIUM 1 GM/100 ML IVPB 100 ML IV SCH (06:51)
[2020-12-27] MEDS: KCL 20 MEQ TAB (K-DUR) PO SCH (06:51)
[2020-12-27] MEDS: PANTOPRAZOLE 40 MG (PROTONIX) TAB PO SCH (07:03)
[2020-12-27] MEDS: MEROPENEM 1,000 MG/SWFI 20 ML IV PUSH IV SCH ×6 (07:03→20:53)
[2020-12-27] MEDS: CATHETER FLUSH 10 ML SYR IV SCH ×3 (07:04→20:53)
[2020-12-27] MEDS: RT-ALBUTEROL/IPRATROPIUM 3 ML (DUONEB) VIAL INH SCH ×2 (07:11→21:54)
[2020-12-27] MEDS: LEVOTHYROXINE 75 MCG (LEVOTHROID) TABLET PO SCH (07:36)
[2020-12-27 08:38] VITALS: BP 90/63
--- NOTE | 2020-12-27 10:13 | Progress Note - Hospitalist ---
Subjective HPI/CC On Admission Date Seen by Provider: Dec 27, 2020 Time Seen by Provider: 10:10 Noreen Huang is a 65 year old female with PMH HTN, T2DM, hypothyroidism, chronic pain, atrial fibrillation, super-super obesity, who presented from her intermediate with lethargy. She is unable to provide any history. Upon my examination, she is wearing BiPAP. She is more alert and responsive. She is crying and sensitive to touch diffusely. She takes multiple medications for chronic pain. She also takes several medications nightly which cause sedation. She is not set up with BiPAP at home. Subjective/Events-last exam Patient sleeping when I entered the room. I had to wake by shaking her arm. She immediately reports she is in pain. She request something for her head. I grabbed a pillow to place under her head. She declined the pillow and instead asked for something that would fit nicely under her head. I informed her I would let her nurse know of this request. She had no medical complaints or concerns ot her than her pain which objectively appears controlled. Objective Exam Vital Signs Vital Signs Date Time Temp Pulse Resp B/P (MAP) Pulse Ox O2 Delivery O2 Flow Rate FiO2 12/27/20 08:38 35.7 65 20 90/63 (72) 92 High Flow N/C 2.00 12/24/20 04:00 0 Capillary Refill : Less Than 3 Seconds General Appearance: No Apparent Distress, Chronically ill, Obese Respiratory: No Accessory Muscle Use, Decreased Breath Sounds, Other (on 2lpm) Cardiovascular: Regular Rate, Rhythm, No Murmur Neurologic/Psychiatric: Alert Results/Procedures Lab Laboratory Tests 12/27/20 05:45 Patient resulted labs reviewed. Imaging: Reviewed Imaging Report Assessment/Plan Assessment and Plan Assess & Plan/Chief Complaint Acute on chronic respiratory failure with hypoxia and hypercapnia Obesity hypoventilation syndrome Obstructive sleep apnea Super-super obesity UTI ABG with acute hypercapnia on presentation, likely iatrogenic from sedative meds- has has no issues since decreasing doses of her meds Off BiPAP still and on 2lpm, doing well Procalcitonin normal COVID and Flu negative Urine with GNR x2 >100CFU each, continue Merrem for resistance on UA Will need NH placement possibly new facility, clinical social worker consulted AFib with RVR Rate improved On oral cardizem now Cardiology consulted, discussed with Dr Muñoz, appreciate assistance Continue Eliquis Chronic pain Hypothyroidism Hypertension Continue home meds as able Decreased doses of some sedating meds and she is much more alert, discussed need to tweak this to her mental status and especially upon discharge Objectively is sleeping soundly and does not appear to be in pain. Will not increase pain medication today. DVT prophylaxis: already receiving therapeutic anticoagulation Critical Care Critically Ill Patient ESTEBAN JARQUIN MD Dec 27, 2020 10:13
[2020-12-27] MEDS: DIGOXIN 0.25 MG (LANOXIN) TAB PO SCH (10:18)
[2020-12-27] MEDS: DOCUSATE SODIUM 100 MG (COLACE) CAP PO SCH ×2 (10:18→20:52)
[2020-12-27] MEDS: SENNA W/DOCUSATE (SENOKOT S) TABLET PO SCH ×2 (10:18→20:51)
[2020-12-27] MEDS: GABAPENTIN 100 MG (NEURONTIN) CAP PO SCH ×2 (10:18→20:51)
[2020-12-27] MEDS: DULoxetine 30 MG (CYMBALTA) CAP PO SCH (10:19)
[2020-12-27] MEDS: morphine ER 15 MG (MS CONTIN) TAB PO SCH ×2 (10:19→20:52)
[2020-12-27] MEDS: APIXABAN 5 MG (ELIQUIS) TABLET PO SCH ×2 (10:19→20:50)
[2020-12-27] MEDS: NICOTINE 14 MG (NICODERM) PATCH TD SCH ×2 (10:19→10:28)
[2020-12-27] MEDS: NICOTINE PATCH REMOVAL TP SCH (10:20)
[2020-12-27] MEDS: MICONAZOLE 2% POWDER (DESENEX AF) 90 GM TOP SCH ×2 (10:22→20:52)
[2020-12-27 11:17] VITALS: BP 116/84
--- NOTE | 2020-12-27 11:48 | Cardiology Progress Note ---
Subjective Date Seen by Provider: Dec 27, 2020 Time Seen by Provider: 11:48 Subjective/Events-last exam Patient is laying down in bed, complaining of generalized weakness and loss of energy Review of Systems General: No Chills, No Night Sweats; Fatigue, Malaise; No Appetite, No Other HEENT: No Head Aches, No Visual Changes, No Eye Pain, No Ear Pain, No Dysphasia, No Sinus Congestion, No Post Nasal Drip, No Sore Throat, No Other Pulmonary: No Dyspnea, No Cough, No Pleuritic Chest Pain, No Other Cardiovascular: No: Chest Pain, Palpitations, Orthopnea, Paroxysmal Noc. Dyspnea, Edema, Lt Headedness, Other Objective-Cardiology Exam Last Set of Vital Signs Vital Signs 12/24/20 12/27/20 04:00 11:17 Temp 35.6 Pulse 61 Resp 20 B/P (MAP) 116/84 (95) Pulse Ox 97 O2 Delivery High Flow N/C O2 Flow Rate 2.00 FiO2 0 I&O Intake and Output 12/27/20 00:00 Intake Total 2806 ml Output Total 1125 ml Balance 1681 ml Intake Oral 2586 ml IV Total 220 ml Output Urine Total 1125 ml General: Alert, Oriented X3, Cooperative HEENT: Atraumatic, PERRLA Neck: Supple, No JVD, No Thyromegaly Lungs: Normal Air Movement, Other (Bilateral rhonchi and wheezing) Heart: Normal S1, Normal S2, No Murmurs, Other (Atrial fibrillation, better rate control) Abdomen: Normal Bowel Sounds, Soft, No Tenderness, No Hepatosplenomegaly, No Masses Extremities: No Clubbing, No Cyanosis, Normal Pulses, No Tenderness/Swelling, Other (Pedal edema) Skin: No Rashes, No Breakdown, No Significant Lesion Neuro: Normal Speech Psych/Mental Status: Mental Status NL, Mood NL Results Lab Laboratory Tests 12/27/20 05:45 A/P-Cardiology Admission Diagnosis Afib with RVR Acute on chronic respiratory failure HTN Obesity Assessment/Plan Chronic persistent atrial fibrillation, heart rate is better controlled, continue current medication and continue with oral anticoagulation. [id number] score 3, yearly risk of stroke without oral anticoagulation is 3.2%. Maintained on Eliquis Status post acute respiratory failure, acute exacerbation of COPD, history of chronic respiratory insufficiency, better at this time, managed by primary care team Obesity hypoventilation syndrome, chronic hypercapnia, managed by primary care team Urinary tract infection, receiving antibiotic and managed by primary care team. Hypertension, blood pressure is better controlled. Continue to monitor Diabetes mellitus, managed and monitored by primary care team Hypothyroidism, maintained on Synthroid Morbid obesity Chronic pain CATRINA SRIVASTAVA MD Dec 27, 2020 11:48
[2020-12-27] MEDS: ALPRAZolam 0.5 MG (XANAX) TAB PO PRN (14:25)
[2020-12-27] MEDS: morphine IMMEDIATE RELEASE 15 MG TABLET PO PRN (14:26)
[2020-12-27 16:40] VITALS: BP 100/67
[2020-12-27 20:51] VITALS: BP 118/74
[2020-12-27] MEDS: toPIRamate 25 MG (TOPAMAX) TAB PO SCH (20:51)
[2020-12-27] MEDS: traZODone 50 MG (DESYREL) TAB PO SCH (20:51)
[2020-12-27] MEDS: rOPINIRole 0.25 MG (REQUIP) TAB PO SCH (20:51)
[2020-12-27] MEDS: QUEtiapine 25 MG (SEROquel) TAB IMMEDIATE RELEASE PO SCH (20:52)
[2020-12-28] VITALS (7 sets, daily range): BP systolic 116–137; BP diastolic 64–84
[2020-12-28] MEDS: morphine IMMEDIATE RELEASE 15 MG TABLET PO PRN ×4 (00:16→23:51)
[2020-12-28] MEDS: morphine INJ 4 MG/ML 1 ML (VIAL/SYRINGE) IVP PRN (01:52)
[2020-12-28] MEDS: inSUlin ASPART (NovoLOG) 1 UNIT/0.01 ML (CHARGE PER UNIT) SC SCH ×4 (06:32→20:46)
[2020-12-28 06:45] LABS: POTASSIUM 3.9 MMOL/L (3.6-5.0)
[2020-12-28 06:52] LABS: MAGNESIUM 1.8 MG/DL (1.6-2.4)
[2020-12-28] MEDS: MEROPENEM 1,000 MG/SWFI 20 ML IV PUSH IV SCH ×6 (06:55→21:27)
[2020-12-28] MEDS: LEVOTHYROXINE 75 MCG (LEVOTHROID) TABLET PO SCH (06:55)
[2020-12-28] MEDS: PANTOPRAZOLE 40 MG (PROTONIX) TAB PO SCH (06:55)
[2020-12-28] MEDS: CATHETER FLUSH 10 ML SYR IV SCH ×3 (06:55→21:27)
[2020-12-28] MEDS: POTASSIUM CL 10MEQ/50ML IVPB 50 ML IV SCH (06:56)
[2020-12-28] MEDS: KCL 20 MEQ TAB (K-DUR) PO SCH (06:57)
[2020-12-28] MEDS: MAGNESIUM 1 GM/100 ML IVPB 100 ML IV SCH (06:57)
[2020-12-28] MEDS: RT-ALBUTEROL/IPRATROPIUM 3 ML (DUONEB) VIAL INH SCH ×2 (07:15→20:19)
[2020-12-28] MEDS: GABAPENTIN 100 MG (NEURONTIN) CAP PO SCH ×2 (08:09→19:36)
[2020-12-28] MEDS: DIGOXIN 0.25 MG (LANOXIN) TAB PO SCH (08:09)
[2020-12-28] MEDS: APIXABAN 5 MG (ELIQUIS) TABLET PO SCH ×2 (08:10→19:35)
[2020-12-28] MEDS: DULoxetine 30 MG (CYMBALTA) CAP PO SCH (08:10)
[2020-12-28] MEDS: DOCUSATE SODIUM 100 MG (COLACE) CAP PO SCH ×2 (08:10→19:35)
[2020-12-28] MEDS: morphine ER 15 MG (MS CONTIN) TAB PO SCH ×2 (08:10→19:35)
[2020-12-28] MEDS: MICONAZOLE 2% POWDER (DESENEX AF) 90 GM TOP SCH ×2 (08:11→19:36)
--- NOTE | 2020-12-28 09:33 | Cardiology Progress Note ---
Subjective Date Seen by Provider: Dec 28, 2020 Time Seen by Provider: 09:00 Subjective/Events-last exam Patient is sitting up in bed, c/o neck pain. Denies any chest pain or increased dyspnea. Review of Systems General: No Chills, No Night Sweats; Fatigue, Malaise; No Appetite, No Other HEENT: No Head Aches, No Visual Changes, No Eye Pain, No Ear Pain, No Dysphasia, No Sinus Congestion, No Post Nasal Drip, No Sore Throat, No Other Pulmonary: Dyspnea; No Cough, No Pleuritic Chest Pain, No Other Cardiovascular: Edema; No: Chest Pain, Palpitations, Orthopnea, Paroxysmal Noc. Dyspnea, Lt Headedness, Other Objective-Cardiology Exam Last Set of Vital Signs Vital Signs 12/24/20 12/28/20 04:00 08:00 Temp 35.9 Pulse 76 Resp 16 B/P (MAP) 117/77 (90) Pulse Ox 98 O2 Delivery High Flow N/C O2 Flow Rate 2.00 FiO2 0 I&O Intake and Output 12/28/20 00:00 Intake Total 1580 ml Output Total 1050 ml Balance 530 ml Intake Oral 1580 ml Output Urine Total 1050 ml # Bowel Movements 1 General: Alert, Oriented X3, Cooperative HEENT: Atraumatic, PERRLA Neck: Supple, No JVD, No Thyromegaly Lungs: Normal Air Movement, Other (Bilateral rhonchi and wheezing) Heart: Normal S1, Normal S2, No Murmurs, Other (Atrial fibrillation, better rate control) Abdomen: Normal Bowel Sounds, Soft, No Tenderness, No Hepatosplenomegaly, No Masses Extremities: No Clubbing, No Cyanosis, Normal Pulses, No Tenderness/Swelling, Other (Pedal edema) Skin: No Rashes, No Breakdown, No Significant Lesion Neuro: Normal Speech Psych/Mental Status: Mental Status NL, Mood NL Results Lab Laboratory Tests 12/28/20 06:28 A/P-Cardiology Admission Diagnosis Afib with RVR Acute on chronic respiratory failure HTN Obesity Assessment/Plan Chronic persistent atrial fibrillation, heart rate is better controlled, continue current medication and continue with oral anticoagulation. [id number] score 3, yearly risk of stroke without oral anticoagulation is 3.2%. Maintained on Eliquis Status post acute respiratory failure, acute exacerbation of COPD, history of chronic respiratory insufficiency, better at this time, managed by primary care team Obesity hypoventilation syndrome, chronic hypercapnia, managed by primary care team Urinary tract infection, receiving antibiotic and managed by primary care team. Hypertension, blood pressure is better controlled. Continue to monitor Diabetes mellitus, managed and monitored by primary care team Hypothyroidism, maintained on Synthroid Morbid obesity Chronic pain Patient was seen and evaluated with Yuly, examination performed, management plan was discussed, agree with the current scribed note, I made few changes to the note using Italic font Patient was seen at bedside, laying down comfortably, still complaining of fatigue and loss of energy No chest pain was reported Heart rate is controlled, maintained on oral anticoagulation Okay for discharge from cardiology standpoint Supervisory-Addendum Brief Supervisory Addendum Participated in pt care: history, MDM, physical Personally performed: exam, history, MDM Care discussed with: JUANA Results interpretation: Verified all documentation YULY MORRISON Dec 28, 2020 09:33 CATRINA SRIVASTAVA MD Dec 28, 2020 09:55
[2020-12-28] MEDS: NICOTINE PATCH REMOVAL TP SCH (09:41)
[2020-12-28] MEDS: NICOTINE 14 MG (NICODERM) PATCH TD SCH (09:42)
[2020-12-28] MEDS: SENNA W/DOCUSATE (SENOKOT S) TABLET PO SCH ×2 (09:42→19:35)
--- NOTE | 2020-12-28 13:50 | Occupational Ther Daily Note ---
OT Current Status-Daily Note Subjective Pt lying in bed, woke to name. Pt just opened eyes and stared at clock on wall. When [place]IN asked if she was ready for her lunch she stated "Yes I am hungry" but would not look at [place]. Pt then began to c/o pain and wanted pain meds. Reported to nrsg, nrsg reported that it was not time for pain meds. Pt easily distracted from wanting pain meds. Mental Status/Objective Patient Orientation: Person Attachments: Wong Catheter, IV, Oxygen ADL-Treatment Pt stated that it hurt her hand to use fork to eat. Pt began to eat strawberries with L hand. Pt demonstrated ability to central supply assistant with R hand though stated that she could not move right hand, then proceeded to drop a brush. Built up handle placed on fork and given to pt. Pt able to use for to stab strawberries and bring to mouth. Pt also able to grasp Sprite can and bring to mouth to eat. After session, pt continued to eat lunch. All needs met in room. Therapy Code Descriptions/Definitions Functional [place] Measure: 0=Not Assessed/NA 4=Minimal Assistance 1=Total Assistance 5=Supervision or Setup 2=Maximal Assistance 6=Modified [place] 3=Moderate Assistance 7=Complete IndependenceSCALE: Activities may be completed with or without assistive devices. 8-Kexydkdzfv-abbfocf completes the activity by him/herself with no assistance from a helper. 5-Set-up or Clean-up Assistance-helper sets up or cleans up; patient completes activity. [place] assists only prior to or following the activity. 4-Supervision or Touching Assistance-helper provides verbal cues and/or touching/steadying and/or contact guard assistance as patient completes activity. Assistance may be provided throughout the activity or intermittently. 3-Partial/Moderate Assistance-helper does LESS THAN HALF the effort. [place] lifts, holds or supports trunk or limbs, but provides less than half the effort. 2-Substantial/Maximal Assistance-helper does MORE THAN HALF the effort. [place] lifts or holds trunk or limbs and provides more than half the effort. 7-Ijosxtuav-wozhjs does ALL the effort. Patient does none of the effort to complete the activity. Or, the assistance of 2 or more helpers is required for the patient to complete the activity. If activity was not attempted, code reason: 7-Patient Refused. 9-Not Applicable-not attempted and the patient did not perform the activity before the current illness, exacerbation or injury. 10-Not Attempted due to Environmental Limitations-(lack of equipment, weather restraints, etc.). 88-Not Attempted due to Medical Conditions or Safety Concerns. Eating (QC): 5 OT [facility] Goals [employer] As[employer]er Goals Time Frame: Jan 06, 2021 Eating (QC): 5 Oral Hygiene (QC): 5 Additional Goals: 1-Demonstrate ADL Tasks, 2-Verbalize Understanding, 3- ImproveStrength/Amado 1=Demonstrate adherence to instructed precautions during ADL tasks. 2=Patient will verbalize/demonstrate understanding of assistive devices/modifications for ADL. 3=Patient will improve strength/tolerance for activity to enable patient to perform ADL's. OT Education/Plan Problem List/Assessment Assessment: Decreased Activ Tolerance, Decreased Safety Aware, Decreased UE Strength, Dependent Transfers, Impaired Self-Care Skills, Restricted Funct UE ROM Pt would benefit from skilled OT services in order to maximize UE strength and ROM in order to improve independence with daily activities and ADLs. Discharge Recommendations Plan/Recommendations: Continue POC Treatment Plan/Plan of Care Patient would benefit from OT for education, treatment and training to promote independence in ADL's, mobility, safety and/or upper extremity function for A DL's. Plan of Care: ADL Retraining, Functional Mobility, UE Funct Exercise/Act Treatment Duration: Jan 06, 2021 Frequency: 5 times per week Estimated Hrs Per Day: .25 hour per day Time/GCodes Start Time: 13:18 Stop Time: 13:28 Total Time Billed (hr/min): 10 Billed Treatment Time 1 visit-ADL 1 (10 min) ROGER BAUMAN Dec 28, 2020 13:50
--- NOTE | 2020-12-28 15:07 | Progress Note - Hospitalist ---
Subjective HPI/CC On Admission Date Seen by Provider: Dec 28, 2020 Time Seen by Provider: 08:50 Noreen Huang is a 65 year old female with PMH HTN, T2DM, hypothyroidism, chronic pain, atrial fibrillation, super-super obesity, who presented from her [facility] with lethargy. She is unable to provide any history. Upon my examination, she is wearing BiPAP. She is more alert and responsive. She is crying and sensitive to touch diffusely. She takes multiple medications for chronic pain. She also takes several medications nightly which cause sedation. She is not set up with BiPAP at home. Subjective/Events-last exam She appeared to be resting comfortably upon my arrival. She has having some pain in her legs and neck today. She has been eating and drinking without issue. She denies any breathing trouble. Objective Exam Vital Signs Vital Signs Date Time Temp Pulse Resp B/P (MAP) Pulse Ox O2 Delivery O2 Flow Rate FiO2 12/28/20 13:53 78 12/28/20 11:51 36.0 16 116/81 (93) 96 High Flow N/C 2.00 12/24/20 04:00 0 Capillary Refill : Less Than 3 Seconds General Appearance: No Apparent Distress, Chronically ill, Obese Respiratory: No Respiratory Distress, Decreased Breath Sounds Cardiovascular: Regular Rate, Rhythm, No Murmur Gastrointestinal: Normal Bowel Sounds, Soft Extremity: No Inflammation; Pedal Edema, Swelling Neurologic/Psychiatric: Alert, Depressed Affect Skin: Normal Color, Warm/Dry Results/Procedures Lab Laboratory Tests 12/28/20 06:28 Patient resulted labs reviewed. Imaging: Reviewed Imaging Report Assessment/Plan Assessment and Plan Assess & Plan/Chief Complaint Acute on chronic respiratory failure with hypoxia and hypercapnia Obesity hypoventilation syndrome Obstructive sleep apnea Super-super obesity UTI ABG with acute hypercapnia on presentation, likely iatrogenic from sedative meds - no issues since decreasing doses of her meds Off BiPAP, still and on 2lpm doing well Procalcitonin normal COVID and Flu negative Urine culture with multiple organisms >100CFU each, continue Merrem for resistance on UA Will need NH placement possibly new facility, social worker aide consulted AFib with RVR Rate improved On oral cardizem now Cardiology consulted, discussed with Dr Muñoz, appreciate assistance Continue Eliquis Chronic pain Hypothyroidism Hypertension Continue home meds as able Decreased doses of some sedating meds and she is much more alert, discussed need to tweak this to her mental status and especially upon discharge Objectively does not appear to be in pain. Will not increase pain medication today. DVT prophylaxis: already receiving therapeutic anticoagulation Diagnosis/Problems Diagnosis/Problems (1) Acute on chronic respiratory failure with hypoxia and hypercapnia Status: Acute (2) Obesity hypoventilation syndrome Status: Acute (3) GIUSEPPE (obstructive sleep apnea) Status: Chronic (4) Super-super obese Status: Chronic (5) Chronic pain Status: Chronic (6) Atrial fibrillation with rapid ventricular response Status: Acute KENNETH CLEMONS MD Dec 28, 2020 15:07
[2020-12-28] MEDS: traZODone 50 MG (DESYREL) TAB PO SCH (19:35)
[2020-12-28] MEDS: ALPRAZolam 0.5 MG (XANAX) TAB PO PRN (19:35)
[2020-12-28] MEDS: QUEtiapine 25 MG (SEROquel) TAB IMMEDIATE RELEASE PO SCH (19:35)
[2020-12-28] MEDS: rOPINIRole 0.25 MG (REQUIP) TAB PO SCH (19:35)
[2020-12-28] MEDS: toPIRamate 25 MG (TOPAMAX) TAB PO SCH (19:36)
[2020-12-29] MEDS: morphine INJ 4 MG/ML 1 ML (VIAL/SYRINGE) IVP PRN (02:28)
[2020-12-29 03:38] VITALS: BP 123/68
[2020-12-29] MEDS: LEVOTHYROXINE 75 MCG (LEVOTHROID) TABLET PO SCH (05:48)
[2020-12-29] MEDS: PANTOPRAZOLE 40 MG (PROTONIX) TAB PO SCH (05:48)
[2020-12-29] MEDS: CATHETER FLUSH 10 ML SYR IV SCH ×3 (05:48→21:17)
[2020-12-29] MEDS: MEROPENEM 1,000 MG/SWFI 20 ML IV PUSH IV SCH ×6 (05:48→21:17)
[2020-12-29] MEDS: inSUlin ASPART (NovoLOG) 1 UNIT/0.01 ML (CHARGE PER UNIT) SC SCH ×4 (05:51→21:17)
[2020-12-29] MEDS: ALPRAZolam 0.5 MG (XANAX) TAB PO PRN ×2 (06:42→23:44)
[2020-12-29] MEDS: POTASSIUM CL 10MEQ/50ML IVPB 50 ML IV SCH (06:55)
[2020-12-29 07:32] LABS: CALCIUM 9.6 MG/DL (8.5-10.1); CREATININE SERUM 0.82 MG/DL (0.60-1.30); MAGNESIUM 1.8 MG/DL (1.6-2.4)
[2020-12-29] MEDS: RT-ALBUTEROL/IPRATROPIUM 3 ML (DUONEB) VIAL INH SCH ×2 (07:36→20:25)
[2020-12-29 07:58] VITALS: BP 117/74
[2020-12-29] MEDS: MAGNESIUM 1 GM/100 ML IVPB 100 ML IV SCH (08:22)
[2020-12-29] MEDS: KCL 20 MEQ TAB (K-DUR) PO SCH (08:22)
--- NOTE | 2020-12-29 09:01 | Cardiology Progress Note ---
Subjective Date Seen by Provider: Dec 29, 2020 Time Seen by Provider: 08:20 Subjective/Events-last exam Patient is sitting up in bed, c/o right arm pain, worse with movement and right arm weakness. Denies any chest pain Review of Systems General: No Chills, No Night Sweats; Fatigue, Malaise; No Appetite, No Other HEENT: No Head Aches, No Visual Changes, No Eye Pain, No Ear Pain, No Dysphasia, No Sinus Congestion, No Post Nasal Drip, No Sore Throat, No Other Pulmonary: Dyspnea; No Cough, No Pleuritic Chest Pain, No Other Cardiovascular: No: Chest Pain, Palpitations, Orthopnea, Paroxysmal Noc. Dyspnea, Edema, Lt Headedness, Other Objective-Cardiology Exam Last Set of Vital Signs Vital Signs 12/24/20 12/29/20 04:00 12:01 Temp 36.1 Pulse 79 Resp 18 B/P (MAP) 122/73 (89) Pulse Ox 96 O2 Delivery High Flow N/C O2 Flow Rate 2.00 FiO2 0 I&O Intake and Output 12/29/20 00:00 Intake Total 1300 ml Output Total 1150 ml Balance 150 ml Intake Oral 1280 ml IV Total 20 ml Output Urine Total 1150 ml # Bowel Movements 1 General: Alert, Oriented X3, Cooperative HEENT: Atraumatic, PERRLA Neck: Supple, No JVD, No Thyromegaly Lungs: Normal Air Movement, Other (Bilateral rhonchi and wheezing) Heart: Normal S1, Normal S2, No Murmurs, Other (Atrial fibrillation, better rate control) Abdomen: Normal Bowel Sounds, Soft, No Tenderness, No Hepatosplenomegaly, No Masses Extremities: No Clubbing, No Cyanosis, Normal Pulses, No Tenderness/Swelling, Other (Pedal edema) Skin: No Rashes, No Breakdown, No Significant Lesion Neuro: Normal Speech Psych/Mental Status: Mental Status NL, Mood NL Results Lab Laboratory Tests 12/29/20 07:06 A/P-Cardiology Admission Diagnosis Afib with RVR Acute on chronic respiratory failure HTN Obesity Assessment/Plan Chronic persistent atrial fibrillation, heart rate is better controlled, continue current medication and continue with oral anticoagulation. [id number] score 3, yearly risk of stroke without oral anticoagulation is 3.2%. Maintained on Eliquis Status post acute respiratory failure, acute exacerbation of COPD, history of chronic respiratory insufficiency, better at this time, managed by primary care team Obesity hypoventilation syndrome, chronic hypercapnia, managed by primary care team Urinary tract infection, receiving antibiotic and managed by primary care team. Hypertension, blood pressure is better controlled. Continue to monitor Diabetes mellitus, managed and monitored by primary care team Hypothyroidism, maintained on Synthroid Morbid obesity Chronic pain, c/o right arm pain and weakness this morning, PT to evaluate Patient was seen and evaluated with Yuly, examination performed, management plan was discussed, agree with the current scribed note, I made few changes to the note using Italic font Patient is laying down in bed, complaining of fatigue, worsening right upper extremity weakness Has significant tremor Blood pressure is controlled Consult physical therapy. YULY MORRISON Dec 29, 2020 09:01 CATRINA SRIVASTAVA MD Dec 29, 2020 12:40
[2020-12-29] MEDS: NICOTINE PATCH REMOVAL TP SCH (09:10)
[2020-12-29] MEDS: DIGOXIN 0.25 MG (LANOXIN) TAB PO SCH (09:11)
[2020-12-29] MEDS: DULoxetine 30 MG (CYMBALTA) CAP PO SCH (09:11)
[2020-12-29] MEDS: morphine ER 15 MG (MS CONTIN) TAB PO SCH ×2 (09:11→21:15)
[2020-12-29] MEDS: DOCUSATE SODIUM 100 MG (COLACE) CAP PO SCH ×2 (09:12→21:14)
[2020-12-29] MEDS: APIXABAN 5 MG (ELIQUIS) TABLET PO SCH ×2 (09:12→21:14)
[2020-12-29] MEDS: SENNA W/DOCUSATE (SENOKOT S) TABLET PO SCH ×2 (09:12→21:15)
[2020-12-29] MEDS: GABAPENTIN 100 MG (NEURONTIN) CAP PO SCH ×2 (09:13→21:18)
[2020-12-29] MEDS: NICOTINE 14 MG (NICODERM) PATCH TD SCH (09:13)
[2020-12-29] MEDS: MICONAZOLE 2% POWDER (DESENEX AF) 90 GM TOP SCH ×2 (09:14→21:15)
--- NOTE | 2020-12-29 10:58 | Progress Note - Hospitalist ---
Subjective HPI/CC On Admission Date Seen by Provider: Dec 29, 2020 Time Seen by Provider: 08:35 Noreen Huang is a 65 year old female with PMH HTN, T2DM, hypothyroidism, chronic pain, atrial fibrillation, super-super obesity, [facility]. She is unable to provide any history. Upon my examination, she is wearing BiPAP. She is more alert and responsive. She is crying and sensitive to touch diffusely. She takes multiple medications for chronic pain. She also takes several medications nightly which cause sedation. She is not set up with BiPAP at home. Subjective/Events-last exam She reports some right arm and shoulder pain. She appears comfortable. She has just ordered breakfast. We discussed that she will need to go to a facility before she moves to [place]. Objective Exam Vital Signs Vital Signs Date Time Temp Pulse Resp B/P (MAP) Pulse Ox O2 Delivery O2 Flow Rate FiO2 12/29/20 07:58 35.9 70 18 117/74 (88) 94 High Flow N/C 2.00 12/24/20 04:00 0 Capillary Refill : Less Than 3 Seconds General Appearance: No Apparent Distress, Chronically ill, Obese Respiratory: No Respiratory Distress, Decreased Breath Sounds Cardiovascular: Regular Rate, Rhythm, No Murmur Gastrointestinal: Normal Bowel Sounds, Non Tender, Soft Extremity: Normal Inspection, Non Tender, Pedal Edema Neurologic/Psychiatric: Alert, Oriented x3 Skin: Normal Color, Warm/Dry Results/Procedures Lab Laboratory Tests 12/29/20 07:06 Patient resulted labs reviewed. Imaging: Reviewed Imaging Report Assessment/Plan Assessment and Plan Assess & Plan/Chief Complaint Acute on chronic respiratory failure with hypoxia and hypercapnia Obesity hypoventilation syndrome Obstructive sleep apnea Super-super obesity UTI ABG with acute hypercapnia on presentation, likely iatrogenic from sedative meds - no issues since decreasing doses of her meds Off BiPAP, still and on 2lpm doing well Procalcitonin normal COVID and Flu negative Urine culture with multiple organisms, continue Merrem for resistance on susceptibilities Will need NH placement possibly new facility, administrator social welfare consulted AFib with RVR Cardiology consulted, Dr Muñoz, appreciate assistance Continue Cardizem and Eliquis Chronic pain Hypothyroidism Hypertension Continue home meds as able Decreased doses of some sedating meds and she is much more alert, discussed need to tweak this to her mental status and especially upon discharge Objectively does not appear to be in pain. Will not increase pain medication today. DVT prophylaxis: already receiving therapeutic anticoagulation Diagnosis/Problems Diagnosis/Problems (1) Acute on chronic respiratory failure with hypoxia and hypercapnia Status: Acute (2) Obesity hypoventilation syndrome Status: Acute (3) GIUSEPPE (obstructive sleep apnea) Status: Chronic (4) Super-super obese Status: Chronic (5) Chronic pain Status: Chronic (6) Atrial fibrillation with rapid ventricular response Status: Acute KENNETH CLEMONS MD Dec 29, 2020 10:58
--- NOTE | 2020-12-29 11:39 | Physical Therapy Progress Note ---
Therapy Progress Note PT ordered again by Dr. Muñoz due to right arm pain. PT attempted to perform ROM bilateral LE and UE with patient yelling and screaming to stop and get out of her room. Patient is dependent PLOF with all gross motor skills and, per RN, has no difficulty with feeding herself independently. No PT indicated. 1 visit VAHID MARTIN PT Dec 29, 2020 11:39
[2020-12-29 12:01] VITALS: BP 122/73
--- NOTE | 2020-12-29 13:48 | Occupational Ther Daily Note ---
OT Current Status-Daily Note Subjective Pt alert, sitting up in bed. Pt agrees to therapy. Pt hollering out for assistance. Mental Status/Objective Patient Orientation: Person Attachments: Wong Catheter, IV ADL-Treatment Pt is set up for meals using regular utensils to eat. Pt then agrees to oral hygiene. Supplies gathered by [place] then pt able to complete all other set up for oral hygiene. Pt has met goals set by OTR/L. Discharge pt at this time. Call light/phone in reach. All needs met in room. Therapy Code Descriptions/Definitions Functional [place] Measure: 0=Not Assessed/NA 4=Minimal Assistance 1=Total Assistance 5=Supervision or Setup 2=Maximal Assistance 6=Modified [place] 3=Moderate Assistance 7=Complete IndependenceSCALE: Activities may be completed with or without assistive devices. 0-Nchhsxxvpv-sulhmps completes the activity by him/herself with no assistance from a helper. 5-Set-up or Clean-up Assistance-helper sets up or cleans up; patient completes activity. [place] assists only prior to or following the activity. 4-Supervision or Touching Assistance-helper provides verbal cues and/or touching/steadying and/or contact guard assistance as patient completes activity. Assistance may be provided throughout the activity or intermittently. 3-Partial/Moderate Assistance-helper does LESS THAN HALF the effort. [place] lifts, holds or supports trunk or limbs, but provides less than half the effort. 2-Substantial/Maximal Assistance-helper does MORE THAN HALF the effort. [place] lifts or holds trunk or limbs and provides more than half the effort. 2-Buhrsalqa-whxieg does ALL the effort. Patient does none of the effort to complete the activity. Or, the assistance of 2 or more helpers is required for the patient to complete the activity. If activity was not attempted, code reason: 7-Patient Refused. 9-Not Applicable-not attempted and the patient did not perform the activity before the current illness, exacerbation or injury. 10-Not Attempted due to Environmental Limitations-(lack of equipment, weather restraints, etc.). 88-Not Attempted due to Medical Conditions or Safety Concerns. Eating (QC): 5 Oral Hygiene (QC): 5 OT [facility] Goals [employer] Ha[employer] Feeder Goals Time Frame: Jan 06, 2021 Eating (QC): 5 (met) Oral Hygiene (QC): 5 (met) Additional Goals: 1-Demonstrate ADL Tasks, 2-Verbalize Understanding, 3- ImproveStrength/Amado 1=Demonstrate adherence to instructed precautions during ADL tasks. 2=Patient will verbalize/demonstrate understanding of assistive devices/modifications for ADL. 3=Patient will improve strength/tolerance for activity to enable patient to perform ADL's. OT Education/Plan Problem List/Assessment Pt would benefit from skilled OT services in order to maximize UE strength and ROM in order to improve independence with daily activities and ADLs. Discharge Recommendations Plan/Recommendations: Discharge/Goals Met Treatment Plan/Plan of Care Patient would benefit from OT for education, treatment and training to promote independence in ADL's, mobility, safety and/or upper extremity function for ADL's. Plan of Care: ADL Retraining, Functional Mobility, UE Funct Exercise/Act Treatment Duration: Jan 06, 2021 Frequency: 5 times per week Estimated Hrs Per Day: .25 hour per day Time/GCodes Start Time: 13:10 Stop Time: 13:30 Total Time Billed (hr/min): 20 Billed Treatment Time 1 visit-ADL 1 (20 min) ROGER BAUMAN Dec 29, 2020 13:48
[2020-12-29 16:32] VITALS: BP 118/80
[2020-12-29 19:26] VITALS: BP 142/89
[2020-12-29] MEDS: QUEtiapine 25 MG (SEROquel) TAB IMMEDIATE RELEASE PO SCH (21:14)
[2020-12-29] MEDS: traZODone 50 MG (DESYREL) TAB PO SCH (21:14)
[2020-12-29] MEDS: rOPINIRole 0.25 MG (REQUIP) TAB PO SCH (21:15)
[2020-12-29] MEDS: toPIRamate 25 MG (TOPAMAX) TAB PO SCH (21:16)
[2020-12-29 23:13] VITALS: BP 144/82
[2020-12-29] MEDS: morphine IMMEDIATE RELEASE 15 MG TABLET PO PRN (23:44)
[2020-12-30] MEDS: inSUlin ASPART (NovoLOG) 1 UNIT/0.01 ML (CHARGE PER UNIT) SC SCH (05:56)
[2020-12-30] MEDS: CATHETER FLUSH 10 ML SYR IV SCH (05:56)
[2020-12-30] MEDS: MEROPENEM 1,000 MG/SWFI 20 ML IV PUSH IV SCH ×2 (05:56)
[2020-12-30] MEDS: LEVOTHYROXINE 75 MCG (LEVOTHROID) TABLET PO SCH (05:57)
[2020-12-30] MEDS: PANTOPRAZOLE 40 MG (PROTONIX) TAB PO SCH (05:57)
[2020-12-30] MEDS: morphine IMMEDIATE RELEASE 15 MG TABLET PO PRN (05:58)
[2020-12-30 07:18] LABS: POTASSIUM 4.3 MMOL/L (3.6-5.0)
[2020-12-30 07:19] LABS: CALCIUM 9.5 MG/DL (8.5-10.1)
[2020-12-30 07:23] LABS: CREATININE SERUM 0.78 MG/DL (0.60-1.30)
[2020-12-30 07:26] LABS: MAGNESIUM 1.7 MG/DL (1.6-2.4)
[2020-12-30] MEDS: RT-ALBUTEROL/IPRATROPIUM 3 ML (DUONEB) VIAL INH SCH (07:29)
[2020-12-30] MEDS ORDERED: DILT240C91 PO (07:35)
[2020-12-30] MEDS ORDERED: GABA-486 PO (07:35)
[2020-12-30] MEDS ORDERED: DULO60CA59 PO (07:35)
[2020-12-30] MEDS ORDERED: FURO40TA4 PO (07:35)
[2020-12-30] MEDS ORDERED: DIGO250T15 PO (07:35)
[2020-12-30] MEDS ORDERED: ALPR0.5T PO (07:35)
[2020-12-30] MEDS ORDERED: MORP15TA PO (07:35)
[2020-12-30 07:51] VITALS: BP 136/82
[2020-12-30] MEDS: POTASSIUM CL 10MEQ/50ML IVPB 50 ML IV SCH (08:57)
[2020-12-30] MEDS: KCL 20 MEQ TAB (K-DUR) PO SCH (08:58)
[2020-12-30] MEDS: MAGNESIUM 1 GM/100 ML IVPB 100 ML IV SCH (08:58)
[2020-12-30] MEDS: NICOTINE PATCH REMOVAL TP SCH (08:58)
[2020-12-30] MEDS: morphine ER 15 MG (MS CONTIN) TAB PO SCH (08:59)
[2020-12-30] MEDS: DOCUSATE SODIUM 100 MG (COLACE) CAP PO SCH (08:59)
[2020-12-30] MEDS: DULoxetine 30 MG (CYMBALTA) CAP PO SCH (08:59)
[2020-12-30] MEDS: APIXABAN 5 MG (ELIQUIS) TABLET PO SCH (09:00)
[2020-12-30] MEDS: GABAPENTIN 100 MG (NEURONTIN) CAP PO SCH (09:00)
[2020-12-30] MEDS: MICONAZOLE 2% POWDER (DESENEX AF) 90 GM TOP SCH (09:00)
[2020-12-30] MEDS: SENNA W/DOCUSATE (SENOKOT S) TABLET PO SCH (09:00)
[2020-12-30] MEDS: DIGOXIN 0.25 MG (LANOXIN) TAB PO SCH (09:00)
[2020-12-30] MEDS: NICOTINE 14 MG (NICODERM) PATCH TD SCH (09:00)
--- NOTE | 2020-12-30 10:10 | Cardiology Progress Note ---
Subjective Date Seen by Provider: Dec 30, 2020 Time Seen by Provider: 08:30 Subjective/Events-last exam Patient sitting up in bed eating breakfast, denies any chest pain Objective-Cardiology Exam Last Set of Vital Signs Vital Signs 12/24/20 12/30/20 04:00 11:43 Temp 35.4 Pulse 75 Resp 18 B/P (MAP) 136/82 Pulse Ox 94 O2 Delivery High Flow N/C O2 Flow Rate 2.00 FiO2 0 I&O Intake and Output 12/30/20 00:00 Intake Total 1440 ml Output Total 1340 ml Balance 100 ml Intake Oral 1440 ml Output Urine Total 1340 ml # Bowel Movements 2 General: Alert, Oriented X3, Cooperative HEENT: Atraumatic, PERRLA Neck: Supple, No JVD, No Thyromegaly Lungs: Normal Air Movement, Other (Bilateral rhonchi) Heart: Normal S1, Normal S2, No Murmurs, Other (Atrial fibrillation, better rate control) Abdomen: Normal Bowel Sounds, Soft, No Tenderness, No Hepatosplenomegaly, No Masses Extremities: No Clubbing, No Cyanosis, Normal Pulses, No Tenderness/Swelling, Other (Pedal edema) Skin: No Rashes, No Breakdown, No Significant Lesion Neuro: Normal Speech Psych/Mental Status: Mental Status NL, Mood NL Results Lab Laboratory Tests 12/30/20 06:33 A/P-Cardiology Admission Diagnosis Afib with RVR Acute on chronic respiratory failure HTN Obesity Assessment/Plan Chronic persistent atrial fibrillation, heart rate is better controlled, continue current medication and continue with oral anticoagulation. [id number] score 3, yearly risk of stroke without oral anticoagulation is 3.2%. Maintained on Eliquis Status post acute respiratory failure, acute exacerbation of COPD, history of chronic respiratory insufficiency, better at this time, managed by primary care team Obesity hypoventilation syndrome, chronic hypercapnia, managed by primary care team Urinary tract infection, receiving antibiotic and managed by primary care team. Hypertension, blood pressure is better controlled. Continue to monitor Diabetes mellitus, managed and monitored by primary care team Hypothyroidism, maintained on Synthroid Morbid obesity Chronic pain OK for discharge from cardiology standpoint. F/u in our office in 4 weeks. Patient was seen and evaluated by Yuly Spencer for discharge from cardiology standpoint, follow-up as an outpatient Continue on oral anticoagulation YULY MORRISON Dec 30, 2020 10:10 CATRINA SRIVASTAVA MD Dec 30, 2020 16:18
--- NOTE | 2020-12-30 11:13 | Discharge Summary ---
Discharge Summary Hospital Course Was the Problem List Reviewed?: Yes Problems/Dx: (1) Acute on chronic respiratory failure with hypoxia and hypercapnia Status: Acute (2) Obesity hypoventilation syndrome Status: Acute (3) GIUSEPPE (obstructive sleep apnea) Status: Chronic (4) Super-super obese Status: Chronic (5) Chronic pain Status: Chronic (6) Atrial fibrillation with rapid ventricular response Status: Acute Hospital Course Date of Admission: Dec 20, 2020 at 14:40 Admission Diagnosis: Acute on chronic respiratory failure with hypoxia and hypercapnia due to accidental medication overdose Family Physician/Provider: Breonna Pascual MD Date of Discharge: 12/30/20 Discharge Diagnosis: Acute on chronic respiratory failure with hypoxia and hypercapnia due to accidental medication overdose Hospital Course: Noreen Huang is a 65-year-old female with past medical history of chronic pain on narcotics, super super obesity, obesity hypoventilation syndrome, obstructive sleep apnea, chronic respiratory failure with hypoxia, who presented with acute on chronic respiratory failure with hypoxia and hypercapnia due to accidental medication overdose. She is on multiple medications which can cause sedation including: long acting morphine, Xanax, tramadol, Seroquel, trazodone, topiramate, gabapentin, duloxetine. Her Xanax was transitioned to as needed. Her tramadol was discontinued and she was started on short acting morphine. Her gabapentin and duloxetine were decreased. Her course was complicated by urinary tract infection for which she received a course of antibiotics. She was discharged back to [facility] in [place]. Labs and Pending Lab Test: Laboratory Tests 12/29/20 12:06: Glucometer 196H 12/29/20 15:45: Glucometer 175H 12/29/20 20:34: Glucometer 203H 12/30/20 05:20: Glucometer 183H 12/30/20 06:33: Sodium Level 139, Potassium Level 4.3, Chloride Level 102, Carbon Dioxide Level 30, Anion Gap 7, Blood Urea Nitrogen 24H, Creatinine 0.78, Estimat Glomerular Filtration Rate 74, BUN/Creatinine Ratio 31, Glucose Level 176H, Calcium Level 9.5, Magnesium Level 1.7 Microbiology 12/20/20 Urine Culture - Final, Complete Mixed Bacterial Fifi Enterobacter cloacae complex Escherichia coli Pseudomonas aeruginosa See Comments 12/20/20 Blood Culture - Final, Complete No growth Home Meds Active Morphine Sulfate IR Tablet (Morphine Sulfate) 15 Mg Tablet 15 Mg PO Q6H PRN 7 Days Gabapentin 100 Mg Capsule 200 Mg PO BID 30 Days Diltiazem 24Hr ER (Diltiazem HCl) 240 Mg Cap.er.24h 240 Mg PO DAILY 30 Days Digox (Digoxin) 250 Mcg Tablet 0.25 Mg PO DAILY 30 Days Furosemide 40 Mg Tablet 40 Mg PO DAILY 30 Days Duloxetine HCl 60 Mg Capsule.dr 60 Mg PO DAILY 30 Days Xanax (Alprazolam) 0.5 Mg Tablet 0.5 Mg PO TID PRN 7 Days Reported Collagenase (Collagenase Clostridium Hist.) 1 Each Powder.ea. 1 Each TOP BID APPLY TO BILATERAL REAR BUTTOCK- MIX POWDER AND BARRIER CREAM INTO A PASTE Morphine Sulfate ER (Morphine Sulfate) 30 Mg Tablet.er 30 Mg PO BID TAKES 15MG +30MG TO EQUAL 45MG TWICE DAILY Seroquel (Quetiapine Fumarate) 25 Mg Tablet 25 Mg PO 1800 Tessalon Perles (Benzonatate) 100 Mg Capsule 200 Mg PO Q6H PRN Biofreeze (Menthol) 118 Ml Gel..ml. 1 Applic TP Q2H PRN APPLY TO RIGHT SHOULDER Nystop (Nystatin) 60 Gm Powder 1 Applic TOP BID PRN Albuterol Sulfate 2.5 Mg/3 Ml Vial.neb 3 Ml NEB Q6H PRN Morphine Sulfate ER (Morphine Sulfate) 15 Mg Tablet.er 15 Mg PO BID TAKES 30MG +15MG TO EQUAL 45MG TWICE DAILY Folic Acid 1 Mg Tablet 1 Mg PO DAILY Humalog Kwikpen (Insulin Lispro) 100 Unit/1 Ml Insuln.pen Unit SQ ACHS SLIDING SCALE: BLOOD SUGAR UNDER 70 CALL PHYSICIAN 1-100= 2 UNITS 101-150=4 UNITS 151-200=6 UNITS 201-250=8 UNITS 251-300=10 UNITS 301-350=12 UNITS 351-400=14 UNITS AND CALL PHYSICIAN FOR FURTHER INSTRUCTIONS Flovent Hfa 110 mcg (Fluticasone Propionate) 1 Ea Aero 2 Puff IH BID Eliquis (Apixaban) 5 Mg Tablet 5 Mg PO BID Milk of Magnesia (Magnesium Hydroxide) 400 Mg/5 Ml Oral.susp 30 Ml PO DAILY Metformin HCl 500 Mg Tablet 500 Mg PO 0800,1700 Levothyroxine Sodium 75 Mcg Tablet 75 Mcg PO DAILY Levemir (Insulin Determir) 1,000 Units/10 Ml Soln 35 Units SQ 0800,2000 Iprat-Albut 0.5-3(2.5) mg/3 ml (Ipratropium/Albuterol Sulfate) 3 Ml Ampul.neb 3 Ml IH Q4H PRN Humalog (Insulin Lispro) 100 Unit/1 Ml Vial 6 Unit SQ ACHS TAKES 6 UNITS BEFORE MEALS AND AT BEDTIME BUT ALSO USES A SLIDING SCALE Colace (Docusate Sodium) 100 Mg Capsule 100 Mg PO BID Bisacodyl 5 Mg Tablet.dr 5 Mg PO DAILY Aleve (Naproxen Sodium) 220 Mg Capsule 220 Mg PO Q8H PRN Vitamin B-1 (Thiamine HCl) 250 Mg Tablet 250 Mg PO DAILY Trazodone HCl 100 Mg Tablet 100 Mg PO HS Topiramate 50 Mg Tablet 50 Mg PO HS Ropinirole HCl 0.25 Mg Tablet 0.25 Mg PO HS Omeprazole 20 Mg Capsule.dr 20 Mg PO DAILY Miralax (Polyethylene Glycol 3350) 17 Gm Powd.pack 17 Gm PO 0800,1700 Assessment/Pt Instructions Take medications as prescribed. Follow-up with your primary care physician. Return with worsening shortness of breath or if you feel like you are getting worse. Discharge Planning: >30 minutes discharge planning Discharge Instructions Discharge Diet: No Restrictions Activity as Tolerated: Yes Discharge Physical Examination Vital Signs Vital Signs Date Time Temp Pulse Resp B/P (MAP) Pulse Ox O2 Delivery O2 Flow Rate FiO2 12/30/20 07:51 35.4 75 18 136/82 (100) 94 Room Air 12/29/20 23:13 2.00 12/24/20 04:00 0 General Appearance: Chronically ill, Obese Respiratory: No Respiratory Distress, Decreased Breath Sounds Cardiovascular: Regular Rate, Rhythm, No Murmur Gastrointestinal: Normal Bowel Sounds, Soft Extremity: No Inflammation; Pedal Edema Skin: Normal Color, Warm/Dry Neurologic/Psychiatric: Alert, Oriented x3 Allergies: Coded Allergies: No Known Drug Allergies (Unverified , 01/04/20) Copy Copies To 1: BREONNA PASCUAL MD Discharge Summary Date of Admission Dec 20, 2020 at 14:40 Date of Discharge Discharge Date: Dec 25, 2020 Discharge Time: 11:12 Admission Diagnosis Acute on chronic respiratory failure with hypoxia and hypercapnia Comfort Measures/ Time spent on discussion (min): 0 Discharge Diagnosis Acute on chronic respiratory failure with hypoxia and hypercapnia Obesity hypoventilation syndrome Obstructive sleep apnea Super-super obesity Chronic pain UTI AFib with RVR (1) Acute on chronic respiratory failure with hypoxia and hypercapnia Status: Acute (2) Obesity hypoventilation syndrome Status: Acute (3) GIUSEPPE (obstructive sleep apnea) Status: Chronic (4) Super-super obese Status: Chronic (5) Chronic pain Status: Chronic (6) Atrial fibrillation with rapid ventricular response Status: Acute KENNETH CLEMONS MD Dec 30, 2020 11:09
[2020-12-30 11:43] VITALS: BP 136/82
== END 2020-12-30 11:45 | DRG 917 ==
LOC: EDUNIT# 08:12 → ER FS 08:13 → ICU 14:40 → 4TH 12-25 14:46
PROVIDERS: ADMIT Internal Medicine; ATTEND Internal Medicine
PROC: 5A09357 Assistance with Respiratory Ventilation, Less than 24 Consecutive Hours, Continuous Positive Airway Pressure (ICD-10-PCS; principal; 2020-12-20)
DX: T40.2X1A Poisoning by other opioids, accidental (unintentional), initial encounter (principal); J96.21 Acute and chronic respiratory failure with hypoxia; J96.22 Acute and chronic respiratory failure with hypercapnia; I48.92 Unspecified atrial flutter; J44.1 Chronic obstructive pulmonary disease with (acute) exacerbation; Z68.43 Body mass index [BMI] 50.0-59.9, adult; N39.0 Urinary tract infection, site not specified; I48.19 Other persistent atrial fibrillation; I42.9 Cardiomyopathy, unspecified; Z66 Do not resuscitate; T40.421A Poisoning by tramadol, accidental (unintentional), initial encounter; T42.4X1A Poisoning by benzodiazepines, accidental (unintentional), initial encounter; T43.591A Poisoning by other antipsychotics and neuroleptics, accidental (unintentional), initial encounter; T43.211A Poisoning by selective serotonin and norepinephrine reuptake inhibitors, accidental (unintentional), initial encounter; T42.6X1A Poisoning by other antiepileptic and sedative-hypnotic drugs, accidental (unintentional), initial encounter; R40.4 Transient alteration of awareness; R53.83 Other fatigue; I10 Essential (primary) hypertension; G89.29 Other chronic pain; K21.9 Gastro-esophageal reflux disease without esophagitis; E11.9 Type 2 diabetes mellitus without complications; F41.9 Anxiety disorder, unspecified; F20.9 Schizophrenia, unspecified; F32.9 Major depressive disorder, single episode, unspecified; E03.9 Hypothyroidism, unspecified; Z79.01 Long term (current) use of anticoagulants; Z87.891 Personal history of nicotine dependence; Z20.822 Contact with and (suspected) exposure to COVID-19; Z79.4 Long term (current) use of insulin
CPT/HCPCS: 36415; 36600; 71045; 80048; 80053; 80162; 81000; 82805; 82947; 83605; 83735; 83880; 84100; 84132; 84145; 84484; 85007; 85025; 85027; 85379; 87040; 87077; 87088; 87184; 87186; 87636; 93005; 93306; 94640; 94660; 94664; 94760; 96361; 96374; 96375; 96376; 99291